=== PATIENT | female | born 1980 | race Two or more races ===

== ENCOUNTER 2020-09-15 13:45 | Outpatient (REF) | payer OTHER, SELFPAY | END 2020-09-15 13:46 | disposition home or self-care (01) | LOC: HO.LAB 13:45 | PROVIDERS: Visit Provider Hospitalist | DX: Z13.89 Encounter for screening for other disorder (principal) ==

== ENCOUNTER 2020-09-18 12:49 | Outpatient (REF) | payer OTHER, SELFPAY ==
[2020-09-18 16:02] LABS: Leukocytes Stool Qualitative NEGATIVE (NEGATIVE)
== END 2020-09-18 12:50 | disposition home or self-care (01) ==
LOC: HO.HMGCLNP 12:49
PROVIDERS: Visit Provider Hospitalist
DX: R19.7 Diarrhea, unspecified (principal)
CPT/HCPCS: 87045; 87046; 87177; 87209; 87329; 89055

== ENCOUNTER 2020-12-05 09:07 | Outpatient (REF) | payer OTHER, SELFPAY ==
--- NOTE | ~2020-12-05 | XR_ITS ---
EXAMINATION: XR SHOULDER, RIGHT CLINICAL INFORMATION: Right shoulder pain. COMPARISON: None TECHNIQUE: AP external rotation, Grashey, scapular Y, and axillary views of the right shoulder. FINDINGS: The bones and soft tissues are normal. No fracture. Glenohumeral and acromioclavicular alignment is anatomic with normal joint space. No abnormal soft tissue calcifications. XR/XR shoulder RT min 2V IMPRESSION: Unremarkable right shoulder.
--- NOTE | ~2020-12-05 | XR_ITS ---
EXAMINATION: XR SHOULDER, LEFT CLINICAL INFORMATION: Left shoulder pain. COMPARISON: None TECHNIQUE: AP external rotation, Grashey, scapular Y, and axillary views of the left shoulder. FINDINGS: The bones and soft tissues are normal. No fracture. Glenohumeral and acromioclavicular alignment is anatomic with normal joint space. No abnormal soft tissue calcifications. XR/XR shoulder LT min 2V IMPRESSION: Unremarkable left shoulder.
[2020-12-05 11:13] LABS: MANUAL DIFF FLAG NO
[2020-12-05 11:21] LABS: Basophils Absolute Auto 0.1 X10*3/uL (0.0-0.2); Basophils Percent Auto 0.9 % (0-2); Eosinophils Absolute Auto 0.2 X10*3/uL (0.0-0.4); Hematocrit 41.5 % (37-47); Hemoglobin 13.8 g/dl (12.0-16.0); Imm Gran Abs Auto 0.04 X10*3/uL (0.00-0.03); Imm Gran Pct Auto 0.5 % (0.0-0.4); Lymphocytes Absolute Auto 1.6 X10*3/uL (1.2-4.9); Lymphocytes Percent Auto 20.5 % (20-40); Mean Corpuscular HGB Conc 33.3 g/dl (31.0-35.0); Mean Corpuscular Hemoglobin 31.2 pg (27.0-33.0); Mean Corpuscular Volume 93.9 fL (80-98); Mean Platelet Volume 10.5 fL (9.4-12.3); Monocytes Absolute Auto 0.4 X10*3/uL (0.1-1.2); Monocytes Percent Auto 5.3 % (2-11); Neutrophils Absolute Auto 5.5 X10*3/uL (2.0-8.3); Neutrophils Percent Auto 69.8 % (45-73); Platelet Count 234 X10*3/uL (160-400); Red Blood Count 4.42 X10*6/uL (4.20-5.50); Red Cell Distribution Width 12.9 % (11.0-16.0); White Blood Count 7.9 X10*3/uL (4.8-10.8)
[2020-12-05 11:47] LABS: Alanine Aminotransferase 22 U/L (0-31); Albumin Level 4.3 g/dL (3.5-5.0); Alkaline Phosphatase 63 U/L (39-117); Anion Gap 14 (12-20); Aspartate Amino Transferase 21 U/L (5-31); Bilirubin Total 0.4 mg/dL (0.0-1.0); Blood Urea Nitrogen 13 mg/dL (9-16); C Reactive Protein 0.34 mg/dL (< or = 0.50); Carbon Dioxide 24 mmol/L (22-29); Chloride 105 mmol/L (96-108); Estimated Glomerular Filt Rate > 60; Glucose Random 87 mg/dL (60-115); Potassium 4.2 mmol/L (3.3-5.1); Rheumatoid Factor < 15.0 IU/mL (<15.0); Sodium 139 mmol/L (135-145); Total Protein 7.1 g/dL (6.5-8.0)
[2020-12-05 12:11] LABS: Erythrocyte Sedimentation Rate 10 MM/HR (0-20)
[2020-12-06 14:11] LABS: Lyme Abs Screen <0.90 index
[2020-12-06 14:57] LABS: Cyclic Citrullinated Peptide <16 UNITS
[2020-12-07 14:27] LABS: Anti Nuclear Antibody Screen NEGATIVE (NEGATIVE)
[2020-12-08 10:41] LABS: Antibody to SS-A Antigen <1.0 NEG AI (<1.0 NEG); Antibody to SS-B Antigen <1.0 NEG AI (<1.0 NEG)
== END 2020-12-05 09:08 | disposition home or self-care (01) ==
LOC: HO.HMGCX 09:07
PROVIDERS: PCP Nurse Practitioner Family; Visit Provider Nurse Practitioner Family
DX: M25.511 Pain in right shoulder (principal); M25.512 Pain in left shoulder; M25.50 Pain in unspecified joint
CPT/HCPCS: 36415; 73030; 80053; 84443; 85025; 85652; 86038; 86039; 86140; 86200; 86235; 86431; 86618

== ENCOUNTER 2021-01-22 12:14 | Outpatient (REF) | payer OTHER, SELFPAY ==
[2021-01-23 22:52] LABS: Immunoglobulin E 7 kU/L (<OR=114)
[2021-01-26 18:47] LABS: Histamine Plasma <1.5 ng/mL (< OR = 1.8)
== END 2021-01-22 12:15 | disposition home or self-care (01) ==
LOC: HO.LAB 12:14
PROVIDERS: PCP Nurse Practitioner Family; Visit Provider Physician Assistant
DX: R19.7 Diarrhea, unspecified (principal); A18.01 Tuberculosis of spine; K21.9 Gastro-esophageal reflux disease without esophagitis
CPT/HCPCS: 36415; 82785; 83088; 83520; 86003; 99212

== ENCOUNTER 2021-02-06 09:10 | Outpatient (REF) | payer OTHER, SELFPAY ==
--- NOTE | ~2021-02-06 | MM_ITS ---
EXAMINATION: MM DIAGNOSTIC DIGITAL BREAST TOMOSYNTHESIS, BILATERAL US DIAGNOSTIC ULTRASOUND BREAST, RIGHT CLINICAL INFORMATION: 41-year-old with recent area of palpable concern junction right upper extremity and upper axilla. No known family history breast cancer. The lifetime risk of breast cancer based on the Tyrer-Cuzick Model is 8%. COMPARISON: Mammography: 01/05/2020, 03/13/2018, 03/03/2018, outside exam 01/11/2011 ([facility]). TECHNIQUE: Digital breast tomosynthesis is performed in both the craniocaudal and mediolateral oblique views along with computer-aided detection (CAD). Synthesized 2D images are generated from the tomosynthesis. Additional exaggerated right CC view is provided. Ultrasound is targeted to the area of clinical concern on the right upper axilla and proximal upper extremity. Grayscale imaging and color Doppler are performed without and with harmonics. Patient is able to point to area of concern at time of imaging. FINDINGS: The breasts are heterogeneously dense, which may obscure small masses (ACR BI-RADS breast composition Category c). There are no significant masses, abnormal calcifications, or other abnormalities. There is no developing density. The skin contours are smooth. No significant changes. Targeted ultrasound right demonstrates no cystic or solid mass, intradermal lesion, or architectural abnormality. No skin thickening or edema tracking in the soft tissue planes. No adenopathy. Results are discussed with the patient at time of visit. If the palpable finding is persistent or enlarging, then further evaluation with surgical consult should be considered. MM/MM tomosynthesis diagnostic BI IMPRESSION: No mammographic evidence of malignancy. Unremarkable targeted right ultrasound. ASSESSMENT: BI-RADS 1: Negative RECOMMENDATION: 1. Patient should be managed based on the clinical impression. If clinically indicated, further evaluation may be considered with surgical consult. Decision to proceed with biopsy should be based on clinical grounds and degree of clinical concern. 2. Otherwise, routine annual screening mammography. This patient's information was entered into a reminder system with a target due date for their next mammogram.
== END 2021-02-06 09:11 | disposition home or self-care (01) ==
LOC: HO.MAMMO 09:10
PROVIDERS: Visit Provider Nurse Practitioner Family
DX: N63.31 Unspecified lump in axillary tail of the right breast (principal)
CPT/HCPCS: 76642; 77062; 77066

== ENCOUNTER 2021-03-13 11:33 | Outpatient (REF) | payer OTHER, SELFPAY ==
[2021-03-13 13:49] LABS: MANUAL DIFF FLAG NO
[2021-03-13 14:17] LABS: Basophils Percent Auto 0.5 % (0-2); Eosinophils Absolute Auto 0.2 X10*3/uL (0.0-0.4); Eosinophils Percent Auto 1.8 % (0-4); Hemoglobin 14.1 g/dl (12.0-16.0); Imm Gran Abs Auto 0.04 X10*3/uL (0.00-0.03); Imm Gran Pct Auto 0.5 % (0.0-0.4); Lymphocytes Absolute Auto 1.8 X10*3/uL (1.2-4.9); Lymphocytes Percent Auto 20.9 % (20-40); Mean Corpuscular HGB Conc 33.6 g/dl (31.0-35.0); Mean Corpuscular Hemoglobin 31.5 pg (27.0-33.0); Mean Platelet Volume 10.1 fL (9.4-12.3); Monocytes Absolute Auto 0.4 X10*3/uL (0.1-1.2); Monocytes Percent Auto 4.9 % (2-11); Neutrophils Absolute Auto 6.3 X10*3/uL (2.0-8.3); Neutrophils Percent Auto 71.4 % (45-73); Platelet Count 265 X10*3/uL (160-400); Red Blood Count 4.47 X10*6/uL (4.20-5.50); Red Cell Distribution Width 12.6 % (11.0-16.0); White Blood Count 8.8 X10*3/uL (4.8-10.8)
[2021-03-13 14:47] LABS: Alanine Aminotransferase 23 U/L (0-31); Albumin Level 4.4 g/dL (3.5-5.0); Alkaline Phosphatase 64 U/L (39-117); Anion Gap 13 (12-20); Aspartate Amino Transferase 19 U/L (5-31); Bilirubin Total 0.7 mg/dL (0.0-1.0); Blood Urea Nitrogen 10 mg/dL (9-16); Calcium 9.4 mg/dL (8.4-10.2); Carbon Dioxide 23 mmol/L (22-29); Chloride 110 mmol/L (96-108); Estimated Glomerular Filt Rate > 60; Glucose Fasting 89 mg/dL (60-99); Potassium 3.7 mmol/L (3.3-5.1); Sodium 142 mmol/L (135-145); Total Protein 7.1 g/dL (6.5-8.0)
[2021-03-13 15:05] LABS: SARS COV2 IgG Negative (Negative)
[2021-03-13 15:09] LABS: TSH reflex Free T4 1.42 uIU/mL (0.32-4.0)
== END 2021-03-13 11:34 | disposition home or self-care (01) ==
LOC: HO.HMGCLDS 11:33
PROVIDERS: PCP Nurse Practitioner Family; Visit Provider Physician Assistant
DX: Z20.822 Contact with and (suspected) exposure to COVID-19 (principal); R19.7 Diarrhea, unspecified
CPT/HCPCS: 36415; 80053; 84443; 85025; 86769

== ENCOUNTER 2021-06-18 11:40 | Outpatient (REF) | payer OTHER, SELFPAY ==
--- NOTE | ~2021-06-18 | XR_ITS ---
EXAMINATION: XR CHEST CLINICAL INFORMATION: Fatigue. COMPARISON: Chest 12/12/2018 TECHNIQUE: 2 views of the chest were obtained. FINDINGS: Both lungs are fairly well-expanded and clear of acute process. The heart size and pulmonary vascularity is normal. No gross bony abnormality seen. XR/XR chest 2V IMPRESSION: Unremarkable chest exam.
[2021-06-18 13:42] LABS: MANUAL DIFF FLAG NO
[2021-06-18 13:52] LABS: Basophils Percent Auto 0.6 % (0-2); Eosinophils Absolute Auto 0.1 X10*3/uL (0.0-0.4); Hematocrit 40.1 % (37-47); Imm Gran Abs Auto 0.02 X10*3/uL (0.00-0.03); Imm Gran Pct Auto 0.3 % (0.0-0.4); Lymphocytes Absolute Auto 1.3 X10*3/uL (1.2-4.9); Lymphocytes Percent Auto 18.6 % (20-40); Mean Corpuscular HGB Conc 32.4 g/dl (31.0-35.0); Mean Corpuscular Hemoglobin 30.7 pg (27.0-33.0); Mean Corpuscular Volume 94.8 fL (80-98); Mean Platelet Volume 10.1 fL (9.4-12.3); Monocytes Absolute Auto 0.4 X10*3/uL (0.1-1.2); Monocytes Percent Auto 5.4 % (2-11); Neutrophils Absolute Auto 5.1 X10*3/uL (2.0-8.3); Neutrophils Percent Auto 73.1 % (45-73); Platelet Count 256 X10*3/uL (160-400); Red Blood Count 4.23 X10*6/uL (4.20-5.50)
[2021-06-18 14:06] LABS: Appearance Urine HAZY; Color Urine YELLOW; Glucose Urine UA NEG (NEG); Leukocyte Esterase Urine NEG (NEG); Nitrite Urine NEG (NEG); Specific Gravity - Urine 1.025 (1.005-1.025); UACC Culture Trigger NO; Urine Blood 3+ (NEG); Urine Ketones NEG (NEG); Urine Protein NEG (NEG-TRACE)
[2021-06-18 14:58] LABS: Alanine Aminotransferase 18 U/L (0-31); Albumin Level 4.2 g/dL (3.5-5.0); Alkaline Phosphatase 60 U/L (39-117); Anion Gap 12 (12-20); Aspartate Amino Transferase 15 U/L (5-31); Bilirubin Total 0.3 mg/dL (0.0-1.0); Blood Urea Nitrogen 10 mg/dL (9-16); Calcium 8.9 mg/dL (8.4-10.2); Carbon Dioxide 25 mmol/L (22-29); Chloride 108 mmol/L (96-108); Estimated Glomerular Filt Rate > 60; Glucose Fasting 89 mg/dL (60-99); Potassium 4.2 mmol/L (3.3-5.1); Sodium 141 mmol/L (135-145); Total Protein 6.9 g/dL (6.5-8.0)
[2021-06-18 15:02] LABS: Bacteria Urine 2+ /LPF; Squamous Epithelial Cell Urine 2+ /LPF; WBC Urine 0 /HPF (0-4)
[2021-06-18 15:13] LABS: SARS COV2 IgG Negative (Negative)
== END 2021-06-18 11:41 | disposition home or self-care (01) ==
LOC: HO.HMGCX 11:40
PROVIDERS: PCP Nurse Practitioner Family; Visit Provider Nurse Practitioner Family
DX: Z20.822 Contact with and (suspected) exposure to COVID-19 (principal); R51.9 Headache, unspecified; R53.83 Other fatigue
CPT/HCPCS: 36415; 71046; 80053; 81001; 81003; 84443; 85025; 86769

== ENCOUNTER 2021-06-27 13:03 | Outpatient (REF) | payer OTHER, SELFPAY ==
--- NOTE | ~2021-06-27 | CT_ITS ---
EXAMINATION: CT HEAD WITHOUT CONTRAST CLINICAL INFORMATION: Headache. COMPARISON: None TECHNIQUE: Contiguous axial imaging was performed from the skull base to vertex without intravenous administration of contrast. This CT examination was performed using dose optimization techniques as appropriate, variously including the following: *Automated exposure control *Adjustment of mA and/or kV according to patient size (this includes techniques or standardized protocols for targeted exams where dose is matched to indication/reason for exam; i.e. extremities or head) *Use of iterative reconstruction technique DLP: 694 mGy-cm FINDINGS: There is no evidence of acute intracranial hemorrhage or territorial infarction. No abnormal mass effect or midline shift is seen. Turner to white matter differentiation is well preserved. No extra-axial fluid collections are identified. The ventricles are normal in size. There is no abnormal attenuation within the brain parenchyma. The osseous structures and soft tissues are normal. The mastoid air cells and visualized portions of the paranasal sinuses are well aerated. CT/CT head/brain wo con IMPRESSION: No acute intracranial process seen.
== END 2021-06-27 13:04 | disposition home or self-care (01) ==
LOC: HO.CT 13:03
PROVIDERS: PCP Nurse Practitioner Family; Visit Provider Nurse Practitioner Family
DX: R51.9 Headache, unspecified (principal)
CPT/HCPCS: 70450

== ENCOUNTER 2021-11-05 09:34 | Outpatient (REF) | payer OTHER, SELFPAY ==
[2021-11-05 11:15] LABS: MANUAL DIFF FLAG NO
[2021-11-05 11:25] LABS: Basophils Absolute Auto 0.1 X10*3/uL (0.0-0.2); Basophils Percent Auto 0.7 % (0-2); Eosinophils Absolute Auto 0.3 X10*3/uL (0.0-0.4); Eosinophils Percent Auto 3.7 % (0-4); Hemoglobin 13.9 g/dl (12.0-16.0); Imm Gran Abs Auto 0.04 X10*3/uL (0.00-0.03); Imm Gran Pct Auto 0.5 % (0.0-0.4); Lymphocytes Absolute Auto 1.9 X10*3/uL (1.2-4.9); Mean Corpuscular HGB Conc 33.1 g/dl (31.0-35.0); Mean Corpuscular Hemoglobin 31.3 pg (27.0-33.0); Mean Corpuscular Volume 94.6 fL (80.0-98.0); Monocytes Absolute Auto 0.4 X10*3/uL (0.1-1.2); Monocytes Percent Auto 5.4 % (2-11); Neutrophils Absolute Auto 4.7 x10*3/uL (2.0-8.3); Neutrophils Percent Auto 63.7 % (45-73); Platelet Count 256 X10*3/uL (160-400); Red Blood Count 4.44 X10*6/uL (4.20-5.50); Red Cell Distribution Width 13.1 % (11.0-16.0); White Blood Count 7.4 X10*3/uL (4.8-10.8)
[2021-11-05 11:44] LABS: Appearance Urine TURBID; Color Urine YELLOW; Glucose Urine UA NEG (NEG); Leukocyte Esterase Urine NEG (NEG); Nitrite Urine NEG (NEG); PH 5.5 (5.0-8.0); Specific Gravity - Urine >= 1.030 (1.005-1.025); UACC Culture Trigger NO; Urine Blood 3+ (NEG); Urine Ketones NEG (NEG); Urine Protein NEG (NEG-TRACE)
[2021-11-05 12:05] LABS: Alanine Aminotransferase 32 U/L (0-31); Albumin Level 4.3 g/dL (3.5-5.0); Alkaline Phosphatase 59 U/L (39-117); Anion Gap 12 (12-20); Aspartate Amino Transferase 24 U/L (5-31); Bilirubin Total 0.4 mg/dL (0.0-1.0); Blood Urea Nitrogen 14 mg/dL (9-16); Calcium 8.9 mg/dL (8.4-10.2); Carbon Dioxide 24 mmol/L (22-29); Chloride 106 mmol/L (96-108); Estimated Glomerular Filt Rate > 60; Glucose Random 99 mg/dL (60-115); Magnesium 2.3 mg/dL (1.6-2.6); Potassium 4.2 mmol/L (3.3-5.1); Sodium 138 mmol/L (135-145); Total Protein 7.3 g/dL (6.5-8.0)
[2021-11-05 12:19] LABS: Amorphous Sediment Urine 4+ /LPF
[2021-11-05 12:20] LABS: RBC Urine 0 /HPF (0); Squamous Epithelial Cell Urine TRACE /LPF; WBC Urine 0 /HPF (0-4)
== END 2021-11-05 09:35 | disposition home or self-care (01) ==
LOC: HO.LAB 09:34
PROVIDERS: Visit Provider Nurse Practitioner Family
DX: I49.8 Other specified cardiac arrhythmias (principal); R51.9 Headache, unspecified; R53.83 Other fatigue
CPT/HCPCS: 36415; 80053; 81001; 83735; 85025

== ENCOUNTER 2021-12-21 16:50 | Outpatient (REF) | payer OTHER, SELFPAY ==
[2021-12-21 17:50] LABS: Anion Gap 12 (12-20); Blood Urea Nitrogen 10 mg/dL (9-16); Calcium 9.3 mg/dL (8.4-10.2); Carbon Dioxide 25 mmol/L (22-29); Chloride 105 mmol/L (96-108); Estimated Glomerular Filt Rate > 60; Glucose Random 84 mg/dL (60-115); Potassium 3.2 mmol/L (3.3-5.1); Sodium 139 mmol/L (135-145)
[2021-12-21 18:48] LABS: Appearance Urine CLEAR; Color Urine YELLOW; Glucose Urine UA NEG (NEG); Leukocyte Esterase Urine NEG (NEG); Nitrite Urine NEG (NEG); Specific Gravity - Urine >= 1.030 (1.005-1.025); Urine Blood NEG (NEG); Urine Ketones 40 MG/DL (NEG); Urine Protein NEG (NEG-TRACE)
[2021-12-21 18:49] LABS: Urine Cytology See Pathology rpt
[2021-12-21 18:54] LABS: RBC Urine 0 /HPF (0); Squamous Epithelial Cell Urine 1+ /LPF; WBC Urine 0 /HPF (0-4)
== END 2021-12-21 16:51 | disposition home or self-care (01) ==
LOC: HO.LAB 16:50
PROVIDERS: Internal Medicine; PCP Nurse Practitioner Family; Visit Provider Nurse Practitioner Family
DX: R31.29 Other microscopic hematuria (principal); E87.6 Hypokalemia
CPT/HCPCS: 36415; 80048; 81001; 87086; 88112

== ENCOUNTER 2021-12-31 13:32 | Outpatient (REF) | payer OTHER, SELFPAY ==
[2021-12-31 13:46] LABS: MANUAL DIFF FLAG NO
[2021-12-31 14:26] LABS: Basophils Absolute Auto 0.1 X10*3/uL (0.0-0.2); Basophils Percent Auto 0.7 % (0-2); Eosinophils Absolute Auto 0.2 X10*3/uL (0.0-0.4); Eosinophils Percent Auto 3.1 % (0-4); Hematocrit 40.2 % (37.0-47.0); Hemoglobin 13.2 g/dl (12.0-16.0); Imm Gran Abs Auto 0.03 X10*3/uL (0.00-0.03); Imm Gran Pct Auto 0.4 % (0.0-0.4); Lymphocytes Absolute Auto 1.5 X10*3/uL (1.2-4.9); Lymphocytes Percent Auto 21.1 % (20-40); Mean Corpuscular HGB Conc 32.8 g/dl (31.0-35.0); Mean Corpuscular Hemoglobin 31.2 pg (27.0-33.0); Mean Platelet Volume 10.1 fL (9.4-12.3); Monocytes Absolute Auto 0.4 X10*3/uL (0.1-1.2); Monocytes Percent Auto 5.3 % (2-11); Neutrophils Absolute Auto 4.9 x10*3/uL (2.0-8.3); Neutrophils Percent Auto 69.4 % (45-73); Platelet Count 228 X10*3/uL (160-400); Red Blood Count 4.23 X10*6/uL (4.20-5.50); Red Cell Distribution Width 13.1 % (11.0-16.0)
[2021-12-31 14:48] LABS: Alanine Aminotransferase 38 U/L (0-31); Alkaline Phosphatase 55 U/L (39-117); Anion Gap 9 (12-20); Aspartate Amino Transferase 26 U/L (5-31); Bilirubin Total 0.5 mg/dL (0.0-1.0); Blood Urea Nitrogen 6 mg/dL (9-16); Carbon Dioxide 25 mmol/L (22-29); Chloride 107 mmol/L (96-108); Cholesterol 172 mg/dL; Estimated Glomerular Filt Rate > 60; Glucose Fasting 91 mg/dL (60-99); HDL Cholesterol 48 mg/dL; LDL Cholesterol Calculated 102 mg/dl; Potassium 4.2 mmol/L (3.3-5.1); Sodium 137 mmol/L (135-145); Total Protein 6.6 g/dL (6.5-8.0); Triglycerides 111 mg/dL
[2021-12-31 15:11] LABS: TSH reflex Free T4 1.34 uIU/mL (0.32-4.0)
[2021-12-31 15:54] LABS: Appearance Urine CLEAR; Color Urine YELLOW; Glucose Urine UA NEG (NEG); Leukocyte Esterase Urine NEG (NEG); Nitrite Urine NEG (NEG); Urine Blood NEG (NEG); Urine Ketones NEG (NEG); Urine Protein NEG (NEG-TRACE)
== END 2021-12-31 13:33 | disposition home or self-care (01) ==
LOC: HO.LAB 13:32
PROVIDERS: PCP Nurse Practitioner Family; Visit Provider Nurse Practitioner Family
DX: R55 Syncope and collapse (principal); I49.8 Other specified cardiac arrhythmias; A18.01 Tuberculosis of spine; R31.29 Other microscopic hematuria
CPT/HCPCS: 36415; 80053; 80061; 81003; 84443; 85025; 87086

== ENCOUNTER 2022-02-05 15:21 | Outpatient (REF) | payer OTHER, SELFPAY ==
--- NOTE | ~2022-02-05 | US_ITS ---
EXAMINATION: US PELVIS TRANSVAGINAL CLINICAL INFORMATION: Enlarged right ovary seen on CT scan from [facility]. COMPARISON: CT scan of 10/20/2019. TECHNIQUE: Transcutaneous and transvaginal pelvic ultrasound. Transvaginal scanning was performed after voiding to better evaluate the endometrium and adnexa. FINDINGS: The uterus measures 9.4 x 4.2 x 4.5 cm. The uterus is anteverted. No suspicious abnormalities region of the cervix. The uterine contour is smooth. The endometrium demonstrates an IUD in normal position. No focal abnormalities within the myometrium. The right ovary measures approximately 4.9 x 2.7 x 2.8 cm. The calculated right ovarian volume is approximately 19.4 mL. Normal vascularity is present. There is a minimally complex cyst present with some septations and no internal blood flow measuring 3.1 x 2.3 x 2.2 cm in size. There are prominent adnexal vessels present. The left ovary measures 2.7 x 1.8 x 2.1 cm. The calculated left ovarian volume is approximately 5.3 mL. No suspicious left adnexal findings. Normal vascular flow. There are prominent adnexal vessels present. No significant free pelvic fluid. US/US pelvic and transvaginal IMPRESSION: Mildly complex right ovarian cyst measuring 3.1 cm in maximum dimension. IUD in position.
[2022-02-05 16:00] LABS: MANUAL DIFF FLAG NO
[2022-02-05 16:22] LABS: Basophils Percent Auto 0.4 % (0-2); Eosinophils Absolute Auto 0.3 X10*3/uL (0.0-0.4); Eosinophils Percent Auto 3.3 % (0-4); Hematocrit 40.9 % (37.0-47.0); Hemoglobin 13.7 g/dl (12.0-16.0); Imm Gran Abs Auto 0.03 X10*3/uL (0.00-0.03); Imm Gran Pct Auto 0.3 % (0.0-0.4); Lymphocytes Absolute Auto 1.7 X10*3/uL (1.2-4.9); Lymphocytes Percent Auto 19.5 % (20-40); Mean Corpuscular HGB Conc 33.5 g/dl (31.0-35.0); Mean Corpuscular Hemoglobin 31.7 pg (27.0-33.0); Mean Corpuscular Volume 94.7 fL (80.0-98.0); Monocytes Absolute Auto 0.6 X10*3/uL (0.1-1.2); Monocytes Percent Auto 6.2 % (2-11); Neutrophils Absolute Auto 6.3 x10*3/uL (2.0-8.3); Neutrophils Percent Auto 70.3 % (45-73); Platelet Count 231 X10*3/uL (160-400); Red Blood Count 4.32 X10*6/uL (4.20-5.50); Red Cell Distribution Width 12.8 % (11.0-16.0); White Blood Count 8.9 X10*3/uL (4.8-10.8)
[2022-02-05 16:40] LABS: Alanine Aminotransferase 19 U/L (0-31); Albumin Level 4.2 g/dL (3.5-5.0); Alkaline Phosphatase 69 U/L (39-117); Anion Gap 10 (12-20); Aspartate Amino Transferase 16 U/L (5-31); Bilirubin Total 0.3 mg/dL (0.0-1.0); Blood Urea Nitrogen 12 mg/dL (9-16); Calcium 9.2 mg/dL (8.4-10.2); Carbon Dioxide 24 mmol/L (22-29); Chloride 108 mmol/L (96-108); Estimated Glomerular Filt Rate > 60; Glucose Random 93 mg/dL (60-115); Potassium 4.2 mmol/L (3.3-5.1); Sodium 138 mmol/L (135-145); Total Protein 7.2 g/dL (6.5-8.0)
[2022-02-05 17:02] LABS: Appearance Urine HAZY; Color Urine YELLOW; Glucose Urine UA NEG (NEG); Leukocyte Esterase Urine NEG (NEG); Nitrite Urine NEG (NEG); Specific Gravity - Urine >= 1.030 (1.005-1.025); Urine Blood NEG (NEG); Urine Ketones NEG (NEG); Urine Protein NEG (NEG-TRACE)
== END 2022-02-05 15:22 | disposition home or self-care (01) ==
LOC: HO.US 15:21
PROVIDERS: PCP Nurse Practitioner Family; Visit Provider Nurse Practitioner Family
DX: R10.2 Pelvic and perineal pain (principal); N83.8 Other noninflammatory disorders of ovary, fallopian tube and broad ligament
CPT/HCPCS: 36415; 76830; 76856; 80053; 81003; 85025

== ENCOUNTER 2022-03-05 14:38 | Outpatient (REF) | payer OTHER, SELFPAY ==
--- NOTE | ~2022-03-05 | MM_ITS ---
EXAMINATION: MM SCREENING DIGITAL BREAST TOMOSYNTHESIS, BILATERAL CLINICAL INFORMATION: Screening. Asymptomatic. The lifetime risk of breast cancer based on the Tyrer-Cuzick Model is 7.8%. COMPARISON: Mammography: February 06, 2021 and studies dating back to January 11, 2011 TECHNIQUE: Digital breast tomosynthesis is performed in both the craniocaudal and mediolateral oblique views along with computer-aided detection (CAD). Synthesized 2D images are generated from the tomosynthesis. FINDINGS: The breasts are extremely dense, which lowers the sensitivity of mammography (ACR BI-RADS breast composition Category d). There are no significant masses, abnormal calcifications, or other abnormalities. MM/MM tomosynthesis screening BI IMPRESSION: There are no significant changes from prior study. ASSESSMENT: BI-RADS 1: Negative RECOMMENDATION: Routine annual mammography screening. This patient's information was entered into a reminder system with a target due date for their next mammogram.
== END 2022-03-05 14:39 | disposition home or self-care (01) ==
LOC: HO.MAMMO 14:38
PROVIDERS: Visit Provider Nurse Practitioner Family
DX: Z12.31 Encounter for screening mammogram for malignant neoplasm of breast (principal)
CPT/HCPCS: 77063; 77067

== ENCOUNTER 2022-04-29 14:27 | Outpatient (REF) | payer OTHER, SELFPAY ==
--- NOTE | ~2022-04-29 | XR_ITS ---
EXAMINATION: XR LUMBOSACRAL SPINE CLINICAL INFORMATION: Low back pain. COMPARISON: None TECHNIQUE: Three views of the lumbosacral spine. FINDINGS: There is abnormal segmentation of lumbar vertebrae with 6 lumbar vertebrae the first L1 vertebra has small ribs and is designated as T12 for numbering purposes. There is maintained lumbar lordosis. The vertebral heights and alignment is normal. The disc heights are maintained normal. No acute fracture or lytic process seen. There is no listhesis. The SI joints are symmetrical and normal. The paravertebral soft tissues are normal. There is an IUD in the pelvis and previous cholecystectomy changes noted. XR/XR lumbar spine 2-3V IMPRESSION: Unremarkable lumbar spine exam.
== END 2022-04-29 14:28 | disposition home or self-care (01) ==
LOC: HO.HMGCX 14:27
PROVIDERS: PCP Nurse Practitioner Family; Visit Provider Nurse Practitioner Family
DX: M54.50 Low back pain, unspecified (principal)
CPT/HCPCS: 72100

== ENCOUNTER 2022-09-16 13:14 | Outpatient (REF) | payer OTHER, SELFPAY ==
[2022-09-16 13:38] LABS: MANUAL DIFF FLAG NO
[2022-09-16 14:20] LABS: Appearance Urine Clear; Color Urine Yellow; Glucose Urine UA Negative (Negative); Leukocyte Esterase Urine Small (1+) (Negative); Nitrite Urine Negative (Negative); PH 5.5 (5.0-9.0); Specific Gravity - Urine 1.025 (1.005-1.025); UMIC TRIGGER UACC YES; Urine Blood Negative (Negative); Urine Ketones Negative (Negative); Urine Protein Negative (Neg-Trace)
[2022-09-16 14:20] LABS: Basophils Absolute Auto 0.1 X10*3/uL (0.0-0.2); Basophils Percent Auto 0.6 % (0-2); Eosinophils Absolute Auto 0.2 X10*3/uL (0.0-0.4); Eosinophils Percent Auto 2.3 % (0-4); Hematocrit 39.6 % (37.0-47.0); Hemoglobin 13.4 g/dl (12.0-16.0); Imm Gran Abs Auto 0.04 X10*3/uL (0.00-0.03); Imm Gran Pct Auto 0.5 % (0.0-0.4); Lymphocytes Absolute Auto 1.6 X10*3/uL (1.2-4.9); Lymphocytes Percent Auto 19.2 % (20-40); Mean Corpuscular HGB Conc 33.8 g/dl (31.0-35.0); Mean Corpuscular Hemoglobin 31.8 pg (27.0-33.0); Mean Corpuscular Volume 93.8 fL (80.0-98.0); Mean Platelet Volume 10.6 fL (9.4-12.3); Monocytes Absolute Auto 0.4 X10*3/uL (0.1-1.2); Monocytes Percent Auto 5.1 % (2-11); Neutrophils Absolute Auto 6.2 x10*3/uL (2.0-8.3); Neutrophils Percent Auto 72.3 % (45-73); Platelet Count 211 X10*3/uL (160-400); Red Blood Count 4.22 X10*6/uL (4.20-5.50); Red Cell Distribution Width 12.9 % (11.0-16.0); White Blood Count 8.6 X10*3/uL (4.8-10.8)
[2022-09-16 14:26] LABS: Bacteria Urine None Seen (None Seen); Hyaline Casts Urine 0-2 /LPF (0-2); RBC Urine 0-2 /HPF (0-2); UACC Culture Trigger YES
[2022-09-16 14:59] LABS: Alanine Aminotransferase 36 U/L (0-31); Albumin Level 4.1 g/dL (3.5-5.0); Alkaline Phosphatase 59 U/L (39-117); Anion Gap 10 (12-20); Aspartate Amino Transferase 18 U/L (5-31); Bilirubin Total 0.3 mg/dL (0.0-1.0); Blood Urea Nitrogen 13 mg/dL (9-16); C Reactive Protein 0.55 mg/dL (< or = 0.50); Calcium 8.9 mg/dL (8.4-10.2); Carbon Dioxide 24 mmol/L (22-29); Chloride 110 mmol/L (96-108); Estimated Glomerular Filt Rate > 60; Ferritin 57 ng/mL (10-250); Glucose Random 92 mg/dL (60-115); Sodium 140 mmol/L (135-145); Total Protein 6.6 g/dL (6.5-8.0)
[2022-09-16 15:09] LABS: Folate 8.2 ng/mL (> or = 4.0); Vitamin B12 359 pg/mL (200-900)
[2022-09-16 15:13] LABS: Erythrocyte Sedimentation Rate 16 MM/HR (0-20)
== END 2022-09-16 13:15 | disposition home or self-care (01) ==
LOC: HO.LAB 13:14
PROVIDERS: PCP Nurse Practitioner Family; Visit Provider Internal Medicine Gastroenterology
DX: A18.01 Tuberculosis of spine (principal); I49.8 Other specified cardiac arrhythmias; M54.50 Low back pain, unspecified; R19.7 Diarrhea, unspecified; K75.81 Nonalcoholic steatohepatitis (NASH)
CPT/HCPCS: 36415; 80053; 81001; 82607; 82728; 82746; 85025; 85652; 86140; 87086

== ENCOUNTER → 2022-10-01 13:47 | Outpatient (BNVA) | payer OTHER, SELFPAY | PROVIDERS: PCP Nurse Practitioner Family; Visit Provider Nurse Practitioner Family | DX: N20.0 Calculus of kidney (principal); R10.9 Unspecified abdominal pain | CPT/HCPCS: 99202 ==

== ENCOUNTER 2022-10-03 13:29 | Outpatient (REF) | payer OTHER, SELFPAY ==
[2022-10-03 13:52] LABS: MANUAL DIFF FLAG NO
[2022-10-03 14:29] LABS: Basophils Absolute Auto 0.1 X10*3/uL (0.0-0.2); Basophils Percent Auto 1.1 % (0-2); Eosinophils Absolute Auto 0.2 X10*3/uL (0.0-0.4); Eosinophils Percent Auto 2.8 % (0-4); Hematocrit 41.5 % (37.0-47.0); Hemoglobin 14.1 g/dl (12.0-16.0); Imm Gran Abs Auto 0.03 X10*3/uL (0.00-0.03); Imm Gran Pct Auto 0.4 % (0.0-0.4); Mean Corpuscular Hemoglobin 31.5 pg (27.0-33.0); Mean Corpuscular Volume 92.8 fL (80.0-98.0); Monocytes Absolute Auto 0.5 X10*3/uL (0.1-1.2); Monocytes Percent Auto 5.8 % (2-11); Neutrophils Absolute Auto 5.3 x10*3/uL (2.0-8.3); Neutrophils Percent Auto 65.9 % (45-73); Platelet Count 265 X10*3/uL (160-400); Red Blood Count 4.47 X10*6/uL (4.20-5.50); Red Cell Distribution Width 12.7 % (11.0-16.0); White Blood Count 8.1 X10*3/uL (4.8-10.8)
[2022-10-03 14:29] LABS: Appearance Urine Cloudy; Color Urine Yellow; Glucose Urine UA Negative (Negative); Leukocyte Esterase Urine Negative (Negative); Nitrite Urine Negative (Negative); Specific Gravity - Urine 1.025 (1.005-1.025); UMIC TRIGGER UACC YES; Urine Blood Trace (Negative); Urine Ketones Negative (Negative); Urine Protein Trace mg/dL (Neg-Trace)
[2022-10-03 14:35] LABS: Bacteria Urine Trace (None Seen); RBC Urine 0-2 /HPF (0-2); Squamous Epithelial Cell Urine >20 /HPF (0-2); UACC Culture Trigger YES
[2022-10-03 15:18] LABS: Alanine Aminotransferase 17 U/L (0-31); Albumin Level 4.5 g/dL (3.5-5.0); Alkaline Phosphatase 64 U/L (39-117); Anion Gap 12 (12-20); Aspartate Amino Transferase 14 U/L (5-31); Bilirubin Total 0.5 mg/dL (0.0-1.0); Blood Urea Nitrogen 8 mg/dL (9-16); Calcium 9.3 mg/dL (8.4-10.2); Carbon Dioxide 25 mmol/L (22-29); Chloride 109 mmol/L (96-108); Cholesterol 186 mg/dL; Estimated Glomerular Filt Rate > 60; Glucose Fasting 80 mg/dL (60-99); HDL Cholesterol 53 mg/dL; Iron 77 mcg/dL (30-160); LDL Cholesterol Calculated 113 mg/dl; Percent Iron Saturation 24 % (15-50); Sodium 142 mmol/L (135-145); Total Iron Binding Capacity 323 mcg/dL (228-428); Total Protein 7.3 g/dL (6.5-8.0); Triglycerides 102 mg/dL; Unsaturated Iron Binding 246 ug/dL
[2022-10-03 15:27] LABS: Ferritin 46 ng/mL (10-250)
[2022-10-03 15:43] LABS: Folate 9.3 ng/mL (> or = 4.0); Vitamin B12 394 pg/mL (200-900)
[2022-10-05 06:04] LABS: Antibody to SS-A Antigen <1.0 NEG AI (<1.0 NEG); Antibody to SS-B Antigen <1.0 NEG AI (<1.0 NEG)
[2022-10-06 01:23] LABS: A. Phagocytphilium DNA,RT-PCR NOT DETECTED (NOT DETECTED); Babesia Microti DNA, RT-PCR NOT DETECTED (NOT DETECTED); Borrelia Miyamotoi,DNA RT-PCR NOT DETECTED (NOT DETECTED); E.Chaffeensis DNA RT-PCR NOT DETECTED (NOT DETECTED); Lyme(Borrelia ssp)DNA RT-PCR NOT DETECTED (NOT DETECTED)
[2022-10-07 08:09] LABS: Anti Nuclear Antibody Screen NEGATIVE (NEGATIVE)
[2022-10-08 15:29] LABS: DNAds, Crithidia Antibody Negative (Negative)
== END 2022-10-03 13:30 | disposition home or self-care (01) ==
LOC: HO.LAB 13:29
PROVIDERS: PCP Nurse Practitioner Family; Visit Provider Nurse Practitioner Family
DX: I49.8 Other specified cardiac arrhythmias (principal); R53.83 Other fatigue
CPT/HCPCS: 36415; 80053; 80061; 81001; 82607; 82728; 82746; 83540; 84443; 85025; 86038; 86039; 86235; 86255; 87086; 87798; 87801

== ENCOUNTER → 2022-10-11 11:32 | Outpatient (BNVA) | payer OTHER, SELFPAY | PROVIDERS: PCP Nurse Practitioner Family; Visit Provider Internal Medicine Gastroenterology | DX: K52.9 Noninfective gastroenteritis and colitis, unspecified (principal) | CPT/HCPCS: 99212 ==

== ENCOUNTER 2022-12-11 09:39 | Outpatient (REF) | payer OTHER, SELFPAY ==
--- NOTE | ~2022-12-11 | US_ITS ---
EXAMINATION: US RETROPERITONEAL LIMITED (RENAL ONLY) CLINICAL INFORMATION: Bilateral flank pain. COMPARISON: CT abdomen and pelvis without contrast 10/20/2019. TECHNIQUE: Real-time imaging of the kidneys. FINDINGS: RIGHT KIDNEY: 10.1 x 4.9 x 5.7 cm (SAG x AP x TRV). The kidney is normal in size, contour, and echogenicity. Renal cortical thickness is normal. No renal calculi or hydronephrosis. There is a simple cyst in the lateral midpole measuring 1.1 cm and an additional cyst with a small associated calcification in the upper pole measuring 0.9 cm. LEFT KIDNEY: 11.0 x 4.9 x 4.3 cm (SAG x AP x TRV). The kidney is normal in size, contour, and echogenicity. Renal cortical thickness is normal. No renal calculi or hydronephrosis. There is a simple cyst in the lateral upper pole measuring 1 cm. US/US retroperitoneal limited IMPRESSION: 1. No hydronephrosis or nephrolithiasis. 2. Cyst in the upper right kidney with an associated calcification, Bosniak 2F. Recommend a follow-up ultrasound in 6-12 months. Other cysts are simple, Bosniak 1 requiring no additional follow-up.
== END 2022-12-11 09:40 | disposition home or self-care (01) ==
LOC: HO.US 09:39
PROVIDERS: PCP Nurse Practitioner Family; Visit Provider Nurse Practitioner Family
DX: R10.9 Unspecified abdominal pain (principal); N20.0 Calculus of kidney
CPT/HCPCS: 76775

== ENCOUNTER 2023-05-06 13:06 | Outpatient (REF) | payer OTHER, SELFPAY ==
[2023-05-06 13:28] LABS: MANUAL DIFF FLAG NO
[2023-05-06 14:08] LABS: Basophils Percent Auto 0.4 % (0-2); Eosinophils Absolute Auto 0.3 X10*3/uL (0.0-0.4); Eosinophils Percent Auto 3.2 % (0-4); Hematocrit 39.4 % (37.0-47.0); Hemoglobin 13.6 g/dl (12.0-16.0); Imm Gran Abs Auto 0.04 X10*3/uL (0.00-0.03); Imm Gran Pct Auto 0.5 % (0.0-0.4); Lymphocytes Absolute Auto 1.7 X10*3/uL (1.2-4.9); Lymphocytes Percent Auto 20.6 % (20-40); Mean Corpuscular HGB Conc 34.5 g/dl (31.0-35.0); Mean Corpuscular Hemoglobin 32.6 pg (27.0-33.0); Mean Corpuscular Volume 94.5 fL (80.0-98.0); Mean Platelet Volume 9.6 fL (9.4-12.3); Monocytes Absolute Auto 0.4 X10*3/uL (0.1-1.2); Monocytes Percent Auto 4.8 % (2-11); Neutrophils Absolute Auto 5.8 x10*3/uL (2.0-8.3); Neutrophils Percent Auto 70.5 % (45-73); Platelet Count 230 X10*3/uL (160-400); Red Blood Count 4.17 X10*6/uL (4.20-5.50); Red Cell Distribution Width 12.6 % (11.0-16.0); White Blood Count 8.2 X10*3/uL (4.8-10.8)
[2023-05-06 14:48] LABS: Erythrocyte Sedimentation Rate 7 MM/HR (0-20)
[2023-05-06 17:00] LABS: Vitamin B12 308 pg/mL (200-900)
[2023-05-06 20:16] LABS: Alanine Aminotransferase 21 U/L (0-31); Alkaline Phosphatase 53 U/L (39-117); Anion Gap 15 (12-20); Aspartate Amino Transferase 18 U/L (5-31); Bilirubin Total 0.4 mg/dL (0.0-1.0); Blood Urea Nitrogen 10 mg/dL (9-16); C Reactive Protein 0.44 mg/dL (< or = 0.50); Calcium 8.7 mg/dL (8.4-10.2); Carbon Dioxide 19 mmol/L (22-29); Chloride 111 mmol/L (96-108); Estimated Glomerular Filt Rate > 60; Glucose Random 104 mg/dL (60-115); Iron 62 mcg/dL (30-160); Potassium 3.7 mmol/L (3.3-5.1); Sodium 141 mmol/L (135-145); Total Protein 6.9 g/dL (6.5-8.0)
[2023-05-06 20:30] LABS: Ferritin 56 ng/mL (10-250); TSH reflex Free T4 1.62 uIU/mL (0.32-4.0)
[2023-05-06 22:08] LABS: Percent Iron Saturation 20 % (15-50); Total Iron Binding Capacity 312 mcg/dL (228-428); Unsaturated Iron Binding 250 ug/dL
[2023-05-08 15:03] LABS: A. Phagocytphilium DNA,RT-PCR NOT DETECTED (NOT DETECTED); Babesia Microti DNA, RT-PCR NOT DETECTED (NOT DETECTED); Borrelia Miyamotoi,DNA RT-PCR NOT DETECTED (NOT DETECTED); E.Chaffeensis DNA RT-PCR NOT DETECTED (NOT DETECTED); Lyme(Borrelia ssp)DNA RT-PCR NOT DETECTED (NOT DETECTED)
[2023-05-08 15:08] LABS: Antibody to SS-A Antigen <1.0 NEG AI (<1.0 NEG); Antibody to SS-B Antigen <1.0 NEG AI (<1.0 NEG)
== END 2023-05-06 13:07 | disposition home or self-care (01) ==
LOC: HO.LAB 13:06
PROVIDERS: PCP Nurse Practitioner Family; Visit Provider Nurse Practitioner Family
DX: R51.9 Headache, unspecified (principal); R53.83 Other fatigue
CPT/HCPCS: 36415; 80053; 82607; 82728; 82746; 83540; 84443; 85025; 85652; 86140; 86235; 87798; 87801

== ENCOUNTER 2023-05-16 10:41 | Outpatient (REF) | payer OTHER, SELFPAY ==
--- NOTE | ~2023-05-16 | CT_ITS ---
EXAMINATION: CT HEAD WITHOUT CONTRAST CLINICAL INFORMATION: Headaches. COMPARISON: Head CT dated 06/27/2021. TECHNIQUE: Contiguous axial imaging was performed from the skullbase to vertex without intravenous administration of contrast. This CT examination was performed using dose optimization techniques as appropriate, variously including the following: *Automated exposure control *Adjustment of mA and/or kV according to patient size (this includes techniques or standardized protocols for targeted exams where dose is matched to indication/reason for exam; i.e. extremities or head) *Use of iterative reconstruction technique DLP: 710 mGy-cm. FINDINGS: There is no evidence of acute intracranial hemorrhage or territorial infarction. No abnormal mass effect or midline shift is seen. Turner to white matter differentiation is well preserved. No extra-axial fluid collections are identified. The ventricles are normal in size. There is no abnormal attenuation within the brain parenchyma. The osseous structures and soft tissues are normal. The mastoid air cells and visualized portions of the paranasal sinuses are well aerated. CT/CT head/brain wo IV con IMPRESSION: No acute intracranial pathology. Normal CT scan of the head.
== END 2023-05-16 10:42 | disposition home or self-care (01) ==
LOC: HO.CT 10:41
PROVIDERS: PCP Nurse Practitioner Family; Visit Provider Nurse Practitioner Family
DX: R51.9 Headache, unspecified (principal)
CPT/HCPCS: 70450

== ENCOUNTER 2023-07-01 10:27 | Outpatient (AMB) | payer OTHER, SELFPAY ==
--- NOTE | 2023-07-01 10:26 | MHC.PC.OV ---
Intake Visit Reasons: follow up Allergies doxycycline [DOXYCYCLINE] Allergy (Severe, Verified 07/01/23 10:28) RASH, GI Upset levofloxacin [From LEVAQUIN] Allergy (Severe, Verified 07/01/23 10:28) RASH metronidazole [From FLAGYL] Allergy (Severe, Verified 07/01/23 10:28) ANAPHYLAXIS morphine [MORPHINE] Allergy (Severe, Verified 07/01/23 10:28) ANAPHYLAXIS, cant breathe, SOB Sulfa (Sulfonamide Antibiotics) [SULFA (SULFONAMIDE ANTIBIOTICS)] Allergy (Severe, Verified 07/01/23 10:28) STOP BREATHING, rash/cant breathe adhesive [ADHESIVE] Allergy (Intermediate, Verified 07/01/23 10:28) RASH clindamycin [CLINDAMYCIN] Allergy (Intermediate, Verified 07/01/23 10:28) RASH Iodinated Contrast Media [IV CONTRAST] Allergy (Intermediate, Verified 07/01/23 10:28) ANAPHALAXIS latex [LATEX] Allergy (Intermediate, Verified 07/01/23 10:28) RASH ciprofloxacin [Cipro] Allergy (Unknown, Verified 07/01/23 10:28) unknown fludrocortisone Allergy (Unknown, Verified 07/01/23 10:28) Unknown hydromorphone [Dilaudid] Allergy (Unknown, Verified 07/01/23 10:28) Unknown ALL CONTRAST DYE Allergy (Unknown, Uncoded 07/01/23 10:28) Unknown Cortisone Allergy (Unknown, Uncoded 07/01/23 10:28) unknown IVP Dye Allergy (Unknown, Uncoded 07/01/23 10:28) Unknown Midodrine HCl Allergy (Unknown, Uncoded 07/01/23 10:28) Unknown Medication List - Last Reconciled 07/01/23 by JONATHAN Webber- cephalexin 500 mg PO QID 10 days ipratropium bromide 17 mcg/actuation (Atrovent HFA) inhalation levalbuterol tartrate 45 mcg/actuation 2 puffs inhalation Q4-6H lidocaine 5% 1 patch topical DAILY 30 days naproxen 500 mg PO BID PRN 30 days [Normal Saline 0.9% 2 L continuous IV infusion 3XW 52 weeks] Tobacco use date assessed: 07/01/23 Dental Screening Dental Screen Date: 07/01/23 Did you have a dental visit in the last 12 months?: Yes Did you have a dental problem in the last 6 months where you did not have access to dental care?: No Was dental information given to patient?: Patient has dentist HPI follow up HPI Details Pt reports a dental infection. She reports that her face is swollen because of this. She is currently bedbound due to tachycardia and is unable to go to the dentist. Will send cephalexin as this has worked for her in the past. Denies fever, chills, and N/V/D. Pt does have possible mass cell disorder. She will be seeing a POTS doctor soon as well. a MD from [place] ? a mast cell disorder (flushing, diaphoresis, diarrhea), pt will be following up with a MD for this in the near future. [facility] Medical History Acid reflux Arachnoid cyst Arthritis Asthma Autoimmune disorder Bulging disc Colitis Crohn disease POTS (postural orthostatic tachycardia syndrome) Huynh disease Recent urinary tract infection Spinal stenosis SVT (supraventricular tachycardia) Surgical History History of kidney surgery History of liver biopsy Hx of cholecystectomy Family History Father High cholesterol HTN (hypertension) Tumors Mental health disorder Mother COPD (chronic obstructive pulmonary disease) Colitis Sister Colitis Substance use disorder Mental health disorder Sister Cervical cancer Social History Household Members: Family and Children Housing: House Alcohol intake: never Patient Tobacco Use Status: Former Tobacco user Years Smoked: quit 20b years ago e-Cigarette/Vaping Use: Never Used Second Hand Smoke Exposure: No service: No Current occupational status: employed 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 Chucho Elmore, Elsa Christensen, Guzman Reyes and colleagues, with an educational jose guadalupe from [employer]. Review of Systems Const Reports as per HPI Physical exam (Primary Care) Tobacco/Smoking Status: Tobacco use Status Tobacco use date assessed 07/01/23 07/01/23 10:31 Patient Tobacco Use Status Former Tobacco user 07/01/23 10:26 e-Cigarette/Vaping Use Never Used 07/01/23 10:26 Thrive Assessment: Date of Thrive Assessment Date Thrive assessed 02/04/22 07/01/23 10:26 Const General: cooperative Orientation/consciousness: patient oriented x3 Neuro General: patient oriented x3 Psych Mental Status: mental status grossly normal Speech and movement: Clear speech present Affect: normal affect Attitude: cooperative Thought process: Normal thought process present Thought content: Normal thought content present Insight: Good insight present (Psych) Judgement: Good judgement present (Psych) Telehealth Telehealth Location of provider rendering services: practice address Location of patient: address on file Patient Identification confirmed using: Name, : Yes Telehealth method: voice only Patient verbally consented to treatment: Yes Patient verbally consented to billing insurance company: Yes Patient informed of any privacy concerns related to visit: Yes Minutes spent on Phone/Video with Pt.: 10 Assessment and Plan Assessment & Plan (1) POTS (postural orthostatic tachycardia syndrome): Code(s): I49.8 - Other specified cardiac arrhythmias (2) Dental infection: Code(s): K04.7 - Periapical abscess without sinus (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 Scribed for LEIGHANN Love by nasreen Edwards scribe, on 07/01/2023 at 11:15 EST Medications: New cephalexin 500 mg PO QID 40 tabs 0RF 10 days Coding Level of Care Code Tele Est Pt Level 3 (15472) Diagnoses POTS (postural orthostatic tachycardia syndrome) I49.8 Dental infection K04.7 Mast cell disorder D47.09
== END 2023-07-01 14:53 | disposition home or self-care (01) ==
LOC: HO.HMGC 10:27
PROVIDERS: PCP Nurse Practitioner Family; Visit Provider Nurse Practitioner Family
DX: I49.8 Other specified cardiac arrhythmias (principal); K04.7 Periapical abscess without sinus; D47.09 Other mast cell neoplasms of uncertain behavior
CPT/HCPCS: 99213

== ENCOUNTER → 2023-09-16 15:28 | Outpatient (BNVA) | payer OTHER, SELFPAY | PROVIDERS: PCP Nurse Practitioner Family; Visit Provider Physician Assistant ==

== ENCOUNTER 2023-10-06 07:07 | Outpatient (AMB) | payer OTHER, SELFPAY ==
--- NOTE | 2023-10-06 07:13 | MHC.PC.OV ---
Intake Visit Reasons: pre dm diet concerns Allergies doxycycline [DOXYCYCLINE] Allergy (Severe, Verified 09/16/23 15:33) RASH, GI Upset levofloxacin [From LEVAQUIN] Allergy (Severe, Verified 09/16/23 15:33) RASH metronidazole [From FLAGYL] Allergy (Severe, Verified 09/16/23 15:33) ANAPHYLAXIS morphine [MORPHINE] Allergy (Severe, Verified 09/16/23 15:33) ANAPHYLAXIS, cant breathe, SOB Sulfa (Sulfonamide Antibiotics) [SULFA (SULFONAMIDE ANTIBIOTICS)] Allergy (Severe, Verified 09/16/23 15:33) STOP BREATHING, rash/cant breathe adhesive [ADHESIVE] Allergy (Intermediate, Verified 09/16/23 15:33) RASH clindamycin [CLINDAMYCIN] Allergy (Intermediate, Verified 09/16/23 15:33) RASH Iodinated Contrast Media [IV CONTRAST] Allergy (Intermediate, Verified 09/16/23 15:33) ANAPHALAXIS latex [LATEX] Allergy (Intermediate, Verified 09/16/23 15:33) RASH ciprofloxacin [Cipro] Allergy (Unknown, Verified 09/16/23 15:33) unknown fludrocortisone Allergy (Unknown, Verified 09/16/23 15:33) Unknown hydromorphone [Dilaudid] Allergy (Unknown, Verified 09/16/23 15:33) Unknown ALL CONTRAST DYE Allergy (Unknown, Uncoded 09/16/23 15:33) Unknown Cortisone Allergy (Unknown, Uncoded 09/16/23 15:33) unknown IVP Dye Allergy (Unknown, Uncoded 09/16/23 15:33) Unknown Midodrine HCl Allergy (Unknown, Uncoded 09/16/23 15:33) Unknown Medication List - Last Reconciled 10/06/23 by BRITTNY WebberP- ipratropium bromide 17 mcg/actuation (Atrovent HFA) inhalation levalbuterol tartrate 45 mcg/actuation 2 puffs inhalation Q4-6H lidocaine 5% 1 patch topical DAILY 30 days naproxen 500 mg PO BID PRN 30 days [Normal Saline 0.9% 2 L continuous IV infusion 3XW 52 weeks] Tobacco use date assessed: 07/01/23 HPI pre dm diet concerns HPI Details covid: diagnosed 4 days ago. 4th time. pt is getting better. pre-diabetes: back on weight watchers. Pt c/o epigastric pain. She reports that this is worse after eating. Will order labs and CT scan ordered. Denies fever, chills, and N/V/D, pt is tolerating food and liquids. [facility] Medical History Acid reflux Arachnoid cyst Arthritis Asthma Autoimmune disorder Bulging disc Colitis Crohn disease POTS (postural orthostatic tachycardia syndrome) Huynh disease Recent urinary tract infection Spinal stenosis SVT (supraventricular tachycardia) Surgical History History of kidney surgery History of liver biopsy Hx of cholecystectomy Family History Father High cholesterol HTN (hypertension) Tumors Mental health disorder Mother COPD (chronic obstructive pulmonary disease) Colitis Sister Colitis Substance use disorder Mental health disorder Sister Cervical cancer Social History Household Members: Family and Children Housing: House Alcohol intake: never Patient Tobacco Use Status: Former Tobacco user Years Smoked: quit 20b years ago e-Cigarette/Vaping Use: Never Used Second Hand Smoke Exposure: No service: No Current occupational status: employed 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 Chucho Elmore, Elsa Christensen, Guzman Reyes and colleagues, with an educational jose guadalupe from [employer]. Review of Systems Const Reports as per HPI Physical exam (Primary Care) Tobacco/Smoking Status: Tobacco use Status Tobacco use date assessed 07/01/23 10/06/23 07:13 Patient Tobacco Use Status Former Tobacco user 10/06/23 07:13 e-Cigarette/Vaping Use Never Used 10/06/23 07:13 Thrive Assessment: Date of Thrive Assessment Date Thrive assessed 02/04/22 10/06/23 07:13 Const General: cooperative Orientation/consciousness: patient oriented x3 Neuro General: patient oriented x3 Psych Appearance: grossly normal Mental Status: mental status grossly normal Speech and movement: Clear speech present Affect: normal affect Attitude: cooperative Thought process: Normal thought process present Thought content: Normal thought content present Insight: Good insight present (Psych) Judgement: Good judgement present (Psych) Telehealth Telehealth Location of provider rendering services: practice address Location of patient: address on file Patient Identification confirmed using: Name, : Yes Telehealth method: video Patient verbally consented to treatment: Yes Patient verbally consented to billing insurance company: Yes Patient informed of any privacy concerns related to visit: Yes Minutes spent on Phone/Video with Pt.: 10 Assessment and Plan Assessment & Plan (1) Epigastric discomfort: Code(s): R10.13 - Epigastric pain Plan: Labs and CT ordered (2) COVID-19 virus infection: Code(s): U07.1 - COVID-19 Plan: treating symptoms with OTC remedies (3) Elevated fasting blood sugar: Code(s): R73.01 - Impaired fasting glucose Plan: watching diet Plan The patient agreed to the use of a medical records auditor for this encounter. Scribed for JONATHAN Love-LUKE by Xiomy Leiva medical records auditor, on 10/06/2023 at 07:10 EST. Orders: Orders Complete Blood Count Auto Diff Today R10.13 - Epigastric pain Comprehensive Met. Panel Today R10.13 - Epigastric pain TSH reflex Free T4 Today R10.13 - Epigastric pain Lipase Today R10.13 - Epigastric pain CT abdomen wo IV con Today R10.13 - Epigastric pain Coding Level of Care Code Tele Est Pt Level 3 (60390) Diagnoses Epigastric discomfort R10.13 COVID-19 virus infection U07.1 Elevated fasting blood sugar R73.01
== END 2023-10-06 08:03 | disposition home or self-care (01) ==
LOC: HO.HMGC 07:07
PROVIDERS: PCP Nurse Practitioner Family; Visit Provider Nurse Practitioner Family
DX: R10.13 Epigastric pain (principal); U07.1 COVID-19; R73.01 Impaired fasting glucose
CPT/HCPCS: 99213

== ENCOUNTER 2023-10-16 14:00 | Outpatient (AMB) | payer OTHER, SELFPAY ==
--- NOTE | 2023-10-16 14:07 | MHC.OFFVISWM ---
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 Allergies doxycycline [DOXYCYCLINE] Allergy (Severe, Verified 09/16/23 15:33) RASH, GI Upset levofloxacin [From LEVAQUIN] Allergy (Severe, Verified 09/16/23 15:33) RASH metronidazole [From FLAGYL] Allergy (Severe, Verified 09/16/23 15:33) ANAPHYLAXIS morphine [MORPHINE] Allergy (Severe, Verified 09/16/23 15:33) ANAPHYLAXIS, cant breathe, SOB Sulfa (Sulfonamide Antibiotics) [SULFA (SULFONAMIDE ANTIBIOTICS)] Allergy (Severe, Verified 09/16/23 15:33) STOP BREATHING, rash/cant breathe adhesive [ADHESIVE] Allergy (Intermediate, Verified 09/16/23 15:33) RASH clindamycin [CLINDAMYCIN] Allergy (Intermediate, Verified 09/16/23 15:33) RASH Iodinated Contrast Media [IV CONTRAST] Allergy (Intermediate, Verified 09/16/23 15:33) ANAPHALAXIS latex [LATEX] Allergy (Intermediate, Verified 09/16/23 15:33) RASH ciprofloxacin [Cipro] Allergy (Unknown, Verified 09/16/23 15:33) unknown fludrocortisone Allergy (Unknown, Verified 09/16/23 15:33) Unknown hydromorphone [Dilaudid] Allergy (Unknown, Verified 09/16/23 15:33) Unknown ALL CONTRAST DYE Allergy (Unknown, Uncoded 09/16/23 15:33) Unknown Cortisone Allergy (Unknown, Uncoded 09/16/23 15:33) unknown IVP Dye Allergy (Unknown, Uncoded 09/16/23 15:33) Unknown Midodrine HCl Allergy (Unknown, Uncoded 09/16/23 15:33) Unknown Medication List - Last Reconciled 10/16/23 by Patricia Milton PA-C ipratropium bromide 17 mcg/actuation (Atrovent HFA) inhalation levalbuterol tartrate 45 mcg/actuation 2 puffs inhalation Q4-6H lidocaine 5% 1 patch topical DAILY 30 days naproxen 500 mg PO BID PRN 30 days [Normal Saline 0.9% 2 L continuous IV infusion 3XW 52 weeks] HPI HPI Comments History of Present Illness Details This is a 43 year old woman who is here to start MWL program. She was in our MWL program back in 2017 - lost 30 lbs. She lost 40 lbs when depressed and didn't eat - gained it back. Her goal is to lose. She reports first being concerned about her weight - all of her life. . She has tried multiple methods of weight loss including WW without permanent results. She lives with twin adult children and fiance. She works 6 days per week 6 d/week from 8am - 4pm, second job M,W,F from 5:30 - 8pm. Diagnosed with Mast cell syndrome - HR reaches 160 while eating. Sees an optical coating technician. Sees burial agent for POTS. BP's at home - 88/70, HR - 100 - 180 during the day. Last used Holter about 2 years ago. No fainting spells in past 2 years. She wakes at: 7am bed at could be 12 am - 2 am. Trouble falling asleep. 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 control method: IUD ERNST:4 ESS:0 GERD:18 QOL:77 PFSH Medical History Acid reflux Arachnoid cyst Arthritis Asthma Autoimmune disorder Bulging disc Colitis Crohn disease POTS (postural orthostatic tachycardia syndrome) Huynh disease Recent urinary tract infection Spinal stenosis SVT (supraventricular tachycardia) Surgical History History of kidney surgery History of liver biopsy Hx of cholecystectomy Family History Father High cholesterol HTN (hypertension) Tumors Mental health disorder Mother COPD (chronic obstructive pulmonary disease) Colitis Sister Colitis Substance use disorder Mental health disorder Sister Cervical cancer Social History Household Members: Family and Children Housing: House Alcohol intake: never Patient Tobacco Use Status: Former Tobacco user Years Smoked: quit 20b years ago e-Cigarette/Vaping Use: Never Used Second Hand Smoke Exposure: No service: No Current occupational status: employed 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 Blood work, h pylori , CXR, ECG, he will start MWL classes and watch at 3 classes before her next appt with Ju. Will have EGD for dysphagia in November. 1. Adequate sleep of 7-8 hours per night discussed - start melatnonin1 mg 1 hour before bed 2. Healthy meal plan wants to use 1 meal and MR per day All meals/MR's need to take 20 minutes to complete 9 am - protein shake with water or UAM, Celebrate REbuild 12 pm - protein shake with water or UAM OR 3 d/wk will have meal 3- 4 pm- bar or yogurt (15 - 20 grams) 6 pm- dinner of 12 forks lean protein, 12 forks vegetable, 1 serving fruit (Allergic to all fish and seafood) 9 pm - protein bar Exercise - Patient will call her cardiology office and ask about maximum HR and let me know. Cardio 4 d week = LS 2mile Pt will purchase body composition analyzer (recommended list given to patient) and weight herself weekly. Next appt with Rosalba in 4 weeks, then 4 weeks later. Text me with any questions and weekly weights. Patient is obese and is not considered stable at this time.?I spent a total of 60 minutes reviewing/updating records and counseling the patient on weight management as detailed above. (2) POTS (postural orthostatic tachycardia syndrome): Code(s): I49.8 - Other specified cardiac arrhythmias (3) Acid reflux: Code(s): K21.9 - Gastro-esophageal reflux disease without esophagitis Plan see above Orders: Orders Vitamin D 25-OH Total Today E66.9 - Obesity, unspecified, I49.8 - Other specified cardiac arrhythmias, K21.9 - Gastro-esophageal reflux disease without esophagitis Lipid Panel Today E66.9 - Obesity, unspecified, I49.8 - Other specified cardiac arrhythmias, K21.9 - Gastro-esophageal reflux disease without esophagitis Vitamin B12 and Folate Today E66.9 - Obesity, unspecified, I49.8 - Other specified cardiac arrhythmias, K21.9 - Gastro-esophageal reflux disease without esophagitis Vitamin B1 Today E66.9 - Obesity, unspecified, I49.8 - Other specified cardiac arrhythmias, K21.9 - Gastro-esophageal reflux disease without esophagitis Vitamin A Today E66.9 - Obesity, unspecified, I49.8 - Other specified cardiac arrhythmias, K21.9 - Gastro-esophageal reflux disease without esophagitis Hemoglobin A1c Today E66.9 - Obesity, unspecified, I49.8 - Other specified cardiac arrhythmias, K21.9 - Gastro-esophageal reflux disease without esophagitis Telehealth Telehealth Location of provider rendering services: practice address Location of patient: address on file Patient Identification confirmed using: Name, : Yes Telehealth method: video Patient verbally consented to treatment: Yes Patient verbally consented to billing insurance company: Yes Patient informed of any privacy concerns related to visit: Yes Coding Level of Care Code Tele [facility] Pt Level 5 (74266) Diagnoses Obesity E66.9 POTS (postural orthostatic tachycardia syndrome) I49.8 Acid reflux K21.9
== END 2023-10-16 15:03 | disposition home or self-care (01) ==
LOC: HO.HBS 14:56
PROVIDERS: PCP Nurse Practitioner Family; Visit Provider Physician Assistant
DX: E66.9 Obesity, unspecified (principal); Z68.35 Body mass index [BMI] 35.0-35.9, adult; I49.8 Other specified cardiac arrhythmias; K21.9 Gastro-esophageal reflux disease without esophagitis
CPT/HCPCS: 99205

== ENCOUNTER → 2023-10-16 14:00 | Outpatient (BNVA) | payer OTHER, SELFPAY | PROVIDERS: PCP Nurse Practitioner Family; Visit Provider Physician Assistant | DX: E66.9 Obesity, unspecified (principal); I49.8 Other specified cardiac arrhythmias; K21.9 Gastro-esophageal reflux disease without esophagitis ==

== ENCOUNTER 2023-11-13 12:20 | Outpatient (REF) | payer OTHER, SELFPAY ==
--- NOTE | ~2023-11-13 | US_ITS ---
EXAMINATION: US RETROPERITONEAL LIMITED (RENAL ONLY) CLINICAL INFORMATION: Cyst of kidney, acquired. COMPARISON: Limited renal ultrasound 12/11/2022. CT abdomen and pelvis 10/20/2019. TECHNIQUE: Real-time imaging of the kidneys. FINDINGS: RIGHT KIDNEY: 10.1 x 4.9 x 5.7 cm (SAG x AP x TRV). The kidney is normal in size, contour, and echogenicity. Renal cortical thickness is normal. No renal calculi or hydronephrosis. At the upper pole, an 8 mm benign, simple cyst is seen. At the lower pole, a 1.0 cm benign, simple cyst is seen. These require no imaging follow-up. LEFT KIDNEY: 11.0 x 4.9 x 4.3 cm (SAG x AP x TRV). The kidney is normal in size, contour, and echogenicity. Renal cortical thickness is normal. No renal calculi or hydronephrosis. At the upper pole, an 8 mm benign, simple cyst is seen, which requires no imaging follow-up. US/US renal BI IMPRESSION: Unremarkable examination. No renal mass, calculus or hydronephrosis is seen. No complex cyst is noted.
[2023-11-13 12:12] LABS: MANUAL DIFF FLAG NO
[2023-11-13 12:23] LABS: Basophils Percent Auto 0.5 % (0-2); Eosinophils Absolute Auto 0.3 X10*3/uL (0.0-0.4); Eosinophils Percent Auto 3.2 % (0-4); Hemoglobin 14.5 g/dl (12.0-16.0); Imm Gran Abs Auto 0.03 X10*3/uL (0.00-0.03); Imm Gran Pct Auto 0.4 % (0.0-0.4); Lymphocytes Absolute Auto 1.4 X10*3/uL (1.2-4.9); Lymphocytes Percent Auto 18.6 % (20-40); Mean Corpuscular HGB Conc 34.5 g/dl (31.0-35.0); Mean Corpuscular Hemoglobin 32.4 pg (27.0-33.0); Mean Platelet Volume 10.3 fL (9.4-12.3); Monocytes Absolute Auto 0.4 X10*3/uL (0.1-1.2); Monocytes Percent Auto 5.2 % (2-11); Neutrophils Absolute Auto 5.6 x10*3/uL (2.0-8.3); Neutrophils Percent Auto 72.1 % (45-73); Platelet Count 234 X10*3/uL (160-400); Red Blood Count 4.47 X10*6/uL (4.20-5.50); White Blood Count 7.8 X10*3/uL (4.8-10.8)
[2023-11-13 12:34] LABS: Estimated Average Glucose 97 mg/dL
[2023-11-13 13:55] LABS: TSH reflex Free T4 1.43 uIU/mL (0.32-4.0)
[2023-11-13 14:00] LABS: Alanine Aminotransferase 21 U/L (0-31); Albumin Level 4.4 g/dL (3.5-5.0); Alkaline Phosphatase 57 U/L (39-117); Anion Gap 12 (12-20); Aspartate Amino Transferase 17 U/L (5-31); Bilirubin Total 0.5 mg/dL (0.0-1.0); Blood Urea Nitrogen 16 mg/dL (9-16); Calcium 9.6 mg/dL (8.4-10.2); Carbon Dioxide 23 mmol/L (22-29); Chloride 108 mmol/L (96-108); Cholesterol 155 mg/dL (<200); Estimated Glomerular Filt Rate > 60; Glucose Random 93 mg/dL (60-115); HDL Cholesterol 44 mg/dL (>40); LDL Cholesterol Calculated 91 mg/dL (<100); Lipase 31 U/L (8-78); Potassium 3.7 mmol/L (3.3-5.1); Sodium 139 mmol/L (135-145); Total Protein 7.3 g/dL (6.5-8.0); Triglycerides 100 mg/dL (<150); Vitamin D 25-OH Total 18.9 ng/mL (>30)
[2023-11-13 14:08] LABS: Folate 6.5 ng/mL (> or = 4.0); Vitamin B12 384 pg/mL (200-900)
[2023-11-18 05:08] LABS: Vitamin A 48 mcg/dL (38-98)
[2023-11-18 15:28] LABS: Vitamin B1 9 nmol/L (8-30)
== END 2023-11-13 12:21 | disposition home or self-care (01) ==
LOC: HO.US 12:20
PROVIDERS: Absent Provider Physician Assistant; PCP Nurse Practitioner Family; Visit Provider Nurse Practitioner Family
DX: E66.9 Obesity, unspecified (principal); I49.8 Other specified cardiac arrhythmias; K21.9 Gastro-esophageal reflux disease without esophagitis; R10.13 Epigastric pain; N28.1 Cyst of kidney, acquired; F32.A Depression, unspecified; Z71.3 Dietary counseling and surveillance
CPT/HCPCS: 36415; 76775; 80053; 80061; 82306; 82607; 82746; 83036; 83690; 84425; 84443; 84590; 85025; 97802

== ENCOUNTER 2023-11-13 15:16 | Outpatient (AMB) | payer OTHER, SELFPAY ==
--- NOTE | 2023-11-13 15:01 | A.OFFVIS_ITS ---
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 Assessments Required: No Allergies doxycycline [DOXYCYCLINE] Allergy (Severe, Verified 09/16/23 15:33) RASH, GI Upset levofloxacin [From LEVAQUIN] Allergy (Severe, Verified 09/16/23 15:33) RASH metronidazole [From FLAGYL] Allergy (Severe, Verified 09/16/23 15:33) ANAPHYLAXIS morphine [MORPHINE] Allergy (Severe, Verified 09/16/23 15:33) ANAPHYLAXIS, cant breathe, SOB Sulfa (Sulfonamide Antibiotics) [SULFA (SULFONAMIDE ANTIBIOTICS)] Allergy (Severe, Verified 09/16/23 15:33) STOP BREATHING, rash/cant breathe adhesive [ADHESIVE] Allergy (Intermediate, Verified 09/16/23 15:33) RASH clindamycin [CLINDAMYCIN] Allergy (Intermediate, Verified 09/16/23 15:33) RASH Iodinated Contrast Media [IV CONTRAST] Allergy (Intermediate, Verified 09/16/23 15:33) ANAPHALAXIS latex [LATEX] Allergy (Intermediate, Verified 09/16/23 15:33) RASH ciprofloxacin [Cipro] Allergy (Unknown, Verified 09/16/23 15:33) unknown fludrocortisone Allergy (Unknown, Verified 09/16/23 15:33) Unknown hydromorphone [Dilaudid] Allergy (Unknown, Verified 09/16/23 15:33) Unknown ALL CONTRAST DYE Allergy (Unknown, Uncoded 09/16/23 15:33) Unknown Cortisone Allergy (Unknown, Uncoded 09/16/23 15:33) unknown IVP Dye Allergy (Unknown, Uncoded 09/16/23 15:33) Unknown Midodrine HCl Allergy (Unknown, Uncoded 09/16/23 15:33) Unknown HPI Nutrition Presentation Details She was in our MWL program back in 2017 - lost 30 lbs. She lost 40 lbs when depressed and didn't eat - gained it back. Her goal is to lose. She reports first being concerned about her weight - all of her life. . She has tried multiple methods of weight loss including WW without permanent results. She lives with twin adult children and fiance. She works 6 days per week 6 d/week from 8am - 4pm, second job M,W,F from 5:30 - 8pm. Diagnosed with Mast cell a few weeks ago. 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 Reason for consult elevated BMI Food allergies/aversions Yes (cashews, neil, all seafood) Diet Assmnt Details Started the celebrate protein shakes, but had a symptom flair up - went to the ED with stomach pain. 9am Premier premade shake 12pm premier premade shake 3pm Pure protein bar dinner chicken and vegetable Exercise: none, walks over 30,000 steps per day Dietary counseling reduction Diagnosis Nutrition problem #1 overweight/obesity As related to (etiology) #1 excess energy intake and physical inactivity As evidenced by (sign/symptom) #1 high BMI Monitoring/Goals Nutrition problem monitoring total energy intake, level of knowledge/skill, total PRO intake, total CHO intake and weight Learning/Education Readiness to learn good Most Recent Diabetes Results: Cholesterol 155 mg/dL (<200) 11/13/23 HDL Cholesterol 44 mg/dL (>40) 11/13/23 Triglycerides 100 mg/dL (<150) 11/13/23 Creatinine 0.68 mg/dL (0.5-1.4) 11/13/23 Blood Urea Nitrogen 16 mg/dL (9-16) 11/13/23 Sodium 139 mmol/L (135-145) 11/13/23 Potassium 3.7 mmol/L (3.3-5.1) 11/13/23 Chloride 108 mmol/L (96-108) 11/13/23 Carbon Dioxide 23 mmol/L (22-29) 11/13/23 Calcium 9.6 mg/dL (8.4-10.2) 11/13/23 AST 17 U/L (5-31) 11/13/23 ALT 21 U/L (0-31) 11/13/23 Total Protein 7.3 g/dL (6.5-8.0) 11/13/23 Albumin 4.4 g/dL (3.5-5.0) 11/13/23 [facility] Medical History Acid reflux Arachnoid cyst Arthritis Asthma Autoimmune disorder Bulging disc Colitis Crohn disease POTS (postural orthostatic tachycardia syndrome) Huynh disease Recent urinary tract infection Spinal stenosis SVT (supraventricular tachycardia) Surgical History History of kidney surgery History of liver biopsy Hx of cholecystectomy Family History Father High cholesterol HTN (hypertension) Tumors Mental health disorder Mother COPD (chronic obstructive pulmonary disease) Colitis Sister Colitis Substance use disorder Mental health disorder Sister Cervical cancer Social History (Reviewed 10/11/22 @ 11:50 by Aleksander Lu [facility]) Household Members: Family and Children Housing: House Alcohol intake: never Patient Tobacco Use Status: Former Tobacco user Years Smoked: quit 20b years ago e-Cigarette/Vaping Use: Never Used Second Hand Smoke Exposure: No service: No Current occupational status: employed 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 recommended shake for breakfast, lunch similar to dinner, snack in the afternoon and dinner. Telehealth Telehealth Location of provider rendering services: practice address Location of patient: address on file Patient Identification confirmed using: Name, : Yes Telehealth method: voice only Patient verbally consented to treatment: Yes Patient verbally consented to billing insurance company: Yes Patient informed of any privacy concerns related to visit: Yes Minutes spent on Phone/Video with Pt.: 30 Coding Level of Care Code Nutr Indiv Intake (97762) Diagnoses Obesity (BMI 30-39.9) E66.9 Time Spent (min) 30
== END 2023-11-13 15:23 | disposition home or self-care (01) ==
LOC: HO.HBS 15:16
PROVIDERS: PCP Nurse Practitioner Family; Visit Provider Dietitian, Registered
DX: E66.9 Obesity, unspecified (principal)

== ENCOUNTER 2023-11-26 17:41 | Emergency (ER) | payer OTHER, SELFPAY ==
--- NOTE | 2023-11-26 17:48 | ECG_ITS ---
Test Reason : CP Blood Pressure : / mmHG Vent. Rate : 095 BPM Atrial Rate : 095 BPM P-R Int : 120 ms QRS Dur : 082 ms QT Int : 366 ms P-R-T Axes : 047 -05 010 degrees QTc Int : 459 ms Normal sinus rhythm Cannot rule out Anterior infarct , age undetermined Abnormal ECG When compared with ECG of 20-OCT-2019 20:08, No significant change was found Referred By: Marybeht Ortiz Electronically Signed By:ISABEL PALOMARES
[2023-11-26 17:49] VITALS: BP 162/69; PULSE 86; RESP 16; TEMP 36.1; O2SAT 100
--- NOTE | 2023-11-26 17:49 | ED_ITS ---
HPI - General Adult General Chief complaint: General Medical Stated complaint: dizziness, chest pain, fast heart rate Time Seen by Provider: 11/26/23 20:04 History of Present Illness HPI narrative: The patient is a 43-year-old woman with a history of postural orthostatic tachycardia syndrome (POTS). She comes to the emergency room today because she was having frequent episodes of a sense of her heart racing and her Apple watch indicated that she was having heart rates up to the 140s. This started around 9 or 10:00 this morning and was most significant between 9 or 10:00 AM this morning and 3 or 4PM this afternoon. She said that the episodes would be associated with a sense of lightheadedness and near-syncope. She would feel palpitations and feel short of breath. Between episodes her symptoms would improve. Episodes lasted on the order of minutes. She did not really have significant chest pain or pressure. No pleuritic pain. No pain or swelling in her calves. The patient says that she has had a lot of experience with symptoms of lightheadedness related to her POTS but has never experienced this particular syndrome before. She says that a long time ago she was thought to have had an episode of SVT but has not had any regular recurrences of SVT and does not feel today's symptoms are similar to anything she has experienced before. She has never been found to have atrial fibrillation. She has had a lot of episodes of wearing a Holter monitor. No definite fever, sweats, chills. No nausea or vomiting. The patient says that in order to manage her POTS she gets home infusions of saline. For the last week or 2 however nurses have not been coming to her home to administer the saline 3 times a week as she normally receives. Related Data Home Medications Medication Instructions Recorded Confirmed ipratropium bromide 17 inhalation 07/01/23 10/16/23 mcg/actuation HFA aerosol inhaler (Atrovent HFA) levalbuterol tartrate 45 2 puff inhalation Q4-6H 07/01/23 10/16/23 mcg/actuation aerosol inhaler Previous Rx's Medication Instructions Recorded Normal Saline 0.9% 2 l continuous IV infusion 3XW 52 10/30/22 weeks #156 ea naproxen 500 mg tablet,delayed 500 mg PO BID PRN pain 30 days #60 11/12/22 release tabs lidocaine 5 % topical patch 1 patch topical DAILY 30 days #30 07/25/23 ea cholecalciferol (vitamin D3) 50 50 mcg PO DAILY #90 caps 11/13/23 mcg (2,000 unit) capsule Allergies Allergy/AdvReac Type Severity Reaction Status Date / Time doxycycline [DOXYCYCLINE] Allergy Severe RASH, GI Verified 09/16/23 15:33 Upset levofloxacin [From LEVAQUIN] Allergy Severe RASH Verified 09/16/23 15:33 metronidazole [From FLAGYL] Allergy Severe ANAPHYLAXIS Verified 09/16/23 15:33 morphine [MORPHINE] Allergy Severe ANAPHYLAXIS, Verified 09/16/23 15:33 cant breathe, SOB Sulfa (Sulfonamide Allergy Severe STOP Verified 09/16/23 15:33 Antibiotics) BREATHING, [SULFA (SULFONAMIDE rash/cant ANTIBIOTICS)] breathe adhesive [ADHESIVE] Allergy Intermediate RASH Verified 09/16/23 15:33 clindamycin [CLINDAMYCIN] Allergy Intermediate RASH Verified 09/16/23 15:33 Iodinated Contrast Media Allergy Intermediate ANAPHALAXIS Verified 09/16/23 15:33 [IV CONTRAST] latex [LATEX] Allergy Intermediate RASH Verified 09/16/23 15:33 ciprofloxacin [Cipro] Allergy Unknown unknown Verified 09/16/23 15:33 fludrocortisone Allergy Unknown Unknown Verified 09/16/23 15:33 hydromorphone [Dilaudid] Allergy Unknown Unknown Verified 09/16/23 15:33 ALL CONTRAST DYE Allergy Unknown Unknown Uncoded 09/16/23 15:33 Cortisone Allergy Unknown unknown Uncoded 09/16/23 15:33 IVP Dye Allergy Unknown Unknown Uncoded 09/16/23 15:33 Midodrine HCl Allergy Unknown Unknown Uncoded 09/16/23 15:33 Review of Systems 2 Review of Systems: Yes all other systems are reviewed and are negative [facility] Past Medical History Medical History Acid reflux Arachnoid cyst Arthritis Asthma Autoimmune disorder Bulging disc Colitis Crohn disease POTS (postural orthostatic tachycardia syndrome) Huynh disease Recent urinary tract infection Spinal stenosis SVT (supraventricular tachycardia) Surgical History History of kidney surgery History of liver biopsy Hx of cholecystectomy Family History Family History Father High cholesterol HTN (hypertension) Tumors Mental health disorder Mother COPD (chronic obstructive pulmonary disease) Colitis Sister Colitis Substance use disorder Mental health disorder Sister Cervical cancer Social History Social History Household Members: Family and Children Housing: House Alcohol intake: never Patient Tobacco Use Status: Former Tobacco user Years Smoked: quit 20b years ago Smoked in Last 30 Days: No e-Cigarette/Vaping Use: Never Used Second Hand Smoke Exposure: No Advance Directives: No Advance Directives Information Provided: No service: No Current occupational status: employed 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 She looks somewhat apprehensive but not in acute distress. HENMT Other: Face is symmetrical. Mucous membranes moist. Pharynx is normal. Tympanic membranes normal bilaterally. Eyes Other: Pupils are round equal, conjunctivae are clear, extraocular movements intact Neck Other: No JVD. Neck is supple. Resp Effort & Inspection: normal respiratory effort Auscultation: clear to auscultation bilaterally Cardio Rate: regular rate Rhythm: regular rhythm Heart sounds: S1 normal heart sound present and S2 normal heart sound present GI Other: Abdomen is soft and nontender Skin Other: Skin is dry and unremarkable Neuro Other: The patient is awake, alert, oriented, appropriate. Normal mental status. Cranial nerves 2-12 are grossly intact. She moves her extremities normally with normal strength and coordination. She seems grossly neurologically intact. Extrem Other: No calf swelling or tenderness, no pitting edema, no calf asymmetry. Course Course Course Narrative: This is a rapid medical exam: Additional HPI, ROS, PE not included below will be deferred to primary provider. Patient is a 43-year-old female with history of POTS, SVT, asthma, acid reflux presenting to the emergency department with complaint of palpitations, lightheadedness, abnormal sensation to chest. Lightheadedness has been for a few days, palpitations began today. Reports difficulty swallowing. Managing secretions without difficulty in triage. HR 85 in triage. Plan: EKG, labs Medications Administered Discontinued Medications Generic Name Dose Route Start Last Admin Trade Name Sam PRN Reason Stop Dose Admin Sodium Chloride 1,000 mls @ 999 mls/hr 11/26/23 21:00 11/26/23 21:05 Ns IV 11/26/23 22:00 999 mls/hr .Q1H1M [facility] Administration Medical Decision Making Medical Decision Making [facility] Narrative: The patient is a 43-year-old woman with a history of multiple medical issues including POTS who presents with episodes of palpitations and tachycardia multiple times today. She was able to show me on her phone how her Apple watch had tracked her heart rates. According to the phone there were several hours during the day today were her heart rate would very between the 80s and 140s. This was in contrast to the phones tracking of her heart rate during the night last night when her heart rate was fairly consistently in the 60s and 70s. The patient's EKG is unremarkable today. Her EKG shows normal sinus rhythm at 85 beats per minute. Her physical exam is unremarkable. She was not particularly tachycardic in the emergency room. The highest heart rate I believe we measured was 108 on the monitor. She is afebrile, respiratory rate, oxygen saturation, and blood pressure are unremarkable. The patient's D-dimer is undetectable, her CBC shows a normal white count and differential, normal hemoglobin and hematocrit. Her metabolic panel shows a carbon dioxide minimally low at 21. BUN is minimally elevated at 17. No anion gap of any significance. Her troponin is undetectable. Her CRP is normal at 0.23. Her test is negative. Overall the patient has evaluation in the emergency room was extremely reassuring. Reviewing old records her BUN is usually lower than it is today. Perhaps she is relatively dehydrated. She was given 1 L IV normal saline. Her heart rates for the most part were quite good. I think she may be discharged to follow up with the regular providers. Lab Data 11/26/23 18:03 11/26/23 18:03 Labs: Lab Results 11/26/23 Range/Units 18:03 WBC 8.8 (4.8-10.8) X10*3/uL RBC 4.52 (4.20-5.50) X10*6/uL Hgb 14.1 (12.0-16.0) g/dl Hct 41.0 (37.0-47.0) % MCV 90.7 (80.0-98.0) fL MCH 31.2 (27.0-33.0) pg MCHC 34.4 (31.0-35.0) g/dl RDW 12.7 (11.0-16.0) % Plt Count 227 (160-400) X10*3/uL MPV 9.8 (9.4-12.3) fL Immature Gran % (Auto) 0.3 (0.0-0.4) % Neut % (Auto) 68.4 (45-73) % Lymph % (Auto) 24.5 (20-40) % [place] % (Auto) 4.6 (2-11) % Eos % (Auto) 1.9 (0-4) % Baso % (Auto) 0.3 (0-2) % Lymph # (Auto) 2.2 (1.2-4.9) X10*3/uL [place] # (Auto) 0.4 (0.1-1.2) X10*3/uL Eos # (Auto) 0.2 (0.0-0.4) X10*3/uL Baso # (Auto) 0.0 (0.0-0.2) X10*3/uL Abs Immat Gran (auto) 0.03 (0.00-0.03) X10*3/uL Absolute Neuts (auto) 6.0 (2.0-8.3) x10*3/uL Absolute Nucleated RBC 0.000 (0.0-0.012) X10*3/uL Nucleated RBC % (auto) 0.0 (0.0-0.2) /100WBC PT 11.3 (11.1-13.3) SEC INR 0.9 (0.9-1.1) D-Dimer High Sensitivty < 150 NG/ML Sodium 138 (135-145) mmol/L Potassium 3.4 (3.3-5.1) mmol/L Chloride 106 (96-108) mmol/L Carbon Dioxide 21 L (22-29) mmol/L Anion Gap 14 (12-20) BUN 17 H (9-16) mg/dL Creatinine 0.72 (0.5-1.4) mg/dL Estim Creat Clear Calc 107.4 Estimated GFR > 60 Random Glucose 82 (60-115) mg/dL Calcium 9.3 (8.4-10.2) mg/dL Total Bilirubin 0.5 (0.0-1.0) mg/dL AST 21 (5-31) U/L ALT 20 (0-31) U/L Alkaline Phosphatase 61 (39-117) U/L Troponin I High Sens < 2.7 (<3.5-17.0) ng/L C-Reactive Protein 0.23 (< or = 0.50) mg/dL Total Protein 7.7 (6.5-8.0) g/dL Albumin 4.5 (3.5-5.0) g/dL Beta HCG, Quant < 2 mIU/mL Discharge Plan Discharge Clinical Impression: Tachycardia, Light-headedness Patient Disposition: Home, Self-Care Additional Instructions: Your testing in the emergency room today is very reassuring from the point of view of any acutely dangerous process. However your blood work does suggest that you are a bit more dehydrated than you are typically. You received one liter of normal saline here. Please continue your regular medications. Please follow-up soon with your regular doctor's office to discuss this further. Return to the emergency room if you feel significantly worse Prescriptions: No Action Normal Saline 0.9% solution 2 l continuous IV infusion 3XW 364 Days Qty: 156 0RF naproxen 500 mg tablet,delayed release (DR/EC) 500 mg PO BID PRN (Reason: pain) 30 Days Qty: 60 0RF lidocaine 5 % adhesive patch,medicated 1 patch topical DAILY 30 Days Qty: 30 2RF Rx Instructions: leave on most painful area for up to 12 hrs cholecalciferol (vitamin D3) 50 mcg (2,000 unit) capsule 50 mcg PO DAILY Qty: 90 2RF Atrovent HFA 17 mcg/actuation HFA aerosol inhaler inhalation levalbuterol tartrate 45 mcg/actuation HFA aerosol inhaler 2 puff inhalation Q4-6H Referrals: Beni Valle, EMPLOYMENT MANAGER-BC [Primary Care Provider] - (Episodic tachycardia)
[2023-11-26 18:09] LABS: MANUAL DIFF FLAG NO
[2023-11-26 18:10] LABS: Basophils Percent Auto 0.3 % (0-2); Eosinophils Absolute Auto 0.2 X10*3/uL (0.0-0.4); Eosinophils Percent Auto 1.9 % (0-4); Hemoglobin 14.1 g/dl (12.0-16.0); Imm Gran Abs Auto 0.03 X10*3/uL (0.00-0.03); Imm Gran Pct Auto 0.3 % (0.0-0.4); Lymphocytes Absolute Auto 2.2 X10*3/uL (1.2-4.9); Lymphocytes Percent Auto 24.5 % (20-40); Mean Corpuscular HGB Conc 34.4 g/dl (31.0-35.0); Mean Corpuscular Hemoglobin 31.2 pg (27.0-33.0); Mean Corpuscular Volume 90.7 fL (80.0-98.0); Mean Platelet Volume 9.8 fL (9.4-12.3); Monocytes Absolute Auto 0.4 X10*3/uL (0.1-1.2); Monocytes Percent Auto 4.6 % (2-11); Neutrophils Percent Auto 68.4 % (45-73); Platelet Count 227 X10*3/uL (160-400); Red Blood Count 4.52 X10*6/uL (4.20-5.50); Red Cell Distribution Width 12.7 % (11.0-16.0); White Blood Count 8.8 X10*3/uL (4.8-10.8)
[2023-11-26 18:20] LABS: INTERNATIONAL NORM RATIO 0.9 (0.9-1.1); Prothrombin Time 11.3 SEC (11.1-13.3)
[2023-11-26 18:33] LABS: Alanine Aminotransferase 20 U/L (0-31); Albumin Level 4.5 g/dL (3.5-5.0); Alkaline Phosphatase 61 U/L (39-117); Anion Gap 14 (12-20); Aspartate Amino Transferase 21 U/L (5-31); Bilirubin Total 0.5 mg/dL (0.0-1.0); Blood Urea Nitrogen 17 mg/dL (9-16); Calcium 9.3 mg/dL (8.4-10.2); Carbon Dioxide 21 mmol/L (22-29); Chloride 106 mmol/L (96-108); Creatinine Clr Calc Pharmacy 107.4; Estimated Glomerular Filt Rate > 60; Glucose Random 82 mg/dL (60-115); HCG Quantitative < 2 mIU/mL; Potassium 3.4 mmol/L (3.3-5.1); Sodium 138 mmol/L (135-145); Total Protein 7.7 g/dL (6.5-8.0); Troponin-I High Sensitivity < 2.7 ng/L (<3.5-17.0)
[2023-11-26 19:33] VITALS: BP 128/76; PULSE 81; RESP 16; O2SAT 100
[2023-11-26] MEDS: 0.9 % Sodium Chloride 1,000 ML 999 ML IV (21:05)
[2023-11-26 21:17] LABS: D Dimer High Sensitivity < 150 NG/ML
[2023-11-26 21:48] LABS: C Reactive Protein 0.23 mg/dL (< or = 0.50)
[2023-11-26 22:20] VITALS: BP 112/66; PULSE 82; RESP 15; O2SAT 99
== END 2023-11-26 22:27 | disposition home or self-care (01) ==
PROVIDERS: Registered Nurse Emergency; Emergency Provider Emergency Medicine; PCP Nurse Practitioner Family
DX: R42 Dizziness and giddiness (principal); R00.0 Tachycardia, unspecified; G90.A Postural orthostatic tachycardia syndrome [POTS]
CPT/HCPCS: 36415; 80053; 84484; 84702; 85025; 85379; 85610; 86140; 93005; 96360; 99284

== ENCOUNTER → 2023-11-26 17:48 | Outpatient (BNV) | payer OTHER, SELFPAY | PROVIDERS: Emergency Provider Emergency Medicine; PCP Nurse Practitioner Family; Visit Provider Internal Medicine | DX: R07.9 Chest pain, unspecified (principal) | CPT/HCPCS: 93010 ==

== ENCOUNTER 2023-12-11 14:30 | Outpatient (AMB) | payer OTHER, SELFPAY ==
--- NOTE | 2023-12-11 12:50 | MHC.OFFVISWM ---
Intake VS Expanded 12/11/23 14:47 Height 5 ft 5 in Weight 180 lb BMI 30.0 Intake Visit Reasons: VIDEO F/U [facility] Allergies doxycycline [DOXYCYCLINE] Allergy (Severe, Verified 09/16/23 15:33) RASH, GI Upset levofloxacin [From LEVAQUIN] Allergy (Severe, Verified 09/16/23 15:33) RASH metronidazole [From FLAGYL] Allergy (Severe, Verified 09/16/23 15:33) ANAPHYLAXIS morphine [MORPHINE] Allergy (Severe, Verified 09/16/23 15:33) ANAPHYLAXIS, cant breathe, SOB Sulfa (Sulfonamide Antibiotics) [SULFA (SULFONAMIDE ANTIBIOTICS)] Allergy (Severe, Verified 09/16/23 15:33) STOP BREATHING, rash/cant breathe adhesive [ADHESIVE] Allergy (Intermediate, Verified 09/16/23 15:33) RASH clindamycin [CLINDAMYCIN] Allergy (Intermediate, Verified 09/16/23 15:33) RASH Iodinated Contrast Media [IV CONTRAST] Allergy (Intermediate, Verified 09/16/23 15:33) ANAPHALAXIS latex [LATEX] Allergy (Intermediate, Verified 09/16/23 15:33) RASH ciprofloxacin [Cipro] Allergy (Unknown, Verified 09/16/23 15:33) unknown fludrocortisone Allergy (Unknown, Verified 09/16/23 15:33) Unknown hydromorphone [Dilaudid] Allergy (Unknown, Verified 09/16/23 15:33) Unknown ALL CONTRAST DYE Allergy (Unknown, Uncoded 09/16/23 15:33) Unknown Cortisone Allergy (Unknown, Uncoded 09/16/23 15:33) unknown IVP Dye Allergy (Unknown, Uncoded 09/16/23 15:33) Unknown Midodrine HCl Allergy (Unknown, Uncoded 09/16/23 15:33) Unknown HPI HPI Comments History of Present Illness Details [facility] follow up. [employer] weigh of 200.8 on Oct 16, [facility] is 20.8 lbs or 10.4 had appt with Ju who states the following: Until she understands more about her food triggers , recommended cutting back shakes to 1, avoiding the bars , and choosing more whole food protein. recommended shake for breakfast, lunch similar to dinner, snack in the afternoon and dinner. Seeing range management specialist now for increased dizziness, heart palpitations, near syncope - has been to ED 4-5 times at different hosptials unclear etiology and will get Holter to wear for 2-3 weeks. Also poor appetite. ED visit on 11/26 [facility] [place] - all labs and VSS normal Renal ULS = normal . Has neurology appt tomorrow. Meal plan: - has not completed all HFl classes. 9am -Premier shake RTD 12pm- same 4pm- Pure protein bar 7pm - 1 pre packaged chicken breast and vegetables, 1/2 cup then another bar at 9 pm Exercise - 30, 000 steps per day. Water intake ? [facility] Medical History Acid reflux Arachnoid cyst Arthritis Asthma Autoimmune disorder Bulging disc Colitis Crohn disease POTS (postural orthostatic tachycardia syndrome) Huynh disease Recent urinary tract infection Spinal stenosis SVT (supraventricular tachycardia) Surgical History History of kidney surgery History of liver biopsy Hx of cholecystectomy Family History Father High cholesterol HTN (hypertension) Tumors Mental health disorder Mother COPD (chronic obstructive pulmonary disease) Colitis Sister Colitis Substance use disorder Mental health disorder Sister Cervical cancer Social History Household Members: Family and Children Housing: House Alcohol intake: never Patient Tobacco Use Status: Former Tobacco user Years Smoked: quit 20b years ago e-Cigarette/Vaping Use: Never Used Second Hand Smoke Exposure: No service: No Current occupational status: employed 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 No changes to meal plan. Exercise - due to her present symptoms - intense exercise is not recommended for her until her work up is completed. She will let me know neurology recommendations. Make sure to drink enough fluid to keep urine pale in color at all times. Last appt with PA in 4 weeks. Patient is still obese and is not considered stable at this time. I spent 30 minutes in total speaking with the patient via video conference counseling , reviewing records and charting in patients chart. . (2) POTS (postural orthostatic tachycardia syndrome): Code(s): I49.8 - Other specified cardiac arrhythmias Plan: Symptomatic - followed by cardiology and neurology Telehealth Telehealth Location of provider rendering services: practice address Location of patient: address on file Patient Identification confirmed using: Name, : Yes Telehealth method: voice only (does not have internet access today) Patient verbally consented to treatment: Yes Patient verbally consented to billing insurance company: Yes Patient informed of any privacy concerns related to visit: Yes Coding Level of Care Code Tele Est Pt Level 4 (24692) Diagnoses Obesity E66.9 POTS (postural orthostatic tachycardia syndrome) I49.8
== END 2023-12-11 15:03 | disposition home or self-care (01) ==
LOC: HO.HBS 14:59
PROVIDERS: PCP Nurse Practitioner Family; Visit Provider Physician Assistant
DX: E66.9 Obesity, unspecified (principal); I49.8 Other specified cardiac arrhythmias
CPT/HCPCS: 99214

== ENCOUNTER → 2023-12-11 14:30 | Outpatient (BNVA) | payer OTHER, SELFPAY | PROVIDERS: PCP Nurse Practitioner Family; Visit Provider Physician Assistant ==

== ENCOUNTER 2024-02-25 15:53 | Outpatient (REF) | payer OTHER, SELFPAY ==
--- NOTE | ~2024-02-25 | US_ITS ---
EXAMINATION: US VENOUS ULTRASOUND WITH DOPPLER LOWER EXTREMITY, RIGHT CLINICAL INFORMATION: Swelling of the right lower extremity COMPARISON: None available. TECHNIQUE: Ultrasound of the deep veins is performed from the hip to the calf with compression sonography and color and pulse Doppler assessment. Spectral analysis with color-flow imaging is performed. FINDINGS: There is normal venous compression and respiratory variation and augmented flow. The visualized common femoral vein, superficial femoral vein, profunda femoral vein, popliteal vein, and the trifurcation region shows no evidence of deep venous thrombosis. There is no significant popliteal fossa cyst. If the patient's symptoms persist, followup ultrasound in 5 days 7 days might be of value to exclude proximal propagation from a non-visualized calf vein. US/US venous duplex LE RT IMPRESSION: No DVT demonstrated in the right lower extremity.
[2024-02-25 17:04] LABS: D Dimer High Sensitivity 169 NG/ML
== END 2024-02-25 15:54 | disposition home or self-care (01) ==
LOC: HO.US 15:53
PROVIDERS: PCP Nurse Practitioner Family; Visit Provider Nurse Practitioner Family
DX: M79.89 Other specified soft tissue disorders (principal)
CPT/HCPCS: 36415; 85379; 93971

== ENCOUNTER 2024-04-29 00:50 | Emergency (ER) | payer OTHER, SELFPAY ==
--- NOTE | ~2024-04-29 | XR_ITS ---
EXAMINATION: XR CHEST CLINICAL INFORMATION: Shortness of breath COMPARISON: 06/18/2021 TECHNIQUE: 2 views of the chest were obtained. FINDINGS: The lungs are clear with no focal consolidation. No evidence of pneumothorax, pulmonary edema, or pleural effusions. The cardiomediastinal silhouette is unremarkable. No acute osseous findings. XR/XR chest 2V IMPRESSION: No acute cardiopulmonary findings.
[2024-04-29 00:51] VITALS: BP 124/88; PULSE 97; RESP 18; TEMP 36.7; O2SAT 100
--- NOTE | 2024-04-29 00:56 | ECG_ITS ---
Test Reason : palpitatins Blood Pressure : / mmHG Vent. Rate : 121 BPM Atrial Rate : 121 BPM P-R Int : 132 ms QRS Dur : 078 ms QT Int : 320 ms P-R-T Axes : 054 024 017 degrees QTc Int : 454 ms Sinus tachycardia Nonspecific ST and T wave abnormality Abnormal ECG When compared with ECG of 26-NOV-2023 17:55, No significant change was found Referred By: Generic ED Physician Electronically Signed By:Morgan Kapadia
[2024-04-29 01:09] VITALS: BP 116/66; PULSE 114; RESP 15; TEMP 36.7; O2SAT 100
[2024-04-29 01:17] LABS: Basophils Absolute Auto 0.1 X10*3/uL (0.0-0.2); Basophils Percent Auto 0.5 % (0-2); Eosinophils Absolute Auto 0.4 X10*3/uL (0.0-0.4); Hematocrit 38.4 % (37.0-47.0); Hemoglobin 13.2 g/dl (12.0-16.0); Imm Gran Abs Auto 0.06 X10*3/uL (0.00-0.03); Imm Gran Pct Auto 0.6 % (0.0-0.4); Lymphocytes Absolute Auto 2.6 X10*3/uL (1.2-4.9); Lymphocytes Percent Auto 24.4 % (20-40); MANUAL DIFF FLAG NO; Mean Corpuscular HGB Conc 34.4 g/dl (31.0-35.0); Mean Corpuscular Hemoglobin 32.1 pg (27.0-33.0); Mean Corpuscular Volume 93.4 fL (80.0-98.0); Mean Platelet Volume 9.6 fL (9.4-12.3); Monocytes Absolute Auto 0.7 X10*3/uL (0.1-1.2); Neutrophils Absolute Auto 6.7 x10*3/uL (2.0-8.3); Neutrophils Percent Auto 63.5 % (45-73); Platelet Count 194 X10*3/uL (160-400); Red Blood Count 4.11 X10*6/uL (4.20-5.50); Red Cell Distribution Width 12.7 % (11.0-16.0); White Blood Count 10.5 X10*3/uL (4.8-10.8)
[2024-04-29 01:29] LABS: Anion Gap 12 (12-20); Blood Urea Nitrogen 18 mg/dL (9-16); Calcium 9.3 mg/dL (8.4-10.2); Carbon Dioxide 24 mmol/L (22-29); Chloride 107 mmol/L (96-108); Creatinine Clr Calc Pharmacy 104.8; Estimated Glomerular Filt Rate > 60; Glucose Random 136 mg/dL (60-115); Potassium 3.7 mmol/L (3.3-5.1); Sodium 139 mmol/L (135-145)
--- NOTE | 2024-04-29 01:43 | ED.GENADULT ---
HPI - General Adult General Chief complaint: Arrhythmia/Palpitations Stated complaint: rapid heartrate Time Seen by Provider: 04/29/24 01:33 History of Present Illness ED Provider: Meghna CARPIO narrative: The patient is a 44-year-old female with a history of postural orthopedic tachycardic syndrome (POTS) who comes to the emergency room complaining of persistent tachycardia that has been bothering her for about 3 or 4 days. She says that 2 days ago she was seen at a hospital in [place] because she was visiting somebody in [place] when she had had the symptoms initially. She says that she had a negative workup and was discharged from the emergency room but was advised to get checked again if she had persistent symptoms. She says her tachycardia has been persistent and has been associated with shortness of breath and she comes to the emergency room tonight for evaluation of this problem. The patient says that she receives IV saline at home 3 times a week to help with her POTS. The patient says that the persistent tachycardia that she has had over the last few days is different from previous episodes of tachycardia which has been more episodic event continuous. She has had multiple cardiac evaluations in the past and multiple Holter monitors. She believes that she has had SVT in the past. No fever, sweats, chills. No dark stools. In fact she says her stools have been pale recently. Related Data Home Medications ?Medication ?Instructions ?Recorded ?Confirmed ipratropium bromide 17 inhalation 07/01/23 10/16/23 mcg/actuation HFA aerosol inhaler (Atrovent HFA) levalbuterol tartrate 45 2 puff inhalation Q4-6H 07/01/23 10/16/23 mcg/actuation aerosol inhaler Previous Rx's ?Medication ?Instructions ?Recorded Normal Saline 0.9% 2 l continuous IV infusion 3XW 52 10/30/22 weeks #156 ea naproxen 500 mg tablet,delayed 500 mg PO BID PRN pain 30 days #60 11/12/22 release tabs lidocaine 5 % topical patch 1 patch topical DAILY 30 days #30 07/25/23 ea cholecalciferol (vitamin D3) 50 50 mcg PO DAILY #90 caps 11/13/23 mcg (2,000 unit) capsule hydrochlorothiazide 12.5 mg tablet 12.5 mg PO DAILY 10 days #10 tabs 03/01/24 Allergies Allergy/AdvReac Type Severity Reaction Status Date / Time doxycycline [DOXYCYCLINE] Allergy Severe RASH, GI Verified 04/29/24 00:55 Upset levofloxacin [From LEVAQUIN] Allergy Severe RASH Verified 04/29/24 00:55 metronidazole [From FLAGYL] Allergy Severe ANAPHYLAXIS Verified 04/29/24 00:55 morphine [MORPHINE] Allergy Severe ANAPHYLAXIS, Verified 04/29/24 00:55 cant breathe, SOB Sulfa (Sulfonamide Allergy Severe STOP Verified 04/29/24 00:55 Antibiotics) BREATHING, [SULFA (SULFONAMIDE rash/cant ANTIBIOTICS)] breathe adhesive [ADHESIVE] Allergy Intermediate RASH Verified 04/29/24 00:55 clindamycin [CLINDAMYCIN] Allergy Intermediate RASH Verified 04/29/24 00:55 Iodinated Contrast Media Allergy Intermediate ANAPHALAXIS Verified 04/29/24 00:55 [IV CONTRAST] latex [LATEX] Allergy Intermediate RASH Verified 04/29/24 00:55 ciprofloxacin [Cipro] Allergy Unknown unknown Verified 04/29/24 00:55 fludrocortisone Allergy Unknown Unknown Verified 04/29/24 00:55 hydromorphone [Dilaudid] Allergy Unknown Unknown Verified 04/29/24 00:55 ALL CONTRAST DYE Allergy Unknown Unknown Uncoded 04/29/24 00:55 Cortisone Allergy Unknown unknown Uncoded 04/29/24 00:55 IVP Dye Allergy Unknown Unknown Uncoded 04/29/24 00:55 Midodrine HCl Allergy Unknown Unknown Uncoded 04/29/24 00:55 Review of Systems Review of Systems: Yes all other systems are reviewed and are negative PMFSH Past Medical History Medical History Acid reflux Arachnoid cyst Arthritis Asthma Autoimmune disorder Bulging disc Colitis Crohn disease POTS (postural orthostatic tachycardia syndrome) Huynh disease Recent urinary tract infection Spinal stenosis SVT (supraventricular tachycardia) Surgical History History of kidney surgery History of liver biopsy Hx of cholecystectomy Family History Family History Father High cholesterol HTN (hypertension) Tumors Mental health disorder Mother COPD (chronic obstructive pulmonary disease) Colitis Sister Colitis Substance use disorder Mental health disorder Sister Cervical cancer Social History Social History Household Members: Family and Children Housing: House Alcohol intake: never Patient Tobacco Use Status: Former Tobacco user Years Smoked: quit 20b years ago Smoked in Last 30 Days: No e-Cigarette/Vaping Use: Never Used Second Hand Smoke Exposure: No Use of substances other than those prescribed or required for medical reasons: No Advance Directives: No Advance Directives Information Provided: No Patient : No service: No Current occupational status: employed 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 She does not appear in overt distress. HENMT Other: Face is symmetrical, mucous membranes moist. Eyes Other: Pupils are round equal, conjunctivae clear, extraocular movements intact Neck Other: No JVD, moving her neck easily Resp Effort & Inspection: normal respiratory effort Auscultation: clear to auscultation bilaterally Cardio Rate: regular rate Rhythm: regular rhythm Heart sounds: S1 normal heart sound present and S2 normal heart sound present GI Other: Abdomen is soft and nontender Skin Other: Skin is dry and unremarkable Neuro Other: The patient is awake and alert with a normal mental status. Cranial nerves are grossly intact. She moves her extremities normally and seems grossly neurologically intact. Extrem Other: No peripheral edema, no calf swelling or asymmetry. No tenderness. Medical Decision Making Medical Decision Making MDM Narrative: The patient is a 44-year-old female who presents for evaluation of sense of a rapid heart rate that she has had over the last 3 or 4 days. The patient has had previous presentations related to tachycardia. She has worn a Holter monitors in the past. She had a stress test 2020. She has a history of POTS syndrome and she receives IV fluids 3 times a week at home. Today the patient is hemodynamically stable. She does not appear acutely ill. She has an undetectable troponin and an undetectable D-dimer. Her chest x-ray is unremarkable. Clinically she does not look unwell. I suspect that the tachycardia she has been experiencing recently is probably related to the problems with tachycardia that she seems to have been having for a long time intermittently. I think she may be discharged to follow up with her regular providers. Lab Data 04/29/24 01:13 04/29/24 01:13 Labs: Lab Results 04/29/24 04/29/24 Range/Units 01:13 02:05 WBC 10.5 (4.8-10.8) X10*3/uL RBC 4.11 L (4.20-5.50) X10*6/uL Hgb 13.2 (12.0-16.0) g/dl Hct 38.4 (37.0-47.0) % MCV 93.4 (80.0-98.0) fL MCH 32.1 (27.0-33.0) pg MCHC 34.4 (31.0-35.0) g/dl RDW 12.7 (11.0-16.0) % Plt Count 194 (160-400) X10*3/uL MPV 9.6 (9.4-12.3) fL Immature Gran % (Auto) 0.6 H (0.0-0.4) % Neut % (Auto) 63.5 (45-73) % Lymph % (Auto) 24.4 (20-40) % Dougherty % (Auto) 7.0 (2-11) % Eos % (Auto) 4.0 (0-4) % Baso % (Auto) 0.5 (0-2) % Lymph # (Auto) 2.6 (1.2-4.9) X10*3/uL Dougherty # (Auto) 0.7 (0.1-1.2) X10*3/uL Eos # (Auto) 0.4 (0.0-0.4) X10*3/uL Baso # (Auto) 0.1 (0.0-0.2) X10*3/uL Abs Immat Gran (auto) 0.06 H (0.00-0.03) X10*3/uL Absolute Neuts (auto) 6.7 (2.0-8.3) x10*3/uL Absolute Nucleated RBC 0.000 (0.0-0.012) X10*3/uL Nucleated RBC % (auto) 0.0 (0.0-0.2) /100WBC D-Dimer High Sensitivty < 150 NG/ML Sodium 139 (135-145) mmol/L Potassium 3.7 (3.3-5.1) mmol/L Chloride 107 (96-108) mmol/L Carbon Dioxide 24 (22-29) mmol/L Anion Gap 12 (12-20) BUN 18 H (9-16) mg/dL Creatinine 0.73 (0.5-1.4) mg/dL Estim Creat Clear Calc 104.8 Estimated GFR > 60 Random Glucose 136 H (60-115) mg/dL Calcium 9.3 (8.4-10.2) mg/dL Troponin I High Sens < 2.7 (<3.5-17.0) ng/L Independent Interpretation I performed an independent interpretation of an: EKG Interpretation: EKG at 00:57 shows sinus tachycardia at 121 beats per minute. There are nonspecific ST and T-wave abnormalities. Discharge Plan Discharge Clinical Impression: Tachycardia Patient Disposition: Home, Self-Care Additional Instructions: Your testing in the emergency room today is very reassuring from the point of view of any acutely dangerous process. Please plan on following up with your regular doctors to discuss this episode further. Continue your regular medications. Return to the emergency room if worse. Prescriptions: No Action Normal Saline 0.9% solution 2 l continuous IV infusion 3XW 364 Days Qty: 156 0RF naproxen 500 mg tablet,delayed release (DR/EC) 500 mg PO BID PRN (Reason: pain) 30 Days Qty: 60 0RF lidocaine 5 % adhesive patch,medicated 1 patch topical DAILY 30 Days Qty: 30 2RF Rx Instructions: leave on most painful area for up to 12 hrs cholecalciferol (vitamin D3) 50 mcg (2,000 unit) capsule 50 mcg PO DAILY Qty: 90 2RF hydrochlorothiazide 12.5 mg tablet 12.5 mg PO DAILY 10 Days Qty: 10 0RF Atrovent HFA 17 mcg/actuation HFA aerosol inhaler inhalation levalbuterol tartrate 45 mcg/actuation HFA aerosol inhaler 2 puff inhalation Q4-6H Referrals: Beni Valle, ADMISSIONS EVALUATOR-BC [Primary Care Provider] - (Persistent tachycardia) Interventions: ED Discharge Assessment Last Done: 04/29/24 03:24 Discharge Date/Time: 04/29/24 03:27 Print Language: Ukrainian
[2024-04-29 01:56] LABS: Troponin-I High Sensitivity < 2.7 ng/L (<3.5-17.0)
[2024-04-29 02:31] LABS: D Dimer High Sensitivity < 150 NG/ML
[2024-04-29 03:24] VITALS: BP 130/50; PULSE 99; RESP 20; TEMP 36.6; O2SAT 99
== END 2024-04-29 03:27 | disposition home or self-care (01) ==
PROVIDERS: Emergency Provider Emergency Medicine; PCP Nurse Practitioner Family
DX: R00.0 Tachycardia, unspecified (principal); R00.2 Palpitations; R06.02 Shortness of breath; Z79.899 Other long term (current) drug therapy
CPT/HCPCS: 36415; 71046; 80048; 84484; 85025; 85379; 93005; 99283; 99284

== ENCOUNTER → 2024-04-29 00:56 | Outpatient (BNV) | payer OTHER, SELFPAY | PROVIDERS: Emergency Provider Emergency Medicine; PCP Nurse Practitioner Family; Visit Provider Internal Medicine Cardiovascular Disease | DX: R00.2 Palpitations (principal) | CPT/HCPCS: 93010 ==

== ENCOUNTER 2024-05-06 14:51 | Outpatient (AMB) | payer OTHER, SELFPAY ==
[2024-05-06 15:05] VITALS: BP 118/70; PULSE 69; TEMP 36.8; O2SAT 97
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
== END 2024-05-06 16:34 | disposition home or self-care (01) ==
PROVIDERS: PCP Nurse Practitioner Family; Visit Provider Nurse Practitioner Family
DX: I49.8 Other specified cardiac arrhythmias (principal)
CPT/HCPCS: 99213

== ENCOUNTER 2024-06-02 16:53 | Outpatient (AMB) | payer OTHER, SELFPAY ==
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
== END 2024-06-02 16:54 | disposition home or self-care (01) ==
LOC: HO.HMGC 16:53
PROVIDERS: PCP Nurse Practitioner Family; Visit Provider Nurse Practitioner Family
DX: R10.9 Unspecified abdominal pain (principal); R11.0 Nausea; R19.8 Other specified symptoms and signs involving the digestive system and abdomen
CPT/HCPCS: 99213

== ENCOUNTER → 2024-07-28 16:04 | Outpatient (BNV) | payer OTHER, SELFPAY | PROVIDERS: Emergency Provider Student in an Organized Health Care Education/Training Program; PCP Nurse Practitioner Family; Visit Provider Internal Medicine | DX: R07.9 Chest pain, unspecified (principal); R94.31 Abnormal electrocardiogram [ECG] [EKG] | CPT/HCPCS: 93010 ==

== ENCOUNTER 2024-07-28 16:08 | Emergency (ER) | payer OTHER, SELFPAY ==
--- NOTE | 2024-07-28 | ECG_ITS ---
Test Reason : CHEST PAIN Blood Pressure : / mmHG Vent. Rate : 098 BPM Atrial Rate : 098 BPM P-R Int : 116 ms QRS Dur : 082 ms QT Int : 336 ms P-R-T Axes : 053 007 007 degrees QTc Int : 428 ms Normal sinus rhythm Nonspecific ST and T wave abnormality Abnormal ECG When compared with ECG of 29-APR-2024 00:57, No significant change was found Referred By: Generic ED Physician Electronically Signed By:ISABEL PALOMARES
--- NOTE | ~2024-07-28 | XR_ITS ---
EXAMINATION: XR CHEST CLINICAL INFORMATION: Chest pain COMPARISON: 04/29/2024 TECHNIQUE: Frontal view of the chest was obtained at 1806 hours FINDINGS: No significant abnormality is noted involving the heart, lungs, mediastinum, bony thorax or soft tissues. XR/XR chest 1V IMPRESSION: Unremarkable examination. Electronically signed by: Deejay Aguilar MD 07/28/2024 07:49 PM EDT RP
[2024-07-28 17:34] VITALS: BP 126/71; PULSE 86; RESP 16; TEMP 37; O2SAT 100
--- NOTE | 2024-07-28 17:38 | ED.GENADULT ---
HPI - General Adult General Chief complaint: Chest Pain Stated complaint: sob-cp Time Seen by Provider: 07/28/24 19:41 Source: patient Limitations: no limitations History of Present Illness ED Provider: Naomy CARPIO narrative: 44-year-old female with past medical history of POTS, acid reflux, mast cell disorder presenting for chest pain shortness of breath. Patient states that she has been experiencing approximately 2 days of substernal chest pressure and shortness of breath. Symptoms occur both at rest and with activity. She denies diaphoresis, lightheadedness, nausea, vomiting, abdominal pain. Patient denies recent travel, recent hospitalization and she is not on any oral contraceptives. Related Data Home Medications ?Medication ?Instructions ?Recorded ?Confirmed ipratropium bromide 17 inhalation 07/01/23 10/16/23 mcg/actuation HFA aerosol inhaler (Atrovent HFA) levalbuterol tartrate 45 2 puff inhalation Q4-6H 07/01/23 10/16/23 mcg/actuation aerosol inhaler montelukast 10 mg tablet 10 mg PO DAILY 05/06/24 propranolol 10 mg tablet 10 mg PO BID 05/06/24 05/06/24 Previous Rx's ?Medication ?Instructions ?Recorded Normal Saline 0.9% 2 l continuous IV infusion 3XW 52 10/30/22 weeks #156 ea naproxen 500 mg tablet,delayed 500 mg PO BID PRN pain 30 days #60 11/12/22 release tabs lidocaine 5 % topical patch 1 patch topical DAILY 30 days #30 07/25/23 ea cholecalciferol (vitamin D3) 50 50 mcg PO DAILY #90 caps 11/13/23 mcg (2,000 unit) capsule hydrochlorothiazide 12.5 mg tablet 12.5 mg PO DAILY 10 days #10 tabs 03/01/24 Allergies Allergy/AdvReac Type Severity Reaction Status Date / Time doxycycline [DOXYCYCLINE] Allergy Severe RASH, GI Verified 07/28/24 17:37 Upset levofloxacin [From LEVAQUIN] Allergy Severe RASH Verified 07/28/24 17:37 metronidazole [From FLAGYL] Allergy Severe ANAPHYLAXIS Verified 07/28/24 17:37 morphine [MORPHINE] Allergy Severe ANAPHYLAXIS, Verified 07/28/24 17:37 cant breathe, SOB Sulfa (Sulfonamide Allergy Severe STOP Verified 07/28/24 17:37 Antibiotics) BREATHING, [SULFA (SULFONAMIDE rash/cant ANTIBIOTICS)] breathe adhesive [ADHESIVE] Allergy Intermediate RASH Verified 07/28/24 17:37 clindamycin [CLINDAMYCIN] Allergy Intermediate RASH Verified 07/28/24 17:37 Iodinated Contrast Media Allergy Intermediate ANAPHALAXIS Verified 07/28/24 17:37 [IV CONTRAST] latex [LATEX] Allergy Intermediate RASH Verified 07/28/24 17:37 ciprofloxacin [Cipro] Allergy Unknown unknown Verified 07/28/24 17:37 fludrocortisone Allergy Unknown Unknown Verified 07/28/24 17:37 hydromorphone [Dilaudid] Allergy Unknown Unknown Verified 07/28/24 17:37 ALL CONTRAST DYE Allergy Unknown Unknown Uncoded 04/29/24 00:55 Cortisone Allergy Unknown unknown Uncoded 04/29/24 00:55 IVP Dye Allergy Unknown Unknown Uncoded 04/29/24 00:55 Midodrine HCl Allergy Unknown Unknown Uncoded 04/29/24 00:55 Review of Systems Review of Systems: Patient endorses chest pressure and shortness of breath Yes all other systems are reviewed and are negative [facility] Past Medical History Attestation statement: The following information was validated with the patient. [facility] Narrative: Pots, acid reflux, anemia Medical History Recent urinary tract infection Acid reflux Huynh disease Crohn disease Colitis Arachnoid cyst Asthma Autoimmune disorder Arthritis Bulging disc Spinal stenosis POTS (postural orthostatic tachycardia syndrome) SVT (supraventricular tachycardia) Surgical History History of kidney surgery History of liver biopsy Hx of cholecystectomy Family History Family History Father High cholesterol HTN (hypertension) Tumors Mental health disorder Mother COPD (chronic obstructive pulmonary disease) Colitis Sister Colitis Substance use disorder Mental health disorder Sister Cervical cancer Social History Social History Household Members: Family and Children Housing: House Alcohol intake: never Patient Tobacco Use Status: Former Tobacco user Years Smoked: quit 20b years ago Smoked in Last 30 Days: No e-Cigarette/Vaping Use: Never Used Second Hand Smoke Exposure: No Use of substances other than those prescribed or required for medical reasons: No Advance Directives: No Advance Directives Information Provided: Yes Patient : No service: No Current occupational status: employed 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 Current occupational exposures/hazards: No Cognitive needs: No Hearing needs: No Vision needs: No Physical Exam ED Vital Signs: Vital Signs - 24 hr 07/28/24 17:34 07/28/24 19:25 07/28/24 21:48 Temperature 98.6 F Pulse Rate 86 79 86 Respiratory Rate 16 12 Blood Pressure 126/71 114/51 L Pulse Oximetry 100 100 99 Oxygen Delivery Method Room Air Room Air Room Air 07/28/24 22:12 07/28/24 22:54 Temperature 97.4 F 97.4 F Pulse Rate 78 78 Respiratory Rate 16 16 Blood Pressure 116/78 116/78 Pulse Oximetry 99 99 Oxygen Delivery Method Room Air Room Air BMI result Body Mass Index 30.0 Well-appearing female No focal neurologic deficits appreciated Lungs clear to auscultation bilaterally; unlabored breathing Normal S1-S2 regular rate rhythm; pulses equal in both upper and lower extremities Sternal tenderness to palpation Abdomen is soft nontender nondistended No lower extremity edema or calf tenderness appreciated Course Course Course Narrative: RME: 43-year-old female history of SVT presents to ED for chest pain for the past 2 days. Patient denies any recent long travel or recent surgery. No leg swelling, calf pain, coughing up blood, pitting edema. Labs EKG chest x-ray SARs ordered. Vital signs stable. Medications Administered Discontinued Medications Generic Name Dose Route Start Last Admin Trade Name Freq PRN Reason Stop Dose Admin Al Hydroxide/Mg Hydroxide 30 ml 07/28/24 20:19 07/28/24 21:18 Magnesium Hydrox/Alum Hydrox 30 Ml Oral.Susp PO 07/28/24 20:20 30 ml ONCE ONE Administration Famotidine 20 mg 07/28/24 20:19 07/28/24 21:18 Famotidine 20 Mg Tablet PO 07/28/24 20:20 20 mg ONCE ONE Administration Medical Decision Making Medical Decision Making MDM Narrative: This is a 44-year-old female presenting for shortness of breath and chest pressure. I am concerned for the following; acid reflux, viral URI, COVID, flu, pneumonia, costochondritis, atypical chest pain -also considering PE however less likely -less likely ACS -labs and imaging studies ordered -labs notable for no leukocytosis, stable white count,, normal electrolytes, normal creatinine, negative troponin x2, negative , contaminated UA, negative dimer -I reviewed patient's chest x-ray and did not note any large consolidation or pneumothorax and the radiologist interpretation is negative for acute process -patient had a normal ambulating sat and heart rate -on reassessment patient states that she is not experiencing any chest pressure shortness of breath at this time -given patient's workup. I feel that she is safe for discharge and does not require any further testing at this time; no concern for acs, PE, or dissection -I instructed her to follow up with her primary care provider and gave her return precautions Differential Diagnosis Differential Diagnoses: The differential diagnosis associated with the presentation includes Acid reflux, costochondritis, atypical chest pain, COVID, flu, pneumonia, viral URI, pleuritis Lab Data 07/28/24 18:00 07/28/24 18:00 Labs: Lab Results 07/28/24 07/28/24 07/28/24 Range/Units 17:59 18:00 20:23 WBC 9.6 (4.8-10.8) X10*3/uL RBC 4.29 (4.20-5.50) X10*6/uL Hgb 13.6 (12.0-16.0) g/dl Hct 39.9 (37.0-47.0) % MCV 93.0 (80.0-98.0) fL MCH 31.7 (27.0-33.0) pg MCHC 34.1 (31.0-35.0) g/dl RDW 12.6 (11.0-16.0) % Plt Count 239 (160-400) X10*3/uL MPV 10.0 (9.4-12.3) fL Immature Gran % (Auto) 0.4 (0.0-0.4) % Neut % (Auto) 66.5 (45-73) % Lymph % (Auto) 22.5 (20-40) % [place] % (Auto) 6.3 (2-11) % Eos % (Auto) 3.6 (0-4) % Baso % (Auto) 0.7 (0-2) % Lymph # (Auto) 2.2 (1.2-4.9) X10*3/uL [place] # (Auto) 0.6 (0.1-1.2) X10*3/uL Eos # (Auto) 0.4 (0.0-0.4) X10*3/uL Baso # (Auto) 0.1 (0.0-0.2) X10*3/uL Abs Immat Gran (auto) 0.04 H (0.00-0.03) X10*3/uL Absolute Neuts (auto) 6.4 (2.0-8.3) x10*3/uL Absolute Nucleated RBC 0.000 (0.0-0.012) X10*3/uL Nucleated RBC % (auto) 0.0 (0.0-0.2) /100WBC PT 9.7 L (10.9-12.4) SEC INR 0.8 L (0.9-1.1) APTT 29.4 (26.0-36.8) SEC D-Dimer High Sensitivty 150 NG/ML Sodium 141 (135-145) mmol/L Potassium 4.0 (3.3-5.1) mmol/L Chloride 109 H (96-108) mmol/L Carbon Dioxide 23 (22-29) mmol/L Anion Gap 13 (12-20) BUN 12 (9-16) mg/dL Creatinine 0.75 (0.5-1.4) mg/dL Estim Creat Clear Calc 102.0 Estimated GFR > 60 Random Glucose 96 (60-115) mg/dL Calcium 8.6 D (8.4-10.2) mg/dL Total Bilirubin 0.3 (0.0-1.0) mg/dL AST 19 (5-31) U/L ALT 19 (0-31) U/L Alkaline Phosphatase 64 (39-117) U/L Troponin I High Sens < 2.7 (<3.5-17.0) ng/L B-Natriuretic Peptide < 10 (<100) pg/mL Total Protein 7.1 (6.5-8.0) g/dL Albumin 4.2 (3.5-5.0) g/dL Urine Color Yellow Urine Appearance Cloudy Urine pH 7.5 (5.0-9.0) Ur Specific [place] 1.025 (1.005-1.025) Urine Protein Negative (Neg-Trace) mg/dL Urine Glucose (UA) Negative (Negative) mg/dL Urine Ketones Negative (Negative) mg/dL Urine Blood Negative (Negative) Urine Nitrite Negative (Negative) Ur Leukocyte Esterase Moderate (2+) H (Negative) Urine RBC 0-2 (0-2) /HPF Urine WBC 6-10 H (0-5) /HPF Ur Squamous Epith Cells 11-20 (0-2) /HPF Urine Bacteria Trace (None Seen) Hyaline Casts 0-2 (0-2) /LPF Urine Test NEGATIVE (NEGATIVE) Influenza Type A (PCR) NEGATIVE (Negative) Influenza Type B (PCR) NEGATIVE (Negative) RSV RNA Qual (PCR) NEGATIVE (Negative) SARS-CoV-2 RNA (RT-PCR) NEGATIVE (Negative) 07/28/24 Range/Units 21:33 WBC (4.8-10.8) X10*3/uL RBC (4.20-5.50) X10*6/uL Hgb (12.0-16.0) g/dl Hct (37.0-47.0) % MCV (80.0-98.0) fL MCH (27.0-33.0) pg MCHC (31.0-35.0) g/dl RDW (11.0-16.0) % Plt Count (160-400) X10*3/uL MPV (9.4-12.3) fL Immature Gran % (Auto) (0.0-0.4) % Neut % (Auto) (45-73) % Lymph % (Auto) (20-40) % [place] % (Auto) (2-11) % Eos % (Auto) (0-4) % Baso % (Auto) (0-2) % Lymph # (Auto) (1.2-4.9) X10*3/uL [place] # (Auto) (0.1-1.2) X10*3/uL Eos # (Auto) (0.0-0.4) X10*3/uL Baso # (Auto) (0.0-0.2) X10*3/uL Abs Immat Gran (auto) (0.00-0.03) X10*3/uL Absolute Neuts (auto) (2.0-8.3) x10*3/uL Absolute Nucleated RBC (0.0-0.012) X10*3/uL Nucleated RBC % (auto) (0.0-0.2) /100WBC PT (10.9-12.4) SEC INR (0.9-1.1) APTT (26.0-36.8) SEC D-Dimer High Sensitivty NG/ML Sodium (135-145) mmol/L Potassium (3.3-5.1) mmol/L Chloride (96-108) mmol/L Carbon Dioxide (22-29) mmol/L Anion Gap (12-20) BUN (9-16) mg/dL Creatinine (0.5-1.4) mg/dL Estim Creat Clear Calc Estimated GFR Random Glucose (60-115) mg/dL Calcium (8.4-10.2) mg/dL Total Bilirubin (0.0-1.0) mg/dL AST (5-31) U/L ALT (0-31) U/L Alkaline Phosphatase (39-117) U/L Troponin I High Sens < 2.7 (<3.5-17.0) ng/L B-Natriuretic Peptide (<100) pg/mL Total Protein (6.5-8.0) g/dL Albumin (3.5-5.0) g/dL Urine Color Urine Appearance Urine pH (5.0-9.0) Ur Specific [place] (1.005-1.025) Urine Protein (Neg-Trace) mg/dL Urine Glucose (UA) (Negative) mg/dL Urine Ketones (Negative) mg/dL Urine Blood (Negative) Urine Nitrite (Negative) Ur Leukocyte Esterase (Negative) Urine RBC (0-2) /HPF Urine WBC (0-5) /HPF Ur Squamous Epith Cells (0-2) /HPF Urine Bacteria (None Seen) Hyaline Casts (0-2) /LPF Urine Test (NEGATIVE) Influenza Type A (PCR) (Negative) Influenza Type B (PCR) (Negative) RSV RNA Qual (PCR) (Negative) SARS-CoV-2 RNA (RT-PCR) (Negative) Discharge Plan Discharge Clinical Impression: Anterior chest wall pain, Shortness of breath Patient Disposition: Home, Self-Care Additional Instructions: Please follow up with the primary care provider in the next 24-48 hours. If you develop any new or worsening symptoms please return to the emergency department Prescriptions: No Action Normal Saline 0.9% solution 2 l continuous IV infusion 3XW 364 Days Qty: 156 0RF naproxen 500 mg tablet,delayed release (DR/EC) 500 mg PO BID PRN (Reason: pain) 30 Days Qty: 60 0RF lidocaine 5 % adhesive patch,medicated 1 patch topical DAILY 30 Days Qty: 30 2RF Rx Instructions: leave on most painful area for up to 12 hrs cholecalciferol (vitamin D3) 50 mcg (2,000 unit) capsule 50 mcg PO DAILY Qty: 90 2RF hydrochlorothiazide 12.5 mg tablet 12.5 mg PO DAILY 10 Days Qty: 10 0RF montelukast 10 mg tablet 10 mg PO DAILY propranolol 10 mg tablet 10 mg PO BID Atrovent HFA 17 mcg/actuation HFA aerosol inhaler inhalation levalbuterol tartrate 45 mcg/actuation HFA aerosol inhaler 2 puff inhalation Q4-6H Interventions: ED Discharge Assessment Last Done: 07/28/24 22:54 Discharge Date/Time: 07/28/24 22:55 Print Language: Macedonian
[2024-07-28 18:06] LABS: MANUAL DIFF FLAG NO
[2024-07-28 18:14] LABS: Basophils Absolute Auto 0.1 X10*3/uL (0.0-0.2); Basophils Percent Auto 0.7 % (0-2); Eosinophils Absolute Auto 0.4 X10*3/uL (0.0-0.4); Eosinophils Percent Auto 3.6 % (0-4); Hematocrit 39.9 % (37.0-47.0); Hemoglobin 13.6 g/dl (12.0-16.0); Imm Gran Abs Auto 0.04 X10*3/uL (0.00-0.03); Imm Gran Pct Auto 0.4 % (0.0-0.4); Lymphocytes Absolute Auto 2.2 X10*3/uL (1.2-4.9); Lymphocytes Percent Auto 22.5 % (20-40); Mean Corpuscular HGB Conc 34.1 g/dl (31.0-35.0); Mean Corpuscular Hemoglobin 31.7 pg (27.0-33.0); Monocytes Absolute Auto 0.6 X10*3/uL (0.1-1.2); Monocytes Percent Auto 6.3 % (2-11); Neutrophils Absolute Auto 6.4 x10*3/uL (2.0-8.3); Neutrophils Percent Auto 66.5 % (45-73); Platelet Count 239 X10*3/uL (160-400); Red Blood Count 4.29 X10*6/uL (4.20-5.50); Red Cell Distribution Width 12.6 % (11.0-16.0); White Blood Count 9.6 X10*3/uL (4.8-10.8)
[2024-07-28 18:17] LABS: UPreg QC Valid YES; Urine Pregnancy NEGATIVE (NEGATIVE)
[2024-07-28 18:20] LABS: Appearance Urine Cloudy; Color Urine Yellow; Glucose Urine UA Negative (Negative); Leukocyte Esterase Urine Moderate (2+) (Negative); Nitrite Urine Negative (Negative); PH 7.5 (5.0-9.0); Specific Gravity - Urine 1.025 (1.005-1.025); UMIC TRIGGER UACC YES; Urine Blood Negative (Negative); Urine Ketones Negative (Negative); Urine Protein Negative (Neg-Trace)
[2024-07-28 18:22] LABS: INTERNATIONAL NORM RATIO 0.8 (0.9-1.1); Prothrombin Time 9.7 SEC (10.9-12.4)
[2024-07-28 18:25] LABS: Partial Thromboplastin Time 29.4 SEC (26.0-36.8)
[2024-07-28 18:29] LABS: Alanine Aminotransferase 19 U/L (0-31); Albumin Level 4.2 g/dL (3.5-5.0); Alkaline Phosphatase 64 U/L (39-117); Anion Gap 13 (12-20); Aspartate Amino Transferase 19 U/L (5-31); Bilirubin Total 0.3 mg/dL (0.0-1.0); Blood Urea Nitrogen 12 mg/dL (9-16); Calcium 8.6 mg/dL (8.4-10.2); Carbon Dioxide 23 mmol/L (22-29); Chloride 109 mmol/L (96-108); Estimated Glomerular Filt Rate > 60; Glucose Random 96 mg/dL (60-115); Sodium 141 mmol/L (135-145); Total Protein 7.1 g/dL (6.5-8.0)
[2024-07-28 18:35] LABS: B Type Natriuretic Peptide < 10 pg/mL (<100)
[2024-07-28 18:38] LABS: Troponin-I High Sensitivity < 2.7 ng/L (<3.5-17.0)
[2024-07-28 18:46] LABS: Bacteria Urine Trace (None Seen); Hyaline Casts Urine 0-2 /LPF (0-2); RBC Urine 0-2 /HPF (0-2); UACC Culture Trigger YES
[2024-07-28 18:47] LABS: Influenza A PCR NEGATIVE (Negative); Influenza B PCR NEGATIVE (Negative); Resp Syncy Virus RNA Qual PCR NEGATIVE (Negative); SARS COV2 PCR INHOUSE NEGATIVE (Negative)
[2024-07-28 19:25] VITALS: BP 114/51; PULSE 79; PULSE 84; RESP 12; O2SAT 100
[2024-07-28 20:54] LABS: D Dimer High Sensitivity 150 NG/ML
[2024-07-28] MEDS: Famotidine 20 MG TABLET PO (21:18)
[2024-07-28] MEDS: Magnesium Hydrox/Alum Hydrox 30 ML ORAL.SUSP PO (21:18)
--- NOTE | 2024-07-28 21:22 | PC.NURSE ---
pt notified this RN at bedside, that she took her own home medications, Propranalol, from her purse at approx 2100. notified.
[2024-07-28 21:48] VITALS: PULSE 86; O2SAT 99
--- NOTE | 2024-07-28 21:49 | MHC.EDTECH ---
This tech performed ambulation O2 trial at the request of MD Moralez. Pt O2 saturation remained stable above 99%. Pt HR remained in the range of 82-88 BPM. MD valencia.
[2024-07-28 22:01] LABS: Troponin-I High Sensitivity < 2.7 ng/L (<3.5-17.0)
[2024-07-28 22:12] VITALS: BP 116/78; PULSE 78; RESP 16; TEMP 36.3; O2SAT 99
[2024-07-28 22:54] VITALS: BP 116/78; PULSE 78; RESP 16; TEMP 36.3; O2SAT 99
== END 2024-07-28 22:55 | disposition home or self-care (01) ==
PROVIDERS: Physician Assistant; Emergency Provider Student in an Organized Health Care Education/Training Program; PCP Nurse Practitioner Family
DX: R07.9 Chest pain, unspecified (principal); R06.02 Shortness of breath; G90.A Postural orthostatic tachycardia syndrome [POTS]; K50.90 Crohn's disease, unspecified, without complications; J45.909 Unspecified asthma, uncomplicated; Z79.899 Other long term (current) drug therapy; Z03.818 Encounter for observation for suspected exposure to other biological agents ruled out
CPT/HCPCS: 0241U; 36415; 71045; 80053; 81001; 81025; 83880; 84484; 85025; 85379; 85610; 85730; 87086; 93005; 99283; 99285

== ENCOUNTER 2024-07-31 08:20 | Emergency (ER) | payer OTHER, SELFPAY ==
[2024-07-31 08:23] VITALS: BP 119/72; PULSE 71; RESP 16; TEMP 36.7; O2SAT 99
--- NOTE | 2024-07-31 08:51 | ED_ITS ---
HPI - SOB/Dyspnea General Chief Complaint: Dyspnea Stated Complaint: sob Time Seen by Provider: 07/31/24 08:27 Source: patient Mode of arrival: ambulatory Limitations: no limitations History of Present Illness ED Provider: Dr. Genaro Slaughter HPI Narrative: 44-year-old female with a history of GERD, POTS disease, Crohn disease, asthma, arthritis, spinal stenosis, SVT who presents emergency department for evaluation of shortness of breath and chest pain x5 days. The patient was seen in the emergency department on 07/28/2024 (3 days prior) for similar complaint and had a negative workup which included a CBC, CMP, D-dimer, urinalysis, urine test, chest x-ray , COVID-19, influenza and RSV. States that she still is feeling short of breath she also states that she was having pleuritic chest pain. She states that she has pain in her center of her chest and left posterior chest with deep breathing. The pain is 8/10 at its worst. She states she has an occasional cough. Denied fever but does have chills. She denied nausea or vomiting but has chronic diarrhea secondary to her Crohn's. She states she gets intermittent myalgias and arthralgias. Patient has not taken any medications for her pain. She was concerned that her symptoms were persisting therefore she came back to the emergency department for evaluation. Related Data Home Medications ?Medication ?Instructions ?Recorded ?Confirmed ipratropium bromide 17 inhalation 07/01/23 10/16/23 mcg/actuation HFA aerosol inhaler (Atrovent HFA) levalbuterol tartrate 45 2 puff inhalation Q4-6H 07/01/23 10/16/23 mcg/actuation aerosol inhaler montelukast 10 mg tablet 10 mg PO DAILY 05/06/24 propranolol 10 mg tablet 10 mg PO BID 05/06/24 05/06/24 Previous Rx's ?Medication ?Instructions ?Recorded Normal Saline 0.9% 2 l continuous IV infusion 3XW 52 10/30/22 weeks #156 ea naproxen 500 mg tablet,delayed 500 mg PO BID PRN pain 30 days #60 11/12/22 release tabs lidocaine 5 % topical patch 1 patch topical DAILY 30 days #30 07/25/23 ea cholecalciferol (vitamin D3) 50 50 mcg PO DAILY #90 caps 11/13/23 mcg (2,000 unit) capsule hydrochlorothiazide 12.5 mg tablet 12.5 mg PO DAILY 10 days #10 tabs 03/01/24 albuterol sulfate 90 mcg/actuation 2 puff inhalation Q4-6H PRN 07/31/24 aerosol inhaler (Ventolin HFA) shortness of breath or wheezing #8.5 grams Allergies Allergy/AdvReac Type Severity Reaction Status Date / Time doxycycline [DOXYCYCLINE] Allergy Severe RASH, GI Verified 07/31/24 08:27 Upset levofloxacin [From LEVAQUIN] Allergy Severe RASH Verified 07/31/24 08:27 metronidazole [From FLAGYL] Allergy Severe ANAPHYLAXIS Verified 07/31/24 08:27 morphine [MORPHINE] Allergy Severe ANAPHYLAXIS, Verified 07/31/24 08:27 cant breathe, SOB Sulfa (Sulfonamide Allergy Severe STOP Verified 07/31/24 08:27 Antibiotics) BREATHING, [SULFA (SULFONAMIDE rash/cant ANTIBIOTICS)] breathe adhesive [ADHESIVE] Allergy Intermediate RASH Verified 07/31/24 08:27 clindamycin [CLINDAMYCIN] Allergy Intermediate RASH Verified 07/31/24 08:27 Iodinated Contrast Media Allergy Intermediate ANAPHALAXIS Verified 07/31/24 08:27 [IV CONTRAST] latex [LATEX] Allergy Intermediate RASH Verified 07/31/24 08:27 ciprofloxacin [Cipro] Allergy Unknown unknown Verified 07/31/24 08:27 fludrocortisone Allergy Unknown Unknown Verified 07/31/24 08:27 hydromorphone [Dilaudid] Allergy Unknown Unknown Verified 07/31/24 08:27 ALL CONTRAST DYE Allergy Unknown Unknown Uncoded 04/29/24 00:55 Cortisone Allergy Unknown unknown Uncoded 04/29/24 00:55 IVP Dye Allergy Unknown Unknown Uncoded 04/29/24 00:55 Midodrine HCl Allergy Unknown Unknown Uncoded 04/29/24 00:55 Review of Systems Review of Systems: Yes all other systems are reviewed and are negative [facility] Past Medical History [facility] Narrative: Social history: She denies tobacco, alcohol and drug use Medical History Recent urinary tract infection Acid reflux Huynh disease Crohn disease Colitis Arachnoid cyst Asthma Autoimmune disorder Arthritis Bulging disc Spinal stenosis POTS (postural orthostatic tachycardia syndrome) SVT (supraventricular tachycardia) Surgical History History of kidney surgery History of liver biopsy Hx of cholecystectomy Family History Family History Father High cholesterol HTN (hypertension) Tumors Mental health disorder Mother COPD (chronic obstructive pulmonary disease) Colitis Sister Colitis Substance use disorder Mental health disorder Sister Cervical cancer Social History Social History Household Members: Family and Children Housing: House Alcohol intake: former Patient Tobacco Use Status: Former Tobacco user Years Smoked: quit 20b years ago e-Cigarette/Vaping Use: Never Used Second Hand Smoke Exposure: No service: No Current occupational status: employed 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 Exam: General: Awake, alert in no distress Head: Normocephalic, atraumatic EENT: PERRL, Lids normal, sclera normal, conjunctiva normal, nose normal , ears normal, throat without erythema or exudates Neck: Supple, no adenopathy Lung: breath sounds symmetric, no wheezing, rales or rhonchi Chest: symmetric movement, nontender Heart: regular rate and rhythm, normal S1, S2 no murmurs or rubs Abdomen: soft, non-tender, nondistended, normal bowel sounds Back: no vertebral tenderness, no CVAT Extremities: no deformities, moves all extremities symmetrically Neuro: Awake, alert, oriented, normal speech, cranial nerves intact, moves all extremities symmetrically Psych: Pleasant, cooperative Medical Decision Making Medical Decision Making MDM Narrative: 44-year-old female with a history of GERD, POTS disease, Crohn disease, asthma, arthritis, spinal stenosis, SVT who presents emergency department for evaluation of shortness of breath and anterior and left posterior pleuritic chest pain x5 days. Patient had chills, occasional cough which was nonproductive, occasional myalgias and arthralgias. Patient was seen in the emergency department 3 days prior with a negative workup. Patient has some assisted in a not improve therefore she return to the emergency department for evaluation. Vital signs were normal. Physical examination was unremarkable. Differential diagnosis: ?Includes but is not limited to URI, viral pleurisy, pneumonia, bronchospasm, pulmonary embolism Course: 09:04 The patient's ED note, laboratory evaluation and chest x-rays. All of these tests were normal. Given the negative workup from several days prior do not think that the patient needs repeat laboratory evaluation or x-rays. Patient's symptoms are consistent with a viral pleurisy and I did discuss this with her. She was advised to take ibuprofen 400 mg 3 times a day for 4 days. She was also prescribed an albuterol inhaler 2 puffs every 4-6 hours to see if this improves her dyspnea. She was given printed and verbal instructions and discharged home. Admission/Observation Consideration of admission/observation: Escalation of care including admission/observation considered (No) Prescription Management I considered prescription management with: Other (Albuterol inhaler) Chronic Conditions Patient?s care impacted by: Other (Crohn's disease) Discharge Plan Discharge Clinical Impression: Pleurisy, Acute dyspnea Patient Disposition: Home, Self-Care Instructions: Pleurisy (ED) Additional Instructions: At this time, I believe that your symptoms are caused by pleurisy (inflammation of the lining of your lungs) most likely caused by a virus. Take ibuprofen 200 mg pills, 2 pills (400 mg) every 6 hours (3 times a day) for 4 days to reduce the inflammation in the lining of your lungs. Use the albuterol inhaler with the spacer, 2 puffs every 6 hours as needed for shortness of breath and wheezing. Continue taking your other medications as prescribed by your providers. Follow-up with your doctor in 2 days. Please return to the emergency department if your symptoms get worse or if you develop any symptoms that are concerning to you. Prescriptions: New albuterol sulfate [Ventolin HFA] 90 mcg/actuation HFA aerosol inhaler 2 puff inhalation Q4-6H PRN (Reason: shortness of breath or wheezing) Qty: 8.5 0RF No Action Normal Saline 0.9% solution 2 l continuous IV infusion 3XW 364 Days Qty: 156 0RF naproxen 500 mg tablet,delayed release (DR/EC) 500 mg PO BID PRN (Reason: pain) 30 Days Qty: 60 0RF lidocaine 5 % adhesive patch,medicated 1 patch topical DAILY 30 Days Qty: 30 2RF Rx Instructions: leave on most painful area for up to 12 hrs cholecalciferol (vitamin D3) 50 mcg (2,000 unit) capsule 50 mcg PO DAILY Qty: 90 2RF hydrochlorothiazide 12.5 mg tablet 12.5 mg PO DAILY 10 Days Qty: 10 0RF montelukast 10 mg tablet 10 mg PO DAILY propranolol 10 mg tablet 10 mg PO BID Atrovent HFA 17 mcg/actuation HFA aerosol inhaler inhalation levalbuterol tartrate 45 mcg/actuation HFA aerosol inhaler 2 puff inhalation Q4-6H Print Language: Kyrgyz
[2024-07-31 09:26] VITALS: BP 119/72; PULSE 76; RESP 18; TEMP 36.7; O2SAT 99
== END 2024-07-31 09:27 | disposition home or self-care (01) ==
LOC: HO.ED 09:04
PROVIDERS: Emergency Provider Emergency Medicine Emergency Medical Services; PCP Nurse Practitioner Family
DX: R09.1 Pleurisy (principal); R06.00 Dyspnea, unspecified; R06.02 Shortness of breath; Z79.899 Other long term (current) drug therapy
CPT/HCPCS: 99283; 99284

== ENCOUNTER 2024-08-19 12:33 | Outpatient (AMB) | payer OTHER, SELFPAY ==
[2024-08-19 12:50] VITALS: BP 120/80; PULSE 70; O2SAT 99
--- NOTE | 2024-08-19 12:50 | A.OFFPC_ITS ---
Vital Signs 08/19/24 12:50 Height 5 ft 5 in BMI Reason not done Patient refused/unable BP 120/80 Blood Pressure Location Lt brachial Position Sitting Pulse 70 Pulse Source Pulse Oximeter Pulse Oximetry (%) 99 Oxygen Delivery Method Room Air Intake Visit Reasons: ED follow up Intake Note: Pt is here today for ER follow up visit. Allergies doxycycline [DOXYCYCLINE] Allergy (Severe, Verified 08/19/24 13:45) RASH, GI Upset levofloxacin [From LEVAQUIN] Allergy (Severe, Verified 08/19/24 13:45) RASH metronidazole [From FLAGYL] Allergy (Severe, Verified 08/19/24 13:45) ANAPHYLAXIS morphine [MORPHINE] Allergy (Severe, Verified 08/19/24 13:45) ANAPHYLAXIS, cant breathe, SOB Sulfa (Sulfonamide Antibiotics) [SULFA (SULFONAMIDE ANTIBIOTICS)] Allergy (Severe, Verified 08/19/24 13:45) STOP BREATHING, rash/cant breathe adhesive [ADHESIVE] Allergy (Intermediate, Verified 08/19/24 13:45) RASH clindamycin [CLINDAMYCIN] Allergy (Intermediate, Verified 08/19/24 13:45) RASH Iodinated Contrast Media [IV CONTRAST] Allergy (Intermediate, Verified 08/19/24 13:45) ANAPHALAXIS latex [LATEX] Allergy (Intermediate, Verified 08/19/24 13:45) RASH ciprofloxacin [Cipro] Allergy (Unknown, Verified 08/19/24 13:45) unknown fludrocortisone Allergy (Unknown, Verified 08/19/24 13:45) Unknown hydromorphone [Dilaudid] Allergy (Unknown, Verified 08/19/24 13:45) Unknown ALL CONTRAST DYE Allergy (Unknown, Uncoded 08/19/24 13:45) Unknown Cortisone Allergy (Unknown, Uncoded 08/19/24 13:45) unknown IVP Dye Allergy (Unknown, Uncoded 08/19/24 13:45) Unknown Midodrine HCl Allergy (Unknown, Uncoded 08/19/24 13:45) Unknown Medication List - Last Reconciled 08/19/24 by BRITTNY WebberP- albuterol sulfate 90 mcg/actuation (Ventolin HFA) 2 puffs inhalation Q4-6H PRN cholecalciferol (vitamin D3) 50 mcg PO DAILY hydrochlorothiazide 12.5 mg PO DAILY 10 days ipratropium bromide 17 mcg/actuation (Atrovent HFA) inhalation levalbuterol tartrate 45 mcg/actuation 2 puffs inhalation Q4-6H lidocaine 5% 1 patch topical DAILY 30 days montelukast 10 mg PO DAILY naproxen 500 mg PO BID PRN 30 days [Normal Saline 0.9% 2 L continuous IV infusion 3XW 52 weeks] propranolol 20 mg PO TID Tobacco use date assessed: 05/06/24 Dental Screening Dental Screen Date: 05/06/24 HPI ED follow up HPI Details History of Present Illness The patient is a 44-year-old female presenting with shortness of breath and dizziness. The symptoms began suddenly and without an identifiable trigger. Initially, the patient experienced shortness of breath and presented to the Emergency Department, where cardiac and pulmonary causes were ruled out, including negative findings for heart and lung issues through chest X-ray and various lab tests. The patient's shortness of breath persisted for 10 days, prompting a return to the ER, where pleurisy was diagnosed without further imaging. Despite this diagnosis, the symptoms have persisted, including constant lightheadedness, which worsens intermittently. The patient has a history of asthma, though there have been no active symptoms for years. Pulmonology evaluation indicated that lung sounds were normal, and oxygen saturation levels were adequate. The patient also suffers from POTS, for which she is under medical management in [place] with an increased dosage of propranolol to 20 mg TID. She reports mild improvement, though dizziness remains consistent irrespective of position. Such symptoms include lightheadedness and imbalance, with associated headaches but no significant worsening upon standing or positional change. Additionally, eye examination is planned to address potential vision changes contributing to dizziness. Her last complete blood count (CBC), comprehensive metabolic panel (CMP), D-dimer analysis, urinalysis, test, COVID-19, influenza, and RSV tests returned negative, and there is no recent history of fever or cough. The patient denies any significant history of snoring or sleep apnea but reports sporadic waking at night. No further respiratory or cardiac symptoms noted. Social History - Current location: [place] - Medical follow-up for POTS in [facility] - No recent changes in employment or prem sing discussed - No mention of smoking, alcohol, or jose g use - Current medication includes Propranolo l (60 mg) for POTS - No detailed dietary, exercise, or fami ly planning information provided Review of Systems - Neurologic: Reports persistent dizzine ss and lightheadedness. - Head/Eyes: Reports worsening headaches . - Vision: Reports vision blurring. - Respiratory: Denies cough; reports reddy rtness of breath. - Ears: Reports occasional ear discomfor t. Physical Exam - Neurologic- Positive Triston-Hallpike jose uver - Ears- Observation of ear effusion with possible fluid, more so on the right side s1 s2 lungs clear A+ox3 Results - Labs: Recent CBC, CMP, D-dimer, urinal ysis, and tests were noted as negative (see hospital documentation) - Tests and Diagnostics: Chest X-ray neg ative for acute cardiac or pulmonary causes. Plan - Shortness of Breath/Dizziness/Lighthea dedness: Address potential fluid in ears with prescribed nasal steroid spray. Monitor effects over the next two weeks. - Pleurisy: No change in management at t his time due to previous negative findings for acute chest pathology. - POTS: Continue current Propranolol dos age and assess during next follow-up appointment with with POTS MD. - Headaches/Blurred Vision: Scheduled ey e examination to further evaluate vision changes. - Consider home sleep study to rule out sleep apnea impacting symptomatology. Patient was informed and verbally consented to the use of an ambient scribe for clinic note documentation during this visit. Discussion Notes I discussed with the patient the negative findings from recent medical testing, indicating no acute cardiac or pulmonary causes for the current symptoms. We explored the possibility of ear fluid contributing to dizziness and headaches, with a plan to initiate a nasal steroid spray and course of prednisone to address possible ear effusion. I advised the patient on the potential for noticeable improvement over the next couple of weeks with adherence to this [place] men. Additionally, the impact of POTS on dizziness was discussed, and patient management is ongoing with current medication dosage. A home sleep study was recommended to explore potential sleep disturbances as a contributing factor. Follow-ups and potential adjustments to therapies will be based on the therapeutic response and any new diagnostic findings. Patient Instructions - Start prescribed nasal steroid spray a nd oral prednisone for ear symptoms. - Attend scheduled eye examination to as sess vision-related issues. - Continue monitoring and adherence to t he current medication for POTS. - Be attentive to any changes in symptom s and report significant changes or concerns. - Schedule home sleep study as advised t o rule out possible sleep-related contributions. - Plan for follow-up appointment for fur ther evaluation and management. [facility] Medical History Recent urinary tract infection Acid reflux Huynh disease Crohn disease Colitis Arachnoid cyst Asthma Autoimmune disorder Arthritis Bulging disc Spinal stenosis POTS (postural orthostatic tachycardia syndrome) SVT (supraventricular tachycardia) Surgical History History of kidney surgery History of liver biopsy Hx of cholecystectomy Family History Father High cholesterol HTN (hypertension) Tumors Mental health disorder Mother COPD (chronic obstructive pulmonary disease) Colitis Sister Colitis Substance use disorder Mental health disorder Sister Cervical cancer Social History Household Members: Family and Children Housing: House Alcohol intake: former Patient Tobacco Use Status: Former Tobacco user Years Smoked: quit 20b years ago e-Cigarette/Vaping Use: Never Used Second Hand Smoke Exposure: No service: No Current occupational status: employed 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 Current occupational exposures/hazards: No Cognitive needs: No Hearing needs: No Vision needs: No Questionnaire Thrive Questionnaire Date Thrive assessed: 05/03/24 I am a: Patient What is your living situation today?: I have a steady place to live Within the past 12 months, did the food you bought not last and you didn't have the money to get more?: Never true Within the past 12 months, did you worry whether your food would run out before you got money to buy more?: Never true Do you have trouble paying for medicines?: No Do you have trouble getting transportation to medical appointments?: No Do you have trouble paying your heating and electricity bill?: No Do you have trouble taking care of your child, family member or friend?: No Do you have trouble with day-to-day activities such as bathing, preparing meals, shopping, managing finances, etc.?: Yes Are you currently unemployed and looking for a job?: No Are you interested in more education?: No Please select the resources that you would like help with: Daily support THRIVE Score: 0 CHAVA-7 AMB Questionnaire CHAVA-7 Date CHAVA - 7 assessed: 05/06/24 Source: Developed by Drs. Chucho Elmore, Elsa Christensen, Guzman Reyes and colleagues, with an educational jose guadalupe from [employer]. Physical exam (Primary Care) Vital Signs: Last Vital Signs Pulse 70 08/19/24 12:50 BP 120/80 08/19/24 12:50 Pulse Ox 99 08/19/24 12:50 Oxygen Delivery Method Room Air 08/19/24 12:50 Tobacco/Smoking Status: Tobacco use Status Tobacco use date assessed 05/06/24 08/19/24 12:55 Patient Tobacco Use Status Former Tobacco user 08/19/24 12:55 e-Cigarette/Vaping Use Never Used 08/19/24 12:55 Thrive Assessment: Date of Thrive Assessment Date Thrive assessed 05/03/24 08/19/24 12:55 Coding Level of Care Code Est Pt Level 4 (21854) Diagnoses Chronic fatigue R53.82 Sleep apnea G47.30 Dizziness R42 POTS (postural orthostatic tachycardia syndrome) I49.8 Assessment & Plan Assessment & Plan (1) Chronic fatigue: Code(s): R53.82 - Chronic fatigue, unspecified Category: Medical (2) Sleep apnea: Code(s): G47.30 - Sleep apnea, unspecified Category: Medical (3) Dizziness: Code(s): R42 - Dizziness and giddiness Category: Medical (4) POTS (postural orthostatic tachycardia syndrome): Code(s): I49.8 - Other specified cardiac arrhythmias Category: Medical Plan . Orders: Orders RT home sleep study Today G47.30 - Sleep apnea, unspecified, R53.82 - Chronic fatigue, unspecified Medications: New fluticasone propionate 50 mcg/actuation (Allergy Relief (fluticasone)) administer into each nostril 2 sprays intranasal DAILY 16 grams 0RF
== END 2024-08-19 14:22 | disposition home or self-care (01) ==
PROVIDERS: PCP Nurse Practitioner Family; Visit Provider Nurse Practitioner Family
DX: R53.82 Chronic fatigue, unspecified (principal); G47.30 Sleep apnea, unspecified; R42 Dizziness and giddiness; I49.8 Other specified cardiac arrhythmias

== ENCOUNTER → 2024-08-19 12:33 | Outpatient (BNVA) | payer OTHER, SELFPAY | PROVIDERS: PCP Nurse Practitioner Family; Visit Provider Nurse Practitioner Family | DX: R53.82 Chronic fatigue, unspecified (principal); G47.30 Sleep apnea, unspecified; R42 Dizziness and giddiness; I49.8 Other specified cardiac arrhythmias | CPT/HCPCS: 99212 ==

== ENCOUNTER 2024-09-09 14:03 | Outpatient (REF) | payer OTHER, SELFPAY ==
--- OUTSIDE RECORDS SUMMARY | 2024-09-09 14:09 | XMS_ITS ---
Author Organization [facility] Address [address] [place] [address] Care Team Providers Care Hospice Educator Name Role Phone MITCHELL BOND Primary Care Provider Desmond Francisco Jr Unavailable REASON FOR VISIT cancel appt Encounters Encounter Location Date Provider Diagnosis [facility] [address] [place] [address] 12/15/2023 Desmond De Oliveira Jr PLAN OF TREATMENT No Information
--- OUTSIDE RECORDS SUMMARY | 2024-09-09 14:09 | XMS_ITS ---
Author Organization [facility] Address [address] [place] [address] Care Team Providers Care Detective Bureau Chief Name Role Phone JUSTINEVELYN MITCHELL Primary Care Provider Humberto De Oliveira Jr, Desmond Unavailable REASON FOR VISIT patient presents today for lump in rectum Encounters Encounter Location Date Provider Diagnosis [facility] [address] [place] [address] 12/15/2023 Desmond De Oliveira Jr PLAN OF TREATMENT No Information
--- OUTSIDE RECORDS SUMMARY | 2024-09-09 14:10 | XMS_ITS ---
Author Name [facility] Organization Unknown Results Test Name/Text Value Interpretation Date Range Source BILIRUBIN,TOTAL 0.4mg/dL Normal [id number] 0.2 - 1 C [facility] ALKALINE PHOSPHATASE 61U/L Normal [id number] 50 - 136 [facility] AST (SGOT) 17U/L Normal [id number] 15 - 37 [facility] GLOBULIN 3.5g/dL Normal [id number] 2.4 - 4.2 [facility] A/G RATIO 1.1g/dL Normal [id number] [facility] ALT (SGPT) 29U/L Normal [id number] 12 - 78 [facility] PROTEIN, TOTAL 7.2g/dL Normal [id number] 6.4 - 8.2 [facility] TSH 1.47uIU/mL Normal [id number] 0.35 - 4.5 [facility] TROPONIN I HIGH SENSITIVE < 3.00 Normal [id number] 0 - 54 [facility] EPI CELLS 1+ Normal [id number] [facility] BACTERIA 2+ Critically abnormal [id number] - [facility] RBC 0/HPF Normal [id number] 0 - 0 [facility] WBC 1/HPF Above high normal [id number] 0 - 0 [facility] ALBUMIN 3.7g/dL Normal [id number] 3.4 - 5 [facility] SODIUM 138mmol/L Normal [id number] 136 - 145 [facility] GLUCOSE 88mg/dL Normal [id number] 74 - 100 [facility] BUN 14mg/dL Normal [id number] 7 - 18 [facility] CHLORIDE 108mmol/L Above high normal [id number] 98 - 107 [facility] POTASSIUM SERUM 4.1mmol/L Normal [id number] 3.5 - 5.1 C [facility] CO2 24mmol/L Normal [id number] 21 - 32 [facility] BUN/CREAT.RATIO 21.9 Normal [id number] C [facility] CREATININE 0.64mg/dL Normal [id number] 0.55 - 1.3 [facility] GFRE 108 Normal [id number] 60 - [facility] BLOOD Negative Normal [id number] - [facility] SPECIFIC GRAVITY 1.01 Normal [id number] 1.005 - 1.03 [facility] UROBILINOGEN 0.2mg/dL Normal [id number] - [facility] NITRITE Negative Normal [id number] - [facility] LEUK. ESTERASE Negative Normal [id number] - [facility] GLUCOSE Negative Normal [id number] - [facility] APPEARANCE Clear Normal - [facility] BILIRUBIN Negative Normal - [facility] PROTEIN Negative Normal - [facility] COLOR Yellow Normal - [facility] KETONES Negative Normal [id number] - [facility] PH 7 Normal [id number] 5 - 8 [facility] WBC 9.7K/uL Normal [id number] 3.7 - 10.3 [facility] ABSOLUTE GRANULOCYTES 7K/uL Normal [id number] 2.2 - 7.3 [facility] ABSOLUTE BASO 0.1K/uL Normal [id number] 0 - 0.2 [facility] RBC 4.44M/uL Normal [id number] 4 - 5.4 [facility] IMMATURE GRANULOCYTES 0% Normal [id number] 0 - 0.45 [facility] EOSINOPHILS 3% Normal [id number] 0 - 6 [facility] MPV 10fL Normal [id number] 8 - 12 [facility] ABSOLUTE MONOS 0.5K/uL Normal [id number] 0.2 - 1.5 [facility] BASOPHILS 1% Normal [id number] 0 - 2 [facility] NUCLEATED RBC 0% Normal [id number] 0 - 0.2 [facility] MCV 95fL Normal [id number] 83 - 102 [facility] MCH 32PG Normal [id number] 27 - 34 [facility] HCT 42.1% Normal [id number] 36 - 46 [facility] ABSOLUTE LYMPHS 1.8K/uL Normal [id number] 1.5 - 4.9 [facility] GRANULOCYTES 72% Normal [id number] 23 - [facility] 6% Normal [id number] 0 - 12 [facility] ABSOLUTE EOS 0.3K/uL Normal [id number] 0 - 0.7 [facility] LYMPHS 19% Normal [id number] 16 - 50 [facility] ABSOLUTE IMMATURE GRANULOCYTES 0K/uL Normal [id number] 0 - 0.3 [facility] HGB 14.1g/dL Normal [id number] 12.1 - 15.7 [facility] RDW 12.7% Normal [id number] 11.1 - 13.3 [facility] PLATELET COUNT 223K/uL Normal [id number] 150 - 480 [facility] MCHC 33.5g/dL Normal [id number] 31 - 36 [facility] ABSOLUTE NUCLEATED RBC 0K/uL Normal [id number] 0 - 0.012 [facility] PATIENT FASTING? UNKNOWN Normal [id number] [facility] TROPONIN I HIGH SENSITIVE 3.5ng/L Normal 0 - 54 [facility] BILIRUBIN,TOTAL 0.5mg/dL Normal [id number] 0.2 - 1 [facility] ALKALINE PHOSPHATASE 64U/L Normal [id number] 50 - 136 [facility] GLOBULIN 3.5g/dL Normal 2.4 - 4.2 [facility] A/G RATIO 1g/dL Normal [id number] [facility] ALT (SGPT) 34U/L Normal [id number] 12 - 78 [facility] PROTEIN, TOTAL 7g/dL Normal [id number] 6.4 - 8.2 [facility] TROPONIN I HIGH SENSITIVE < 3.00 Normal [id number] 0 - 54 [facility] PRO B-TYPE NATRIURETIC PEPTIDE 29pg/mL Normal [id number] 0 - 450 [facility] ALBUMIN 3.5g/dL Normal [id number] 3.4 - 5 [facility] SODIUM 140mmol/L Normal 136 - 145 [facility] GLUCOSE 87mg/dL Normal [id number] 74 - 100 [facility] BUN 14mg/dL Normal [id number] 7 - 18 [facility] CHLORIDE 108mmol/L Above high normal [id number] 98 - 107 [facility] POTASSIUM SERUM 4mmol/L Normal [id number] 3.5 - 5.1 [facility] CO2 26mmol/L Normal [id number] 21 - 32 [facility] AST (SGOT) 22U/L Normal [id number] 15 - 37 [facility] BUN/CREAT.RATIO 25 Normal [id number] C [facility] CREATININE 0.56mg/dL Normal [id number] 0.55 - 1.3 [facility] LIPASE 43U/L Normal [id number] 13 - 75 [facility] GFRE 126 Normal [id number] 60 - [facility] D-DIMER HIGH SENSITIVITY 234ng/MLDDU Normal [id number] 0 - 243 [facility] WBC 9.9K/uL Normal [id number] 3.7 - 10.3 [facility] ABSOLUTE GRANULOCYTES 7.3K/uL Normal [id number] 2.2 - 7.3 [facility] ABSOLUTE BASO 0.1K/uL Normal [id number] 0 - 0.2 [facility] RBC 4.07M/uL Normal [id number] 4 - 5.4 [facility] IMMATURE GRANULOCYTES 0% Normal [id number] 0 - 0.45 [facility] EOSINOPHILS 3% Normal [id number] 0 - 6 [facility] MPV 10fL Normal [id number] 8 - 12 [facility] ABSOLUTE MONOS 0.6K/uL Normal [id number] 0.2 - 1.5 [facility] BASOPHILS 1% Normal [id number] 0 - 2 [facility] NUCLEATED RBC 0% Normal [id number] 0 - 0.2 [facility] MCV 93fL Normal [id number] 83 - 102 [facility] MCH 32PG Normal [id number] 27 - 34 [facility] HCT 37.8% Normal [id number] 36 - 46 [facility] ABSOLUTE LYMPHS 1.7K/uL Normal [id number] 1.5 - 4.9 C [facility] GRANULOCYTES 74% Normal [id number] 23 - 78 [facility] MONOCYTES 6% Normal [id number] 0 - 12 [facility] ABSOLUTE EOS 0.3K/uL Normal [id number] 0 - 0.7 [facility] LYMPHS 17% Normal [id number] 16 - 50 [facility] ABSOLUTE IMMATURE GRANULOCYTES 0K/uL Normal [id number] 0 - 0.3 [facility] HGB 13.1g/dL Normal [id number] 12.1 - 15.7 [facility] RDW 12.6% Normal [id number] 11.1 - 13.3 [facility] PLATELET COUNT 219K/uL Normal [id number] 150 - [address] [facility] MCHC 34.7g/dL Normal [id number] 31 - 36 [facility] ABSOLUTE NUCLEATED RBC 0K/uL Normal [id number] 0 - 0.012 [facility] PATIENT FASTING? UNKNOWN Normal [id number] [facility] D-DIMER HIGH SENSITIVITY 285ng/MLDDU Above high normal [id number] 0 - 243 [facility] BILIRUBIN,TOTAL 0.5mg/dL Normal [id number] 0.2 - 1 [facility] ALKALINE PHOSPHATASE 69U/L Normal [id number] 50 - 136 [facility] GLOBULIN 3.7g/dL Normal [id number] 2.4 - 4.2 [facility] A/G RATIO 1.1g/dL Normal [id number] [facility] ALT (SGPT) 31U/L Normal [id number] 12 - 78 [facility] PROTEIN, TOTAL 7.6g/dL Normal [id number] 6.4 - 8.2 [facility] GFRE 114 Normal [id number] 60 - [facility] ALBUMIN 3.9g/dL Normal [id number] 3.4 - 5 [facility] SODIUM 139mmol/L Normal [id number] 136 - 145 [facility] GLUCOSE 89mg/dL Normal [id number] 74 - 100 [facility] BUN 12mg/dL Normal [id number] 7 - 18 [facility] CHLORIDE 107mmol/L Normal [id number] 98 - 107 [facility] POTASSIUM SERUM 4.1mmol/L Normal [id number] 3.5 - 5.1 [facility] CO2 28mmol/L Normal [id number] 21 - 32 [facility] AST (SGOT) 31U/L Normal [id number] 15 - 37 CT[facility] BUN/CREAT.RATIO 19.7 Normal [id number] [facility] CREATININE 0.61mg/dL Normal [id number] 0.55 - 1.3 [facility] WBC 9.6K/uL Normal [id number] 3.7 - 10.3 [facility] RBC 4.33M/uL Normal [id number] 4 - 5.4 [facility] HGB 13.9g/dL Normal [id number] 12.1 - 15.7 [facility] MPV 10fL Normal [id number] 8 - 12 [facility] RDW 12.6% Normal [id number] 11.1 - 13.3 [facility] NUCLEATED RBC 0% Normal [id number] 0 - 0.2 [facility] MCV 95fL Normal [id number] 83 - 102 [facility] MCH 32PG Normal [id number] 27 - 34 [facility] HCT 41.2% Normal [id number] 36 - 46 [facility] PLATELET COUNT 245K/uL Normal [id number] 150 - [address] [facility] MCHC 33.7g/dL Normal [id number] 31 - 36 [facility] ABSOLUTE NUCLEATED RBC 0K/uL Normal [id number] 0 - 0.012 [facility] PATIENT FASTING? NO Normal [id number] [facility] TSH 2.15uIU/mL Normal [id number] 0.35 - 4.5 [facility] BILIRUBIN,TOTAL 0.5mg/dL Normal [id number] 0.2 - 1 [facility] ALKALINE PHOSPHATASE 61U/L Normal 50 - 136 [facility] GLOBULIN 3.4g/dL Normal [id number] 2.4 - 4.2 [facility] A/G RATIO 1.1g/dL Normal [id number] [facility] ALT (SGPT) 21U/L Normal [id number] 12 - 78 [facility] PROTEIN, TOTAL 7g/dL Normal [id number] 6.4 - 8.2 [facility] HIV ANTIBODY - EXPOSURE NON-REACTIVE Normal - [facility] TROPONIN I HIGH SENSITIVE < 3.00 Normal 0 - 54 [facility] GFRE 117 Normal 60 - [facility] MAGNESIUM 2.1mg/dL Normal 1.8 - 2.4 [facility] ALBUMIN 3.6g/dL Normal 3.4 - 5 [facility] SODIUM 141mmol/L Normal 136 - 145 [facility] GLUCOSE 90mg/dL Normal 74 - 100 [facility] BUN 16mg/dL Normal 7 - 18 [facility] CHLORIDE 112mmol/L Above high normal 98 - 107 [facility] POTASSIUM SERUM 4.6mmol/L Normal 3.5 - 5.1 C [facility] CO2 23mmol/L Normal 21 - 32 [facility] AST (SGOT) 30U/L Normal 15 - 37 [facility] BUN/CREAT.RATIO 26.7 Normal C [facility] CREATININE 0.6mg/dL Normal 0.55 - 1.3 [facility] WBC 10.1K/uL Normal 3.7 - 10.3 [facility] ABSOLUTE GRANULOCYTES 7.8K/uL Above high normal 2.2 - 7.3 [facility] ABSOLUTE BASO 0.1K/uL Normal 0 - 0.2 [facility] RBC 4.32M/uL Normal 4 - 5.4 [facility] IMMATURE GRANULOCYTES 0% Normal 0 - 0.45 [facility] EOSINOPHILS 2% Normal 0 - 6 [facility] MPV 11fL Normal 8 - 12 [facility] ABSOLUTE MONOS 0.5K/uL Normal 0.2 - 1.5 CT [facility] BASOPHILS 1% Normal 0 - 2 [facility] NUCLEATED RBC 0% Normal 0 - 0.2 [facility] MCV 97fL Normal 83 - 102 [facility] MCH 32PG Normal 27 - 34 [facility] HCT 42% Normal 36 - 46 [facility] ABSOLUTE LYMPHS 1.6K/uL Normal 1.5 - 4.9 C [facility] GRANULOCYTES 77% Normal [id number] 23 - 78 [facility] MONOCYTES 5% Normal [id number] 0 - 12 [facility] ABSOLUTE EOS 0.2K/uL Normal [id number] 0 - 0.7 [facility] LYMPHS 16% Normal [id number] 16 - 50 [facility] ABSOLUTE IMMATURE GRANULOCYTES 0K/uL Normal [id number] 0 - 0.3 [facility] HGB 14g/dL Normal [id number] 12.1 - 15.7 [facility] RDW 13% Normal [id number] 11.1 - 13.3 [facility] PLATELET COUNT 261K/uL Normal [id number] 150 - [address] [facility] MCHC 33.3g/dL Normal [id number] 31 - 36 [facility] ABSOLUTE NUCLEATED RBC 0K/uL Normal [id number] 0 - 0.012 [facility] PATIENT FASTING? UNKNOWN Normal [id number] [facility] History of Medication Use Medication Directions Dispensed Refills Start Date End Date Stat ivabradine (CORLANOR) 5 MG tablet Take 1 tablet (5 mg total) by mouth 2 (two) times a day. 08/07/2024 09/28/9999 active propranolol (INDERAL) 20 MG tablet Take 1 tablet (20 mg total) by mouth 3 (three) times a day. As discussed at visit 06/30/2024 active propranolol (INDERAL) 10 MG tablet Take 1 tablet (10 mg total) by mouth 2 (two) times a day. Every 8 hours 05/08/2024 active Vitamin D3 (CHOLECALCIFEROL) 50 MCG (1999) capsule 05/08/2024 act daniel amoxicillin-clavulana te (AUGMENTIN) 875-125 MG per tablet 05/08/2024 act daniel doxycycline (VIBRAMYCIN) 100 MG capsule Take 1 capsule (100 mg total) by mouth. 05/08/2024 active doxycycline (VIBRA-TABS) 100 MG tablet Please see attached for detailed directions 05/08/2024 active COLESTIPOL HCL PO Take 15 g/day by mouth daily. 04/26/2024 active Levonorgestrel (MIRENA, 52 MG, IU) 1 Units by Intrauterine route 1 time. 04/26/2024 active ibuprofen (MOTRIN) 800 mg tablet Take 1 tablet (800 mg total) by mouth 3 times daily (every 8 hours) as needed for moderate pain. 04/26/2024 active levalbuterol (XOPENEX HFA) 45 mcg/puff inhaler Inhale 1 puff every 4 (four) hours as needed for wheezing or shortness of breath. 04/26/2024 active montelukast (SINGULAIR) 10 MG tablet Take 1 tablet (10 mg total) by mouth nightly. 04/26/2024 active pyridostigmine (MESTINON) 60 MG tablet Take 1 tablet (60 mg total) by mouth 2 (two) times a day. 04/26/2024 active docusate sodium (COLACE) 100 MG capsule Take 1 capsule (100 mg total) by mouth 2 (two) times a day as needed for constipation. 04/26/2024 active sodium chloride (NS) bolus Infuse 1,000 mL into a venous catheter 3 (three) times a week. 04/26/2024 active sodium chloride 1 g tablet Take 1 tablet (1 g total) by mouth 2 (two) times a day after breakfast and lunch. 04/26/2024 active Medical Compression Stockings Level of Compression: 20-30 mmHg; knee-high, bilateral 04/26/2024 active pregabalin (LYRICA) 25 MG capsule Take 1 capsule (25 mg total) by mouth 2 (two) times a day. 04/26/2024 active fluticasone (FloVENT HFA) 110 mcg/puff inhaler Inhale 2 puffs 2 (two) times a day. 04/26/2024 active Problems Problem Status Onset Date Problem Type Date of Resolution Source Asthma active 2014-10-27 ProblemAct [facility] PFO (patent foramen ovale) active 2008-01-20 ProblemAct [facility] IBS (irritable bowel syndrome) active 2014-10-27 ProblemAct [facility] Psoriasis active 2014-10-27 ProblemAct [facility] Headache active 2024-03-23 ProblemAct [facility] POTS (postural orthostatic tachycardia syndrome) active 2012-02-12 ProblemAct [facility] Anxiety active 2014-10-27 ProblemAct [facility] Low back pain active 2024-03-23 ProblemAct [facility] T History of gestational diabetes active 2018-03-10 ProblemAct [facility] PTSD (post-traumatic stress disorder) active 2014-10-27 ProblemAct [facility] Spinal stenosis active 2014-10-27 ProblemAct [facility] GERD (gastroesophageal reflux disease) active 2014-10-27 ProblemAct [facility] Class 1 obesity active 2024-03-23 ProblemAct [facility] Crohn's colitis active 2018-03-10 ProblemAct [facility] SVT (supraventricular tachycardia) active 2012-02-12 ProblemAct [facility] Other abnormalities of heart beat active EncounterDiagnosisAct [facility] Eczema active 2014-10-27 ProblemAct [facility] Vitamin D deficiency active 2008-05-23 ProblemAct [facility] Major depression active 2014-10-27 ProblemAct [facility] [place] 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
--- OUTSIDE RECORDS SUMMARY | 2024-09-09 14:10 | XMS_ITS | Patient Health Record ---
Author Organization [facility] Address [address] [place] [address] Care Team Providers Care High Speed Warper Tender Name Role Phone JUSTINMITCHELL RIVAS Primary Care Provider Desmond Francisco Jr Unavailable REASON FOR REFERRAL No Information SOCIAL HISTORY Sex Assigned At : Social History Observation Description Sex Assigned At Unknown Encounters Encounter Location Date Provider Diagnosis [facility] [address] [place] [phone] 12/15/2023 Desmond De Oliveira Jr [facility] [address] [place] [phone] 12/15/2023 Desmond De Oliveira Jr PLAN OF TREATMENT No Information Insurance Providers Payer Name Payer Address Payer Phone Subscriber Number Group Number Insured Name Patient Relationship to Insured Coverage Start Date Coverage End Date [facility] [address] [address] [place], [place] [id number] LYNN DONNELLY Self - patient is the insured
== END 2024-09-09 14:04 | disposition home or self-care (01) ==
LOC: HO.MAMMO 14:03
PROVIDERS: PCP Nurse Practitioner Family; Visit Provider Nurse Practitioner Family
DX: Z12.31 Encounter for screening mammogram for malignant neoplasm of breast (principal)
CPT/HCPCS: 77063; 77067

== ENCOUNTER → 2024-09-09 14:15 | Outpatient (BNV) | payer OTHER, SELFPAY | PROVIDERS: PCP Nurse Practitioner Family; Visit Provider Internal Medicine | DX: Z12.31 Encounter for screening mammogram for malignant neoplasm of breast (principal) | CPT/HCPCS: 77063; 77067 ==

== ENCOUNTER 2024-09-10 11:46 | Outpatient (REF) | payer OTHER, SELFPAY ==
--- OUTSIDE RECORDS SUMMARY | 2024-09-10 11:48 | XMS_ITS ---
Author Organization [facility] Address [address] [place] [address] Care Team Providers Care Hot Plate Press Operator Name Role Phone MITCHELL BOND Primary Care Provider Desmond Francisco Jr Unavailable REASON FOR VISIT cancel appt Encounters Encounter Location Date Provider Diagnosis [facility] [address] [place] [address] 12/15/2023 Desmond De Oliveira Jr PLAN OF TREATMENT No Information
--- OUTSIDE RECORDS SUMMARY | 2024-09-10 11:48 | XMS_ITS ---
Author Organization [facility] Address [address] [place] [address] Care Team Providers Care Adaptive Physical Education Specialist Name Role Phone JUSTINEVELYN MITCHELL Primary Care Provider Humberto De Oliveira Jr, Desmond Unavailable REASON FOR VISIT patient presents today for lump in rectum Encounters Encounter Location Date Provider Diagnosis [facility] [address] [place] [phone] 12/15/2023 Desmond De Oliveira Jr PLAN OF TREATMENT No Information
--- OUTSIDE RECORDS SUMMARY | 2024-09-10 11:49 | XMS_ITS | Patient Health Record ---
Author Organization [facility] Address [address] [place] [address] Care Team Providers Care Schedule Maker Name Role Phone JUSTINMITCHELL RIVAS Primary Care Provider Desmond Francisco Jr Unavailable REASON FOR REFERRAL No Information SOCIAL HISTORY Sex Assigned At : Social History Observation Description Sex Assigned At Unknown Encounters Encounter Location Date Provider Diagnosis [facility] [address] [place] [phone] 12/15/2023 Desmond De Oliveira Jr [facility] [address] [place] [address] 12/15/2023 Desmond De Oliveira Jr PLAN OF TREATMENT No Information Insurance Providers Payer Name Payer Address Payer Phone Subscriber Number Group Number Insured Name Patient Relationship to Insured Coverage Start Date Coverage End Date [facility] [address] [address] [place], [place] [id number] LYNN DONNELLY Self - patient is the insured
== END 2024-09-10 11:47 | disposition home or self-care (01) ==
LOC: HO.CT 11:46
PROVIDERS: PCP Nurse Practitioner Family; Visit Provider Nurse Practitioner Family
DX: R10.9 Unspecified abdominal pain (principal); R11.0 Nausea; R19.8 Other specified symptoms and signs involving the digestive system and abdomen
CPT/HCPCS: 74176

== ENCOUNTER → 2024-09-10 11:47 | Outpatient (BNV) | payer OTHER, SELFPAY | PROVIDERS: PCP Nurse Practitioner Family; Visit Provider Radiology Diagnostic Radiology | DX: K56.41 Fecal impaction (principal); K42.9 Umbilical hernia without obstruction or gangrene | CPT/HCPCS: 74176 ==

== ENCOUNTER 2024-10-18 09:47 | Outpatient (REF) | payer OTHER, SELFPAY ==
--- NOTE | ~2024-10-18 | US_ITS ---
EXAMINATION: MM DIAGNOSTIC DIGITAL BREAST TOMOSYNTHESIS, RIGHT Limited right breast ultrasound. CLINICAL INFORMATION: Call back from screening for right breast focal asymmetries COMPARISON: Mammography: Comparison is made with multiple prior examinations in PACS. TECHNIQUE: Digital breast tomosynthesis is performed in both the craniocaudal and mediolateral oblique views along with computer-aided detection (CAD). Synthesized 2D images are generated from the tomosynthesis. Limited right breast ultrasound. FINDINGS: The breasts are heterogeneously dense, which may obscure small masses (ACR BI-RADS breast composition Category c). There are circumstance oval masses in the lower inner quadrant central inner quadrant. No suspicious calcifications or other abnormal findings. Targeted color Doppler ultrasound scanning from 12-6 o'clock in the medial right breast demonstrates a minimally complicated cyst at 2:00 5 cm from nipple measuring 9 x 7 x 11 mm which correlates with the focal asymmetry in the central inner breast on mammography. There is a solid mass at 4:00 4 cm from the nipple which is oval and parallel measuring 17 x 12 x 12 mm. US/US breast RT limited mamm only IMPRESSION: 1. Minimally complicated cyst on ultrasound at 2:00. Benign. 2. Solid mass which is new on mammography at 4:00 4 7 m from nipple on ultrasound. Recommend histology with ultrasound-guided core needle biopsy at this time. The findings and recommendations were discussed with the patient the procedure will be scheduled. ASSESSMENT: BI-RADS BI-RADS 4 - Suspicious finding RECOMMENDATION: Biopsy recommended Results were provided to the patient at time of visit by the technologist. This patient's information was entered into a reminder system with a target due date for their next mammogram. Electronically signed by: Sada Gordon DO 10/18/2024 10:54 AM [facility]
== END 2024-10-18 09:48 | disposition home or self-care (01) ==
LOC: HO.MAMMO 09:47
PROVIDERS: PCP Nurse Practitioner Family; Visit Provider Nurse Practitioner Family
DX: N64.89 Other specified disorders of breast (principal)
CPT/HCPCS: 76642; 77061; 77065

== ENCOUNTER → 2024-10-18 10:45 | Outpatient (BNV) | payer OTHER, SELFPAY | PROVIDERS: PCP Nurse Practitioner Family; Visit Provider Internal Medicine | DX: N60.01 Solitary cyst of right breast (principal); N63.14 Unspecified lump in the right breast, lower inner quadrant | CPT/HCPCS: 76642; 77061; 77065 ==

== ENCOUNTER → 2024-10-28 07:25 | Outpatient (BNVA) | payer OTHER, SELFPAY | PROVIDERS: PCP Nurse Practitioner Family; Visit Provider Nurse Practitioner Family ==

== ENCOUNTER 2024-11-02 09:57 | Outpatient (AMB) | payer OTHER, SELFPAY ==
--- NOTE | 2024-11-02 10:05 | MHC.OFFVIS ---
Vital Signs 11/02/24 10:15 Height 5 ft 5 in Weight 193 lb BMI 32.1 BP 130/71 Blood Pressure Location Lt brachial Position Sitting Pulse 94 Intake Visit Reasons: US Biopsy, rt breast 4 o'clock mass Intake Note: Patient is seen in office for ultrasound biopsy CONSULT, right breast 4 o'clock mass. Pt c/o:denies any concerns with the breast, no lumps, breast are dense, no prior surgeries or infections, no , no family hx of breast cancer Bx sched: 11/04/24 us/mm:10/18/24 Allergies doxycycline [DOXYCYCLINE] Allergy (Severe, Verified 11/02/24 10:11) RASH, GI Upset levofloxacin [From LEVAQUIN] Allergy (Severe, Verified 11/02/24 10:11) RASH metronidazole [From FLAGYL] Allergy (Severe, Verified 11/02/24 10:11) ANAPHYLAXIS morphine [MORPHINE] Allergy (Severe, Verified 11/02/24 10:11) ANAPHYLAXIS, cant breathe, SOB Sulfa (Sulfonamide Antibiotics) [SULFA (SULFONAMIDE ANTIBIOTICS)] Allergy (Severe, Verified 11/02/24 10:11) STOP BREATHING, rash/cant breathe adhesive [ADHESIVE] Allergy (Intermediate, Verified 11/02/24 10:11) RASH clindamycin [CLINDAMYCIN] Allergy (Intermediate, Verified 11/02/24 10:11) RASH Iodinated Contrast Media [IV CONTRAST] Allergy (Intermediate, Verified 11/02/24 10:11) ANAPHALAXIS latex [LATEX] Allergy (Intermediate, Verified 11/02/24 10:11) RASH ciprofloxacin [Cipro] Allergy (Unknown, Verified 11/02/24 10:11) unknown fludrocortisone Allergy (Unknown, Verified 11/02/24 10:11) Unknown hydromorphone [Dilaudid] Allergy (Unknown, Verified 11/02/24 10:11) Unknown ALL CONTRAST DYE Allergy (Unknown, Uncoded 11/02/24 10:11) Unknown Cortisone Allergy (Unknown, Uncoded 11/02/24 10:11) unknown IVP Dye Allergy (Unknown, Uncoded 11/02/24 10:11) Unknown Midodrine HCl Allergy (Unknown, Uncoded 11/02/24 10:11) Unknown Medication List - Last Reconciled 11/02/24 by Beni Maria MD albuterol sulfate 90 mcg/actuation (Ventolin HFA) 2 puffs inhalation Q4-6H PRN cholecalciferol (vitamin D3) 50 mcg PO DAILY ipratropium bromide 17 mcg/actuation (Atrovent HFA) inhalation levalbuterol tartrate 45 mcg/actuation 2 puffs inhalation Q4-6H lidocaine 5% 1 patch topical DAILY 30 days magnesium oxide 400 mg PO BEDTIME [Normal Saline 0.9% 2 L continuous IV infusion 3XW 52 weeks] propranolol 20 mg PO TID riboflavin (vitamin B2) 400 mg PO DAILY vitamin B complex 1 tab PO DAILY HPI Comments Details: 44-year-old female patient presenting with a recent screening mammogram performed on 09/09/2024 followed by a diagnostic mammogram and ultrasound performed of the right breast on 10/18/2024. This revealed a suspicious density in the right breast at the 4 o'clock position approximately 4 cm from the nipple felt to be solid by ultrasound. Ultrasound-guided core biopsy was recommended and scheduled for 11/04/2024 at the [facility]. She denies a history of breast problems or breast surgery but did have an enlarged lymph node in the left axilla which resolved. Family history is negative for breast cancer but is significant for lung cancer in her mother as well as multiple myeloma also in her mother. She is 2 para 3 with 1 set of twins as well as a 3rd child. She did not breastfeed. Menarche was the age of 12 in her 1st child was born when she was 21. [facility] Medical History Recent urinary tract infection Acid reflux Huynh disease Crohn disease Colitis Arachnoid cyst Asthma Autoimmune disorder Arthritis Bulging disc Spinal stenosis POTS (postural orthostatic tachycardia syndrome) SVT (supraventricular tachycardia) Surgical History History of kidney surgery History of liver biopsy Hx of cholecystectomy Family History Father High cholesterol HTN (hypertension) Tumors Mental health disorder Mother COPD (chronic obstructive pulmonary disease) Colitis Sister Colitis Substance use disorder Mental health disorder Sister Cervical cancer Social History Household Members: Family and Children Housing: House Alcohol intake: former Patient Tobacco Use Status: Former Tobacco user Years Smoked: quit 20b years ago e-Cigarette/Vaping Use: Never Used Second Hand Smoke Exposure: No service: No Current occupational status: employed 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 Current occupational exposures/hazards: No Cognitive needs: No Hearing needs: No Vision needs: No Female Reproductive History Menstrual Age of Menarche: 12 Total pregnancies: 4 Number of Living Children: 3 Review of Systems Const All systems reviewed & are unremarkable except as noted in HPI and below Denies chills, Denies fever(s), Denies headache(s), Denies poor appetite and Denies weakness ENT Denies headache(s) Card Denies chest pain, Denies irregular heart rhythm, Denies palpitations and Denies dyspnea Resp Denies cough, Denies excessive phlegm production and Denies dyspnea GI Denies abdominal pain, Denies bloating, Denies change in bowel habits, Denies constipation, Denies heartburn, Denies diarrhea, Denies nausea and Denies vomiting Denies urinary frequency Musc Denies back pain, Denies muscle weakness and Denies numbness Skin/Breast Denies changing lesions and Denies unusual bruising Neuro Denies headache(s), Denies numbness, Denies paresthesias and Denies weakness Psych Denies anxiety and Denies depression Endo Denies palpitations Terry/Lymph Denies lymphadenopathy Physical Exam Vital Signs: Last Vital Signs Pulse 94 11/02/24 10:15 BP 130/71 11/02/24 10:15 BMI result Body Mass Index 32.1 Const General: cooperative and no acute distress Nutritional Appearance: well nourished Orientation/consciousness: patient oriented x3 Limitations: no limitations HEENT Head: Yes normocephalic and Yes atraumatic Ears: hearing grossly normal bilaterally Chest Other: Left breast: No skin change, no nipple retraction, no nipple discharge, no palpable mass, no enlarged lymph nodes. Right breast: No skin change, no nipple retraction, no nipple discharge, no palpable mass, no enlarged lymph nodes Resp Effort & Inspection: normal respiratory effort, no audible wheezes, no cough and no respiratory distress Cardio Jugular venous distension: no JVD GI Inspection: Yes normal to inspection Skin Other: Warm, dry, no rash Neuro General: patient oriented x3 Extrem General: Yes no clubbing, cyanosis or edema Assessment & Plan Assessment & Plan (1) Abnormal ultrasound of breast: Code(s): R92.8 - Other abnormal and inconclusive findings on diagnostic imaging of breast Category: Medical (2) Abnormal mammogram of right breast: Code(s): R92.8 - Other abnormal and inconclusive findings on diagnostic imaging of breast Category: Medical Plan 44-year-old female patient presenting with a recent mammogram and ultrasound which revealed a density in the right breast, 04:00 o'clock location approximately 4 cm from the nipple felt to be suspicious for malignancy. An ultrasound-guided core biopsy is recommended and scheduled at the [facility] on 11/04/2024. She denies a previous history of breast surgery or breast cancer. Examination today revealed dense breast tissue but no suspicious palpable densities. No enlarged lymph nodes were appreciated as well. I recommended patient follow up in 1 week to review the pathology results and discuss treatment options. She expressed understanding and agrees with the plan. Coding Level of Care Code New Pt Level 4 (71273) Diagnoses Abnormal ultrasound of breast R92.8 Abnormal mammogram of right breast R92.8
[2024-11-02 10:15] VITALS: BP 130/71; PULSE 94; BMI 32.1
--- OUTSIDE RECORDS SUMMARY | 2024-11-02 10:39 | XMS_ITS | Encounter Summary ---
Author Organization [facility] Address [address] [place] [address] Care Team Providers Care Lifestyle Consultant Name Role Phone Beni Valle MD Primary Care Provider [phone] Derek Roche PA-C Unavailable [phone] Encounter Details Date Type Department Care Team (Latest Contact Info) Description 10/26/2024 Travel Social History Tobacco Use Types Packs/Day Years Used Date Smoking Tobacco: Former Cigarettes Sex and Gender Information Value Date Recorded Sex Assigned at Female 10/27/2023 1:22 PM EST Gender Identity Female 10/27/2023 1:22 PM EST Sexual Orientation Heterosexual (straight) 10/27 1:22 PM EST documented as of this encounter Plan of Treatment Upcoming Encounters Date Type Department Care Team (Late st Contact Info) Description 01/05/2025 2:00 PM EDT Appointment [facility] Heart & Vascular [place] at [facility] - Cardiology [address] [place] [address] Derek Roche PA-C [address] [place] [id number] documented as of this encounter Visit Diagnoses Not on filedocumented in this encounter Care Teams Lifestyle Consultant Relationship Specialty Start Date End Date Beni Valle MD [address] [place] [address] [place] [id number] PCP - General Family Medicine 10/27/23 Derek Roche PA-C [address] [place] [id number] Physician Cad Engineer Cardiac Electrophysiology 03/23/24 documented as of this encounter
--- OUTSIDE RECORDS SUMMARY | 2024-11-02 10:39 | XMS_ITS | Encounter Summary ---
Author Organization [employer] Address [address] [place] [address] Care Team Providers Care Warrant Clerk Name Role Phone Unavailable Primary Care Provider Unavailabl e Encounter Details Date Type Department Care Team (Late st Contact Info) Description 12/11/2022 Telephone [facility] ADULT DENTAL [address] [place] [address] Annalise Mix, BDS [address] [place] [address] Social History Tobacco Use Types Packs/Day Years Used Date Smoking Tobacco: Never Assessed Comments Unknown Sex and Gender Information Value Date Recorded Sex Assigned at Female 07/29/2022 10:29 AM EDT Legal Sex Female 10:29 AM EDT Gender Identity Female 07/29/2022 10:29 AM EDT Sexual Orientation Don't know 07/29/2022 10 :29 AM EDT COVID-19 Exposure Response Date Recorded In the last 10 days, have yo u been in contact with someone who was confirmed or suspected to have Coronavirus/COVID-19? No / Unsure 11/12/2022 9:55 AM EST documented as of this encounter Plan of Treatment Not on file documented as of this encounter Visit Diagnoses Not on filedocumented in this encounter
--- OUTSIDE RECORDS SUMMARY | 2024-11-02 10:39 | XMS_ITS | Encounter Summary ---
Author Organization [employer] Address [address] [place] [address] 7[address] [place] [address] Care Team Providers Care Tank Builder Helper Name Role Phone Unavailable Primary Care Provider Unavailabl e Reason for Visit * Reason Onset Date Comments medication 04/28/2024 Encounter Details Date Type Department Care Team ([facility] st Contact Info) Description 04/28/2024 Telephone [facility] ADULT DENTAL [address] [place], [place] [id number] Sumeet Anderson DMD [address] [place], [place] [phone] medication Social History Tobacco Use Types Packs/Day Years Used Date Smoking Tobacco: Never Smokeless Tobacco: Never Alcohol Use Standard Drinks/Week Comments Never 0 (1 standard drink = 0.6 oz pur e alcohol) Comments Unknown Sex and Gender Information Value Date Recorded Sex Assigned at Female 07/29/2022 10:29 AM EDT Legal Sex Female 10:29 AM EDT Gender Identity Female 07/29/2022 10:29 AM EDT Sexual Orientation Don't know 07/29/2022 10 :29 AM EDT documented as of this encounter Miscellaneous Notes * Telephone Encounter - Sumeet Anderson DMD - 05/03/2024 11:36 AM EDT Please instruct pt to take the Amoxicillin 1 tablet 2 times daily for 10 days. Please also inform pt need to call and confirm with her pharmacist how to take Doxycyline and Amoxicillin alternatively * Telephone Encounter - Lulu Garza - 05/03/2024 10:[address] Doss patient Patient states that she needs clarification on how to take the medication. She has tried reaching out to the pharmacy and she has not had any luck. But states that when she picked them up she was told that she could not take the doxycyline and amox clav at the same time, that it would need to alternate and unsure how to do that. I looked into chart and do not see the replacement doxycycline that was sent out for patient . The replacement was sent out because the patient is allergic to the capsule, not the medication and needed either tablets or liquid to be sent. Patient spoke to office at [facility] on Friday concerning script. Krystin and Dr Anderson assisted patient on phone call. * Telephone Encounter - Lulu Garza - 04/28/2024 10:[address] Doss patient. Patient had script sent to pharmacy. She is allergic to the capsule not the medication. Pharmacy advised her to call office to see if the medication can be sent to pharmacy in another form. Tablet orliquid. documented in this encounter Plan of Treatment Not on file documented as of this encounter Visit Diagnoses Not on filedocumented in this encounter
--- OUTSIDE RECORDS SUMMARY | 2024-11-02 10:39 | XMS_ITS | Encounter Summary ---
Author Organization [employer] Address [address] [address] [place] [address] Care Team Providers Care Executive Officer Name Role Phone Unavailable Primary Care Provider Unavailabl e Reason for Visit * Reason Onset Date Comments Appointment 01/24/2023 Encounter Details Date Type Department Care Team ([facility] st Contact Info) Description 01/24/2023 Telephone [facility] ADULT DENTAL [address] [place] [address] Sumeet Nascimento DMD [address] [place], [place] [phone] Appointment Social History Tobacco Use Types Packs/Day Years [...] suspected to have Coronavirus/COVID-19? No / Unsure 01/20/2023 11:23 AM EDT documented as of this encounter Miscellaneous Notes * Telephone Encounter - Sumeet Nascimento DMD - 02/05/2023 8:27 AM EDT Please schedule her for extraction appointment FRANK. Thanks * Telephone Encounter - Karly Cook - 01/24/2023 3:13 PM EDT Cesilia YUAN 1980 Patient called in and stated that Dr nascimento seen her on 01/20/2023 but couldn't help her so he sent her to the ER she was given medication there but called in on 01/24/2023 and stated she needed medication from [facility] because she is starting to get swollen again patient was told to go back to ER into 01/27/2023 patient wanted to can extraction appt she got on 01/27/2023 mckenzie helped me with the call and she's going to keep it documented in this encounter Plan of Treatment Not on file documented as of this encounter Visit Diagnoses Not on filedocumented in this encounter
--- OUTSIDE RECORDS SUMMARY | 2024-11-02 10:39 | XMS_ITS | Encounter Summary ---
Author Organization [facility] Address [address] [place] [address] Care Team Providers Care Business Process Lead Name Role Phone Beni Valle MD Primary Care Provider [phone] Derek Roche PA-C Unavailable [phone] Encounter Details Date Type Department Care Team ([facility] st Contact Info) Description 07/28/2024 Telephone [facility] Heart & Vascular [place] at [facility] - Cardiology [address] [place] [address] Derek Roche PA-C [address] [place] [id number] Social History Tobacco Use Types Packs/Day Years Used Date Smoking Tobacco: Former Cigarettes Sex and Gender Information Value Date Recorded Sex Assigned at Female 10/27/2023 1:22 PM EST Gender Identity Female 10/27/2023 1:22 PM EST Sexual Orientation Heterosexual (straight) 10/27 1:22 PM EST documented as of this encounter Miscellaneous Notes * Telephone Encounter - Raul Denson - 07/28/2024 1:02 PM EDT Pt called requesting a call back in regards to increasing dose of Propanolol. Pt stated she has increased it already, However pt stated she is still experiencing a fast heart rate. Pt wants top know should she increase it again. Please follow up with pt at [phone] documented in this encounter Plan of Treatment Upcoming Encounters Date Type Department Care Team (Late st Contact Info) Description 01/05/2025 2:00 PM EDT Appointment [facility] Heart & Vascular [place] at [facility] - Cardiology [address] [place] [address] Derek Roche PA-C [address] [place] [address] documented as of this encounter Visit Diagnoses Not on filedocumented in this encounter Care Teams Business Process Lead Relationship Specialty Start Date End Date Beni Valle MD [address] [facility] [place] [address] PCP - General Family Medicine 10/27/23 Derek Roche PA-C [address] [place] [address] Physician Distribution Transformer Assembler Cardiac Electrophysiology 03/23/24 documented as of this encounter
--- OUTSIDE RECORDS SUMMARY | 2024-11-02 10:39 | XMS_ITS | Encounter Summary ---
Author Organization [employer] Address [address] [facility] [address] [place] [address] Care Team Providers Care Steam Hammer Operator Name Role Phone Unavailable Primary Care Provider Unavailabl e Reason for Visit * Reason Onset Date Comments medical clearance 06/26/2023 Encounter Details Date Type Department Care Team (Late st Contact Info) Description 06/26/2023 Telephone [facility] DENTAL [address] [place] [address] VeSelam dhillon [address] [place] [address] medical clearance Social History Tobacco Use Types Packs/Day Years [...] encounter Miscellaneous Notes * Telephone Encounter - Lulu Garza - 06/26/2023 11:21 AM EDT Rylan from [facility] called in looking to facilitate treatment for patient. The medical clearance from cardiology not scanned in to schedule for treatment. She has been on continuous antibiotics for 6 months between dental and pcp. PCP office is requesting medical clearance be sent to their office so they may get the clearance to cariology and filled out and returned back so the patient may then again be scheduled for treatment. Please fax to [phone] documented in this encounter Plan of Treatment Not on file documented as of this encounter Visit Diagnoses Not on filedocumented in this encounter
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
--- OUTSIDE RECORDS SUMMARY | 2024-11-02 10:39 | XMS_ITS | Encounter Summary ---
Author Organization [employer] Address [address] [place] [address] [address] [place] [address] Care Team Providers Care Professor Criminal Justice Name Role Phone Unavailable Primary Care Provider Unavailabl e Reason for Visit * Reason Comments Med Refill Encounter Details Date Type Department Care Team (Late st Contact Info) Description 05/03/2024 Refill [facility] [address], [place] [phone] Annalise Mix, BDS [address], [place] [phone] Social History Tobacco Use Types Packs/Day Years [...] Encounter - Sumeet Anderson DMD - 05/03/2024 11:52 AM EDT I have already responded to Lulu regarding the instruction of her med documented in this encounter Plan of Treatment Not on file documented as of this encounter Visit Diagnoses Not on filedocumented in this encounter
--- OUTSIDE RECORDS SUMMARY | 2024-11-02 10:39 | XMS_ITS | Encounter Summary ---
Author Organization [facility] Address [address] [place] [address] Care Team Providers Care Art Appraiser Name Role Phone Beni Valle MD Primary Care Provider [phone] Derek Roche PA-C Unavailable + [phone] Reason for Visit * Reason Comments Follow-up Encounter Details Date Type Department Care Team (Latest Contact Info) Description 10/26/2024 1:43 PM EST - 10/26/2024 11:59 PM EST Hospital Encounter [facility] Heart & Vascular [place] [facility] - Cardiology [address] [place] [address] Derek Roche PA-C [address] [place] [address] Follow-up Discharge Disposition: Home or Self Care Social History Tobacco Use Types Packs/Day Years Used Date Smoking Tobacco: Former Cigarettes Tobacco Cessation:Counseling Given: Not Answered Sex and Gender Information Value Date Recorded Sex Assigned at Female 10/27/2023 1:22 PM EST Gender Identity Female 10/27/2023 1:22 PM EST Sexual Orientation Heterosexual (straight) 10/27 1:22 PM EST documented as of this encounter Last Filed Vital Signs Vital Sign Reading Time Taken Comments Blood Pressure 117/78 10/26/2024 2:07 PM EST Pulse 70 10/26/2024 2:07 PM EST Temperature - - Respiratory Rate - - Oxygen Saturation 98% 10/26/2024 2:07 PM EST Inhaled Oxygen Concentration - - Weight 89 kg (196 lb 4.8 oz) 10/26/2024 2:07 PM EST Height 165.1 cm (5' 5 ) 10/26/2024 2:07 PM EST Body Mass Index 32.67 10/26/2024 2:07 PM EST documented in this encounter Medications at Time of Discharge Medication Sig Dispensed Refills Start Date End Date amoxicillin-clavulana te (AUGMENTIN) 875-125 MG per tablet 04/22/2024 Arnuity Ellipta 100 MCG/ACT inhaler inhale 1 puff by mouth 1 (one) time each day. 08/03/2024 cefpodoxime (VANTIN) 200 MG tablet 10/24/2024 COLESTIPOL HCL PO Take 15 g/day by mouth daily. docusate sodium (COLACE) 100 MG capsule Take 1 capsule (100 mg total) by mouth 2 (two) times a day as needed for constipation. doxycycline (VIBRA-TABS) 100 MG tablet Please see attached for detailed directions 04/29/2024 ibuprofen (MOTRIN) 800 mg tablet Take 1 tablet (800 mg total) by mouth 3 times daily (every 8 hours) as needed for moderate pain. ivabradine (CORLANOR) 5 MG tabletIndications:Pos tural orthostatic tachycardia syndrome (POTS) Take 1 tablet (5 mg total) by mouth 2 (two) times a day. 60 tablet 5 07/28/2024 01/24/2025 levalbuterol (XOPENEX HFA) 45 mcg/puff inhaler Inhale 1 puff every 4 (four) hours as needed for wheezing or shortness of breath. 04/10/2023 Levonorgestrel (MIRENA, 52 MG, IU) 1 Units by Intrauterine route 1 time. Medical Compression StockingsIndications: POTS (postural orthostatic tachycardia syndrome) Level of Compression: 20-30 mmHg; knee-high, bilateral 2 each 1 03/23/2024 Medical Compression StockingsIndications: POTS (postural orthostatic tachycardia syndrome) Level of Compression: 20-30 mmHg; knee high bilateral. Please measure to fit 3 each 1 10/26/2024 pregabalin (LYRICA) 25 MG capsule Take 1 capsule (25 mg total) by mouth 2 (two) times a day. 05/21/2023 propranolol (INDERAL LA) 60 MG 24 hr capsuleIndications:PO TS (postural orthostatic tachycardia syndrome) Take 1 capsule (60 mg total) by mouth nightly. 30 capsule 5 09/15/2024 03/14/2025 propranolol (INDERAL) 10 MG tabletIndications:POT S (postural orthostatic tachycardia syndrome) Take 1 tablet (10 mg total) by mouth 3 (three) times a day. 90 tablet 3 09/08/2024 propranolol (INDERAL) 20 MG tabletIndications:POT S (postural orthostatic tachycardia syndrome) Take 1 tablet (20 mg total) by mouth 3 (three) times a day. As discussed at visit 90 tablet 5 06/24/2024 12/21/2024 sodium chloride (NS) bolus Infuse 1,000 mL into a venous catheter 3 (three) times a week. 10/27/2023 Vitamin D3 (CHOLECALCIFEROL) 50 MCG (1999) capsule 02/08/2024 documented as of this encounter Progress Notes * Derek Roche PA-C - 10/26/2024 2:00 PM EST Images from the original note were not included. [facility] Cardiac Electrophysiology Office Visit Patient Name Cesilia Walker Date of 1980 Gender female Age 44 y.o. 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 As such, today I solely recommended that she increase propranolol IR to 30 mg 3 times daily and hold off on initiation of long-acting propranolol. She also reports that shedrools to [place] and even though she stopped every 3-4 hours to walk around, she developed bilateral swelling of the lower extremities. This has happened in the past and self-resolved. Ultrasound atthat time was negative for DVT and there was no clear understanding of pathologic process. I recommended that she follow up with PCP on development of dependent edema. In the interim I recommended that she wear compression socks for extended travel, however, it is important that we better understand this process as above, I would start through primary care Recommendations 1. Given that she continues to experience orthostatic palpitations and dizziness intermittently, I again today recommended that she increase propranolol IR to 30 mg 3 times daily. For the time being,she will not start long-acting propranolol but will monitor for further episodes of breakthrough palpitations overnight and if present we will discuss initiation of propranolol LA 2. She has received ivabradine, however, she has not initiated therapy. She is hesitant to start new medications and as such today I recommended that she hold off on initiation of ivabradine as if wewere to start ivabradine I would want to discontinue propranolol first 3. She is planning on going on a cruise in early December and we will meet in late November Subjective History of Present Illness Cesilia is a very pleasant 44-year-old female with a longstanding history of POTS with onset approximately 15 years ago, however, diagnosed approximately 10-12 years ago with no clear inciting infection/trigger that she can recall. 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 For the latter, she reports that she was started on a medication which was initially improved, however refills were denied. She did not take it long enough to evaluate efficacy. In brief, approximately 15 years ago she had sudden onset of autonomic orthostatic symptoms including tachycardia, dizziness/lightheadedness, generalized fatigue, easy fatigability, decreased exercise capacity and exertional malaise, history of syncope, and chronic diarrhea. She was seen by Dr. Jose Joseph dysautonomia specialist in [place] back in June 2020. She apparently underwent autonomic testing which was positive (by report) and I am trying to obtain copies of testing and results. She has trialed numerous medications most of which have been discontinued either due to actual hypersensitivity reaction, intolerance, or lack of efficacy including: Fludrocortisone (allergy); midodrine after which she developed tingling; pyridostigmine which was discontinued by cardiology for unclear reasons, ivabradine reportedly ineffective, metoprolol discontinued due to development of hypotension, droxidopa discontinued due to dermatologic reaction. After seeing Dr. Jose Joseph for severalvisits he ultimately recommended that she be seen by an management developer as he felt she likely had mast cell disorder. Cesilia tells me today that she has been diagnosed with mast cell disorder and was started on a medication, the name of which she cannot recall, however her refills have been denied. Diagnosis of mast cell disorder likely explains her multiple sensitivities and intolerances to medications and once under better control, I suspect we may be able to reintroduce one of the agents that she was unable to tolerate in the past (not 1 with which she developed anaphylaxis) She has done well with IV fluid infusions and she continues receiving 2 L 3 times weekly. IV fluid infusions have been on hold as of late due to development of swelling of right calf which was initially thought to possibly be DVT and she underwent vascular studies of lower extremities at [facility] and reports that they were negative. She also had a VQ scan which was negative. On exam today right lower extremity is very mildly swollen when compared to the left side but she tells me that swelling worsens towards the end of the day, dependent. At her last visit I recommended that she increase propranolol to 30 mg and take it every 4-5 hours with monitoring for breakthrough palpitations prior to next dose as it became apparent that she was a rapid metabolizer of propranolol (2D6). I also recommended that she start long-acting propranolol 60 mg nightly as she reported development of palpitations that would awaken her from sleep. I also recommend that she continue IV fluid infusions 2 L 3 times weekly which are administered at home over 6 hours. She subsequently called my office on 07/28/2024 and despite increase in propranolol dosage and frequency, she continues to experience significantly rapid HR. As such I recommended that she start ivabradine 5 mg twice daily with the intention to discontinue propranolol, however, ultimately we may need to give both ivabradine and propranolol. ECG reveals SR at 80 bpm; SC 116 ms; QRS duration 76 ms. Short SC without manifest preexcitation 30-day MCOT revealed sinus rhythm throughout with an average sinus rate of 92 bpm; minimum 59 and maximum 160 bpm. Atrial and ventricular ectopy less than 1%. 1 episode of NSVT x 4 beats. No AV block. All patient triggered episodes correlated to sinus tachycardia Review of Systems General: negative for fatigue and weight gain HEENT: negative Respiratory: Denies cough, dyspnea on exertion, orthopnea and PND Cor: No exertional chest pain or dyspnea. No palpitations, LH, or syncope GI: No nausea, vomiting, melena, or hematochezia. Heme: No report of bleeding and easy bruising MSK: negative for muscle cramps and myalgias All other systems were reviewed and are negative other than noted in HPI. Home Medications Prior to Admission medications Medication Sig Start Date End Date Taking? Authorizing Provider ibuprofen (MOTRIN) 800 mg tablet Take 1 tablet (800 mg total) by mouth 3 times daily (every 8 hours) as needed for moderate pain. Yes External Provider, levalbuterol (XOPENEX HFA) 45 mcg/puff inhaler Inhale 1 puff every 4 (four) hours as needed for wheezing or shortness of breath. 04/10/23 Yes External Provider, Levonorgestrel (MIRENA, 52 MG, IU) 1 Units by Intrauterine route 1 time. Yes External Provider, propranolol (INDERAL) 20 MG tablet Take 1 tablet (20 mg total) by mouth 3 (three) times a day. As discussed at visit 06/24/24 12/21/24 Yes Derek Roche PA-C sodium chloride (NS) bolus Infuse 1,000 mL into a venous catheter 3 (three) times a week. 10/27/23 10/27/24 Yes External Provider, amoxicillin-clavulanate (AUGMENTIN) 875-125 MG per tablet 04/22/24 External Provider, Arnmayuri Ellipta 100 MCG/ACT inhaler inhale 1 puff by mouth 1 (one) time each day. 08/03/24 External Provider, cefpodoxime (VANTIN) 200 MG tablet 10/24/24 External Provider, COLESTIPOL HCL PO Take 15 g/day by mouth daily. External Provider, docusate sodium (COLACE) 100 MG capsule Take 1 capsule (100 mg total) by mouth 2 (two) times a day as needed for constipation. External Provider, doxycycline (VIBRA-TABS) 100 MG tablet Please see attached for detailed directions 04/29/24 External Provider, fluticasone (FloVENT HFA) 110 mcg/puff inhaler Inhale 2 puffs 2 (two) times a day. 04/10/23 05/04/24 External Provider, ivabradine (CORLANOR) 5 MG tablet Take 1 tablet (5 mg total) by mouth 2 (two) times a day. Derek Roche PA-C Medical Compression Stockings Level of Compression: 20-30 mmHg; knee-high, bilateral 03/23/24 Derek Roche PA-C montelukast (SINGULAIR) 10 MG tablet Take 1 tablet (10 mg total) by mouth nightly. 04/23/24 10/20/24 Derek Roche PA-C pregabalin (LYRICA) 25 MG capsule Take 1 capsule (25 mg total) by mouth 2 (two) times a day. 05/21/23 External Provider, propranolol (INDERAL LA) 60 MG 24 hr capsule Take 1 capsule (60 mg total) by mouth nightly. 09/15/24 03/14/25 Derek Roche PA-C propranolol (INDERAL) 10 MG tablet Take 1 tablet (10 mg total) by mouth 3 (three) times a day. 09/08/24 Derek Roche PA-C pyridostigmine (MESTINON) 60 MG tablet Take 1 tablet (60 mg total) by mouth 2 (two) times a day. 04/23/24 10/20/24 Derek Roche PA-C Vitamin D3 (CHOLECALCIFEROL) 50 MCG (1999 [place]) capsule 02/08/24 External Provider, Medical History Past Medical History: Diagnosis Date PFO (patent foramen ovale) POTS (postural orthostatic tachycardia syndrome) SVT (supraventricular tachycardia) Surgical History Past Surgical History: Procedure Laterality Date CHOLECYSTECTOMY Family History No family history on file. Allergies Allergies Allergen Reactions Azithromycin Rash/Dermatitis and Shortness Of Breath Cashew Nut (Anacardium Occidentale) Skin Test Rash/Dermatitis and Shortness Of Breath Cashew Nut Oil Rash/Dermatitis and Shortness Of Breath Clindamycin Rash/Dermatitis Cortisone Anaphylaxis Doxycycline Anaphylaxis, Rash/Dermatitis, Shortness Of Breath and Hives Pt states not an allergy Iodinated Contrast Media Anaphylaxis and Shortness Of Breath Latex Rash/Dermatitis, Shortness Of Breath and Anaphylaxis Levofloxacin Rash/Dermatitis, Shortness Of Breath and Hives Metronidazole Other (See Comments), Rash/Dermatitis, Shortness Of Breath and Hives Other reaction(s): O/E - respiratory distress Morphine Shortness Of Breath, Bleeding (Non-Gastrointestinal), GI Bleeding, Other (See Comments) and Rash/Dermatitis Other reaction(s): Bleeding Penicillins Rash/Dermatitis and Shortness Of Breath Sulfa Antibiotics Anaphylaxis, Rash/Dermatitis and Shortness Of Breath Other reaction(s): Rash, Rash/Dermatitis Clarithromycin Other (See Comments) and Unknown/Patient and Family Unable to Define Adhesives/Tape Rash/Dermatitis Fentanyl Rash/Dermatitis Midodrine Rash/Dermatitis Ondansetron Rash/Dermatitis Tapentadol Rash/Dermatitis Wound Dressing Adhesive Rash/Dermatitis Objective Vitals Patient Vitals for the past 8 hrs: BP Pulse SpO2 Height Weight 10/26/24 1407 117/78 70 98 % 1.651 m (5' 5 ) 89 kg (196 lb 4.8 oz) Body mass index is 32.67 kg/m??. Physical Exam General: A, A and O x3; in NAD HEENT: NC/AT; EOMi; no nasal discharge Cor: Regular; +s1/s2; no appreciable extra heart sounds Pulmonary: Good air movement; no rales or rhonchi appreciated GI: Soft, NT, ND Extremities: DP/PT 2+; no edema noted Psych: Appropriate affect Skin: Warm and dry. LABS Relevant data reviewed Lab Results Component Value Date K 3.9 10/27/2023 NA 141 10/27/2023 BUN 10 10/27/2023 CREAT 0.6 10/27/2023 Sign: Derek Roche PA-C 10/26/2024 2:17 PM documented in this encounter Plan of Treatment Upcoming Encounters Date Type Department Care Team (Late st Contact Info) Description 01/05/2025 2:00 PM EDT Appointment [facility] Heart & Vascular [place] [facility] - Cardiology [address] [place] [address] Derek Roche PA-C [address] [place] [address] documented as of this encounter Visit Diagnoses Diagnosis POTS (postural orthostatic tachycardia syndrome)- Primary Unspecified tachycardia documented in this encounter Care Teams Art Appraiser Relationship Specialty Start Date End Date Beni Valle MD [address] [place] [address] PCP - General Family Medicine 10/27/23 Derek Roche PA-C [address] [place] [address] Physician Machine Sneller Cardiac Electrophysiology 03/23/24 documented as of this encounter
--- OUTSIDE RECORDS SUMMARY | 2024-11-02 10:39 | XMS_ITS | Encounter Summary ---
Author Organization [employer] Address [address] [place] [address] [address] [place] [address] Care Team Providers Care Electrician Office Name Role Phone Unavailable Primary Care Provider Unavailabl e Reason for Visit * Reason Comments Med Refill Encounter Details Date Type Department Care Team (Late st Contact Info) Description 05/19/2024 Refill [facility] DENTAL [address] [place], [place] [phone] Annalise Mix, BDS [address] [place], [place] [phone] Social History Tobacco Use Types Packs/Day Years [...] encounter Miscellaneous Notes * Telephone Encounter - Milla Garcia - 05/24/2024 11:48 AM EDT Called patient to schedule apt for try-in w/ Dr. Doss. Number has been disconnected. * Telephone Encounter - Sumeet Anderson DMD - 05/19/2024 8:10 AM EDT I just ordered the Doxycycline for this patient on Apr 29 for . Please follow up with Dr. Doss for refill documented in this encounter Plan of Treatment Not on file documented as of this encounter Visit Diagnoses Not on filedocumented in this encounter
--- OUTSIDE RECORDS SUMMARY | 2024-11-02 10:39 | XMS_ITS | Encounter Summary ---
Author Organization [employer] Address [address] [place] [address] Care Team Providers Care Staffing And Scheduling Coordinator Name Role Phone Unavailable Primary Care Provider Unavailabl e Reason for Visit * Reason Onset Date Comments Appointment 09/25/2022 Patient upset be cause states she has been waiting for an appt to come in. She states taht last appt that was scheduled because provider was out of office. She states prior to that she is heart patient and was bed bound and wasn't able to make it to appts. She is calling back this afteroon to schedule emergency visit but is looking for appt to continue regular treatment. She is Dr. Doss patient. I informed patient that Dr. Doss is transitioning into [facility] again . Message would be sent to office. Encounter Details Date Type Department Care Team (Late st Contact Info) Description 09/25/2022 Telephone [facility] [address] [place] [address] Annalise Mix, BDS [address] [place] [address] Appointment (Patient upset because states she has been waiting for an appt to come in. She states taht last appt that was scheduled because provider was out of office. She states prior to that she is heart patient and was bed bound and wasn't able to make it to appts. She is calling back this afteroon to schedule emergency visit but is looking for appt to continue regular treatment. She is Dr. Doss patient. I informed patient that Dr. Doss is transitioning into [facility] again . Message would be sent to office. ) Social History Tobacco Use Types Packs/Day Years [...] * Telephone Encounter - Lulu Garza - 09/25/2022 2:05 PM EST Patient upset because states she has been waiting for an appt to come in. She states taht last apptthat was scheduled because provider was out of office. She states prior to that she is heart patient and was bed bound and wasn't able to make it to appts. She is calling back this afteroon to schedule emergency visit but is looking for appt to continue regular treatment. She is Dr. Doss patient. Iinformed patient that Dr. Doss is transitioning into [facility] again . Message would be sent to office. documented in this encounter Plan of Treatment Not on file documented as of this encounter Visit Diagnoses Not on filedocumented in this encounter
--- OUTSIDE RECORDS SUMMARY | 2024-11-02 10:39 | XMS_ITS | Encounter Summary ---
Author Organization [employer] Address [address] [place] [address] Care Team Providers Care Dobby Loom Chain Pegger Name Role Phone Unavailable Primary Care Provider Unavailabl e Encounter Details Date Type Department Care Team (Late st Contact Info) Description 11/20/2022 [facility] [address] [place] [address] [phone] Annalise Mix, BDS [address] [place], [place] [phone] Dental abscess (Primary Dx) Social History Tobacco Use Types Packs/Day Years [...] as of this encounter Visit Diagnoses Diagnosis Dental abscess- Primary Periapical abscess without sinus documented in this encounter
--- OUTSIDE RECORDS SUMMARY | 2024-11-02 10:39 | XMS_ITS | Encounter Summary ---
Author Organization [employer] Address [address] [place] [address] Care Team Providers Care Political Science Research Assistant Name Role Phone Unavailable Primary Care Provider Unavailabl e Encounter Details Date Type Department Care Team (Late st Contact Info) Description 07/09/2024 Telephone [facility] [address] [place] [address] Annalise Mix, BDS [address] [place] [address] Social History Tobacco Use Types Packs/Day Years [...] encounter Miscellaneous Notes * Telephone Encounter - Nichole Shaw - 07/09/2024 9:01 AM EDT Patient needs something stronger for infection . documented in this encounter Plan of Treatment Not on file documented as of this encounter Visit Diagnoses Not on filedocumented in this encounter
--- OUTSIDE RECORDS SUMMARY | 2024-11-02 10:39 | XMS_ITS | Encounter Summary ---
Author Organization [facility] Address [address] [place] [address] Care Team Providers Care Men'S Leather Dress Belt Maker Name Role Phone Beni Valle MD Primary Care Provider [phone] Derek Roche PA-C Unavailable [phone] Encounter Details Date Type Department Care Team (Late st Contact Info) Description 05/10/2024 Telephone [facility] Heart & Vascular [place] [facility] - Electrophysiology Laboratory [address] [place] [address] Vanessa Waite MD [address] [place] [id number] Social History Tobacco Use Types Packs/Day Years Used Date Smoking Tobacco: Former Cigarettes Sex and Gender Information Value Date Recorded Sex Assigned at Female 10/27/2023 1:22 PM EST Gender Identity Female 10/27/2023 1:22 PM EST Sexual Orientation Heterosexual (straight) 10/27 1:22 PM EST documented as of this encounter Miscellaneous Notes * Telephone Encounter - Vanessa Waite MD - 05/10/2024 5:30 PM EDT Patient notes she in general feels well but does feel the medication is wearing off and she gets dizzy. I recommended she go up from propanolol 10 mg twice a day to three times a day and see how symptoms for a week. Check your blood pressure once a day a few times over the week in the middle of theday to make sure BP is not getting low as patient was concerned that more propanolol may lead to hypotension. I asked her to reach out to us in a couple weeks as I suspect she will need to be on a higher dose of propanolol such as 20 alf but would increase slowly documented in this encounter Plan of Treatment Upcoming Encounters Date Type Department Care Team (Late st Contact Info) Description 01/05/2025 2:00 PM EDT Appointment [facility] Heart & Vascular [place] [facility] - Cardiology [address] [place] [address] Derek Roche PA-C [address] [place] [address] documented as of this encounter Visit Diagnoses Diagnosis POTS (postural orthostatic tachycardia syndrome)- Primary Unspecified tachycardia documented in this encounter Care Teams Men'S Leather Dress Belt Maker Relationship Specialty Start Date End Date Beni Valle MD [address] [facility] [place] [address] PCP - General Family Medicine 10/27/23 Derek Roche PA-C [address] [place] [address] Physician Health Sanitarian Cardiac Electrophysiology 03/23/24 documented as of this encounter
--- OUTSIDE RECORDS SUMMARY | 2024-11-02 10:39 | XMS_ITS | Clinical Summary ---
Author Organization [employer] Address [address] [place] [address] 7t [place] [address] Care Team Providers Care Oncology Consultant Name Role Phone Unavailable Primary Care Provider Unavailabl e Allergies Active Allergy Reactions Criticality Noted Date Comments Cashew Nut (Anacardium Occidentale) Skin Test Shortness of breath,Rash High 01/20/2023 Iodinated Contrast Media 01/20/2023 Morphine GI bleeding,Rash High 02/09/2015 Other reaction(s): Bleeding Sulfa Antibiotics Rash,Shortness of breath High 08/07/2009 Other reaction(s): Rash, Rash/Dermatitis Wound Dressing Adhesive Rash Low 03/29/2018 Medications clindamycin (Cleocin) 75 MG/5ML solution Clindamycin Pediatric 75 mg/5 mL oral solution TAKE 20 ML EVERY 6 HOURS BY ORAL ROUTE FOR 7 DAYS. Active clindamycin (Cleocin) 75 MG/5ML solution TAKE 20 ML EVERY 6 HOURS BY ORAL ROUTE FOR 7 DAYS. 3 Active propranolol (Inderal) 20 MG tablet Take 20 mg by mouth 3 times daily. Active amoxicillin-cla vulanate (Augmentin) 875-125 MG tablet Take 1 tablet by mouth 2 times daily. 20 tablet 4 Active Hospital, Clinic, or Other Facility Administered Medication Ordered Dose Route Frequency Start Date End Date Status amoxicillin (Amoxil) capsule 500 mgIndications:Dental abscess 500 mg PO 3 times daily 11/12/2022 Active Active Problems No known active problems Social History Tobacco Use Types Packs/Day Years Used Date Smoking Tobacco: Never Smokeless Tobacco: Never Tobacco Cessation:Counseling Given: Not Answered Alcohol Use Standard Drinks/Week Comments Never 0 (1 standard drink = 0.6 oz pur e alcohol) Comments Unknown Sex and Gender Information Value Date Recorded Sex Assigned at Female 07/29/2022 10:29 AM EDT Legal Sex Female 10:29 AM EDT Gender Identity Female 07/29/2022 10:29 AM EDT Sexual Orientation Don't know 07/29/2022 10 :29 AM EDT Plan of Treatment Health Maintenance Due Date Last Done Comments Dental Oral Exam 1981 Dental Prophylaxis 1981 Dental X-Ray: Bitewings 1981 Depression Screening 1981 HIV Screening 1981 SDOH Screening 1981 Alcohol/Substance Use Screening 1993 Family Planning (PISQ) 01/03/1996 Hepatitis C Screening 1999 Hepatitis B Vaccines (1 of 3 - 19+ 3-dose series) 01/03/2000 Pneumococcal Vaccine: Pediatrics (0 to 5 Years) and At-Risk Patients (6 to 49) Years) (1 of 2 - PCV) 01/03/2000 Pap Smear 2002 Cervical Cancer Screening 2011 HPV/Cotest 2011 Mammogram 2021 COVID-19 Vaccine ( - 2023- season) 2024 Influenza Vaccine (#1) 2024 , 07/27/2020, 07/07/2018, Additional history exists Tobacco Screening 07/01/2025 07/01/2024 Dental X-Ray: Full Mouth 04/23/2027 04/22/2024 DTaP/Tdap/Td Vaccines (2 - Td or Tdap) 03/25/2030 03/25/2020 Zoster Vaccines (1 of 2) 2031 RSV Patients and Patients Aged 60 years or older (1 - 1-dose 75+ series) 01/03/2056 HIB Vaccines Aged Out No longer eligi ble based on patient's age to complete this topic HPV Vaccines Aged Out No longer eligi ble based on patient's age to complete this topic Hepatitis A Vaccines Aged Out No long er eligible based on patient's age to complete this topic IPV Vaccines Aged Out No longer eligi ble based on patient's age to complete this topic Meningococcal Vaccine Aged Out No jackelyn jacy eligible based on patient's age to complete this topic RSV under 20 months Aged Out No longe r eligible based on patient's age to complete this topic Rotavirus Vaccines Aged Out No longer eligible based on patient's age to complete this topic Procedures Procedure Name Priority Date/Time Associated Diagnosis Comments Full PANORAMIC RADIOGRAPHIC IMAGE Routine 04/22/2024 8:00 AM EDT from Last 3 Months or Most Recently Relevant to Health Maintenance Insurance [facility] ADULT
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
== END 2024-11-02 10:29 | disposition home or self-care (01) ==
PROVIDERS: PCP Nurse Practitioner Family; Visit Provider Surgery
DX: R92.8 Other abnormal and inconclusive findings on diagnostic imaging of breast (principal)
CPT/HCPCS: 99204

== ENCOUNTER → 2024-11-02 09:57 | Outpatient (BNVA) | payer OTHER, SELFPAY | PROVIDERS: PCP Nurse Practitioner Family; Visit Provider Surgery | DX: N63.14 Unspecified lump in the right breast, lower inner quadrant (principal); R92.8 Other abnormal and inconclusive findings on diagnostic imaging of breast | CPT/HCPCS: 99202 ==

== ENCOUNTER 2024-11-04 08:46 | Outpatient (REF) | payer OTHER, SELFPAY ==
--- NOTE | ~2024-11-04 | MM_ITS ---
PROCEDURE: ULTRASOUND-GUIDED RIGHT BREAST BIOPSY CLINICAL INFORMATION: Solid mass in the right breast at 4:00. COMPARISON: Comparison is made with available prior examinations. TECHNIQUE: The details of the procedure, as well as the risks, benefits, and alternatives to the procedure were explained to the patient in detail and all of her questions were answered, after which, written informed consent was obtained. PROCEDURE: Prior to the procedure, sonography revealed solid mass at 4:00. A time-out was performed, the lesion intended for biopsy was targeted and the skin of the right breast was then prepped and draped in the usual sterile fashion. Using sonographic guidance, sterile technique, and 1% lidocaine without epinephrine for local anesthesia, a total of 4 cores were obtained through the targeted area with a 14-gauge biopsy device. At the completion of tissue sampling, a single butterfly-shaped metallic clip was deposited at the biopsy site. An appropriate sample was obtained. The postprocedure 2-view direct digital mammogram reveals satisfactory positioning of the biopsy clip. The patient tolerated the procedure well and, after assuring adequate hemostasis, was discharged in good condition after reviewing postbiopsy breast care instructions. Final pathology results are pending. MM/MM tomosynthesis diagnostic RT IMPRESSION: 1. Uncomplicated sonographically-guided core biopsy of the right breast. The 2-view direct digital postprocedure mammogram reveals satisfactory positioning of the biopsy clip. 2. Final pathology results are pending. A separate report with final recommendations will be issued once these results are made available. Electronically signed by: Sada Gordon DO 11/04/2024 11:58 AM [facility]
--- OUTSIDE RECORDS SUMMARY | 2024-11-04 09:01 | XMS_ITS | Encounter Summary ---
Author Organization [employer] Address [address] [place] [address] [address] [place] [address] Care Team Providers Care Installation And Repair Technician Name Role Phone Unavailable Primary Care Provider Unavailabl e Reason for Visit * Reason Comments Med Refill Encounter Details Date Type Department Care Team (Late st Contact Info) Description 05/19/2024 Refill [facility] DENTAL [address] [place], [place] [phone] Annalise Mix, BDS [address] [place], [place] [phone] Social History Tobacco Use Types Packs/Day Years [...]
--- OUTSIDE RECORDS SUMMARY | 2024-11-04 09:01 | XMS_ITS | Encounter Summary ---
Author Organization [employer] Address [address] [place] [address] 7t [place] [address] Care Team Providers Care Oval Or Circular Glass Cutter Name Role Phone Unavailable Primary Care Provider Unavailabl e Reason for Visit * Reason Onset Date Comments medication 04/28/2024 Encounter Details Date Type Department Care Team ([facility] st Contact Info) Description 04/28/2024 Telephone [facility] ADULT DENTAL [address] [place], [place] [phone] Sumeet Anderson DMD [address] [place], [place] [phone] medication Social History Tobacco Use Types Packs/Day [...] be sent. Patient spoke to office at [facility] on Friday concerning script. Krystin and [...]
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
--- OUTSIDE RECORDS SUMMARY | 2024-11-04 09:01 | XMS_ITS | Encounter Summary ---
Author Organization [employer] Address [address] 7t [place] [address] Care Team Providers Care Sample Tester Name Role Phone Unavailable Primary Care Provider Unavailabl e Encounter Details Date Type Department Care Team (Late st Contact Info) Description 07/09/2024 Telephone [facility] ADULT DENTAL [address] [place] [address] Annalise Mix, BDS [address] [place] [address] Social History Tobacco Use Types Packs/Day Years [...]
--- OUTSIDE RECORDS SUMMARY | 2024-11-04 09:01 | XMS_ITS | Clinical Summary ---
Author Organization [facility] Address [address] [place] [address] Care Team Providers Care C Developer Name Role Phone Beni Valle MD Primary Care Provider + [phone] Derek Roche PA-C Unavailable [phone] Allergies Active Allergy Reactions Criticality Noted Date [...] Of Breath,Hives High 08/07/2009 Metronidazole Other (See Comments),Rash/[place] titis,Shortness Of Breath,Hives High 11/13/2009 Other reaction(s): O/E - respiratory distress Midodrine Rash/Dermatitis Low 01/20/2015 Morphine Shortness Of Breath,Bleeding (Non-Gastrointestina l),GI Bleeding,Other (See Comments),Rash/[place] titis High 02/09/2015 Other reaction(s): Bleeding Ondansetron [...] syndrome) 02/12/2012 Overview (03/23/2024): Dr Joseph in [place] SVT (supraventricular tachycardia) 02/12/2012 Overview (03/23/2024): Sees Dr Light and EP docs in [place] Vitamin D deficiency 05/23/2008 PFO (patent foramen ovale) 01/20/2008 Overview (03/23/2024): No tx unless it gets worse Encounters Date Type Department Care Team Description 10/26/2024 1:43 PM EST - 10/26/2024 11:59 PM EST Hospital Encounter [facility] [place] at [address] [phone] Derek Roche PA-C Follow-up Discharge Disposition: Home or Self Care 10/26/2024 Travel 09/15/2024 1:54 PM EST - 09/15/2024 11:59 PM EST Hospital Encounter [facility] [place] at [address] [phone] Derek Roche PA-C Follow-up Discharge Disposition: Home or Self Care 09/15/2024 Travel 09/08/2024 Orders Only [facility] [place] at [address], [place] [phone] Derek Roche PA-C POTS (postural orthostatic tachycardia syndrome) (Primary Dx) 09/08/2024 Telephone [facility] [place] at [address], [place] [phone] Derek Roche PA-C 08/04/2024 2:20 PM EST - 08/04/2024 11:59 PM EST Hospital Encounter [facility] [place] at [address], [place] [phone] Derek Roche PA-C Follow-up Discharge Disposition: Home [...] Info) Description 01/05/2025 2:00 PM EDT Appointment [facility] [place] at [address] [place], [place] [phone] Dreek Roche PA-C [address] [place] [address], [place] Health Maintenance Due Date Last Done Comments [...] PM EST) Ventricular rate 89 BPM EKG [facility] Atrial rate 89 BPM EKG [facility] P-R interval 116 ms EKG [facility] QRS duration 78 ms EKG [facility] Q-T interval 364 ms EKG [facility] QTC calculation (Bazett) 442 ms EKG [facility] P axis 45 degrees EKG [facility] R axis 1 degrees EKG [facility] T axis 7 degrees EKG [facility] 08/04/2024 2:31 PM EST Narrative EKG [facility] - 08/05/2024 3:28 PM EST Normal sinus rhythm Cannot rule out Anterior infarct , age undetermined Abnormal ECG When compared with ECG of 04-May-2024 15:04, No significant change was found Confirmed by MD Palacio Andre ([id number]) on 08/05/2024 3:28:47 PM Procedure Note Jj Palacio MD - 08/05/2024 Normal sinus rhythm Cannot rule out Anterior infarct , age undetermined Abnormal ECG When compared with ECG of 04-May-2024 15:04, No significant change was found Confirmed by MD Palacio Andre ([id number]) on 08/05/2024 3:28:47 PM Derek Roche PA-C ECG ORDERAB LES EKG [facility] from Last 3 Months Care Teams C Developer Relationship Specialty Start Date End Date Beni Valle MD [address] [place] [address] PCP - General Family Medicine 10/27/23 Derek Roche PA-C [address] [place] [address] Physician Chemical Tester Cardiac Electrophysiology 03/23/24
--- OUTSIDE RECORDS SUMMARY | 2024-11-04 09:01 | XMS_ITS | Clinical Summary ---
Author Organization [employer] Address [address] [place] [address] 7[address] [place] [address] Care Team Providers Care Scale Operator Name Role Phone Unavailable Primary Care [...]
--- OUTSIDE RECORDS SUMMARY | 2024-11-04 09:01 | XMS_ITS | Encounter Summary ---
Author Organization [facility] Address [address] [place] [address] Care Team Providers Care Hand Method Lasting Machine Operator Name Role Phone Renée Soto MD Primary Care Provider Unavailable Beni Valle NP Primary Care Provider Unavail able Supriya Chase Md, MD Primary Care Provider Unavailable Encounter Details Date Type Department Care Team Description 12/26/2014 Transfer Records Medical Records [address] [place] [id number] Lori Jorge NP Social History Tobacco Use Types Packs/Day Years Used Date Smoking Tobacco: Never Alcohol Use Standard Drinks/Week Comments No 0 (1 standard drink = 0.6 oz pur e alcohol) Sex Assigned at Date Recorded Not on file documented as of this encounter Plan of Treatment Not on file documented as of this encounter Visit Diagnoses Not on filedocumented in this encounter Care Teams Hand Method Lasting Machine Operator Relationship Specialty Start Date End Date Renée Soto MD PCP - General Internal Medicine 10/11/14 Beni Valle NP PCP - General Family Practice 05/26/15 12/31/18 Supriya Chase MD, MD PCP - General Internal Medicine 01/01/19 documented as of this encounter
--- OUTSIDE RECORDS SUMMARY | 2024-11-04 09:01 | XMS_ITS | Encounter Summary ---
Author Organization [facility] Address [address] [place] [address] Care Team Providers Care Check Pilot Name Role Phone Renée Soto MD Primary Care Provider Unavailable Beni Valle NP Primary Care Provider Unavail able Supriya Chase Md, MD Primary Care Provider Unavailable Encounter Details Date Type Department Care Team Description 01/16/2015 Release of Information Medical Records [address] [place] [id number] Abstract, Provider Social History Tobacco Use Types Packs/Day Years Used Date Smoking Tobacco: Never Alcohol Use Standard Drinks/Week Comments No 0 (1 standard drink = 0.6 oz pur e alcohol) Sex Assigned at Date Recorded Not on file documented as of this encounter Plan of Treatment Not on file documented as of this encounter Visit Diagnoses Not on filedocumented in this encounter Care Teams Check Pilot Relationship Specialty Start Date End Date Renée Soto MD PCP - General Internal Medicine 10/11/14 Beni Valle NP PCP - General Family Practice 05/26/15 12/31/18 Supriya Chase MD, MD PCP - General Internal Medicine 01/01/19 documented as of this encounter
--- OUTSIDE RECORDS SUMMARY | 2024-11-04 09:01 | XMS_ITS | Encounter Summary ---
Author Organization [facility] Address [address] [place] [address] Care Team Providers Care Branch Operations Manager Name Role Phone Renée Soto MD Primary Care Provider Unavailable Beni Valle NP Primary Care Provider Unavail able Supriya Chase Md, MD Primary Care Provider Unavailable Encounter Details Date Type Department Care Team Description 01/23/2015 Fire Suppression Captain Report Medical Records [address] [place] [id number] Abstract, Provider Social History Tobacco Use Types [...] on filedocumented in this encounter Care Teams Branch Operations Manager Relationship Specialty Start Date End Date Renée Soto MD PCP - General Internal Medicine 10/11/14 Beni Valle NP PCP - General Family Practice 05/26/15 12/31/18 Supriya Chase MD, MD PCP - General Internal Medicine 01/01/19 documented as of this encounter
--- OUTSIDE RECORDS SUMMARY | 2024-11-04 09:02 | XMS_ITS | Encounter Summary ---
Author Organization [facility] Address [address] [place] [address] Care Team Providers Care Commercial Construction Project Manager Name Role Phone Beni Valle NP Primary Care Provider Unavail Supriya Miranda Md, MD Primary Care Provider Unavailable Reason for Visit * Reason Comments E-prescribe Rx Request Encounter Details Date Type Department Care Team Description 07/13/2018 Refill Pulmonology - [place] [address] [facility] [address] [place] [address] Beata Bernard MD [address] [place] [address] E-prescribe Rx Request Social History Tobacco Use Types Packs/Day Years Used Date Smoking Tobacco: Never Smokeless Tobacco: Never Alcohol Use Standard Drinks/Week Comments No 0 (1 standard drink = 0.6 oz pur e alcohol) Sex Assigned at Date Recorded Not on file documented as of this encounter Miscellaneous Notes * Telephone Encounter - Radha Asif - 07/14/2018 12:52 PM EDT Patient would like script to be: E-PRESCRIBED/FAXED TO PHARMACY WHEN WAS THE PATIENT'S LAST APPOINTMENT WITH THE PRESCRIBING PROVIDER? 06/23/18 Does patient have an upcoming appointment? Yes 12/22/17 (THE MEDICATION REQUESTED IS ON THE MED LIST ABOVE) All of the medications requested were on the CURRENT MEDS list Did you check the Pharmacy information above?: YES Patient wants: 90 -day supply Is this a mail order prescription request ? NO Patients current insurance carrier is: Payor: [employer] FFS / Plan: [employer] ON LICENSE OF [facility] / Product Type: MEDICAID RISK documented in this encounter Plan of Treatment Not on file documented as of this encounter Visit Diagnoses Not on filedocumented in this encounter Care Teams Commercial Construction Project Manager Relationship Specialty Start Date End Date Beni Valle NP PCP - General Family Practice 05/26/15 12/31/18 Supriya Chase MD, MD PCP - General Internal Medicine 01/01/19 documented as of this encounter
--- OUTSIDE RECORDS SUMMARY | 2024-11-04 09:02 | XMS_ITS | Encounter Summary ---
Author Organization [facility] Address [address] [place] [address] Care Team Providers Care Transit Police Officer Name Role Phone Beni Valle MD Primary Care Provider [phone] Derek Roche PA-C Unavailable [phone] Encounter Details Date Type Department Care Team (Late st Contact Info) Description 05/10/2024 Telephone [facility] Heart & Vascular [place] at [facility] - Electrophysiology Laboratory [address] [place] [address] Vanessa Waite MD [address] [place] [id number] Social History Tobacco Use Types Packs/Day Years [...] higher dose of propanolol such as 20 halfway but would increase slowly documented in this encounter Plan of Treatment Upcoming Encounters Date Type Department Care Team (Late st Contact Info) Description 01/05/2025 2:00 PM EDT Appointment [facility] Heart [facility] [place] at [facility] - Cardiology [address] [place] [address] Derek Roche PA-C [address] [place] [address] documented as of this encounter Visit Diagnoses Diagnosis POTS (postural orthostatic tachycardia syndrome)- Primary Unspecified tachycardia documented in this encounter Care Teams Transit Police Officer Relationship Specialty Start Date End Date Beni Valle MD [address] [facility] [place] [address] PCP - General Family Medicine 10/27/23 Derek Roche PA-C [address] [place] [address] Physician Residential Living Assistant Cardiac Electrophysiology 03/23/24 documented as of this encounter
--- OUTSIDE RECORDS SUMMARY | 2024-11-04 09:02 | XMS_ITS | Encounter Summary ---
Author Organization [facility] Address [address] [place] [address] Care Team Providers Care International Sourcing Manager Name Role Phone Renée Soto MD Primary Care Provider Unavailable Beni Valle NP Primary Care Provider Unavail able Supriya Chase Md, MD Primary Care Provider Unavailable Encounter Details Date Type Department Care Team Description 11/15/2014 [employer]/[facility] Report Medical Records [address] [place] [phone] Abstract, Provider Social History Tobacco Use Types [...] on filedocumented in this encounter Care Teams International Sourcing Manager Relationship Specialty Start Date End Date Renée Soto MD PCP - General Internal Medicine 10/11/14 Beni Valle NP PCP - General Family Practice 05/26/15 12/31/18 Supriya Chase MD, MD PCP - General Internal Medicine 01/01/19 documented as of this encounter
--- OUTSIDE RECORDS SUMMARY | 2024-11-04 09:02 | XMS_ITS | Encounter Summary ---
Author Organization [facility] Address [address] [place] [address] Care Team Providers Care Sanipractic Physician Name Role Phone Renée Soto MD Primary Care Provider Unavailable Beni Valle NP Primary Care Provider Unavail able Supriya Chase Md, MD Primary Care Provider Unavailable Encounter Details Date Type Department Care Team Description 11/22/2014 Transfer Records Medical Records [address] [place] [address] Wilbert Fermin Social History Tobacco Use Types Packs/Day Years Used Date Smoking Tobacco: Never Alcohol Use Standard Drinks/Week Comments No 0 (1 standard drink = 0.6 oz pur e alcohol) Sex Assigned at Date Recorded Not on file documented as of this encounter Plan of Treatment Not on file documented as of this encounter Visit Diagnoses Not on filedocumented in this encounter Care Teams Sanipractic Physician Relationship Specialty Start Date End Date Renée Soto MD PCP - General Internal Medicine 10/11/14 Beni Valle NP PCP - General Family Practice 05/26/15 12/31/18 Supriya Chase MD, MD PCP - General Internal Medicine 01/01/19 documented as of this encounter
--- OUTSIDE RECORDS SUMMARY | 2024-11-04 09:02 | XMS_ITS | Encounter Summary ---
Author Organization [facility] Address [address] [place] [address] Care Team Providers Care Property Utilization Manager Name Role Phone Supriya Chase Md, MD Primary Care Provider Unavailable Reason for Visit * Reason Onset Date Comments hospital follow up 07/30/2024 Encounter Details Date Type Department Care Team Description 07/30/2024 Telephone Pulmonology - [place] 175 [facility] [address] [place] [address] Beata Bernard MD [address] [place] [address] hospital follow up Social History Tobacco Use Types Packs/Day Years Used Date Smoking Tobacco: Never Smokeless Tobacco: Never Alcohol Use Standard Drinks/Week Comments No 0 (1 standard drink = 0.6 oz pur e alcohol) Sex Assigned at Date Recorded Not on file documented as of this encounter Miscellaneous Notes * Telephone Encounter - Mildred Dent - 07/30/2024 2:33 PM EDT Hospital notes received , placed in providers folder * Telephone Encounter - Kavin Chávez CMA - 07/30/2024 9:27 AM EDT Requesting recent Discharge notes and anything pertaining to the chest results. * Telephone Encounter - Laura Neal - 07/30/2024 9:01 AM EDT Hospital follow up appointment needed Hospital patient was treated at: [facility] Was this only an ER visit or was the patient admitted to the hospital? ER visit only Date of visit if ER visit only: 07/28/2024 If patient was admitted what was the date of discharge? N/A Reason/diagnosis for visit or stay: SOB When was the patient told to follow up? luisa Was visit or stay related to an injury? NO If yes, what was the date of injury (DOI)? N/A If yes, was the injury due to N/A documented in this encounter Plan of Treatment Not on file documented as of this encounter Visit Diagnoses Not on filedocumented in this encounter Care Teams Property Utilization Manager Relationship Specialty Start Date End Date Supriya Chase MD, MD PCP - General Internal Medicine 01/01/19 documented as of this encounter
--- OUTSIDE RECORDS SUMMARY | 2024-11-04 09:02 | XMS_ITS | Encounter Summary ---
Author Organization [facility] Address [address] [place] [address] Care Team Providers Care Talent Engineer Name Role Phone Beni Valle MD Primary Care Provider [phone] Derek Roche PA-C Unavailable [phone] Encounter Details Date Type Department Care Team [...] Info) Description 01/05/2025 2:00 PM EDT Appointment [facility] Heart & Vascular [place] at [facility] - Cardiology [address] [place] [address] Derek Roche PA-C [address] [place] [address] documented as of this encounter Visit Diagnoses Not on filedocumented in this encounter Care Teams Talent Engineer Relationship Specialty Start Date End Date Beni Valle MD [address] [place] [address] [place] [address] PCP - General Family Medicine 10/27/23 Derek Roche PA-C [address] [place] [address] Physician On Site Nurse Cardiac Electrophysiology 03/23/24 documented as of this encounter
--- OUTSIDE RECORDS SUMMARY | 2024-11-04 09:02 | XMS_ITS | Encounter Summary ---
Author Organization [employer] Address [address] [place] [address] Care Team Providers Care Manager Banking Name Role Phone Unavailable Primary Care Provider Unavailabl e Encounter Details Date Type Department Care Team (Late st Contact Info) Description 11/20/2022 Orders Only [facility] DENTAL [address] [place] [phone] Annalise Mix, BDS [address] [place], [place] [phone] Dental abscess (Primary Dx) Social History Tobacco [...]
--- OUTSIDE RECORDS SUMMARY | 2024-11-04 09:02 | XMS_ITS | Encounter Summary ---
Author Organization [facility] Address [address] [place] [address] Care Team Providers Care Shift Leader Name Role Phone Renée Soto MD Primary Care Provider Unavailable Beni Valle NP Primary Care Provider Unavail able Supriya Chsae Md, MD Primary Care Provider Unavailable Encounter Details Date Type Department Care Team Description 05/25/2015 STRAWHAT INSPECTOR AND PACKER/[facility] Report Medical Records [address] [place] [address] Abstract, Provider Social History Tobacco Use Types [...] on filedocumented in this encounter Care Teams Shift Leader Relationship Specialty Start Date End Date Renée Soto MD PCP - General Internal Medicine 10/11/14 Beni Valle NP PCP - General Family Practice 05/26/15 12/31/18 Supriya Chase MD, MD PCP - General Internal Medicine 01/01/19 documented as of this encounter
--- OUTSIDE RECORDS SUMMARY | 2024-11-04 09:02 | XMS_ITS | Encounter Summary ---
Author Organization [facility] Address [address] [place] [address] Care Team Providers Care Software Licensing Analyst Name Role Phone Renée Soto MD Primary Care Provider Unavailable Beni Valle NP Primary Care Provider Unavail able Supriya Chase Md, MD Primary Care Provider Unavailable Reason for Visit * Reason Onset Date Comments refill request 02/13/2015 Encounter Details Date Type Department Care Team Description 02/13/2015 Refill Adult Medicine - [address] [address] Renée Soto MD refill request Social History Tobacco Use Types Packs/Day Years Used Date Smoking Tobacco: Never Alcohol Use Standard Drinks/Week Comments No 0 (1 standard drink = 0.6 oz pur e alcohol) Sex Assigned at Date Recorded Not on file documented as of this encounter Miscellaneous Notes * Telephone Encounter - Aurora Traylor - 02/13/2015 12:27 PM EDT error * Telephone Encounter - Norma Mauricio M.A. - 02/13/2015 11:35 AM EDT Not due till february 23 * Telephone Encounter - Snow Swartz - 02/13/2015 11:03 AM EDT Patient would like script to be: E-PRESCRIBED/FAXED TO PHARMACY WHEN WAS THE PATIENT'S LAST APPOINTMENT IN ADULT MEDICINE? 02/09/15 WHEN WAS THE LAST TIME THE PATIENT SAW THEIR PCP? Same as above Does patient have an upcoming appointment? Yes 03/09/15 (THE MEDICATION REQUESTED IS ON THE MED LIST ABOVE) All of the medications requested were on the CURRENT MEDS list Did you check the Pharmacy information above?: YES Patient wants: 30 -day supply Is this a mail order prescription request ? NO Patients current insurance carrier is: Payor: [employer] FFS / Plan: FFS HMO $0 [id number] / Product Type: MEDICAID RISK documented in this encounter Plan of Treatment Not on file documented as of this encounter Visit Diagnoses Not on filedocumented in this encounter Care Teams Software Licensing Analyst Relationship Specialty Start Date End Date [place]-Renée Damon MD PCP - General Internal Medicine 10/11/14 Beni Valle NP PCP - General Family Practice 05/26/15 12/31/18 Supriya Chase MD, PCP - General Internal Medicine 01/01/19 documented as of this encounter
--- OUTSIDE RECORDS SUMMARY | 2024-11-04 09:02 | XMS_ITS | Encounter Summary ---
Author Organization [facility] Address [address] [place] [address] Care Team Providers Care Tuck Pointer Helper Name Role Phone Beni Valle NP Primary Care Provider Unavail able Supriya Chase Md, MD Primary Care Provider Unavailable Encounter Details Date Type Department Care Team Description 03/07/2016 WIRE CHIEF/[facility] Report Medical Records [address] [place] [address] Abstract, Provider Social History Tobacco Use Types [...] on filedocumented in this encounter Care Teams Tuck Pointer Helper Relationship Specialty Start Date End Date Beni Valle NP PCP - General Family Practice 05/26/15 12/31/18 Supriya Chase MD, MD PCP - General Internal Medicine 01/01/19 documented as of this encounter
--- OUTSIDE RECORDS SUMMARY | 2024-11-04 09:02 | XMS_ITS | Encounter Summary ---
Author Organization [facility] Address [address] [place] [address] Care Team Providers Care Airfreight Loading Supervisor Name Role Phone Renée Soto MD Primary Care Provider Unavailable Beni Valle NP Primary Care Provider Unavail able Supriya Chase Md, MD Primary Care Provider Unavailable Reason for Visit * Reason Onset Date Comments Information Needed 11/17/2014 Encounter Details Date Type Department Care Team Description 11/17/2014 Telephone Adult Medicine - [address] [address] Renée Soto MD Information Needed Social History Tobacco Use Types Packs/Day Years Used Date Smoking Tobacco: Never Alcohol Use Standard Drinks/Week Comments No 0 (1 standard drink = 0.6 oz pur e alcohol) Sex Assigned at Date Recorded Not on file documented as of this encounter Miscellaneous Notes * Telephone Encounter - Yokasta Hurtado M.A. - 11/17/2014 9:03 AM EST Requested notes * Telephone Encounter - Renée Soto MD - 11/17/2014 8:28 AM EST Please get some progress notes and MRI results from Dr East, orthopedist who saw this patient inthe past. thanks documented in this encounter Plan of Treatment Not on file documented as of this encounter Visit Diagnoses Not on filedocumented in this encounter Care Teams Airfreight Loading Supervisor Relationship Specialty Start Date End Date [place]-Renée Damon MD PCP - General Internal Medicine 10/11/14 Beni Valle NP PCP - General Family Practice 05/26/15 12/31/18 Supriya Chase MD, MD PCP - General Internal Medicine 01/01/19 documented as of this encounter
--- OUTSIDE RECORDS SUMMARY | 2024-11-04 09:02 | XMS_ITS | Encounter Summary ---
Author Organization [facility] Address [address] [place] [address] Care Team Providers Care Plate Grainer Name Role Phone Beni Valle NP Primary Care Provider Unavail able Supriya Chase Md, MD Primary Care Provider Unavailable Encounter Details Date Type Department Care Team Description 03/03/2018 Release of Information Medical Records [address] [place] [address] Abstract, Provider Social History Tobacco Use Types [...] on filedocumented in this encounter Care Teams Plate Grainer Relationship Specialty Start Date End Date Beni Valle NP PCP - General Family Practice 05/26/15 12/31/18 Supriya Chase MD, MD PCP - General Internal Medicine 01/01/19 documented as of this encounter
--- OUTSIDE RECORDS SUMMARY | 2024-11-04 09:02 | XMS_ITS | Encounter Summary ---
Author Organization [facility] Address [address] [place] [address] Care Team Providers Care Textile Screen Printer Name Role Phone Renée Soto MD Primary Care Provider Unavailable Beni Valle NP Primary Care Provider Unavail able Supriya Chase Md, MD Primary Care Provider Unavailable Encounter Details Date Type Department Care Team Description 03/28/2015 Telegraphic Typewriter Installer Report Medical Records [address] [place] [address] Xiomy Light Social History Tobacco Use Types Packs/Day Years Used Date Smoking Tobacco: Never Alcohol Use Standard Drinks/Week Comments No 0 (1 standard drink = 0.6 oz pur e alcohol) Sex Assigned at Date Recorded Not on file documented as of this encounter Plan of Treatment Not on file documented as of this encounter Visit Diagnoses Not on filedocumented in this encounter Care Teams Textile Screen Printer Relationship Specialty Start Date End Date Renée Soto MD PCP - General Internal Medicine 10/11/14 Beni Valle NP PCP - General Family Practice 05/26/15 12/31/18 Supriya Chase MD, MD PCP - General Internal Medicine 01/01/19 documented as of this encounter
--- OUTSIDE RECORDS SUMMARY | 2024-11-04 09:02 | XMS_ITS | Encounter Summary ---
Author Organization [facility] Address [address] [place] [address] Care Team Providers Care Excellence Specialist Name Role Phone Renée Soto MD Primary Care Provider Unavailable Beni Valle NP Primary Care Provider Unavail able Supriya Chase Md, MD Primary Care Provider Unavailable Reason for Visit * Reason Onset Date Comments Call From Hospital 03/28/2015 Encounter Details Date Type Department Care Team Description 03/28/2015 Telephone Adult Medicine - [address] [address] Renée Soto MD Call From Hospital Social History Tobacco Use Types Packs/Day Years Used Date Smoking Tobacco: Never Alcohol Use Standard Drinks/Week Comments No 0 (1 standard drink = 0.6 oz pur e alcohol) Sex Assigned at Date Recorded Not on file documented as of this encounter Miscellaneous Notes * Telephone Encounter - Odilon Porras - 03/31/2015 9:21 AM EDT I spoke with Dr. Oliver. 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 He agrees that such medications should be weaned but defers this process to others. * Telephone Encounter - Odilon Porras - 03/31/2015 8:07 AM EDT I left a message on the doctor's voicemail, asking him to call today to clarify management of this patient. * Telephone Encounter - Radha Martin L.P.NKatherine - 03/30/2015 4:08 PM EDT Yokasta this pt is coming in tomorrow W/Dr porras. * Telephone Encounter - Karina Heredia R.NKatherine - 03/28/2015 2:05 PM EDT Called from [facility]. Got number identified voicemail. Left message for to return call. * Telephone Encounter - Jaycee Leung - 03/28/2015 1:[address] Oliver calling back, unable to put through to triage * Telephone Encounter - Karina Heredia R.N. - 03/28/2015 1:42 PM EDT Called from [facility]. Got number identified voicemail. Left message for to return call. * Telephone Encounter - Aurora Traylor - 03/28/2015 11:40 AM EDT calling about pt pain medication-- please call documented in this encounter Plan of Treatment Not on file documented as of this encounter Visit Diagnoses Not on filedocumented in this encounter Care Teams Excellence Specialist Relationship Specialty Start Date End Date [place]-Renée Damon MD PCP - General Internal Medicine 10/11/14 Beni Valle NP PCP - General Family Practice 05/26/15 12/31/18 Supriya Chase MD, MD PCP - General Internal Medicine 01/01/19 documented as of this encounter
--- OUTSIDE RECORDS SUMMARY | 2024-11-04 09:02 | XMS_ITS | Encounter Summary ---
Author Organization [employer] Address [address] [facility] [address] [place] [address] Care Team Providers Care Workday Manager Name Role Phone Unavailable Primary Care Provider Unavailabl e Reason for Visit * Reason Onset Date Comments medical clearance 06/26/2023 Encounter Details Date Type Department Care Team (Late st Contact Info) Description 06/26/2023 Telephone [facility] DENTAL [address] [place] [address] VeSelam dhillon [address] [place] [address] medical clearance Social History Tobacco Use Types [...] - 06/26/2023 11:21 AM EDT Rylan from [facility] called in looking to facilitate [...] be scheduled for treatment. Please fax to [phone] documented in this encounter Plan of Treatment Not on file documented as of this encounter Visit Diagnoses Not on filedocumented in this encounter
--- OUTSIDE RECORDS SUMMARY | 2024-11-04 09:02 | XMS_ITS | Encounter Summary ---
Author Organization [employer] Address [address] [place] [address] Care Team Providers Care No Bake Molder Name Role Phone Unavailable Primary Care Provider Unavailabl e Encounter Details Date Type Department Care Team (Late st Contact Info) Description 12/11/2022 Telephone [facility] ADULT DENTAL [address] [place] [address] Annalise Mix, BDS [address] [place] [address] Social History Tobacco Use Types Packs/Day Years [...]
--- OUTSIDE RECORDS SUMMARY | 2024-11-04 09:02 | XMS_ITS | Encounter Summary ---
Author Organization [facility] Address [address] [place] [address] Care Team Providers Care Towel Sewer Name Role Phone Renée Soto MD Primary Care Provider Unavailable Beni Valle NP Primary Care Provider Unavail able Supriya Chase Md, MD Primary Care Provider Unavailable Encounter Details Date Type Department Care Team Description 03/13/2015 Telephone Adult Medicine - [address] [address] Renée Soto MD Social History Tobacco Use Types Packs/Day Years Used Date Smoking Tobacco: Never Alcohol Use Standard Drinks/Week Comments No 0 (1 standard drink = 0.6 oz pur e alcohol) Sex Assigned at Date Recorded Not on file documented as of this encounter Miscellaneous Notes * Telephone Encounter - Renée Soto MD - 03/13/2015 12:34 PM EDT I called her direct # and LMOM * Telephone Encounter - Yokasta Hurtado M.A. - 03/13/2015 9:23 AM EDT Attempted to call Xiomy Light's office. [phone]. Lmtcb on 's direct cell #: [phone] documented in this encounter Plan of Treatment Not on file documented as of this encounter Visit Diagnoses Not on filedocumented in this encounter Care Teams Towel Sewer Relationship Specialty Start Date End Date [place]-Renée Damon MD PCP - General Internal Medicine 10/11/14 Beni Valle NP PCP - General Family Practice 05/26/15 12/31/18 Supriya Chase MD, MD PCP - General Internal Medicine 01/01/19 documented as of this encounter
--- OUTSIDE RECORDS SUMMARY | 2024-11-04 09:02 | XMS_ITS | Encounter Summary ---
Author Organization [facility] Address [address] [place] [address] Care Team Providers Care Process Assistant Name Role Phone Renée Soto MD Primary Care Provider Unavailable Bnei Valle NP Primary Care Provider Unavail able Supriya Chase Md, MD Primary Care Provider Unavailable Encounter Details Date Type Department Care Team Description 12/05/2014 Sluice Tender Report Medical Records [address] [place] [address] John Resendez Social History Tobacco Use Types Packs/Day Years Used Date Smoking Tobacco: Never Alcohol Use Standard Drinks/Week Comments No 0 (1 standard drink = 0.6 oz pur e alcohol) Sex Assigned at Date Recorded Not on file documented as of this encounter Plan of Treatment Not on file documented as of this encounter Visit Diagnoses Not on filedocumented in this encounter Care Teams Process Assistant Relationship Specialty Start Date End Date Renée Soto MD PCP - General Internal Medicine 10/11/14 Beni Valle NP PCP - General Family Practice 05/26/15 12/31/18 Supriya Chase MD, MD PCP - General Internal Medicine 01/01/19 documented as of this encounter
--- OUTSIDE RECORDS SUMMARY | 2024-11-04 09:02 | XMS_ITS | Encounter Summary ---
Author Organization [facility] Address [address] [place] [address] Care Team Providers Care Spares Scheduler Name Role Phone Beni Valle MD Primary Care Provider [phone] Derek Roche PA-C Unavailable [phone] Encounter Details Date Type Department Care Team ([facility] st Contact Info) Description 07/28/2024 Telephone [facility] Heart & Vascular [place] at [facility] - Cardiology [address] [place] [address] Derek Roche PA-C [address] [place] [id number] Social History Tobacco Use Types Packs/Day Years [...] again. Please follow up with pt at [phone] documented in this encounter Plan of Treatment Upcoming Encounters Date Type Department Care Team (Late st Contact Info) Description 01/05/2025 2:00 PM EDT Appointment [facility] Heart & Vascular [place] at [facility] - Cardiology [address] [place] [address] Derek Roche PA-C [address] [place] [address] documented as of this encounter Visit Diagnoses Not on filedocumented in this encounter Care Teams Spares Scheduler Relationship Specialty Start Date End Date Beni Valle MD [address] [facility] [place] [address] PCP - General Family Medicine 10/27/23 Derek Roche PA-C [address] [place] [address] Physician Manager Package Cardiac Electrophysiology 03/23/24 documented as of this encounter
--- OUTSIDE RECORDS SUMMARY | 2024-11-04 09:02 | XMS_ITS | Encounter Summary ---
Author Organization [facility] Address [address] [place] [address] Care Team Providers Care Foot Press Operator Name Role Phone Wilbert Fermin Primary Care Provider Renée Harding MD Primary Care Provider Unavailable Beni Valle NP Primary Care Provider Unavail Supriya Miranda Md, MD Primary Care Provider Unavailable Reason for Visit * Reason Onset Date Comments Information Needed 01/26/2014 Encounter Details Date Type Department Care Team Description 01/26/2014 Telephone OBGYN - [place] [address] [place] [address] Talia Gonzalez CNM [address] [place] [address] Information Needed Social History Tobacco Use Types Packs/Day Years Used Date Smoking Tobacco: Never Alcohol Use Standard Drinks/Week Comments No 0 (1 standard drink = 0.6 oz pur e alcohol) Sex Assigned at Date Recorded Not on file documented as of this encounter Miscellaneous Notes * Telephone Encounter - Alfreda Magdaleno R.N. - 01/26/2014 2:11 PM EDT Spoke with pt-Appointment recheduled. * Telephone Encounter - Abbi Bain - 01/26/2014 1:43 PM EDT Pt states she has two appts next week to have her iud removed and then reinserted - wants an appt before then to go over her control options and also is due for her annual- no appts avail - please call documented in this encounter Plan of Treatment Not on file documented as of this encounter Visit Diagnoses Not on filedocumented in this encounter Care Teams Foot Press Operator Relationship Specialty Start Date End Date Wilbert Fermin PCP - General Internal Medicine 09/13/11 10/10/14 Renée Soto MD PCP - General Internal Medicine 10/11/14 Beni Valle NP PCP - General Family Practice 05/26/15 12/31/18 Supriya Chase MD, MD PCP - General Internal Medicine 01/01/19 documented as of this encounter
--- OUTSIDE RECORDS SUMMARY | 2024-11-04 09:02 | XMS_ITS | Encounter Summary ---
Author Organization [facility] Address [address] [place] [address] Care Team Providers Care Machine Set Up Name Role Phone Supriya Chase Md MD Primary Care Provider Unavailable Encounter Details Date Type Department Care Team Description 11/08/2020 Refill Pulmonology [address] [place] [id number] Supriya Chase MD, MD Social History Tobacco Use Types Packs/Day Years Used Date Smoking Tobacco: Never Smokeless Tobacco: Never Alcohol Use Standard Drinks/Week Comments No 0 (1 standard drink = 0.6 oz pur e alcohol) Sex Assigned at Date Recorded Not on file COVID-19 Exposure Response Date Recorded In the last month, have you been in contact with someone who was confirmed or suspected to have Coronavirus / COVID-19? No / Unsure 10/17/2020 9:28 AM EST documented as of this encounter Plan of Treatment Not on file documented as of this encounter Visit Diagnoses Not on filedocumented in this encounter Care Teams Machine Set Up Relationship Specialty Start Date End Date Supriya Chase MD, MD PCP - General Internal Medicine 01/01/19 documented as of this encounter
--- OUTSIDE RECORDS SUMMARY | 2024-11-04 09:02 | XMS_ITS | Encounter Summary ---
Author Organization [facility] Address [address] [place] [address] Care Team Providers Care Plunger Shovel Operator Name Role Phone Beni Valle MD Primary Care Provider [phone] Derek Roche PA-C Unavailable + [phone] Reason for Visit * Reason Comments Follow-up Encounter Details Date Type Department Care Team (Latest Contact Info) Description 10/26/2024 1:43 PM EST - 10/26/2024 11:59 PM EST Hospital Encounter [facility] Heart & Vascular [place] at [facility] - Cardiology [address] [place] [address] Derek Roche PA-C [address] [place] [address] Follow-up Discharge Disposition: Home or Self Care [...] from the original note were not included. [facility] Cardiac Electrophysiology Office Visit Patient Name Cesilia Walker Date of 1980 Gender female Age 44 y.o. Encounter Date 10/26/2024 Women Designer: Primary Care Physician: Beni Valle MD Referring [...] propranolol. She also reports that shedrools to [place] and even though she stopped every 3-4 [...] IBS (Crohn's), Lown Ganong Ledesma syndrome (short CT), SVT (unclear burden), PFO, and mast cell [...] by Dr. Jose Joseph dysautonomia specialist in [place] back in June 2020. She apparently underwent [...] recommended that she be seen by an jumpbasting facing baster as he felt she likely had mast [...] underwent vascular studies of lower extremities at [facility] and reports that they were negative. [...] propranolol. ECG reveals SR at 80 bpm; CT 116 ms; QRS duration [address] without manifest preexcitation 30-day MCOT revealed sinus [...] Info) Description 01/05/2025 2:[address] [facility] Heart & Vascular [place] at [facility] - Cardiology [address] [place] [address] Derek Roche PA-C [address] [place] [address] documented as of this encounter Visit Diagnoses Diagnosis POTS (postural orthostatic tachycardia syndrome)- Primary Unspecified tachycardia documented in this encounter Care Teams Plunger Shovel Operator Relationship Specialty Start Date End Date Beni Valle MD [address] [place] [address] PCP - General Family Medicine 10/27/23 Derek Roche PA-C [address] [place] [address] Physician Anode Adjuster Cardiac Electrophysiology 03/23/24 documented as of this encounter
--- OUTSIDE RECORDS SUMMARY | 2024-11-04 09:02 | XMS_ITS | Encounter Summary ---
Author Organization [facility] Address [address] [place] [address] Care Team Providers Care Moisture Tester Name Role Phone Supriya Chase Md, MD Primary Care Provider Unavailable Reason for Visit * Reason Onset Date Comments Provider Call Back 11/03/2019 Encounter Details Date Type Department Care Team Description 11/03/2019 Telephone Pulmonology - [place] [address] [facility] [address] [place] [address] Beata Bernard MD [address] [place] [address] Provider Call Back Social History Tobacco Use Types Packs/Day Years Used Date Smoking Tobacco: Never Smokeless Tobacco: Never Alcohol Use Standard Drinks/Week Comments No 0 (1 standard drink = 0.6 oz pur e alcohol) Sex Assigned at Date Recorded Not on file documented as of this encounter Miscellaneous Notes * Telephone Encounter - Beata Bernard MD - 11/04/2019 5:38 PM EST Please have pt see at at 815 am * Telephone Encounter - Namrata Mishra - 11/03/2019 1:51 PM EST Caller requesting call back from provider: Is the caller the patient? YES If caller is not the patient, what is the callers name? N/A Callers relationship to patient? N/A If person calling is not the patient themselves, is there a verbal release in FYI or permanent comments for this person: YES Reason for call back: Patient is calling because she is having problems with shortness of breath. Has an appt on Nov 17 but feels she needs something before that. Can you please call the patient? Caller offered to speak with the nurse for assistance: YES Response: Patient offered to speak with nurse for assistance and patient agreed. Message forwarded to nurse. documented in this encounter Plan of Treatment Not on file documented as of this encounter Visit Diagnoses Not on filedocumented in this encounter Care Teams Moisture Tester Relationship Specialty Start Date End Date Supriya Chase MD, MD PCP - General Internal Medicine 01/01/19 documented as of this encounter
--- OUTSIDE RECORDS SUMMARY | 2024-11-04 09:02 | XMS_ITS | Encounter Summary ---
Author Organization [employer] Address [address] [facility] [address] [place] [address] Care Team Providers Care Welt Stitch Cleaner Name Role Phone Unavailable Primary Care Provider [...] patient that Dr. Doss is transitioning into [facility] again . Message would be sent to office. Encounter Details Date Type Department Care Team (Late st Contact Info) Description 09/25/[address] [facility] ADULT DENTAL [address] [place] [address] Annalise Mix, BDS [address] [place] [address] Appointment (Patient upset because states she has [...] patient that Dr. Doss is transitioning into [facility] again . Message would be sent [...] Miscellaneous Notes * Telephone Encounter - Lulu Gazra - 09/25/2022 2:05 PM EST Patient upset [...] patient that Dr. Doss is transitioning into [facility] again . Message would be sent to office. documented in this encounter Plan of Treatment Not on file documented as of this encounter Visit Diagnoses Not on filedocumented in this encounter
--- OUTSIDE RECORDS SUMMARY | 2024-11-04 09:02 | XMS_ITS | Encounter Summary ---
Author Organization [employer] Address [address] [facility] 7[address] [place] [address] Care Team Providers Care Worsted Winder Name Role Phone Unavailable Primary Care Provider Unavailabl e Reason for Visit * Reason Onset Date Comments Appointment 01/24/2023 Encounter Details Date Type Department Care Team ([facility] st Contact Info) Description 01/24/2023 Telephone [facility] ADULT DENTAL [address] [place] [address] Sumeet Nascimento DMD [address] [place], [place] [phone] Appointment Social History Tobacco Use Types Packs/Day [...] 01/24/2023 and stated she needed medication from [facility] because she is starting to get [...]
--- OUTSIDE RECORDS SUMMARY | 2024-11-04 09:02 | XMS_ITS | Encounter Summary ---
Author Organization [employer] Address [address] [place] [address] [address] [place] [address] Care Team Providers Care Property Management Accountant Name Role Phone Unavailable Primary Care Provider Unavailabl e Reason for Visit * Reason Comments Med Refill Encounter Details Date Type Department Care Team (Late st Contact Info) Description 05/03/2024 Refill [facility] DENTAL [address] [place], [place] [phone] Annalise Mix, BDS [address] [place], [place] [phone] Social History Tobacco Use Types Packs/Day Years [...]
--- OUTSIDE RECORDS SUMMARY | 2024-11-04 09:02 | XMS_ITS | Encounter Summary ---
Author Organization [facility] Address [address] [place] [address] Care Team Providers Care Floor Care Technician Name Role Phone Supriya Chase Md, MD Primary Care Provider Unavailable Reason for Visit * Reason Onset Date Comments DME Request 11/18/2019 nebulizer suppli es Encounter Details Date Type Department Care Team Description 11/18/2019 Telephone Pulmonology - [place] [address] [facility] [address] [place] [phone] Beata Bernard MD [address] [place] [address] DME Request (nebulizer supplies) Social History Tobacco Use Types Packs/Day Years Used Date Smoking Tobacco: Never Smokeless Tobacco: Never Alcohol Use Standard Drinks/Week Comments No 0 (1 standard drink = 0.6 oz pur e alcohol) Sex Assigned at Date Recorded Not on file documented as of this encounter Miscellaneous Notes * Telephone Encounter - Vanesa Camara M.A. - 11/22/2019 3:00 PM EST I faxed this order to [facility]. * Telephone Encounter - Beata Bernard MD - 11/18/2019 5:33 PM EST Order in * Telephone Encounter - Paxton Goncalves M.A. - 11/18/2019 2:[address] the order and I will see what company to send it to for DME. * Telephone Encounter - Kirbylg Miquel - 11/18/2019 2:23 PM EST Name of Product: Nebulizer tubing Specific information about product tubing for nebulizer ([employer] nebulizer compressor nebulizer system) # Needed 1 Reason patient is asking for this supply? Very old tubing needs new tubing. Have you received this supply before? If yes , when?: yes - when she received the nebulizer orginially no further supplies received around 2 years ago. Have you discussed the need for this supply with a provider at a recent visit? YES If yes, with who and when? Dr. Bernard 11/18/19 When completed: not sure where it needs to go Have you told the patient it will take 7-10 days for completion of this request? YES documented in this encounter Plan of Treatment Not on file documented as of this encounter Procedures Procedure Name Priority Date/Time Associated Diagnosis Comments NEBULIZER SUPPLIES Routine 11/18/2019 5:32 PM EST Moderate persistent asthma, unspecified whether complicated documented in this encounter Visit Diagnoses Diagnosis Moderate persistent asthma, unspecified whether complicated- Primary documented in this encounter Care Teams Floor Care Technician Relationship Specialty Start Date End Date Supriya Chase MD, MD PCP - General Internal Medicine 01/01/19 documented as of this encounter
--- OUTSIDE RECORDS SUMMARY | 2024-11-04 09:03 | XMS_ITS | Encounter Summary ---
Author Organization [facility] Address [address] [place] [address] Care Team Providers Care Front End Java Developer Name Role Phone Renée Soto MD Primary Care Provider Unavailable Beni Valle NP Primary Care Provider Unavail able Supriya Chase Md, MD Primary Care Provider Unavailable Encounter Details Date Type Department Care Team Description 11/09/2014 Transfer Records Medical Records [address] [place] [id number] Abstract, Provider Social History Tobacco Use Types [...] on filedocumented in this encounter Care Teams Front End Java Developer Relationship Specialty Start Date End Date Renée Soto MD PCP - General Internal Medicine 10/11/14 Beni Valle NP PCP - General Family Practice 05/26/15 12/31/18 Supriya Chase MD, MD PCP - General Internal Medicine 01/01/19 documented as of this encounter
--- OUTSIDE RECORDS SUMMARY | 2024-11-04 09:03 | XMS_ITS | Encounter Summary ---
Author Organization [facility] Address [address] [place] [address] Care Team Providers Care Supervisor Molding Name Role Phone Renée Soto MD Primary Care Provider Unavailable Beni Valle NP Primary Care Provider Unavail able Supriya Chase Md, MD Primary Care Provider Unavailable Encounter Details Date Type Department Care Team Description 11/07/2014 Competitive Athlete Report Medical Records [address] [place] [address] Laurita Isaacs PA-C Social History Tobacco Use Types Packs/Day Years Used Date Smoking Tobacco: Never Alcohol Use Standard Drinks/Week Comments No 0 (1 standard drink = 0.6 oz pur e alcohol) Sex Assigned at Date Recorded Not on file documented as of this encounter Plan of Treatment Not on file documented as of this encounter Visit Diagnoses Not on filedocumented in this encounter Care Teams Supervisor Molding Relationship Specialty Start Date End Date Renée Soto MD PCP - General Internal Medicine 10/11/14 Beni Valle NP PCP - General Family Practice 05/26/15 12/31/18 Supriya Chase MD, PCP - General Internal Medicine 01/01/19 documented as of this encounter
--- OUTSIDE RECORDS SUMMARY | 2024-11-04 09:03 | XMS_ITS | Encounter Summary ---
Author Organization [facility] Address [address] [place] [address] Care Team Providers Care Lithographic Platemaker Name Role Phone Supriya Chase Md, MD Primary Care Provider Unavailable Reason for Visit * Reason Comments E-prescribe Rx Request Encounter Details Date Type Department Care Team Description 11/14/2021 Refill Pulmonology - [place] [address] [facility] [address] [place] [address] Beata Bernard MD [address] [place] [address] E-prescribe Rx Request Social History Tobacco Use Types Packs/Day Years Used Date Smoking Tobacco: Never Smokeless Tobacco: Never Alcohol Use Standard Drinks/Week Comments No 0 (1 standard drink = 0.6 oz pur e alcohol) Sex Assigned at Date Recorded Not on file documented as of this encounter Miscellaneous Notes * Telephone Encounter - Jovanna Ramires Jr - 11/19/2021 3:22 PM EST Patient would like script to be: E-PRESCRIBED/FAXED TO PHARMACY WHEN WAS THE PATIENT'S LAST APPOINTMENT IN ADULT MEDICINE? 10/17/20 WHEN WAS THE LAST TIME THE PATIENT SAW THEIR PCP? Same as above Does patient have an upcoming appointment? No-unable to reach left voicemaill to call for appointment due to refill request. Appt due FRANK (THE MEDICATION REQUESTED IS ON THE MED LIST ABOVE) All of the medications requested were on the CURRENT MEDS list Did you check the Pharmacy information above?: YES Patient wants: 30 -day supply Is this a mail order prescription request ? NO If the refill is from a FAXED refill request what is the RX # listed on the fax? N/A Patients current insurance carrier is: Payor: [employer] FFS / Plan: [employer] / Product Type: MEDICAID RISK documented in this encounter Plan of Treatment Not on file documented as of this encounter Visit Diagnoses Not on filedocumented in this encounter Care Teams Lithographic Platemaker Relationship Specialty Start Date End Date Supriya Chase MD, MD PCP - General Internal Medicine 01/01/19 documented as of this encounter
--- OUTSIDE RECORDS SUMMARY | 2024-11-04 09:03 | XMS_ITS | Encounter Summary ---
Author Organization [facility] Address [address] [place] [address] Care Team Providers Care Hog Sticker Name Role Phone Supriya Chase Md, MD Primary Care Provider Unavailable Reason for Visit * Reason Onset Date Comments medication problems 11/07/2020 Encounter Details Date Type Department Care Team Description 11/07/2020 Telephone Pulmonology - [place] 175 [facility] [address] [place] [address] Beata Bernard MD [address] [place] [address] medication problems Social History Tobacco Use Types Packs/Day [...] AM EST documented as of this encounter Miscellaneous Notes * Telephone Encounter - Beata Bernard MD - 11/08/2020 3:46 PM EST Spoke to her- she got her inhaler meds. Will send Decadron since she is allergic to prednisone, urinates more and insomnia * Telephone Encounter - Kat Collins M.A. - 11/08/2020 9:01 AM EST Please advice. * Telephone Encounter - Kurt Alonso - 11/07/2020 3:08 PM EST What is the name of the medication patient is having a problem with?: prednisone high dose given athospital What is the problem?: dose to high, gives patient side affects and would like a low dose Is the patient calling about the problem? YES If the patient is not the caller who is? N/a Is this a NEW medication?: YES How long has the patient been taking this medication? N/a Who prescribed this medication for the patient? hospital Who is patients PCP?: n/a Payor: [employer] FFS / Plan: [facility] / Product Type: MEDICAID RISK documented in this encounter Plan of Treatment Not on file documented as of this encounter Visit Diagnoses Diagnosis Moderate persistent asthma, unspecified whether complicated- Primary documented in this encounter Care Teams Hog Sticker Relationship Specialty Start Date End Date Supriya Chase MD, MD PCP - General Internal Medicine 01/01/19 documented as of this encounter
--- OUTSIDE RECORDS SUMMARY | 2024-11-04 09:03 | XMS_ITS | Encounter Summary ---
Author Organization [facility] Address [address] [place] [address] Care Team Providers Care Logging Shovel Operator Name Role Phone Renée Soto MD Primary Care Provider Unavailable Beni Valle NP Primary Care Provider Unavail able Supriya Chase Md, MD Primary Care Provider Unavailable Encounter Details Date Type Department Care Team Description 10/18/2014 Telephone Adult Medicine - [address] [address] Renée Soto MD Social History Tobacco Use Types Packs/Day Years Used Date Smoking Tobacco: Never Alcohol Use Standard Drinks/Week Comments No 0 (1 standard drink = 0.6 oz pur e alcohol) Sex Assigned at Date Recorded Not on file documented as of this encounter Miscellaneous Notes * Telephone Encounter - Karina Heredia R.N. - 10/18/2014 1:54 PM EST Patient states she needs a different appointment because her heart doctor can see her tomorrow at the same time of her appointment here at [place]. Tomorrow's appointment cancelled and rescheduled. Appointment 10/27 with @2:30pm documented in this encounter Plan of Treatment Not on file documented as of this encounter Visit Diagnoses Not on filedocumented in this encounter Care Teams Logging Shovel Operator Relationship Specialty Start Date End Date Renée Soto MD PCP - General Internal Medicine 10/11/14 Beni Valle NP PCP - General Family Practice 05/26/15 12/31/18 Supriya Chase MD, MD PCP - General Internal Medicine 01/01/19 documented as of this encounter
--- OUTSIDE RECORDS SUMMARY | 2024-11-04 09:03 | XMS_ITS | Encounter Summary ---
Author Organization [facility] Address [address] [place] [address] Care Team Providers Care Inside Technical Sales Representative Name Role Phone Supriya Chase Md, MD Primary Care Provider Unavailable Reason for Visit * Reason Onset Date Comments er follow up 11/08/2020 Encounter Details Date Type Department Care Team Description 11/08/2020 Telephone Internal Medicine - [place] 175 [facility], [address] [place] [address] Beata Bernard MD [address] [place] [phone] er follow up Social History Tobacco Use Types [...] encounter Miscellaneous Notes * Telephone Encounter - Norma Mauricio M.A. - 11/14/2020 3:35 PM EST . * Telephone Encounter - Milena Campo - 11/09/2020 12:07 PM EST Patient called and states all set for now does not need appointment * Telephone Encounter - Roscoe Nice - 11/09/2020 11:09 AM EST Per he spoke to patient yesterday. I tried to call patient just to make sure she was all set or if she wanted to schedule an in office appt with provider anyways. * Telephone Encounter - Camilla Linn - 11/08/2020 11:22 AM EST Hospital follow up appointment needed Hospital patient was treated at: [facility] Was this only an ER visit or was the patient admitted to the hospital? ER visit only Date of visit if ER visit only: 2.9 If patient was admitted what was the date of discharge? N/A Reason/diagnosis for visit or stay: SOB When was the patient told to follow up? Was visit or stay related to an injury? NO If yes, what was the date of injury (DOI)? N/A If yes, was the injury due to N/A documented in this encounter Plan of Treatment Not on file documented as of this encounter Visit Diagnoses Not on filedocumented in this encounter Care Teams Inside Technical Sales Representative Relationship Specialty Start Date End Date Supriya Chase MD, MD PCP - General Internal Medicine 01/01/19 documented as of this encounter
[2024-11-04] MEDS: Sodium Bicarbonate 8.4% 50 MEQ/50 ML VIAL SUBCUT (09:32)
[2024-11-04] MEDS: Lidocaine HCl 1 % 20 ML VIAL 9 ML SUBCUT (09:33)
== END 2024-11-04 08:47 | disposition home or self-care (01) ==
LOC: HO.MAMMO 08:46
PROVIDERS: PCP Nurse Practitioner Family; Visit Provider Surgery
DX: R92.8 Other abnormal and inconclusive findings on diagnostic imaging of breast (principal)
CPT/HCPCS: 19083; 77061; 77065; 88305; A4648; J2003

== ENCOUNTER → 2024-11-04 09:00 | Outpatient (BNV) | payer OTHER, SELFPAY | PROVIDERS: PCP Nurse Practitioner Family; Visit Provider Internal Medicine | DX: N63.14 Unspecified lump in the right breast, lower inner quadrant (principal) | CPT/HCPCS: 19083; 77065 ==

== ENCOUNTER → 2024-11-08 12:43 | Outpatient (REF) | payer OTHER, SELFPAY | LOC: HO.CARD 12:43 | PROVIDERS: PCP Nurse Practitioner Family; Visit Provider Nurse Practitioner Family | DX: R60.0 Localized edema (principal) | CPT/HCPCS: 93306 ==

== ENCOUNTER → 2024-11-08 12:47 | Outpatient (BNV) | payer OTHER, SELFPAY | PROVIDERS: PCP Nurse Practitioner Family; Visit Provider Internal Medicine Cardiovascular Disease | DX: I34.0 Nonrheumatic mitral (valve) insufficiency (principal) | CPT/HCPCS: 93306 ==

== ENCOUNTER 2024-11-11 09:59 | Outpatient (AMB) | payer OTHER, SELFPAY ==
--- NOTE | 2024-11-11 10:06 | MHC.OFFVIS ---
Vital Signs 11/11/24 10:12 Height 5 ft 5 in Weight 192 lb 14.472 oz BMI 32.1 Pulse 82 Intake Visit Reasons: US Biopsy RESULTS rt breast 4 o'clock mass Intake Note: Patient is seen in office for ultrasound biopsy RESULTS right breast 4 o'clock mass. Pt c/o: admits to sore, bruise and tender, denies any infections, here for results. Outside Machinist Supervisor Required: No Accompanied by: Family/Other Allergies doxycycline [DOXYCYCLINE] Allergy (Severe, Verified 11/11/24 10:12) RASH, GI Upset levofloxacin [From LEVAQUIN] Allergy (Severe, Verified 11/11/24 10:12) RASH metronidazole [From FLAGYL] Allergy (Severe, Verified 11/11/24 10:12) ANAPHYLAXIS morphine [MORPHINE] Allergy (Severe, Verified 11/11/24 10:12) ANAPHYLAXIS, cant breathe, SOB Sulfa (Sulfonamide Antibiotics) [SULFA (SULFONAMIDE ANTIBIOTICS)] Allergy (Severe, Verified 11/11/24 10:12) STOP BREATHING, rash/cant breathe adhesive [ADHESIVE] Allergy (Intermediate, Verified 11/11/24 10:12) RASH clindamycin [CLINDAMYCIN] Allergy (Intermediate, Verified 11/11/24 10:12) RASH Iodinated Contrast Media [IV CONTRAST] Allergy (Intermediate, Verified 11/11/24 10:12) ANAPHALAXIS latex [LATEX] Allergy (Intermediate, Verified 11/11/24 10:12) RASH ciprofloxacin [Cipro] Allergy (Unknown, Verified 11/11/24 10:12) unknown fludrocortisone Allergy (Unknown, Verified 11/11/24 10:12) Unknown hydromorphone [Dilaudid] Allergy (Unknown, Verified 11/11/24 10:12) Unknown ALL CONTRAST DYE Allergy (Unknown, Uncoded 11/11/24 10:12) Unknown Cortisone Allergy (Unknown, Uncoded 11/11/24 10:12) unknown IVP Dye Allergy (Unknown, Uncoded 11/11/24 10:12) Unknown Midodrine HCl Allergy (Unknown, Uncoded 11/11/24 10:12) Unknown HPI Comments Details: 44-year-old female patient presenting with a recent screening mammogram performed on 09/09/2024 followed by a diagnostic mammogram and ultrasound performed of the right breast on 10/18/2024. This revealed a suspicious density in the right breast at the 4 o'clock position approximately 4 cm from the nipple felt to be solid by ultrasound. Ultrasound-guided core biopsy was recommended and scheduled for 11/04/2024 at the [facility]. She denies a history of breast problems or breast surgery but did have an enlarged lymph node in the left axilla which resolved. Family history is negative for breast cancer but is significant for lung cancer in her mother as well as multiple myeloma also in her mother. She is 2 para 3 with 1 set of twins as well as a 3rd child. She did not breastfeed. Menarche was the age of 12 in her 1st child was born when she was 21. She underwent ultrasound-guided core biopsy on 11/04/2024. Pathology revealed a benign fibroadenoma. A copy of the report was provided to the patient. [facility] Medical History Recent urinary tract infection Acid reflux Huynh disease Crohn disease Colitis Arachnoid cyst Asthma Autoimmune disorder Arthritis Bulging disc Spinal stenosis POTS (postural orthostatic tachycardia syndrome) SVT (supraventricular tachycardia) Surgical History History of kidney surgery History of liver biopsy Hx of cholecystectomy Family History Father High cholesterol HTN (hypertension) Tumors Mental health disorder Mother COPD (chronic obstructive pulmonary disease) Colitis Sister Colitis Substance use disorder Mental health disorder Sister Cervical cancer Social History Household Members: Family and Children Housing: House Alcohol intake: former Patient Tobacco Use Status: Former Tobacco user Years Smoked: quit 20b years ago e-Cigarette/Vaping Use: Never Used Second Hand Smoke Exposure: No service: No Current occupational status: employed 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 No ecchymosis, hematoma or seroma is identified. Resp Effort & Inspection: normal respiratory effort Neuro General: patient oriented x3 Extrem Other: No edema Assessment & Plan Assessment & Plan (1) Breast mass: Code(s): N63.0 - Unspecified lump in unspecified breast Category: Medical Qualifiers: Laterality: right Breast mass location: upper inner quadrant Qualified Code(s): N63.12 - Unspecified lump in the right breast, upper inner quadrant Plan: 44-year-old female patient status post ultrasound-guided core biopsy of the right breast found to have a fibroadenoma. Radiology recommends routine mammogram in 1 year. She should follow up as needed. Coding Level of Care Code Est Pt Level 3 (49444) Diagnoses Mass of upper inner quadrant of right breast N63.12 Laterality: right Breast mass location: upper inner quadrant
[2024-11-11 10:12] VITALS: PULSE 82; BMI 32.1
--- OUTSIDE RECORDS SUMMARY | 2024-11-11 10:41 | XMS_ITS | Clinical Summary ---
Author Organization [facility] Address [address] [place] [address] Care Team Providers Care Wedding Makeup Artist Name Role Phone Beni Valle MD Primary Care Provider + [phone] Derek Roche PA-C Unavailable +[phone] Allergies Active Allergy Reactions Criticality Noted Date [...] Of Breath,Hives High 08/07/2009 Metronidazole Other (See Comments),Rash/[place] titis,Shortness Of Breath,Hives High 11/13/2009 Other reaction(s): O/E - respiratory distress Midodrine Rash/Dermatitis Low 01/20/2015 Morphine Shortness Of Breath,Bleeding (Non-Gastrointestina l),GI Bleeding,Other (See Comments),Rash/[place] titis High 02/09/2015 Other reaction(s): Bleeding Ondansetron [...] syndrome) 02/12/2012 Overview (03/23/2024): Dr Joseph in [place] SVT (supraventricular tachycardia) 02/12/2012 Overview (03/23/2024): Sees Dr Light and EP docs in [place] Vitamin D deficiency 05/23/2008 PFO (patent foramen ovale) 01/20/2008 Overview (03/23/2024): No tx unless it gets worse Encounters Date Type Department Care Team Description 10/26/2024 1:43 PM EST - 10/26/2024 11:59 PM EST Hospital Encounter [facility] [place] at [address] [phone] Derek Roche PA-C Follow-up Discharge Disposition: Home or Self Care 10/26/2024 Travel 09/15/2024 1:54 PM EST - 09/15/2024 11:59 PM EST Hospital Encounter [facility] [place] at [address] [phone] Derek Roche PA-C Follow-up Discharge Disposition: Home or Self Care 09/15/2024 Travel 09/08/2024 Orders Only [facility] [place] at [address] [phone] Derek Roche PA-C POTS (postural orthostatic tachycardia syndrome) (Primary Dx) 09/08/2024 Telephone [facility] [place] at [address], [place] [phone] Derek Roche PA-C from Last 3 Months Immunizations Name Administration [...] Info) Description 01/05/2025 2:00 PM EDT Appointment [facility] [place] at [address], [place] [phone] Derek Roche PA-C [address] [place] [address], [place] Health Maintenance Due Date Last Done Comments [...] 2021 Influenza Vaccine 04/29/2024 06/12/2009 COVID-19 Vaccine (1 - 2023-2 5 season) 2024 HPV Vaccines Aged Out No longer eligi ble based on patient's age to complete this topic Care Teams Wedding Makeup Artist Relationship Specialty Start Date End Date Beni Valle MD [address] [place] [address] PCP - General Family Medicine 10/27/23 Derek Roche PA-C [address] [place] [address] Physician Director Of Convention Services Cardiac Electrophysiology 03/23/24
--- OUTSIDE RECORDS SUMMARY | 2024-11-11 10:41 | XMS_ITS | Encounter Summary ---
Author Organization [employer] Address [address] [place] [address] [address] [place] [address] Care Team Providers Care Printer Small Print Shop Name Role Phone Unavailable Primary Care Provider Unavailabl e Reason for Visit * Reason Comments Med Refill Encounter Details Date Type Department Care Team (Late st Contact Info) Description 05/19/2024 Refill [facility] DENTAL [address] [place], [place] [phone] Annalise Mix, BDS [address] [place], [place] [phone] Social History Tobacco Use Types Packs/Day Years [...]
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
--- OUTSIDE RECORDS SUMMARY | 2024-11-11 10:41 | XMS_ITS | Encounter Summary ---
Author Organization [facility] Address [address] [place] [address] Care Team Providers Care Senior Engineering Specialist Name Role Phone Renée Soto MD Primary Care Provider Unavailable Beni Valle NP Primary Care Provider Unavail able Supriya Chase Md, MD Primary Care Provider Unavailable Encounter Details Date Type Department Care Team Description 03/24/2015 Casting Machine Control Board Operator Report Medical Records [address] [place] [id number] Robert Haque MD Social History Tobacco Use Types Packs/Day Years Used Date Smoking Tobacco: Never Alcohol Use Standard Drinks/Week Comments No 0 (1 standard drink = 0.6 oz pur e alcohol) Sex Assigned at Date Recorded Not on file documented as of this encounter Plan of Treatment Not on file documented as of this encounter Visit Diagnoses Not on filedocumented in this encounter Care Teams Senior Engineering Specialist Relationship Specialty Start Date End Date Renée Soto MD PCP - General Internal Medicine 10/11/14 Beni Valle NP PCP - General Family Practice 05/26/15 12/31/18 Supriya Chase MD, MD PCP - General Internal Medicine 01/01/19 documented as of this encounter
--- OUTSIDE RECORDS SUMMARY | 2024-11-11 10:41 | XMS_ITS | Encounter Summary ---
Author Organization [employer] Address [address] [place] [address] Care Team Providers Care Roofing Superintendent Name Role Phone Unavailable Primary Care Provider Unavailabl e Encounter Details Date Type Department Care Team (Late st Contact Info) Description 07/09/2024 Telephone [facility] ADULT DENTAL [address] [place] [address] Annalise Mix, BDS [address] [place] [address] Social History Tobacco Use Types Packs/Day Years [...]
--- OUTSIDE RECORDS SUMMARY | 2024-11-11 10:41 | XMS_ITS | Encounter Summary ---
Author Organization [facility] Address [address] [place] [address] Care Team Providers Care Irrigation Engineer Name Role Phone Renée Soto MD Primary Care Provider Unavailable Beni Valle NP Primary Care Provider Unavail able Supriya Chase Md, MD Primary Care Provider Unavailable Encounter Details Date Type Department Care Team Description 03/13/2015 Telephone Adult Medicine - [address] [address] Renée Soto MD Social History Tobacco Use [...] 03/13/2015 9:23 AM EDT Attempted to call iXomy Light's office. [phone]. Lmtcb on 's direct cell #: [phone] documented in this encounter Plan of Treatment Not on file documented as of this encounter Visit Diagnoses Not on filedocumented in this encounter Care Teams Irrigation Engineer Relationship Specialty Start Date End Date [place]-Renée Damon MD PCP - General Internal Medicine 10/11/14 Beni Valle NP PCP - General Family Practice 05/26/15 12/31/18 Supriya Chase MD, MD PCP - General Internal Medicine 01/01/19 documented as of this encounter
--- OUTSIDE RECORDS SUMMARY | 2024-11-11 10:41 | XMS_ITS | Encounter Summary ---
Author Organization [employer] Address [address] [place] [address] 7[address] [place] [address] Care Team Providers Care Contract Engineer Name Role Phone Unavailable Primary Care Provider Unavailabl e Reason for Visit * Reason Onset Date Comments medication 04/28/2024 Encounter Details Date Type Department Care Team ([facility] st Contact Info) Description 04/28/2024 Telephone [facility] ADULT DENTAL [address] [place], [place] [phone] Sumeet Anderson DMD [address] [place], [place] [phone] medication Social History Tobacco Use Types Packs/Day [...] be sent. Patient spoke to office at [facility] on Friday concerning script. Krystin and Dr [...]
--- OUTSIDE RECORDS SUMMARY | 2024-11-11 10:41 | XMS_ITS | Encounter Summary ---
Author Organization [employer] Address [address] [place] [address] [address] [place] [address] Care Team Providers Care Billing Auditor Name Role Phone Unavailable Primary Care Provider Unavailabl e Reason for Visit * Reason Comments Med Refill Encounter Details Date Type Department Care Team (Late st Contact Info) Description 05/03/2024 Refill [facility] DENTAL [address] [place], [place] [phone] Annalise Mix, BDS [address] [place], [place] [phone] Social History Tobacco Use Types Packs/Day Years [...]
--- OUTSIDE RECORDS SUMMARY | 2024-11-11 10:41 | XMS_ITS | Clinical Summary ---
Author Organization [employer] Address [address] [place] [address] 7[address] [place] [address] Care Team Providers Care Food Or Baggage Handling Rampman Name Role Phone Unavailable Primary Care Provider [...]
--- OUTSIDE RECORDS SUMMARY | 2024-11-11 10:41 | XMS_ITS | Encounter Summary ---
Author Organization [facility] Address [address] [place] [address] Care Team Providers Care Rehanger Name Role Phone Renée Soto MD Primary Care Provider Unavailable Beni Valle NP Primary Care Provider Unavail able Supriya Chase Md, MD Primary Care Provider Unavailable Encounter Details Date Type Department Care Team Description 12/26/2014 Transfer Records Medical Records [address] [place] [address] Lori Jorge NP Social History Tobacco Use [...] on filedocumented in this encounter Care Teams Rehanger Relationship Specialty Start Date End Date Renée Soto MD PCP - General Internal Medicine 10/11/14 Beni Valle NP PCP - General Family Practice 05/26/15 12/31/18 Supriya Chase MD, MD PCP - General Internal Medicine 01/01/19 documented as of this encounter
--- OUTSIDE RECORDS SUMMARY | 2024-11-11 10:41 | XMS_ITS | Encounter Summary ---
Author Organization [facility] Address [address] [place] [address] Care Team Providers Care Fountain Pen Turner Name Role Phone Beni Valle MD Primary Care Provider [phone] Derek Roche PA-C Unavailable [phone] Encounter Details Date Type Department Care Team ([facility] st Contact Info) Description 07/28/2024 Telephone [facility] [place] at [facility] - Cardiology [address] [place] [address] Derek Roche PA-C [address] [place] [id number] Social History Tobacco Use Types Packs/Day Years [...] again. Please follow up with pt at [phone] documented in this encounter Plan of Treatment Upcoming Encounters Date Type Department Care Team (Late st Contact Info) Description 01/05/2025 2:00 PM EDT Appointment [facility] [place] at [facility] - Cardiology [address] [place] [address] Derek Roche PA-C [address] [place] [address] documented as of this encounter Visit Diagnoses Not on filedocumented in this encounter Care Teams Fountain Pen Turner Relationship Specialty Start Date End Date Beni Valle MD [address] [facility] [place] [address] PCP - General Family Medicine 10/27/23 Derek Roche PA-C [address] [place] [address] Physician Mail Caller Cardiac Electrophysiology 03/23/24 documented as of this encounter
--- OUTSIDE RECORDS SUMMARY | 2024-11-11 10:41 | XMS_ITS | Encounter Summary ---
Author Organization [facility] Address [address] [place] [address] Care Team Providers Care Operations Administrative Assistant Name Role Phone Beni Valle MD Primary Care Provider [phone] Derek Roche PA-C Unavailable [phone] Encounter Details Date Type Department Care Team (Late st Contact Info) Description 05/10/2024 Telephone [facility] Heart & Vascular [place] at [facility] - Electrophysiology Laboratory [address] [place] [address] Vanessa Waite MD [address] [place] [address] Social History Tobacco Use Types Packs/Day Years [...] higher dose of propanolol such as 20 group home but would increase slowly documented in this encounter Plan of Treatment Upcoming Encounters Date Type Department Care Team (Late st Contact Info) Description 01/05/2025 2:00 PM EDT Appointment [facility] Heart & V[facility] [place] at [facility] - Cardiology [address] [place] [address] Derek Roche PA-C [address] [place] [address] documented as of this encounter Visit Diagnoses Diagnosis POTS (postural orthostatic tachycardia syndrome)- Primary Unspecified tachycardia documented in this encounter Care Teams Operations Administrative Assistant Relationship Specialty Start Date End Date Beni Valle MD [address] [facility] [place] [address] PCP - General Family Medicine 10/27/23 Derek Roche PA-C [address] [place] [address] Physician Net Lead Developer Cardiac Electrophysiology 03/23/24 documented as of this encounter
--- OUTSIDE RECORDS SUMMARY | 2024-11-11 10:41 | XMS_ITS | Encounter Summary ---
Author Organization [facility] Address [address] [place] [address] Care Team Providers Care Welder First Class Name Role Phone Renée Soto MD Primary Care Provider Unavailable Beni Valle NP Primary Care Provider Unavail able Supriya Chase Md, MD Primary Care Provider Unavailable Encounter Details Date Type Department Care Team Description 01/23/2015 Nurse Transition Report Medical Records [address] [place] [id number] Abstract, Provider Social History Tobacco Use Types [...] on filedocumented in this encounter Care Teams Welder First Class Relationship Specialty Start Date End Date Renée Soto MD PCP - General Internal Medicine 10/11/14 Beni Valle NP PCP - General Family Practice 05/26/15 12/31/18 Supriya Chase MD, MD PCP - General Internal Medicine 01/01/19 documented as of this encounter
--- OUTSIDE RECORDS SUMMARY | 2024-11-11 10:41 | XMS_ITS | Encounter Summary ---
Author Organization [facility] Address [address] [place] [address] Care Team Providers Care Contract Management Specialist Name Role Phone Renée Soto MD Primary Care Provider Unavailable Beni Valle NP Primary Care Provider Unavail able Supriya Chase Md, MD Primary Care Provider Unavailable Reason for Visit * Reason Onset Date Comments Call From Hospital 03/28/2015 Encounter Details Date Type Department Care Team Description 03/28/2015 Telephone Adult Medicine - [address] [address] Renée Soto MD Call From Hospital Social [...] - 03/28/2015 2:05 PM EDT Called from [facility]. Got number identified voicemail. Left message for to return call. * Telephone Encounter - Jaycee Leung - 03/28/2015 1:[address] Oliver calling back, unable to put through to triage * Telephone Encounter - Karina Heredia R.N. - 03/28/2015 1:42 PM EDT Called from [facility]. Got number identified voicemail. Left message for to return call. * Telephone Encounter - Aurora Traylor - 03/28/2015 11:40 AM EDT calling about pt pain medication-- please call documented in this encounter Plan of Treatment Not on file documented as of this encounter Visit Diagnoses Not on filedocumented in this encounter Care Teams Contract Management Specialist Relationship Specialty Start Date End Date Cordova-Renée Damon MD PCP - General Internal Medicine 10/11/14 Beni Valle NP PCP - General Family Practice 05/26/15 12/31/18 Supriya Chase MD, MD PCP - General Internal Medicine 01/01/19 documented as of this encounter
--- OUTSIDE RECORDS SUMMARY | 2024-11-11 10:41 | XMS_ITS | Encounter Summary ---
Author Organization [facility] Address [address] [place] [address] Care Team Providers Care Water Carter Name Role Phone Renée Soto MD Primary Care Provider Unavailable Beni Valle NP Primary Care Provider Unavail able Supriya Chase Md, MD Primary Care Provider Unavailable Encounter Details Date Type Department Care Team Description 01/30/2015 CONSULTANT NURSE/MassPat Report Medical Records [address] [place] [address] Abstract, Provider Social History Tobacco Use Types [...] on filedocumented in this encounter Care Teams Water Carter Relationship Specialty Start Date End Date Renée Soto MD PCP - General Internal Medicine 10/11/14 Beni Valle NP PCP - General Family Practice 05/26/15 12/31/18 Supriya Chase MD, MD PCP - General Internal Medicine 01/01/19 documented as of this encounter
--- OUTSIDE RECORDS SUMMARY | 2024-11-11 10:41 | XMS_ITS | Encounter Summary ---
Author Organization [facility] Address [address] [place] [address] Care Team Providers Care Unix System Administrator Name Role Phone Renée Soto MD Primary Care Provider Unavailable Beni Valle NP Primary Care Provider Unavail able Supriya Chase Md, MD Primary Care Provider Unavailable Encounter Details Date Type Department Care Team Description 02/09/2015 Release of Information Medical Records [address] [place] [address] Abstract, Provider Social History Tobacco Use Types [...] on filedocumented in this encounter Care Teams Unix System Administrator Relationship Specialty Start Date End Date Renée Soto MD PCP - General Internal Medicine 10/11/14 Beni Valle NP PCP - General Family Practice 05/26/15 12/31/18 Supriya Chase MD, MD PCP - General Internal Medicine 01/01/19 documented as of this encounter
--- OUTSIDE RECORDS SUMMARY | 2024-11-11 10:41 | XMS_ITS | Encounter Summary ---
Author Organization [facility] Address [address] [place] [address] Care Team Providers Care Civil Clerk Name Role Phone Renée Soto MD Primary Care Provider Unavailable Beni Valle NP Primary Care Provider Unavail able Supriya Chase Md, MD Primary Care Provider Unavailable Encounter Details Date Type Department Care Team Description 01/16/2015 Release of Information Medical Records [address] [place] [id number] Abstract, Provider Social History Tobacco Use Types [...] on filedocumented in this encounter Care Teams Civil Clerk Relationship Specialty Start Date End Date Renée Soto MD PCP - General Internal Medicine 10/11/14 Beni Valle NP PCP - General Family Practice 05/26/15 12/31/18 Supriya Chase MD, MD PCP - General Internal Medicine 01/01/19 documented as of this encounter
--- OUTSIDE RECORDS SUMMARY | 2024-11-11 10:42 | XMS_ITS | Encounter Summary ---
Author Organization [employer] Address [address] [facility] 7[address] [place] [address] Care Team Providers Care Grinder Outside Diameter Name Role Phone Unavailable Primary Care Provider Unavailabl e Reason for Visit * Reason Onset Date Comments Appointment 01/24/2023 Encounter Details Date Type Department Care Team ([facility] st Contact Info) Description 01/24/2023 Telephone [facility] [address] [place] [address] Sumeet Nascimento DMD [address], [place] [phone] Appointment Social History Tobacco Use Types Packs/Day [...] 01/24/2023 and stated she needed medication from [facility] because she is starting to get [...]
--- OUTSIDE RECORDS SUMMARY | 2024-11-11 10:42 | XMS_ITS | Encounter Summary ---
Author Organization [facility] Address [address] [place] [address] Care Team Providers Care Electron Beam Machine Welder Setter Name Role Phone Renée Soto MD Primary Care Provider Unavailable Beni Valle NP Primary Care Provider Unavail able Supriya Chase Md, MD Primary Care Provider Unavailable Encounter Details Date Type Department Care Team Description 10/18/2014 Telephone Adult Medicine - [address] [address] Renée Soto MD Social History Tobacco Use [...] same time of her appointment here at [facility]. Tomorrow's appointment cancelled and rescheduled. Appointment 10/27 with @2:30pm documented in this encounter Plan of Treatment Not on file documented as of this encounter Visit Diagnoses Not on filedocumented in this encounter Care Teams Electron Beam Machine Welder Setter Relationship Specialty Start Date End Date Renée Soto MD PCP - General Internal Medicine 10/11/14 Beni Valle NP PCP - General Family Practice 05/26/15 12/31/18 Supriya Chase MD, MD PCP - General Internal Medicine 01/01/19 documented as of this encounter
--- OUTSIDE RECORDS SUMMARY | 2024-11-11 10:42 | XMS_ITS | Encounter Summary ---
Author Organization [facility] Address [address] [place] [address] Care Team Providers Care Engineering Director Name Role Phone Beni Valle NP Primary Care Provider Unavail able Supriya Chase Md, MD Primary Care Provider Unavailable Encounter Details Date Type Department Care Team Description 03/07/2016 COMMUNICATIONS CONSULTANT/MassPat Report Medical Records [address] [place] [address] Abstract, Provider Social History Tobacco Use Types [...] on filedocumented in this encounter Care Teams Engineering Director Relationship Specialty Start Date End Date Beni Valle NP PCP - General Family Practice 05/26/15 12/31/18 Supriya Chase MD, MD PCP - General Internal Medicine 01/01/19 documented as of this encounter
--- OUTSIDE RECORDS SUMMARY | 2024-11-11 10:42 | XMS_ITS ---
Author Organization [facility] Address [address] [place] [address] Care Team Providers Care Area Development Manager Name Role Phone JUSTINEVELYN MITCHELL Primary Care Provider Humberto De Oliveira Jr, Desmond Unavailable REASON FOR VISIT patient presents today for lump in rectum Encounters Encounter Location Date Provider Diagnosis [facility] [address] [place] [phone] 12/15/2023 Desmond De Oliveira Jr PLAN OF TREATMENT No Information
--- OUTSIDE RECORDS SUMMARY | 2024-11-11 10:42 | XMS_ITS | Encounter Summary ---
Author Organization [facility] Address [address] [place] [address] Care Team Providers Care Outdoor Landscape Architect Name Role Phone Supriya Chase Md, MD Primary Care Provider Unavailable Reason for Visit * Reason Onset Date Comments medication problems 11/07/2020 Encounter Details Date Type Department Care Team Description 11/07/2020 Telephone Pulmonology - [employer] [address] [facility] [address] [place] [phone] Beata Bernard MD [address] [place] [address] medication problems Social History Tobacco [...] hospital Who is patients PCP?: n/a Payor: [employer] FFS / Plan: [facility] / Product Type: MEDICAID RISK documented in this encounter Plan of Treatment Not on file documented as of this encounter Visit Diagnoses Diagnosis Moderate persistent asthma, unspecified whether complicated- Primary documented in this encounter Care Teams Outdoor Landscape Architect Relationship Specialty Start Date End Date Supriya Chase MD, MD PCP - General Internal Medicine 01/01/19 documented as of this encounter
--- OUTSIDE RECORDS SUMMARY | 2024-11-11 10:42 | XMS_ITS | Encounter Summary ---
Author Organization [facility] Address [address] [place] [address] Care Team Providers Care Broodmare Barn Groom Name Role Phone Beni Valle MD Primary Care Provider [phone] Derek Roche PA-C Unavailable + [phone] Reason for Visit * Reason Comments Follow-up Encounter Details Date Type Department Care Team (Latest Contact Info) Description 10/26/2024 1:43 PM EST - 10/26/2024 11:59 PM EST Hospital Encounter [facility] [place] [facility] - Cardiology [address] [place] [address] Derek Roche PA-C [address] [place] [address] Follow-up Discharge Disposition: Home or Self Care [...] from the original note were not included. [facility] Cardiac Electrophysiology Office Visit Patient Name Cesilia Walker Date of 1980 Gender female Age 44 y.o. Encounter Date 10/26/2024 Drafter Refrigeration: Primary Care Physician: Beni Valle MD Referring [...] propranolol. She also reports that shedrools to [place] and even though she stopped every 3-4 [...] IBS (Crohn's), [place]own [place] Ledesma syndrome (short WV), SVT (unclear burden), PFO, and mast cell [...] by Dr. Jose Joseph dysautonomia specialist in [place] back in June 2020. She apparently underwent [...] recommended that she be seen by an tank truck operator as he felt she likely had mast [...] underwent vascular studies of lower extremities at [facility] and reports that they were negative. [...] propranolol. ECG reveals SR at 80 bpm; WV 116 ms; QRS duration 76 ms. Short WV without manifest preexcitation 30-day MCOT revealed sinus [...] Info) Description 01/05/2025 2:00 PM EDT Appointment [facility] [place] [facility] - Cardiology [address] [place] [address] Derek Roche PA-C [address] [place] [address] documented as of this encounter Visit Diagnoses Diagnosis POTS (postural orthostatic tachycardia syndrome)- Primary Unspecified tachycardia documented in this encounter Care Teams Broodmare Barn Groom Relationship Specialty Start Date End Date Beni Valle MD [address] [place] [address] PCP - General Family Medicine 10/27/23 Derek Roche PA-C [address] [place] [address] Physician Boat And Plant Utility Supervisor Cardiac Electrophysiology 03/23/24 documented as of this encounter
--- OUTSIDE RECORDS SUMMARY | 2024-11-11 10:42 | XMS_ITS | Encounter Summary ---
Author Organization [facility] Address [address] [place] [address] Care Team Providers Care Learning Manager Name Role Phone Renée Soto MD Primary Care Provider Unavailable Beni Valle NP Primary Care Provider Unavail able Supriya Chase Md, MD Primary Care Provider Unavailable Encounter Details Date Type Department Care Team Description 11/22/2014 Telephone Adult [facility] - [address] [address] Renée Soto MD Social History Tobacco Use [...] on filedocumented in this encounter Care Teams Learning Manager Relationship Specialty Start Date End Date Renée Soto MD PCP - General Internal Medicine 10/11/14 Beni Valle NP PCP - General Family Practice 05/26/15 12/31/18 Supriya Chase MD, MD PCP - General Internal Medicine 01/01/19 documented as of this encounter
--- OUTSIDE RECORDS SUMMARY | 2024-11-11 10:42 | XMS_ITS | Encounter Summary ---
Author Organization [facility] Address [address] [place] [address] Care Team Providers Care Biomedical Equipment Support Specialist Name Role Phone Beni Valle MD Primary Care Provider [phone] Derek Roche PA-C Unavailable [phone] Encounter Details Date Type Department Care Team [...] Info) Description 01/05/2025 2:00 PM EDT Appointment [facility] [place] at [facility] - Cardiology [address] [place] [address] Derek Roche PA-C [address] [place] [address] documented as of this encounter Visit Diagnoses Not on filedocumented in this encounter Care Teams Biomedical Equipment Support Specialist Relationship Specialty Start Date End Date Beni Valle MD [address] [place] [address] [place] [address] PCP - General Family Medicine 10/27/23 Derek Roche PA-C [address] [place] [address] Physician Plastic And Reconstructive Surgeon Cardiac Electrophysiology 03/23/24 documented as of this encounter
--- OUTSIDE RECORDS SUMMARY | 2024-11-11 10:42 | XMS_ITS | Encounter Summary ---
Author Organization [facility] Address [address] [place] [address] Care Team Providers Care Auth Specialist Name Role Phone Supriya Chase Md, MD Primary Care Provider Unavailable Reason for Visit * Reason Onset Date Comments refill request 11/13/2020 Encounter Details Date Type Department Care Team Description 11/13/2020 Refill Pulmonology - [place] [address] [facility] [address] [place], [place] [phone] Beata Bernard MD [address] [place] [phone] refill request Social History Tobacco Use Types [...] encounter Miscellaneous Notes * Telephone Encounter - Maxine Larsen - 11/13/2020 2:43 PM EST Patient would like script to be: E-PRESCRIBED/FAXED TO PHARMACY WHEN WAS THE PATIENT'S LAST APPOINTMENT IN ADULT MEDICINE? 10/17/20 WHEN WAS THE LAST TIME THE PATIENT SAW THEIR PCP? Same as above Does patient have an upcoming appointment? Yes 04/16/21 (THE MEDICATION REQUESTED IS ON THE MED [...] N/A Patients current insurance carrier is: Payor: [employer] / Plan: [facility] / Product Type: MEDICAID RISK documented in this encounter Plan of Treatment Not on file documented as of this encounter Visit Diagnoses Not on filedocumented in this encounter Care Teams Auth Specialist Relationship Specialty Start Date End Date Supriya Chase MD, MD PCP - General Internal Medicine 01/01/19 documented as of this encounter
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
--- OUTSIDE RECORDS SUMMARY | 2024-11-11 10:42 | XMS_ITS | Patient Health Record ---
Author Organization [facility] Address [address] [place] [address] Care Team Providers Care Blocking Machine Operator Name Role Phone JUSTINMITCHELL RIVAS Primary Care Provider Desmond Francisco Jr Unavailable [phone] REASON FOR REFERRAL No Information SOCIAL HISTORY Sex Assigned At : Social History Observation Description Sex Assigned At Unknown Encounters Encounter Location Date Provider Diagnosis [facility] [address] [place] [phone] 12/15/2023 Desmond De Oliveira Jr [facility] [address] [place] [phone] 12/15/2023 Desmond De Oliveira Jr PLAN OF TREATMENT No Information Insurance Providers Payer Name Payer Address Payer Phone Subscriber Number Group Number Insured Name Patient Relationship to Insured Coverage Start Date Coverage End Date [facility] [address] [address] [place], [place] [id number] LYNN DONNELLY Self - patient is the insured
--- OUTSIDE RECORDS SUMMARY | 2024-11-11 10:42 | XMS_ITS | Encounter Summary ---
Author Organization [employer] Address [address] [place] [address] Care Team Providers Care Occupational Therapist Name Role Phone Unavailable Primary Care Provider [...] patient that Dr. Doss is transitioning into [facility] again . Message would be sent to office. Encounter Details Date Type Department Care Team (Late st Contact Info) Description 09/25/2022 Telephone [facility] D[facility] [address] [place] [address] Annalise Mix, BDS [address] [place] [address] Appointment (Patient upset because states she has [...] patient that Dr. Doss is transitioning into [facility] again . Message would be sent [...] patient that Dr. Doss is transitioning into [facility] again . Message would be sent to office. documented in this encounter Plan of Treatment Not on file documented as of this encounter Visit Diagnoses Not on filedocumented in this encounter
--- OUTSIDE RECORDS SUMMARY | 2024-11-11 10:42 | XMS_ITS | Encounter Summary ---
Author Organization [facility] Address [address] [place] [address] Care Team Providers Care Flatwork Catcher Name Role Phone Renée Soto MD Primary Care Provider Unavailable Beni Valle NP Primary Care Provider Unavail able Supriya Chase Md, MD Primary Care Provider Unavailable Encounter Details Date Type Department Care Team Description 11/15/2014 Controlled Substance Contract with Plan Medical Records [address] [place] [id number] Abstract, Provider Social History Tobacco Use Types [...] on filedocumented in this encounter Care Teams Flatwork Catcher Relationship Specialty Start Date End Date Renée Soto MD PCP - General Internal Medicine 10/11/14 Beni Valle NP PCP - General Family Practice 05/26/15 12/31/18 Supriya Chase MD, MD PCP - General Internal Medicine 01/01/19 documented as of this encounter
--- OUTSIDE RECORDS SUMMARY | 2024-11-11 10:42 | XMS_ITS | Encounter Summary ---
Author Organization [employer] Address [address] [facility] [address] [place] [address] Care Team Providers Care Mechanical Handyman Name Role Phone Unavailable Primary Care Provider Unavailabl e Reason for Visit * Reason Onset Date Comments medical clearance 06/26/2023 Encounter Details Date Type Department Care Team (Late st Contact Info) Description 06/26/2023 Telephone [facility] [address] [place] [address] VeSelam dhillon [address] [place] [address] medical clearance Social History Tobacco Use Types [...] - 06/26/2023 11:21 AM EDT Rylan from [facility] called in looking to facilitate treatment for [...] be scheduled for treatment. Please fax to [phone] documented in this encounter Plan of Treatment Not on file documented as of this encounter Visit Diagnoses Not on filedocumented in this encounter
--- OUTSIDE RECORDS SUMMARY | 2024-11-11 10:42 | XMS_ITS | Encounter Summary ---
Author Organization [employer] Address [address] [facility] [address] [facility] [address] [place] [address] Care Team Providers Care Air Chipper Name Role Phone Unavailable Primary Care Provider Unavailabl e Encounter Details Date Type Department Care Team (Late st Contact Info) Description 11/20/2022 Orders Only [facility] [address] [place] [address] [phone] Annalise Mix, BDS [address] [place], [place] [phone] Dental abscess (Primary Dx) Social History Tobacco [...]
--- OUTSIDE RECORDS SUMMARY | 2024-11-11 10:42 | XMS_ITS | Encounter Summary ---
Author Organization [facility] Address [address] [place] [address] Care Team Providers Care Camp Dishwasher Name Role Phone Renée Soto MD Primary Care Provider Unavailable Beni Valle NP Primary Care Provider Unavail able Supriya Chase Md, MD Primary Care Provider Unavailable Encounter Details Date Type Department Care Team Description 11/22/2014 Transfer Records Medical Records [address] [place] [id number] Wilbert Fermin Social History Tobacco Use Types [...] on filedocumented in this encounter Care Teams Camp Dishwasher Relationship Specialty Start Date End Date Renée Soto MD PCP - General Internal Medicine 10/11/14 Beni Valle NP PCP - General Family Practice 05/26/15 12/31/18 Supriya Chase MD, MD PCP - General Internal Medicine 01/01/19 documented as of this encounter
--- OUTSIDE RECORDS SUMMARY | 2024-11-11 10:42 | XMS_ITS | Encounter Summary ---
Author Organization [facility] Address [address] [place] [address] Care Team Providers Care Media Relations Director Name Role Phone Supriya Chase Md, MD Primary Care Provider Unavailable Reason for Visit * Reason Onset Date Comments Provider Call Back 11/03/2019 Encounter Details Date Type Department Care Team Description 11/03/2019 Telephone Pulmonology - [place] [address] [facility] [address] [place] [address] Beata Bernard MD [address] [place] [address] Provider Call Back Social History [...] on filedocumented in this encounter Care Teams Media Relations Director Relationship Specialty Start Date End Date Supriya Chase MD, MD PCP - General Internal Medicine 01/01/19 documented as of this encounter
--- OUTSIDE RECORDS SUMMARY | 2024-11-11 10:42 | XMS_ITS | Encounter Summary ---
Author Organization [facility] Address [address] [place] [address] Care Team Providers Care Meat Boner Name Role Phone Renée Soto MD Primary Care Provider Unavailable Beni Valle NP Primary Care Provider Unavail able Supriya Chase Md, MD Primary Care Provider Unavailable Reason for Visit * Reason Onset Date Comments medication problems 04/09/2015 Encounter Details Date Type Department Care Team Description 04/09/2015 Telephone Adult Medicine - [address] [address] Renée Soto MD medication problems Social History Tobacco Use Types Packs/Day Years Used Date Smoking Tobacco: Never Smokeless Tobacco: Never Alcohol Use Standard Drinks/Week Comments No 0 (1 standard drink = 0.6 oz pur e alcohol) Sex Assigned at Date Recorded Not on file documented as of this encounter Miscellaneous Notes * Telephone Encounter - Renée Soto MD - 04/10/2015 8:19 AM EDT done * Telephone Encounter - Scarlett Anaid - 04/09/2015 11:41 AM EDT wrote a script for this patient for 04/05/15 for Cefaclor 500 mg capsule. The patient went to the pharmacy and said that she only uses this in liquid form, wrote ascript 11/14/14 for Cefaclor 250 mg./ 5 ML Suspension. documented in this encounter Plan of Treatment Not on file documented as of this encounter Visit Diagnoses Not on filedocumented in this encounter Care Teams Meat Boner Relationship Specialty Start Date End Date [place]-Renée Damon MD PCP - General Internal Medicine 10/11/14 Beni Valle NP PCP - General Family Practice 05/26/15 12/31/18 Supriya Chase MD, MD PCP - General Internal Medicine 01/01/19 documented as of this encounter
--- OUTSIDE RECORDS SUMMARY | 2024-11-11 10:42 | XMS_ITS | Encounter Summary ---
Author Organization [facility] Address [address] [place] [address] Care Team Providers Care Vacuum Tank Tender Name Role Phone Supriya Chase Md MD Primary Care Provider Unavailable Encounter Details Date Type Department Care Team Description 11/08/2020 Refill Pulmonology [address] [place] [id number] Supriya Chase MD, MD Social History Tobacco [...] on filedocumented in this encounter Care Teams Vacuum Tank Tender Relationship Specialty Start Date End Date Supriya Chase MD, MD PCP - General Internal Medicine 01/01/19 documented as of this encounter
--- OUTSIDE RECORDS SUMMARY | 2024-11-11 10:42 | XMS_ITS | Encounter Summary ---
Author Organization [facility] Address [address] [place] [address] Care Team Providers Care Energy Conservation Technician Name Role Phone Supriya Chase Md, MD Primary Care Provider Unavailable Reason for Visit * Reason Onset Date Comments hospital follow up 07/30/2024 Encounter Details Date Type Department Care Team Description 07/30/2024 Telephone Pulmonology - [place] [address] [facility] [address] [place] [phone] Beata Bernard MD [address] [place] [address] hospital follow up Social History [...] appointment needed Hospital patient was treated at: [facility] Was this only an ER visit or [...] on filedocumented in this encounter Care Teams Energy Conservation Technician Relationship Specialty Start Date End Date Supriya Chase MD, MD PCP - General Internal Medicine 01/01/19 documented as of this encounter
--- OUTSIDE RECORDS SUMMARY | 2024-11-11 10:42 | XMS_ITS | Encounter Summary ---
Author Organization [facility] Address [address] [place] [address] Care Team Providers Care Roll Over Loader Name Role Phone Wilbert Fermin Primary Care Provider Unava Renée Marion MD Primary Care Provider Unavailable Beni Valle NP Primary Care Provider Unavail able Supriya Chase Md, MD Primary Care Provider Unavailable Encounter Details Date Type Department Care Team Description 04/05/2014 Technical Applications Specialist Report Medical Records [address] [place] [phone] Sonny Jones MD Social History Tobacco Use Types Packs/Day Years Used Date Smoking Tobacco: Never Alcohol Use Standard Drinks/Week Comments No 0 (1 standard drink = 0.6 oz pur e alcohol) Sex Assigned at Date Recorded Not on file documented as of this encounter Plan of Treatment Not on file documented as of this encounter Visit Diagnoses Not on filedocumented in this encounter Care Teams Roll Over Loader Relationship Specialty Start Date End Date Wilbert Fermin PCP - General Internal Medicine 09/13/11 10/10/14 Renée Soto MD PCP - General Internal Medicine 10/11/14 Beni Valle NP PCP - General Family Practice 05/26/15 12/31/18 Supriya Chase MD, MD PCP - General Internal Medicine 01/01/19 documented as of this encounter
--- OUTSIDE RECORDS SUMMARY | 2024-11-11 10:42 | XMS_ITS | Encounter Summary ---
Author Organization [facility] Address [address] [place] [address] Care Team Providers Care Planimeter Operator Name Role Phone Supriya Chase Md, MD Primary Care Provider Unavailable Reason for Visit * Reason Onset Date Comments Medication 11/02/2020 Encounter Details Date Type Department Care Team Description 11/02/2020 Telephone Pulmonology - [place] [address] [facility] [address] [place] [address] Beata Bernard MD [address] [place] [address] Medication Social History Tobacco Use Types Packs/Day Years [...] encounter Miscellaneous Notes * Telephone Encounter - Rachna Harris - 11/02/2020 3:01 PM EST Please reference [email or web address] encounter. Patient is questioning whether would be able to prescribe her a sample of some kind of medication to hold her off until the prior authorization gets resolved. documented in this encounter Plan of Treatment Not on file documented as of this encounter Visit Diagnoses Not on filedocumented in this encounter Care Teams Planimeter Operator Relationship Specialty Start Date End Date Supriya Chase MD, MD PCP - General Internal Medicine 01/01/19 documented as of this encounter
--- OUTSIDE RECORDS SUMMARY | 2024-11-11 10:42 | XMS_ITS | Encounter Summary ---
Author Organization [facility] Address [address] [place] [address] Care Team Providers Care Manager Medical Writing Name Role Phone Renée Soto MD Primary Care Provider Unavailable Beni Valle NP Primary Care Provider Unavail able Supriya Chase Md, MD Primary Care Provider Unavailable Encounter Details Date Type Department Care Team Description 11/07/2014 Template Storage Clerk Report Medical Records [address] [place] [address] Laurita Isaacs PA-C Social History Tobacco Use [...] on filedocumented in this encounter Care Teams Manager Medical Writing Relationship Specialty Start Date End Date Renée Soto MD PCP - General Internal Medicine 10/11/14 Beni Valle NP PCP - General Family Practice 05/26/15 12/31/18 Supriya Chase MD, PCP - General Internal Medicine 01/01/19 documented as of this encounter
--- OUTSIDE RECORDS SUMMARY | 2024-11-11 10:42 | XMS_ITS ---
Author Organization [facility] Address [address] [place] [address] Care Team Providers Care Accounting Manager Assistant Controller Name Role Phone MITCHELL BOND Primary Care Provider Desmond Francisco Jr Unavailable [phone] REASON FOR VISIT cancel appt Encounters Encounter Location Date Provider Diagnosis [facility] [address] [place] [address] 12/15/2023 Desmond De Oliveira Jr PLAN OF TREATMENT No Information
--- OUTSIDE RECORDS SUMMARY | 2024-11-11 10:42 | XMS_ITS | Encounter Summary ---
Author Organization [facility] Address [address] [place] [address] Care Team Providers Care Change Advisor Name Role Phone Beni Valle NP Primary Care Provider Unavail able Supriya Chase Md, MD Primary Care Provider Unavailable Encounter Details Date Type Department Care Team Description 07/17/2015 Floating Derrick Operator Report Medical Records [address] [place] [address] John Resendez Social History Tobacco Use Types [...] on filedocumented in this encounter Care Teams Change Advisor Relationship Specialty Start Date End Date Beni Valle NP PCP - General Family Practice 05/26/15 12/31/18 Supriya Chase MD, MD PCP - General Internal Medicine 01/01/19 documented as of this encounter
--- OUTSIDE RECORDS SUMMARY | 2024-11-11 10:42 | XMS_ITS | Encounter Summary ---
Author Organization [facility] Address [address] [place] [address] Care Team Providers Care Prepress Stripper Name Role Phone Renée Soto MD Primary Care Provider Unavailable Beni Valle NP Primary Care Provider Unavail able Supriya Chase Md, MD Primary Care Provider Unavailable Encounter Details Date Type Department Care Team Description 04/27/2015 Flatwork Finisher Hand Report Medical Records [address] [place] [address] Louisa Caballero NP Social History Tobacco Use Types Packs/Day [...] on filedocumented in this encounter Care Teams Prepress Stripper Relationship Specialty Start Date End Date Renée Soto MD PCP - General Internal Medicine 10/11/14 Beni Valle NP PCP - General Family Practice 05/26/15 12/31/18 Supriya Chase MD, MD PCP - General Internal Medicine 01/01/19 documented as of this encounter
--- OUTSIDE RECORDS SUMMARY | 2024-11-11 10:42 | XMS_ITS | Encounter Summary ---
Author Organization [employer] Address [address] [address] [place] [address] Care Team Providers Care Intermediate Card Tender Name Role Phone Unavailable Primary Care Provider Unavailabl e Encounter Details Date Type Department Care Team (Late st Contact Info) Description 12/11/2022 Telephone [facility] D[facility] [address] [place] [address] Annalise Mix, BDS [address] [place] [address] Social History Tobacco Use Types Packs/Day Years [...]
== END 2024-11-11 10:22 | disposition home or self-care (01) ==
PROVIDERS: PCP Nurse Practitioner Family; Visit Provider Surgery
DX: N63.12 Unspecified lump in the right breast, upper inner quadrant (principal)
CPT/HCPCS: 99213

== ENCOUNTER → 2024-11-11 09:59 | Outpatient (BNVA) | payer OTHER, SELFPAY | PROVIDERS: PCP Nurse Practitioner Family; Visit Provider Surgery | DX: N63.12 Unspecified lump in the right breast, upper inner quadrant (principal) | CPT/HCPCS: 99212 ==

== ENCOUNTER 2024-11-16 10:52 | Outpatient (AMB) | payer OTHER, SELFPAY ==
[2024-11-16 10:54] VITALS: BP 122/70; PULSE 85; O2SAT 97
--- NOTE | 2024-11-16 10:54 | A.OFFPC_ITS ---
Vital Signs 11/16/24 10:54 Height 5 ft 5 in BMI Reason not done Patient refused/unable BP 122/70 Blood Pressure Location Rt brachial Position Sitting Pulse 85 Pulse Source Pulse Oximeter Pulse Oximetry (%) 97 Oxygen Delivery Method Room Air Intake Visit Reasons: PE with labs Intake Note: pt is here for PE Allergies doxycycline [DOXYCYCLINE] Allergy (Severe, Verified 11/16/24 11:09) RASH, GI Upset levofloxacin [From LEVAQUIN] Allergy (Severe, Verified 11/16/24 11:09) RASH metronidazole [From FLAGYL] Allergy (Severe, Verified 11/16/24 11:09) ANAPHYLAXIS morphine [MORPHINE] Allergy (Severe, Verified 11/16/24 11:09) ANAPHYLAXIS, cant breathe, SOB Sulfa (Sulfonamide Antibiotics) [SULFA (SULFONAMIDE ANTIBIOTICS)] Allergy (Severe, Verified 11/16/24 11:09) STOP BREATHING, rash/cant breathe adhesive [ADHESIVE] Allergy (Intermediate, Verified 11/16/24 11:09) RASH clindamycin [CLINDAMYCIN] Allergy (Intermediate, Verified 11/16/24 11:09) RASH Iodinated Contrast Media [IV CONTRAST] Allergy (Intermediate, Verified 11/16/24 11:09) ANAPHALAXIS latex [LATEX] Allergy (Intermediate, Verified 11/16/24 11:09) RASH ciprofloxacin [Cipro] Allergy (Unknown, Verified 11/16/24 11:09) unknown fludrocortisone Allergy (Unknown, Verified 11/16/24 11:09) Unknown hydromorphone [Dilaudid] Allergy (Unknown, Verified 11/16/24 11:09) Unknown ALL CONTRAST DYE Allergy (Unknown, Uncoded 11/11/24 10:12) Unknown Cortisone Allergy (Unknown, Uncoded 11/11/24 10:12) unknown IVP Dye Allergy (Unknown, Uncoded 11/11/24 10:12) Unknown Midodrine HCl Allergy (Unknown, Uncoded 11/11/24 10:12) Unknown Medication List - Last Reconciled 11/16/24 by BRITTNY WebberP- albuterol sulfate 90 mcg/actuation (Ventolin HFA) 2 puffs inhalation Q4-6H PRN cholecalciferol (vitamin D3) 50 mcg PO DAILY ipratropium bromide 17 mcg/actuation (Atrovent HFA) inhalation levalbuterol tartrate 45 mcg/actuation 2 puffs inhalation Q4-6H lidocaine 5% 1 patch topical DAILY 30 days magnesium oxide 400 mg PO BEDTIME [Normal Saline 0.9% 2 L continuous IV infusion 3XW 52 weeks] propranolol mg PO 3XD riboflavin (vitamin B2) 400 mg PO DAILY scopolamine base 1 patch transdermal Q3D PRN vitamin B complex 1 tab PO DAILY Tobacco use date assessed: 11/16/24 Dental Screening Dental Screen Date: 11/16/24 Did you have a dental visit in the last 12 months?: Yes Did you have a dental problem in the last 6 months where you did not have access to dental care?: No Was dental information given to patient?: Patient has dentist HPI PE with labs HPI Details History of Present Illness The patient is a 44-year-old female presenting for a physical examination and management of Postural Orthostatic Tachycardia Syndrome (POTS). She has been diagnosed with POTS and is currently under the care of a specialist. The patient has been receiving intravenous fluid therapy approximately three times per week for the past ten years to help mitigate her POTS symptoms. The facility where she previously obtained these treatments has closed, necessitating a new referral which has been initiated. Recently, the patient has experienced an increase in headaches. A prior MRI completed in September 2022 revealed a small arachnoid cyst at the right occipital junction, measuring up to 14 mm, with no significant changes noted since then. The headaches, characterized by pain radiating from the posterior to the frontal head region, have intensified. The patient is also participating in a partial hospitalization program for therapy and is on a waiting list to see a psychiatrist for her underlying anxiety disorder. She has trialed various SNRIs and SSRIs, experiencing intolerable side effects, with lorazepam being the only medication tolerated for her anxiety, taken as needed. Health Maintenance - Mammogram is current and up to date. 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 - On a waiting list for psychiatric eval uation. Review of Systems - Cardiovascular: Denies chest pain. Den ies shortness of breath. - Gastrointestinal: Denies nausea. Denie s vomiting. Denies blood in stool. Denies constipation. Denies diarrhea. - Neurological: Denies neuropathy. Denie s suicidal thoughts. Denies homicidal thoughts. Physical Exam General: Cooperative, healthy appearing, comfortable, no acute distress and well developed, obese Orientation: Patient oriented x3 Limitations: No limitations Head: Normal to inspection Ears: Hearing grossly normal bilaterally Nose: Normal external nose present Face and sinus: Normal facial exam Eyes: Appearance normal, both eyes and all related structures Neck: Normal visual inspection and Yes full ROM Respiratory: Normal respiratory effort and able to speak in complete sentences. Clear to auscultation bilaterally Cardiovascular: Regular rate and rhythm. Normal S1 and S2 GI: Normal to inspection. Soft to palpation and nontender Skin: faint psoriatic lesions to bilat elbows Neuro: Patient oriented x3 Extremities: Normal to inspection Results - MRI (September 2022): Small arachnoid cy st at the right occipital junction, measuring up to 14 mm, with no significant change. Plan - Arrange for repeat MRI to assess ordoñez es in the size or characteristics of the arachnoid cyst, given the increase in headache frequency and intensity. - Refer the patient for a consultation w ith a neurologist to evaluate her ongoing symptoms and potential cyst implications. - Continue the current IV fluid therapy regimen for POTS management, with a new referral having been placed given previous facility closure. - Prescribe a short course of lorazepam as needed for anxiety management, pending psychiatrist evaluation. Discussion Notes I discussed with the patient the need for a follow-up MRI to evaluate any changes in the arachnoid cyst, which may be contributing to her increased headaches. I explained the necessity of a neurologist consultation for further assessment and potential treatment planning regarding her cyst and headaches. We reiterated the continuation of IV fluid management for her POTS condition with arrangements for a new referral. For her anxiety, we reviewed the benefits and limited use of lorazepam in managing symptoms until she can be evaluated by a psychiatrist. Patient Instructions - Schedule and complete the MRI as instr ucted. - Attend the neurology consultation once scheduled. - Continue attending the [facility]. - Take lorazepam only as needed for anxi ety while awaiting psychiatric care. - Seek immediate medical attention if ex periencing any significant changes in symptoms or new concerning symptoms. [facility] Medical History Recent urinary tract infection Acid reflux Huynh disease Crohn disease Colitis Arachnoid cyst Asthma Autoimmune disorder Arthritis Bulging disc Spinal stenosis POTS (postural orthostatic tachycardia syndrome) SVT (supraventricular tachycardia) Surgical History History of kidney surgery History of liver biopsy Hx of cholecystectomy Family History Father High cholesterol HTN (hypertension) Tumors Mental health disorder Mother COPD (chronic obstructive pulmonary disease) Colitis Sister Colitis Substance use disorder Mental health disorder Sister Cervical cancer Social History Household Members: Family and Children Housing: House Alcohol intake: former Patient Tobacco Use Status: Former Tobacco user Years Smoked: quit 20b years ago e-Cigarette/Vaping Use: Never Used Second Hand Smoke Exposure: No service: No Current occupational status: employed 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 1. Little interest or pleasure in doing things: not at all 2. Feeling down, depressed, or hopeless: nearly every day 3. Trouble falling or staying asleep, or sleeping too much: not at all 4. Feeling tired or having little energy: nearly every day 5. Poor appetite or overeating: nearly every day 6. Feeling bad about yourself - or that you are a failure or have let yourself or your family down: nearly every day 7. Trouble concentrating on things, such as reading the newspaper or watching television: not at all 8. Moving or speaking so slowly that other people could have noticed. Or the opposite - being so fidgety or restless that you have been moving around a lot more than usual: not at all 9. Thoughts that you would be better off or of hurting yourself in some way: not at all Total score: 12 Depression Screening Interpretation: Positive (denies any si or hi) Depression Screening Follow-up: Existing condition and In treatment Depression Screening Done: Yes 50820 - PHQ-9 Billing: Yes Source: Developed by Drs. Chucho Elmore, Elsa Christensen, Guzman Reyes and colleagues, with an educational jose guadalupe from [employer]. Thrive Questionnaire Date Thrive assessed: 11/16/24 I am a: Patient What is your living situation today?: I have a steady place to live Within the past 12 months, did the food you bought not last and you didn't have the money to get more?: Never true Within the past 12 months, did you worry whether your food would run out before you got money to buy more?: Never true Do you have trouble paying for medicines?: No Do you have trouble getting transportation to medical appointments?: No Do you have trouble paying your heating and electricity bill?: No Do you have trouble taking care of your child, family member or friend?: No Do you have trouble with day-to-day activities such as bathing, preparing meals, shopping, managing finances, etc.?: Yes Are you currently unemployed and looking for a job?: No Are you interested in more education?: No Please select the resources that you would like help with: Daily support Currently or been in a relationship where the following occur: No concerns reported THRIVE Score: 0 AUDIT C Alcohol Use Questionnaire (AUDIT-C) 1. How often do you have a drink containing alcohol?: Never 3. How often do you have six or more drinks on one occasion?: Never Total Score: 0 Score Reviewed/Action Taken: Yes CHAVA-7 AMB Questionnaire CHAVA-7 Date CHAVA - 7 assessed: 11/16/24 Feeling nervous, anxious, or on edge: 3 = Nearly every day Not being able to stop or control worryin = Nearly every day Worrying too much about different things: 3 = Nearly every day Trouble relaxin = Nearly every day Being so restless that it is hard to sit still: 0 = Not at all Becoming easily annoyed or irritable: 0 = Not at all Feeling afraid as if something awful might happen: 3 = Nearly every day Total CAHVA-7 score (0-4 normal; 5-9 mild; 10-14 moderate; 15-21 severe): 15 Source: Developed by Drs. Chucho Elmore, Elsa Christensen, Guzman Reyes and colleagues, with an educational jose guadalupe from [employer]. CHAVA-7 Assessment Billing CHAVA-7 Assessment Tool: CHAVA-7 Assessment 66377 (denies any SI or HI, does have a therapist, on waiting list for psychiatrist) Physical exam (Primary Care) Vital Signs: Last Vital Signs Pulse 85 11/16/24 10:54 BP 122/70 11/16/24 10:54 Pulse Ox 97 11/16/24 10:54 Oxygen Delivery Method Room Air 11/16/24 10:54 Tobacco/Smoking Status: Tobacco use Status Tobacco use date assessed 11/16/24 11/16/24 11:09 Patient Tobacco Use Status Former Tobacco user 11/16/24 10:57 e-Cigarette/Vaping Use Never Used 11/16/24 10:57 PHQ-9: PHQ-9 Score PHQ-9: Total score 12 11/16/24 11:24 Depression Screening Interpretation: Positive (denies any si or hi) Depression Screening Follow-up: Existing condition and In treatment Thrive Assessment: Date of Thrive Assessment Date Thrive assessed 11/16/24 11/16/24 11:09 Currently or been in a relationship where the following occur: No concerns reported Coding Level of Care Code Est Pt Prev Care 40-64y(15226) Diagnoses Physical exam Z00.00 Arachnoid cyst G93.0 Migraines G43.909 Additional Codes PHQ-9 - 40677 - PHQ-9 Billing: Yes ([id number]) CHAVA-7 Assessment Billing - CHAVA-7 Assessment Tool: CHAVA-7 Assessment 87734 ([id number]) Assessment & Plan Assessment & Plan (1) Physical exam: Code(s): Z00.00 - Encounter for general adult medical examination without abnormal findings Category: Medical (2) Arachnoid cyst: Code(s): G93.0 - Cerebral cysts Category: Medical (3) Migraines: Code(s): G43.909 - Migraine, unspecified, not intractable, without status migrainosus Category: Medical Plan . Orders: Orders Comprehensive [place]. Panel Fast Today Z00.00 - Encounter for general adult medical examination without abnormal findings Complete Blood Count Auto Diff Today Z00.00 - Encounter for general adult medical examination without abnormal findings TSH reflex Free T4 Today Z00.00 - Encounter for general adult medical examination without abnormal findings UA CC w/rflx Micro + Cult Today Z00.00 - Encounter for general adult medical examination without abnormal findings Lipid Panel Today Z00.00 - Encounter for general adult medical examination without abnormal findings MR head/brain wo con Today G93.0 - Cerebral cysts Referrals Neurology Referral G43.909 - Migraine, unspecified, not intractable, without status migrainosus, G93.0 - Cerebral cysts Medications: New scopolamine base 1 patch transdermal Q3D PRN 10 ea 0RF motion sickness betamethasone dipropionate 0.05% 1 appl topical DAILY PRN 45 grams 0RF skin irritation lorazepam cannot share med, cannot drive on med, take only as prescribed 0.5 mg PO BEDTIME 20 days PRN 20 tabs 0RF anxiety Refilled lidocaine 5% leave on most painful area for up to 12 hrs 1 patch topical DAILY 30 days 30 ea 2RF
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
--- OUTSIDE RECORDS SUMMARY | 2024-11-16 12:05 | XMS_ITS | Patient Health Record ---
Author Organization [facility] Address [address] [place] [address] Care Team Providers Care Special Effects Person Name Role Phone JUSTINMITCHELL RIVAS Primary Care Provider Desmond Francisco Jr Unavailable REASON FOR REFERRAL No Information SOCIAL HISTORY Sex Assigned At : Social History Observation Description Sex Assigned At Unknown Encounters Encounter Location Date Provider Diagnosis [facility] [address] [place] [phone] 12/15/2023 Desmond De Oliveira Jr [facility] [address] [place] [phone] 12/15/2023 Desmond De Oliveira Jr PLAN OF TREATMENT No Information Insurance Providers Payer Name Payer Address Payer Phone Subscriber Number Group Number Insured Name Patient Relationship to Insured Coverage Start Date Coverage End Date [facility] [address] [address] [place], [place] [id number] LYNN DONNELLY Self - patient is the insured
--- OUTSIDE RECORDS SUMMARY | 2024-11-16 12:05 | XMS_ITS | Clinical Summary ---
Author Organization [employer] Address [address] [place] [address] [address] [place] [address] Care Team Providers Care Fruit Vendor Name Role Phone Unavailable Primary Care Provider [...]
--- OUTSIDE RECORDS SUMMARY | 2024-11-16 12:05 | XMS_ITS | Encounter Summary ---
Author Organization [employer] Address [address] [place] [address] Care Team Providers Care Fur Grader Name Role Phone Unavailable Primary Care Provider Unavailabl e Encounter Details Date Type Department Care Team (Late st Contact Info) Description 12/11/2022 Telephone [facility] [address] [place] [address] Annalise Mix, BDS [address] [place] [address] Social History Tobacco Use Types Packs/Day Years [...]
--- OUTSIDE RECORDS SUMMARY | 2024-11-16 12:05 | XMS_ITS | Encounter Summary ---
Author Organization [employer] Address [address] [place] [address] [address] [place] [address] Care Team Providers Care Barrel Planer Name Role Phone Unavailable Primary Care Provider Unavailabl e Reason for Visit * Reason Comments Med Refill Encounter Details Date Type Department Care Team (Late st Contact Info) Description 05/03/2024 Refill [facility] [address] [place], [place] [phone] Annalise Mix, BDS [address] [place], [place] [phone] Social History Tobacco Use Types Packs/Day Years [...]
--- OUTSIDE RECORDS SUMMARY | 2024-11-16 12:05 | XMS_ITS | Encounter Summary ---
Author Organization [facility] Address [address] [place] [address] Care Team Providers Care Pulp Mill Operator Name Role Phone Beni Valle MD Primary Care Provider [phone] Derek Roche PA-C Unavailable + [phone] Reason for Visit * Reason Comments Follow-up Encounter Details Date Type Department Care Team (Latest Contact Info) Description 10/26/2024 1:43 PM EST - 10/26/2024 11:59 PM EST Hospital Encounter [facility] [place] at [facility] - Cardiology [address] [place] [address] Derek Roche PA-C [address] [place] [address] Follow-up Discharge Disposition: Home or Self Care [...] from the original note were not included. [facility] Cardiac Electrophysiology Office Visit Patient Name Cesilia Walker Date of 1980 Gender female Age 44 y.o. Encounter Date 10/26/2024 Sprinkler Installer: Primary Care Physician: Beni Valle MD Referring [...] propranolol. She also reports that shedrools to [place] and even though she stopped every 3-4 [...] IBS (Crohn's), [place] Ledesma syndrome (short WY), SVT (unclear burden), PFO, and mast cell [...] by Dr. Jose Joseph dysautonomia specialist in [place] back in June 2020. She apparently underwent [...] recommended that she be seen by an migration specialist as he felt she likely had mast [...] underwent vascular studies of lower extremities at [facility] and reports that they were [...] propranolol. ECG reveals SR at 80 bpm; WY 116 ms; QRS duration 76 ms. Short WY without manifest preexcitation 30-day MCOT revealed sinus [...] EDT Appointment [facility] [place] [facility] - Cardiology [address] [place] [address] Derek Roche PA-C [address] [place] [address] documented as of this encounter Visit Diagnoses Diagnosis POTS (postural orthostatic tachycardia syndrome)- Primary Unspecified tachycardia documented in this encounter Care Teams Pulp Mill Operator Relationship Specialty Start Date End Date Beni Valle MD [address] [place] [address] PCP - General Family Medicine 10/27/23 Derek Roche PA-C [address] [place] [address] Physician [employer] Director Cardiac Electrophysiology 03/23/24 documented as of this encounter
--- OUTSIDE RECORDS SUMMARY | 2024-11-16 12:05 | XMS_ITS | Encounter Summary ---
Author Organization [facility] Address [address] [place] [address] Care Team Providers Care Bond Underwriter Name Role Phone Beni Valle MD Primary Care Provider [phone] Derek Roche PA-C Unavailable [phone] Encounter Details Date Type Department Care Team [...] Info) Description 01/05/2025 2:00 PM EDT Appointment [facility] [place] at [facility] - Cardiology [address] [place] [address] Derek Roche PA-C [address] [place] [phone] documented as of this encounter Visit Diagnoses Not on filedocumented in this encounter Care Teams Bond Underwriter Relationship Specialty Start Date End Date Beni Valle MD [address] [place] [address] [place] [address] PCP - General Family Medicine 10/27/23 Derek Roche PA-C [address] [place] [address] Physician Chip Mucker Cardiac Electrophysiology 03/23/24 documented as of this encounter
--- OUTSIDE RECORDS SUMMARY | 2024-11-16 12:05 | XMS_ITS | Encounter Summary ---
Author Organization [employer] Address [address] [place] [address] Care Team Providers Care Building Maintenance Mechanic Name Role Phone Unavailable Primary Care Provider Unavailabl e Encounter Details Date Type Department Care Team (Late st Contact Info) Description 07/09/2024 Telephone [facility] [address] [place] [address] Annalise Mix, BDS [address] [place] [address] Social History Tobacco Use Types Packs/Day Years [...]
--- OUTSIDE RECORDS SUMMARY | 2024-11-16 12:05 | XMS_ITS | Encounter Summary ---
Author Organization [facility] Address [address] [place] [address] Care Team Providers Care Dog And Cat Food Cook Name Role Phone Renée Soto MD Primary Care Provider Unavailable Beni Valle NP Primary Care Provider Unavail able Supriya Chase Md, MD Primary Care Provider Unavailable Reason for Visit * Reason Onset Date Comments Call From Hospital 03/28/2015 Encounter Details Date Type Department Care Team Description 03/28/2015 Telephone Adult Medicine - [address] [address] Renée Soto MD Call From Hospital Social [...] - 03/28/2015 2:05 PM EDT Called from [facility]. Got number identified voicemail. Left message for to return call. * Telephone Encounter - Jaycee Leung - 03/28/2015 1:[address] Oliver calling back, unable to put through to triage * Telephone Encounter - Karina Heredia R.N. - 03/28/2015 1:42 PM EDT Called from [facility]. Got number identified voicemail. Left message for to return call. * Telephone Encounter - Aurora Traylor - 03/28/2015 11:40 AM EDT calling about pt pain medication-- please call documented in this encounter Plan of Treatment Not on file documented as of this encounter Visit Diagnoses Not on filedocumented in this encounter Care Teams Dog And Cat Food Cook Relationship Specialty Start Date End Date Aldie-Renée Damon MD PCP - General Internal Medicine 10/11/14 Beni Valle NP PCP - General Family Practice 05/26/15 12/31/18 Supriya Chase MD, MD PCP - General Internal Medicine 01/01/19 documented as of this encounter
--- OUTSIDE RECORDS SUMMARY | 2024-11-16 12:05 | XMS_ITS | Encounter Summary ---
Author Organization [employer] Address [address] 7t [place] [address] Care Team Providers Care Rehabilitation Specialist Name Role Phone Unavailable Primary Care Provider [...] patient that Dr. Doss is transitioning into [facility] again . Message would be sent to office. Encounter Details Date Type Department Care Team (Late st Contact Info) Description 09/25/2022 Telephone [facility] ADULT DENTAL [address] [place] [address] Annalise Mix, BDS [address] [place] [address] Appointment (Patient upset because states she has [...] patient that Dr. Doss is transitioning into [facility] again . Message would be sent to [...] patient that Dr. Doss is transitioning into [facility] again . Message would be sent to office. documented in this encounter Plan of Treatment Not on file documented as of this encounter Visit Diagnoses Not on filedocumented in this encounter
--- OUTSIDE RECORDS SUMMARY | 2024-11-16 12:05 | XMS_ITS | Encounter Summary ---
Author Organization [facility] Address [address] [place] [address] Care Team Providers Care Occupational Health And Safety Officer Name Role Phone Beni Valle MD Primary Care Provider [phone] Derek Roche PA-C Unavailable [phone] Encounter Details Date Type Department Care Team ([facility] st Contact Info) Description 07/28/2024 Telephone [facility] Heart & Vascular [place] at [facility] - Cardiology [address] [place] [address] Derek Roche PA-C [address] [place] [id number] Social History Tobacco Use Types Packs/Day Years [...] again. Please follow up with pt at [phone] documented in this encounter Plan of Treatment Upcoming Encounters Date Type Department Care Team (Late st Contact Info) Description 01/05/2025 2:00 PM EDT Appointment [facility] Heart & Vascular [place] at [facility] - Cardiology [address] [place] [address] Derek Roche PA-C [address] [place] [address] documented as of this encounter Visit Diagnoses Not on filedocumented in this encounter Care Teams Occupational Health And Safety Officer Relationship Specialty Start Date End Date Beni Valle MD [address] [facility] [place] [address] PCP - General Family Medicine 10/27/23 Derek Roche PA-C [address] [place] [address] Physician Supervisor Poultry Processing Cardiac Electrophysiology 03/23/24 documented as of this encounter
--- OUTSIDE RECORDS SUMMARY | 2024-11-16 12:05 | XMS_ITS | Encounter Summary ---
Author Organization [employer] Address [address] [place] [address] [address] [place] [address] Care Team Providers Care Fire Suppression Captain Name Role Phone Unavailable Primary Care Provider Unavailabl e Reason for Visit * Reason Comments Med Refill Encounter Details Date Type Department Care Team (Late st Contact Info) Description 05/19/2024 Refill [facility] DENTAL [address] [place], [place] [phone] Annalise Mix, BDS [address] [place], [place] [phone] Social History Tobacco Use Types Packs/Day Years [...]
--- OUTSIDE RECORDS SUMMARY | 2024-11-16 12:05 | XMS_ITS | Encounter Summary ---
Author Organization [facility] Address [address] [place] [address] Care Team Providers Care Fundraising Consultant Name Role Phone Renée Soto MD Primary Care Provider Unavailable Beni Valle NP Primary Care Provider Unavail able Supriya Chase Md, MD Primary Care Provider Unavailable Encounter Details Date Type Department Care Team Description 02/09/2015 Release of Information Medical Records [address] [place] [id number] Abstract, Provider Social History Tobacco Use Types [...] on filedocumented in this encounter Care Teams Fundraising Consultant Relationship Specialty Start Date End Date Renée Soto MD PCP - General Internal Medicine 10/11/14 Beni Valle NP PCP - General Family Practice 05/26/15 12/31/18 Supriya Chsae MD, MD PCP - General Internal Medicine 01/01/19 documented as of this encounter
--- OUTSIDE RECORDS SUMMARY | 2024-11-16 12:05 | XMS_ITS | Encounter Summary ---
Author Organization [facility] Address [address] [place] [address] Care Team Providers Care Mergers And Acquisitions Manager Name Role Phone Renée Soto MD Primary Care Provider Unavailable Beni Valle NP Primary Care Provider Unavail able Supriya Chase Md, MD Primary Care Provider Unavailable Encounter Details Date Type Department Care Team Description 01/23/2015 Deck Builder Report Medical Records [address] [place] [id number] Abstract, Provider Social History Tobacco Use Types [...] on filedocumented in this encounter Care Teams Mergers And Acquisitions Manager Relationship Specialty Start Date End Date Renée Soto MD PCP - General Internal Medicine 10/11/14 Beni Valle NP PCP - General Family Practice 05/26/15 12/31/18 Supriya Chase MD, MD PCP - General Internal Medicine 01/01/19 documented as of this encounter
--- OUTSIDE RECORDS SUMMARY | 2024-11-16 12:05 | XMS_ITS | Encounter Summary ---
Author Organization [facility] Address [address] [place] [address] Care Team Providers Care Pbx Teacher Name Role Phone Renée Soto MD Primary Care Provider Unavailable Beni Valle NP Primary Care Provider Unavail able Supriya Chase Md, MD Primary Care Provider Unavailable Encounter Details Date Type Department Care Team Description 01/16/2015 Release of Information Medical Records [address] [place] [id number] Abstract, Provider Social History Tobacco Use Types [...] on filedocumented in this encounter Care Teams Pbx Teacher Relationship Specialty Start Date End Date Renée Soto MD PCP - General Internal Medicine 10/11/14 Beni Valle NP PCP - General Family Practice 05/26/15 12/31/18 Supriya Chase MD, MD PCP - General Internal Medicine 01/01/19 documented as of this encounter
--- OUTSIDE RECORDS SUMMARY | 2024-11-16 12:05 | XMS_ITS ---
Author Organization [facility] Address [address] [place] [address] Care Team Providers Care Loan Supervisor Name Role Phone JUSTINEVELYN MITCHELL Primary Care Provider Humberto De Oliveira Jr, Desmond Unavailable [phone] REASON FOR VISIT patient presents today for lump in rectum Encounters Encounter Location Date Provider Diagnosis [facility] [address] [place] [address] 12/15/2023 Desmond De Oliveira Jr PLAN OF TREATMENT No Information
--- OUTSIDE RECORDS SUMMARY | 2024-11-16 12:05 | XMS_ITS ---
Author Organization [facility] Address [address] [place] [address] Care Team Providers Care Flight Steward Name Role Phone MITCHELL BOND Primary Care Provider Desmond Francisco Jr Unavailable [phone] REASON FOR VISIT cancel appt Encounters Encounter Location Date Provider Diagnosis [facility] [address] [place] [address] 12/15/2023 Desmond De Oliveira Jr PLAN OF TREATMENT No Information
--- OUTSIDE RECORDS SUMMARY | 2024-11-16 12:05 | XMS_ITS | Clinical Summary ---
Author Organization [facility] Address [address] [place] [address] Care Team Providers Care Pharmacy Data Analyst Name Role Phone Beni Valle MD Primary Care Provider + [phone] Derek Roche PA-C Unavailable [phone] Allergies Active Allergy Reactions Criticality Noted Date [...] Of Breath,Hives High 08/07/2009 Metronidazole Other (See Comments),Rash/[place] titis,Shortness Of Breath,Hives High 11/13/2009 Other reaction(s): O/E - respiratory distress Midodrine Rash/Dermatitis Low 01/20/2015 Morphine Shortness Of Breath,Bleeding (Non-Gastrointestina l),GI Bleeding,Other (See Comments),Rash/[place] titis High 02/09/2015 Other reaction(s): Bleeding Ondansetron [...] syndrome) 02/12/2012 Overview (03/23/2024): Dr Joseph in [place] SVT (supraventricular tachycardia) 02/12/2012 Overview (03/23/2024): Sees Dr Light and EP docs in [place] Vitamin D deficiency 05/23/2008 PFO (patent foramen ovale) 01/20/2008 Overview (03/23/2024): No tx unless it gets worse Encounters Date Type Department Care Team Description 10/26/2024 1:43 PM EST - 10/26/2024 11:59 PM EST Hospital Encounter [facility] Heart & [place] at [address] [phone] Derek Roche PA-C Follow-up Discharge Disposition: Home or Self Care 10/26/2024 Travel 09/15/2024 1:54 PM EST - 09/15/2024 11:59 PM EST Hospital Encounter [facility] Heart & [place] at [address] [phone] Derek Roche PA-C Follow-up Discharge Disposition: Home or Self Care 09/15/2024 Travel 09/08/2024 Orders Only [facility] Heart & [place] at [address] [phone] Derek Roche PA-C POTS (postural orthostatic tachycardia syndrome) (Primary Dx) 09/08/2024 Telephone [facility] Heart & [place] at [address], [place] [phone] Derek Roche PA-C from Last 3 Months [...] Info) Description 01/05/2025 2:00 PM EDT Appointment [facility] Heart & [place] at [address], [place] [phone] Derek Roche PA-C [address] [place] [address], [place] Health Maintenance Due Date Last Done Comments [...] age to complete this topic Care Teams Pharmacy Data Analyst Relationship Specialty Start Date End Date Beni Valle MD [address] [place] [address] PCP - General Family Medicine 10/27/23 Derek Roche PA-C [address] [place] [address] Physician Cloth Mercerizer Back Tender Cardiac Electrophysiology 03/23/24
--- OUTSIDE RECORDS SUMMARY | 2024-11-16 12:05 | XMS_ITS | Encounter Summary ---
Author Organization [employer] Address [address] [facility] 7t [place] [address] Care Team Providers Care Wind Development Director Name Role Phone Unavailable Primary Care Provider Unavailabl e Reason for Visit * Reason Onset Date Comments Appointment 01/24/2023 Encounter Details Date Type Department Care Team ([facility] st Contact Info) Description 01/24/2023 Telephone [facility] ADULT DENTAL [address] [place] [address] Sumeet Nascimento DMD [address] [place], [place] [phone] Appointment Social History Tobacco Use Types Packs/Day [...] 01/24/2023 and stated she needed medication from [facility] because she is starting to [...]
--- OUTSIDE RECORDS SUMMARY | 2024-11-16 12:05 | XMS_ITS | Encounter Summary ---
Author Organization [employer] Address [address] [place] [address] 7[address] [place] [address] Care Team Providers Care Spent Grain Dryer Name Role Phone Unavailable Primary Care Provider Unavailabl e Reason for Visit * Reason Onset Date Comments medication 04/28/2024 Encounter Details Date Type Department Care Team ([facility] st Contact Info) Description 04/28/2024 Telephone [facility] ADULT DENTAL [address] [place], [place] [phone] Sumeet Anderson DMD [address] [place], [place] [phone] medication Social History Tobacco Use Types Packs/Day [...] be sent. Patient spoke to office at [facility] on Friday concerning script. Krystin and [...]
--- OUTSIDE RECORDS SUMMARY | 2024-11-16 12:05 | XMS_ITS | Encounter Summary ---
Author Organization [employer] Address [address] [facility] [address] [place] [address] Care Team Providers Care Cinder Crew Worker Name Role Phone Unavailable Primary Care Provider Unavailabl e Reason for Visit * Reason Onset Date Comments medical clearance 06/26/2023 Encounter Details Date Type Department Care Team (Late st Contact Info) Description 06/26/2023 Telephone [facility] DENTAL [address] [place] [address] VeSelam dhillon [address] [place] [address] medical clearance Social History Tobacco Use Types [...] - 06/26/2023 11:21 AM EDT Rylan from [facility] called in looking to facilitate treatment for [...] be scheduled for treatment. Please fax to [phone] documented in this encounter Plan of Treatment Not on file documented as of this encounter Visit Diagnoses Not on filedocumented in this encounter
--- OUTSIDE RECORDS SUMMARY | 2024-11-16 12:05 | XMS_ITS | Encounter Summary ---
Author Organization [employer] Address [address] 7[address] [place] [address] Care Team Providers Care Manager Cardiac Cath Name Role Phone Unavailable Primary Care Provider Unavailabl e Encounter Details Date Type Department Care Team (Late st Contact Info) Description 11/20/2022 Orders Only [facility] DENTAL [address] [place] [phone] Annalise Mix, BDS [address] [place], [place] [phone] Dental abscess (Primary Dx) Social History Tobacco [...]
--- OUTSIDE RECORDS SUMMARY | 2024-11-16 12:05 | XMS_ITS | Encounter Summary ---
Author Organization [facility] Address [address] [place] [address] Care Team Providers Care Casing Crew Pusher Name Role Phone Beni Valle MD Primary Care Provider [phone] Derek Roche PA-C Unavailable [phone] Encounter Details Date Type Department Care Team (Late st Contact Info) Description 05/10/2024 Telephone [facility] Heart & Vascular [place] at [facility] - Electrophysiology Laboratory [address] [place] [address] Vanessa Waite MD [address] [place] [address] Social History Tobacco Use Types Packs/Day Years [...] higher dose of propanolol such as 20 usp but would increase slowly documented in this encounter Plan of Treatment Upcoming Encounters Date Type Department Care Team (Late st Contact Info) Description 01/05/2025 2:00 PM EDT Appointment [facility] Heart & Vascular [place] at [facility] - Cardiology [address] [place] [address] Derek Roche PA-C [address] [place] [address] documented as of this encounter Visit Diagnoses Diagnosis POTS (postural orthostatic tachycardia syndrome)- Primary Unspecified tachycardia documented in this encounter Care Teams Casing Crew Pusher Relationship Specialty Start Date End Date Beni Valle MD [address] [facility] [place] [address] PCP - General Family Medicine 10/27/23 Derek Roche PA-C [address] [place] [address] Physician Physician Executive Cardiac Electrophysiology 03/23/24 documented as of this encounter
--- OUTSIDE RECORDS SUMMARY | 2024-11-16 12:06 | XMS_ITS | Encounter Summary ---
Author Organization [facility] Address [address] [place] [address] Care Team Providers Care Business Objects Name Role Phone Wilbert Fermin Primary Care Provider Renée Harding MD Primary Care Provider Unavailable Beni Valle NP Primary Care Provider Unavail Supriya Miranda Md, MD Primary Care Provider Unavailable Reason for Visit * Reason Onset Date Comments Information Needed 01/26/2014 Encounter Details Date Type Department Care Team Description 01/26/2014 Telephone OBGYN - [place] [address] [place] [address] Talia Gonzalez CNM [address] [place] [address] Information Needed Social History Tobacco [...] filedocumented in this encounter Care Teams Business Objects Relationship Specialty Start Date End Date Wilbert Fermin PCP - General Internal Medicine 09/13/11 10/10/14 Renée Soto MD PCP - General Internal Medicine 10/11/14 Beni Valle NP PCP - General Family Practice 05/26/15 12/31/18 Supriya Chase MD, MD PCP - General Internal Medicine 01/01/19 documented as of this encounter
--- OUTSIDE RECORDS SUMMARY | 2024-11-16 12:06 | XMS_ITS | Encounter Summary ---
Author Organization [facility] Address [address] [place] [address] Care Team Providers Care Auto Porter Name Role Phone Renée Soto MD Primary Care Provider Unavailable Beni Valle NP Primary Care Provider Unavail able Supriya Chase Md, MD Primary Care Provider Unavailable Encounter Details Date Type Department Care Team Description 11/15/2014 Controlled Substance Contract with Plan Medical Records [address] [place] [id number] Abstract, Provider Social History Tobacco Use Types [...] on filedocumented in this encounter Care Teams Auto Porter Relationship Specialty Start Date End Date Renée Soto MD PCP - General Internal Medicine 10/11/14 Beni Valle NP PCP - General Family Practice 05/26/15 12/31/18 Supriya Chase MD, MD PCP - General Internal Medicine 01/01/19 documented as of this encounter
--- OUTSIDE RECORDS SUMMARY | 2024-11-16 12:06 | XMS_ITS | Encounter Summary ---
Author Organization [facility] Address [address] [place] [address] Care Team Providers Care Rn Placement Name Role Phone Renée Soto MD Primary Care Provider Unavailable Beni Valle NP Primary Care Provider Unavail able Supriya Chase Md, MD Primary Care Provider Unavailable Encounter Details Date Type Department Care Team Description 11/22/2014 Telephone Adult [facility] [place] [facility] - [address] [address] Renée Soto MD Social History Tobacco Use [...] on filedocumented in this encounter Care Teams Rn Placement Relationship Specialty Start Date End Date Renée Soto MD PCP - General Internal Medicine 10/11/14 Beni Valle NP PCP - General Family Practice 05/26/15 12/31/18 Supriya Chase MD, MD PCP - General Internal Medicine 01/01/19 documented as of this encounter
--- OUTSIDE RECORDS SUMMARY | 2024-11-16 12:06 | XMS_ITS | Encounter Summary ---
Author Organization [facility] Address [address] [place] [address] Care Team Providers Care Finishing Wire Sawyer Name Role Phone Supriya Mclaughlin Md, MD Primary Care Provider Unavailable Reason for Visit * Reason Onset Date Comments asthma 03/19/2019 Encounter Details Date Type Department Care Team Description 03/19/2019 Telephone Pulmonology - [place] [address] [facility] [address] [place] [address] Beata Bernard MD [address] [place] [address] asthma Social History Tobacco Use Types Packs/Day Years Used Date Smoking Tobacco: Never Smokeless Tobacco: Never Alcohol Use Standard Drinks/Week Comments No 0 (1 standard drink = 0.6 oz pur e alcohol) Sex Assigned at Date Recorded Not on file documented as of this encounter Miscellaneous Notes * Telephone Encounter - Vanesa Camara M.A. - 03/19/2019 1:48 PM EDT I called pt and gave her an appt with for today at 2:45 pm. * Telephone Encounter - Maxine Larsen - 03/19/2019 1:30 PM EDT Symptoms patient is presenting: Asthma, getting worse If pain or injury related was it due to an accident at work or from a motor vehicle accident? NO If yes, gather 3rd constitution party insurance information Date of accident/Injury: How long has patient had these symptoms?: 4 days PCP: RHODA MCLAUGHLIN MD Payor: [employer] FFS / Plan: [facility] [employer] / Product Type: MEDICAID RISK documented in this encounter Plan of Treatment Not on file documented as of this encounter Visit Diagnoses Not on filedocumented in this encounter Care Teams Finishing Wire Sawyer Relationship Specialty Start Date End Date Supriya Mclaughlin MD, MD PCP - General Internal Medicine 01/01/19 documented as of this encounter
--- OUTSIDE RECORDS SUMMARY | 2024-11-16 12:06 | XMS_ITS | Encounter Summary ---
Author Organization [facility] Address [address] [place] [address] Care Team Providers Care Mainframe Systems Programmer Name Role Phone Renée Soto MD Primary Care Provider Unavailable Beni Valle NP Primary Care Provider Unavail able Supriya Chase Md, MD Primary Care Provider Unavailable Reason for Visit * Reason Onset Date Comments Medication Review 11/15/2014 Encounter Details Date Type Department Care Team Description 11/15/2014 Telephone Adult Medicine - [address] [address] Renée Soto MD Medication Review Social History Tobacco Use Types Packs/Day Years Used Date Smoking Tobacco: Never Alcohol Use Standard Drinks/Week Comments No 0 (1 standard drink = 0.6 oz pur e alcohol) Sex Assigned at Date Recorded Not on file documented as of this encounter Miscellaneous Notes * Telephone Encounter - Renée Soto MD - 11/15/2014 11:29 AM EST Thank you, I updated her contract as well * Telephone Encounter - Alyson Lee L.P.NKatherine - 11/15/2014 11:05 AM EST Med list updated. Pt does use 6 tabs per day. Reviewed with pt that since she got rx filled yesterday for #112 tabs, this is an 18 day supply. Pt will take 6 tabs a day and will call on 11/29/14 when due and full rx for #168 tabs (28 day supply) will be provided FYI to pcp * Telephone Encounter - Renée Soto MD - 11/15/2014 10:58 AM EST So she uses 6 pills a day? If this is correct, pelase set up correct script for 28 day supply, thanks * Telephone Encounter - Alyson AndersonPKatherineNKatherine - 11/15/2014 10:54 AM EST Please review and advise * Telephone Encounter - Aurora Traylor - 11/15/2014 10:35 AM EST Pt states that provider wrote script incorrectly yesterday-- for oxycodone 30 mg-- pt states she take 1 pill every four hours -not 1 pill QID- --had been getting a 30 day supply #180 from previous PCP-- pt understands luis works on 28 day supply, she still states directions/quanitity are wrong. Pt has filled script-- darío call documented in this encounter Plan of Treatment Not on file documented as of this encounter Visit Diagnoses Not on filedocumented in this encounter Care Teams Mainframe Systems Programmer Relationship Specialty Start Date End Date Renée Soto MD PCP - General Internal Medicine 10/11/14 Beni Valle NP PCP - General Family Practice 05/26/15 12/31/18 Supriya Chase MD, MD PCP - General Internal Medicine 01/01/19 documented as of this encounter
--- OUTSIDE RECORDS SUMMARY | 2024-11-16 12:06 | XMS_ITS | Encounter Summary ---
Author Organization [facility] Address [address] [place] [address] Care Team Providers Care Janitor And Cleaner Name Role Phone Supriya Chase Md, MD Primary Care Provider Unavailable Reason for Visit * Reason Onset Date Comments DME Request 11/18/2019 nebulizer suppli es Encounter Details Date Type Department Care Team Description 11/18/2019 Telephone Pulmonology - [place] 175 [facility] [address] [place] [phone] Beata Bernard MD [address] [place] [address] DME Request (nebulizer supplies) Social [...] PM EST I faxed this order to [facility]. * Telephone Encounter - Beata Bernard MD [...] Specific information about product tubing for nebulizer ([place] PERL nebulizer compressor nebulizer system) # Needed 1 [...] Primary documented in this encounter Care Teams Janitor And Cleaner Relationship Specialty Start Date End Date Supriya Chase MD, MD PCP - General Internal Medicine 01/01/19 documented as of this encounter
--- OUTSIDE RECORDS SUMMARY | 2024-11-16 12:06 | XMS_ITS | Encounter Summary ---
Author Organization [facility] Address [address] [place] [address] Care Team Providers Care Manager Activities Name Role Phone Renée Soto MD Primary Care Provider Unavailable Beni Valle NP Primary Care Provider Unavail able Supriya Chase Md, MD Primary Care Provider Unavailable Encounter Details Date Type Department Care Team Description 03/28/2015 Field Marketing Associate Report Medical Records [address] [place] [address] Xiomy Light Social History Tobacco Use Types [...] filedocumented in this encounter Care Teams Manager Activities Relationship Specialty Start Date End Date Renée Soto MD PCP - General Internal Medicine 10/11/14 Beni Valle NP PCP - General Family Practice 05/26/15 12/31/18 Supriya Chase MD, MD PCP - General Internal Medicine 01/01/19 documented as of this encounter
--- OUTSIDE RECORDS SUMMARY | 2024-11-16 12:06 | XMS_ITS | Encounter Summary ---
Author Organization [facility] Address [address] [place] [address] Care Team Providers Care Commercial Credit Analyst Name Role Phone Renée Soto MD Primary Care Provider Unavailable Beni Valle NP Primary Care Provider Unavail able Supriya Chase Md, MD Primary Care Provider Unavailable Reason for Visit * Reason Onset Date Comments Information Needed 11/17/2014 Encounter Details Date Type Department Care Team Description 11/17/2014 Telephone Adult Medicine - [address] [address] Renée Soto MD Information Needed Social History [...] filedocumented in this encounter Care Teams Commercial Credit Analyst Relationship Specialty Start Date End Date [place]-Renée Damon MD PCP - General Internal Medicine 10/11/14 Beni Valle NP PCP - General Family Practice 05/26/15 12/31/18 Supriya Chase MD, MD PCP - General Internal Medicine 01/01/19 documented as of this encounter
--- OUTSIDE RECORDS SUMMARY | 2024-11-16 12:06 | XMS_ITS | Encounter Summary ---
Author Organization [facility] Address [address] [place] [address] Care Team Providers Care Helper Teacher Name Role Phone Renée Soto MD Primary Care Provider Unavailable Beni Valle NP Primary Care Provider Unavail able Supriya Chase Md, MD Primary Care Provider Unavailable Encounter Details Date Type Department Care Team Description 12/05/2014 Event Staff Report Medical Records [address] [place] [id number] John Resendez Social History Tobacco Use Types [...] on filedocumented in this encounter Care Teams Helper Teacher Relationship Specialty Start Date End Date Renée Soto MD PCP - General Internal Medicine 10/11/14 Beni Valle NP PCP - General Family Practice 05/26/15 12/31/18 Supriya Chase MD, MD PCP - General Internal Medicine 01/01/19 documented as of this encounter
--- OUTSIDE RECORDS SUMMARY | 2024-11-16 12:06 | XMS_ITS | Encounter Summary ---
Author Organization [facility] Address [address] [place] [address] Care Team Providers Care Emergency Dept Tech Name Role Phone Supriya Chase Md, MD Primary Care Provider Unavailable Reason for Visit * Reason Onset Date Comments er follow up 11/08/2020 Encounter Details Date Type Department Care Team Description 11/08/2020 Telephone Internal Medicine - [place] 175 [facility], [address] [place] [address] Beata Bernard MD [address] [place] [phone] er follow up Social History Tobacco Use [...] appointment needed Hospital patient was treated at: [facility] Was this only an ER visit or [...] on filedocumented in this encounter Care Teams Emergency Dept Tech Relationship Specialty Start Date End Date Supriya Chase MD, MD PCP - General Internal Medicine 01/01/19 documented as of this encounter
--- OUTSIDE RECORDS SUMMARY | 2024-11-16 12:06 | XMS_ITS | Encounter Summary ---
Author Organization [facility] Address [address] [place] [address] Care Team Providers Care Cardio Tech Name Role Phone Beni Valle NP Primary Care Provider Unavail able Supriya Chase Md, MD Primary Care Provider Unavailable Encounter Details Date Type Department Care Team Description 07/17/2015 Nut Cracker Report Medical Records [address] [place] [address] John Resendez Social History Tobacco Use Types [...] on filedocumented in this encounter Care Teams Cardio Tech Relationship Specialty Start Date End Date Beni Valle NP PCP - General Family Practice 05/26/15 12/31/18 Supriya Chase MD, MD PCP - General Internal Medicine 01/01/19 documented as of this encounter
--- OUTSIDE RECORDS SUMMARY | 2024-11-16 12:06 | XMS_ITS | Encounter Summary ---
Author Organization [facility] Address [address] [place] [address] Care Team Providers Care Compressor Stations Superintendent Name Role Phone Beni Valle NP Primary Care Provider Unavail Supriya Miranda Md, MD Primary Care Provider Unavailable Reason for Visit * Reason Comments E-prescribe Rx Request Encounter Details Date Type Department Care Team Description 07/13/2018 Refill Pulmonology - [place] 175 [facility] [address] [place] [address] Beata Bernard MD [address] [place] [address] E-prescribe Rx Request Social History [...] NO Patients current insurance carrier is: Payor: [employer] / Plan: [employer] [facility] / Product Type: MEDICAID RISK documented in this encounter Plan of Treatment Not on file documented as of this encounter Visit Diagnoses Not on filedocumented in this encounter Care Teams Compressor Stations Superintendent Relationship Specialty Start Date End Date Beni Valle NP PCP - General Family Practice 05/26/15 12/31/18 Supriya Chase MD, MD PCP - General Internal Medicine 01/01/19 documented as of this encounter
--- OUTSIDE RECORDS SUMMARY | 2024-11-16 12:06 | XMS_ITS | Encounter Summary ---
Author Organization [facility] Address [address] [place] [address] Care Team Providers Care Clinical Rehabilitation Aide Name Role Phone Renée Soto MD Primary Care Provider Unavailable Beni Valle NP Primary Care Provider Unavail able Supriya Chase Md, MD Primary Care Provider Unavailable Encounter Details Date Type Department Care Team Description 04/27/2015 Contracting Executive Report Medical Records [address] [place] [address] Louisa Caballero NP Social History Tobacco Use [...] on filedocumented in this encounter Care Teams Clinical Rehabilitation Aide Relationship Specialty Start Date End Date Renée Soto MD PCP - General Internal Medicine 10/11/14 Beni Valle NP PCP - General Family Practice 05/26/15 12/31/18 Supriya Chase MD, MD PCP - General Internal Medicine 01/01/19 documented as of this encounter
--- OUTSIDE RECORDS SUMMARY | 2024-11-16 12:06 | XMS_ITS | Encounter Summary ---
Author Organization [facility] Address [address] [place] [address] Care Team Providers Care Underground Repairer Name Role Phone Renée Soto MD Primary Care Provider Unavailable Beni Valle NP Primary Care Provider Unavail able Supriya Chase Md, MD Primary Care Provider Unavailable Encounter Details Date Type Department Care Team Description 05/25/2015 AUTOMOTIVE FLEET SUPERVISOR/[place] Report Medical Records [address] [place] [id number] Abstract, Provider Social History Tobacco Use Types [...] on filedocumented in this encounter Care Teams Underground Repairer Relationship Specialty Start Date End Date Renée Soto MD PCP - General Internal Medicine 10/11/14 Beni Valle NP PCP - General Family Practice 05/26/15 12/31/18 Supriya Chase MD, MD PCP - General Internal Medicine 01/01/19 documented as of this encounter
--- OUTSIDE RECORDS SUMMARY | 2024-11-16 12:06 | XMS_ITS | Encounter Summary ---
Author Organization [facility] Address [address] [place] [address] Care Team Providers Care Retort Fireman Name Role Phone Wilbert Fermin Primary Care Provider UnaRenée Akhtar MD Primary Care Provider Unavailable Beni Valle NP Primary Care Provider Unavail able Supriya Chase Md, MD Primary Care Provider Unavailable Encounter Details Date Type Department Care Team Description 08/18/2014 Transfer Records Medical Records [address] [place] [address] Abstract, Provider Social History Tobacco Use Types [...] on filedocumented in this encounter Care Teams Retort Fireman Relationship Specialty Start Date End Date Wilbert Fermin PCP - General Internal Medicine 09/13/11 10/10/14 Renée Soto MD PCP - General Internal Medicine 10/11/14 Beni Valle NP PCP - General Family Practice 05/26/15 12/31/18 Supriya Chase MD, MD PCP - General Internal Medicine 01/01/19 documented as of this encounter
--- OUTSIDE RECORDS SUMMARY | 2024-11-16 12:06 | XMS_ITS | Encounter Summary ---
Author Organization [facility] Address [address] [place] [address] Care Team Providers Care Supervisor Display Fabrication Name Role Phone Renée Soto MD Primary Care Provider Unavailable Beni Valle NP Primary Care Provider Unavail able Supriya Chase Md, MD Primary Care Provider Unavailable Encounter Details Date Type Department Care Team Description 10/18/2014 Telephone Adult Medicine - [address] [address] Renée Soto MD Social History Tobacco Use [...] same time of her appointment here at [place]. Tomorrow's appointment cancelled and rescheduled. Appointment 10/27 with @2:30pm documented in this encounter Plan of Treatment Not on file documented as of this encounter Visit Diagnoses Not on filedocumented in this encounter Care Teams Supervisor Display Fabrication Relationship Specialty Start Date End Date Renée Soto MD PCP - General Internal Medicine 10/11/14 Beni Valle NP PCP - General Family Practice 05/26/15 12/31/18 Supriya Chase MD, MD PCP - General Internal Medicine 01/01/19 documented as of this encounter
--- OUTSIDE RECORDS SUMMARY | 2024-11-16 12:06 | XMS_ITS | Encounter Summary ---
Author Organization [facility] Address [address] [place] [address] Care Team Providers Care Motion Picture Commentator Name Role Phone Supriya Chase Md MD Primary Care Provider Unavailable Encounter Details Date Type Department Care Team Description 11/08/2020 Refill Pulmonology [address] [place] [phone] Supriya Chase MD, MD Social History Tobacco [...] on filedocumented in this encounter Care Teams Motion Picture Commentator Relationship Specialty Start Date End Date Supriya Chase MD, MD PCP - General Internal Medicine 01/01/19 documented as of this encounter
--- OUTSIDE RECORDS SUMMARY | 2024-11-16 12:06 | XMS_ITS | Clinical Summary ---
Author Organization [facility] Address [address] [place] [address] Care Team Providers Care Production Maintenance Mechanic Name Role Phone Supriya Chase Md, MD [...] Sees Dr Light and EP docs in [place] PFO (patent foramen ovale) 02/12/2012 Overview: No tx unless it gets worse POTS (postural orthostatic tachycardia s yndrome) 02/12/2012 Overview: Dr Joseph in [place] Resolved Problems Problem Noted Date Resolved Date Gestational diabetes 02/09/2015 03/23/2015 Family History Medical History Relation Name Comments Hypertension Father tumors from ag ent orange , HLD, Leukemia Maternal Grandmother [place] Breast Mother postmenopausal, COPD , colitis Leukemia Mother's side Aunt Colitis Sister 2 Cervical Cancer Sister 3 Relation Name Status Comments Brother Alive Father Alive Maternal Grandfather (Age elderl y) [place] Maternal Grandmother (Age 80) st aph infection Mother Alive Mother's side Paternal Grandfather (Age elderl y) [place] Paternal Grandmother (Age elderl y) [place] Sister 1 Alive Sister 2 Alive Sister [...] 10/27/2014 SOCIAL NEEDS SCREENING 09/29/2024 Care Teams Production Maintenance Mechanic Relationship Specialty Start Date End Date Supriya Chase MD, MD PCP - General Internal Medicine 01/01/19
--- OUTSIDE RECORDS SUMMARY | 2024-11-16 12:06 | XMS_ITS | Encounter Summary ---
Author Organization [facility] Address [address] [place] [address] Care Team Providers Care Rn Long Term Care Name Role Phone Supriya Chase Md, MD Primary Care Provider Unavailable Reason for Visit * Reason Onset Date Comments hospital follow up 07/30/2024 Encounter Details Date Type Department Care Team Description 07/30/2024 Telephone Pulmonology - [place] 175 [facility] [address] [place] [phone] Beata Bernard MD [address] [place] [address] hospital follow up Social History [...] appointment needed Hospital patient was treated at[facility] Was this only an ER visit [...] filedocumented in this encounter Care Teams Rn Long Term Care Relationship Specialty Start Date End Date Supriya Chase MD, MD PCP - General Internal Medicine 01/01/19 documented as of this encounter
--- OUTSIDE RECORDS SUMMARY | 2024-11-16 12:06 | XMS_ITS | Encounter Summary ---
Author Organization [facility] Address [address] [place] [address] Care Team Providers Care Erp Manager Name Role Phone Wilbert Fermin Primary Care Provider Unava Renée Marion MD Primary Care Provider Unavailable Beni Valle NP Primary Care Provider Unavail able Supriya Chase Md, MD Primary Care Provider Unavailable Encounter Details Date Type Department Care Team Description 04/05/2014 Supervisor Delivery Department Report Medical Records [address] [place] [address] Sonny Jones MD Social History Tobacco Use [...] on filedocumented in this encounter Care Teams Erp Manager Relationship Specialty Start Date End Date Wilbert Fermin PCP - General Internal Medicine 09/13/11 10/10/14 Renée Soto MD PCP - General Internal Medicine 10/11/14 Beni Valle NP PCP - General Family Practice 05/26/15 12/31/18 Supriya Chase MD, MD PCP - General Internal Medicine 01/01/19 documented as of this encounter
--- OUTSIDE RECORDS SUMMARY | 2024-11-16 12:06 | XMS_ITS | Encounter Summary ---
Author Organization [facility] Address [address] [place] [address] Care Team Providers Care Chief Guard Name Role Phone Renée Soto MD Primary Care Provider Unavailable Beni Valle NP Primary Care Provider Unavail able Supriya Chase Md, MD Primary Care Provider Unavailable Encounter Details Date Type Department Care Team Description 03/24/2015 Certified Orthotic Fitter Report Medical Records [address] [place] [address] Robert Haque MD Social History Tobacco Use [...] on filedocumented in this encounter Care Teams Chief Guard Relationship Specialty Start Date End Date Renée Soto MD PCP - General Internal Medicine 10/11/14 Beni Valle NP PCP - General Family Practice 05/26/15 12/31/18 Supriya Chase MD, MD PCP - General Internal Medicine 01/01/19 documented as of this encounter
--- OUTSIDE RECORDS SUMMARY | 2024-11-16 12:06 | XMS_ITS | Encounter Summary ---
Author Organization [facility] Address [address] [place] [address] Care Team Providers Care Tool Salvage Worker Name Role Phone Supriya Chase Md, MD Primary Care Provider Unavailable Reason for Visit * Reason Onset Date Comments refill request 11/13/2020 Encounter Details Date Type Department Care Team Description 11/13/2020 Refill Pulmonology - [place] 175 [facility] [address] [place], [place] [phone] Beata Bernard MD [address] [place] [phone] refill request Social History Tobacco Use Types [...] N/A Patients current insurance carrier is: Payor: [employer] / Plan: COUNTS INCLUDE 234 BEDS AT [facility] / Product Type: MEDICAID RISK documented in this encounter Plan of Treatment Not on file documented as of this encounter Visit Diagnoses Not on filedocumented in this encounter Care Teams Tool Salvage Worker Relationship Specialty Start Date End Date Supriya Chase MD, MD PCP - General Internal Medicine 01/01/19 documented as of this encounter
--- OUTSIDE RECORDS SUMMARY | 2024-11-16 12:07 | XMS_ITS | Encounter Summary ---
Author Organization [facility] Address [address] [place] [address] Care Team Providers Care Mix Mill Tender Name Role Phone Renée Soto MD Primary Care Provider Unavailable Beni Valle NP Primary Care Provider Unavail able Supriya Chase Md, MD Primary Care Provider Unavailable Encounter Details Date Type Department Care Team Description 11/07/2014 Laborer Driver Report Medical Records [address] [place] [address] Laurita Isaacs PA-C Social History Tobacco Use [...] on filedocumented in this encounter Care Teams Mix Mill Tender Relationship Specialty Start Date End Date Renée Soto MD PCP - General Internal Medicine 10/11/14 Beni Valle NP PCP - General Family Practice 05/26/15 12/31/18 Supriya Chase MD, PCP - General Internal Medicine 01/01/19 documented as of this encounter
== END 2024-11-16 12:05 | disposition home or self-care (01) ==
PROVIDERS: PCP Nurse Practitioner Family; Visit Provider Nurse Practitioner Family
DX: Z00.00 Encounter for general adult medical examination without abnormal findings (principal); G93.0 Cerebral cysts; G43.909 Migraine, unspecified, not intractable, without status migrainosus

== ENCOUNTER 2024-11-16 10:53 | Outpatient (REF) | payer OTHER, SELFPAY ==
[2024-11-16 13:04] LABS: MANUAL DIFF FLAG NO
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
--- OUTSIDE RECORDS SUMMARY | 2024-11-16 13:07 | XMS_ITS | Encounter Summary ---
Author Organization [employer] Address [address] [facility] [address] [place] [address] Care Team Providers Care P D Driver Name Role Phone Unavailable Primary Care Provider Unavailabl e Reason for Visit * Reason Onset Date Comments medical clearance 06/26/2023 Encounter Details Date Type Department Care Team (Late st Contact Info) Description 06/26/2023 Telephone [facility] DENTAL [address] [place] [address] VeSelam dhillon [address] [place] [address] medical clearance Social History Tobacco Use Types [...] - 06/26/2023 11:21 AM EDT Rylan from [facility] called in looking to facilitate treatment for [...] be scheduled for treatment. Please fax to [phone] documented in this encounter Plan of Treatment Not on file documented as of this encounter Visit Diagnoses Not on filedocumented in this encounter
--- OUTSIDE RECORDS SUMMARY | 2024-11-16 13:07 | XMS_ITS | Encounter Summary ---
Author Organization [employer] Address [address] [place] [address] [address] [place] [address] Care Team Providers Care Home Restoration Service Supervisor Name Role Phone Unavailable Primary Care Provider Unavailabl e Reason for Visit * Reason Comments Med Refill Encounter Details Date Type Department Care Team (Late st Contact Info) Description 05/03/2024 Refill [facility] [address] [place], [place] [phone] Annalise Mix, BDS [address] [place], [place] [phone] Social History Tobacco Use Types Packs/Day Years [...]
--- OUTSIDE RECORDS SUMMARY | 2024-11-16 13:07 | XMS_ITS | Encounter Summary ---
Author Organization [facility] Address [address] [place] [address] Care Team Providers Care Senior Research Executive Name Role Phone Beni Valle MD Primary Care Provider [phone] Derek Roche PA-C Unavailable [phone] Encounter Details Date Type Department Care Team ([facility] st Contact Info) Description 07/28/2024 Telephone [facility] [place] [facility] - Cardiology [address] [place] [address] Derek Roche PA-C [address] [place] [phone] Social History Tobacco Use Types Packs/Day Years [...] again. Please follow up with pt at [phone] documented in this encounter Plan of Treatment Upcoming Encounters Date Type Department Care Team (Late st Contact Info) Description 01/05/2025 2:00 PM EDT Appointment [facility] [place] [facility] - Cardiology [address] [place] [address] Derek Roche PA-C [address] [place] [address] documented as of this encounter Visit Diagnoses Not on filedocumented in this encounter Care Teams Senior Research Executive Relationship Specialty Start Date End Date Beni Valle MD [address] [facility] [place] [address] PCP - General Family Medicine 10/27/23 Derek Roche PA-C [address] [place] [address] Physician Flower Arranger Cardiac Electrophysiology 03/23/24 documented as of this encounter
--- OUTSIDE RECORDS SUMMARY | 2024-11-16 13:07 | XMS_ITS | Encounter Summary ---
Author Organization [employer] Address [address] [place] [address] [address] [place] [address] Care Team Providers Care Tile And Marble Installer Name Role Phone Unavailable Primary Care Provider Unavailabl e Reason for Visit * Reason Comments Med Refill Encounter Details Date Type Department Care Team (Late st Contact Info) Description 05/19/2024 Refill [facility] DENTAL [address] [place], [place] [phone] Annalise Mix, BDS [address] [place], [place] [phone] Social History Tobacco Use Types Packs/Day Years [...]
--- OUTSIDE RECORDS SUMMARY | 2024-11-16 13:07 | XMS_ITS | Encounter Summary ---
Author Organization [employer] Address [address] 7t [place] [address] Care Team Providers Care Vp Ad Sales West Name Role Phone Unavailable Primary Care Provider Unavailabl e Encounter Details Date Type Department Care Team (Late st Contact Info) Description 11/20/2022 Orders Only [facility] DENTAL [address] [place] [address] [phone] Annalise Mix, BDS [address] [place], [place] [phone] Dental abscess (Primary Dx) Social History Tobacco [...]
--- OUTSIDE RECORDS SUMMARY | 2024-11-16 13:07 | XMS_ITS | Encounter Summary ---
Author Organization [employer] Address [address] [place] [address] 7t [place] [address] Care Team Providers Care Hooker Up Name Role Phone Unavailable Primary Care Provider Unavailabl e Reason for Visit * Reason Onset Date Comments medication 04/28/2024 Encounter Details Date Type Department Care Team ([facility] st Contact Info) Description 04/28/2024 Telephone [facility] ADULT DENTAL [address] [place], [place] [phone] Sumeet Anderson DMD [address] [place], [place] [phone] medication Social History Tobacco Use Types Packs/Day [...] be sent. Patient spoke to office at [facility] on Friday concerning script. Krystin and [...]
--- OUTSIDE RECORDS SUMMARY | 2024-11-16 13:07 | XMS_ITS | Encounter Summary ---
Author Organization [facility] Address [address] [place] [address] Care Team Providers Care Auto Machinist Name Role Phone Beni Valle MD Primary Care Provider +1 [phone] Derek Roche PA-C Unavailable [phone] Encounter Details Date Type Department Care Team [...] EDT Appointment [facility] Heart & Vascular [place] at [facility] - Cardiology [address] [place] [address] Derek Roche PA-C [address] [place] [address] documented as of this encounter Visit Diagnoses Not on filedocumented in this encounter Care Teams Auto Machinist Relationship Specialty Start Date End Date Beni Valle MD [address] [place] [address] [place] [address] PCP - General Family Medicine 10/27/23 Derek Roche PA-C [address] [place] [address] Physician Rn X Ray Cardiac Electrophysiology 03/23/24 documented as of this encounter
--- OUTSIDE RECORDS SUMMARY | 2024-11-16 13:07 | XMS_ITS | Encounter Summary ---
Author Organization [employer] Address [address] 7t [place] [address] Care Team Providers Care Regional Trainer Name Role Phone Unavailable Primary Care Provider Unavailabl e Encounter Details Date Type Department Care Team (Late st Contact Info) Description 12/11/2022 Telephone [facility] ADULT DENTAL [address] [place] [address] Annalise Mix, BDS [address] [place] [address] Social History Tobacco Use Types Packs/Day Years [...]
--- OUTSIDE RECORDS SUMMARY | 2024-11-16 13:07 | XMS_ITS | Encounter Summary ---
Author Organization [facility] Address [address] [place] [address] Care Team Providers Care Chicle Grinder Feeder Name Role Phone Beni Valle MD Primary Care Provider +1- [phone] Derek Roche PA-C Unavailable +1 [phone] Encounter Details Date Type Department Care Team (Late st Contact Info) Description 05/10/2024 Telephone [facility] Heart & Vascular [place] at [facility] - Electrophysiology Laboratory [address] [place] [address] Vanessa Waite MD [address] [place] [address] Social History Tobacco Use Types Packs/Day Years [...] higher dose of propanolol such as 20 senior living but would increase slowly documented in this encounter Plan of Treatment Upcoming Encounters Date Type Department Care Team (Late st Contact Info) Description 01/05/2025 2:00 PM EDT Appointment [facility] Heart & Vascular [place] at [facility] - Cardiology [address] [place] [address] Derek Roche PA-C [address] [place] [address] documented as of this encounter Visit Diagnoses Diagnosis POTS (postural orthostatic tachycardia syndrome)- Primary Unspecified tachycardia documented in this encounter Care Teams Chicle Grinder Feeder Relationship Specialty Start Date End Date Beni Valle MD [address] [facility] [place] [address] PCP - General Family Medicine 10/27/23 Derek Roche PA-C [address] [place] [address] Physician Surgical Appliances Salesperson Cardiac Electrophysiology 03/23/24 documented as of this encounter
--- OUTSIDE RECORDS SUMMARY | 2024-11-16 13:07 | XMS_ITS | Encounter Summary ---
Author Organization [employer] Address [address] 7t [place] [address] Care Team Providers Care Drying Room Operator Name Role Phone Unavailable Primary Care Provider Unavailabl e Encounter Details Date Type Department Care Team (Late st Contact Info) Description 07/09/2024 Telephone [facility] ADULT DENTAL 230 [place] [address] Annalise Mix, BDS [address] [place] [address] Social History Tobacco Use Types Packs/Day Years [...]
--- OUTSIDE RECORDS SUMMARY | 2024-11-16 13:07 | XMS_ITS | Encounter Summary ---
Author Organization [employer] Address [address] 7t [place] [address] Care Team Providers Care Barrel Marker Name Role Phone Unavailable Primary Care Provider [...] patient that Dr. Doss is transitioning into [facility] again . Message would be sent to office. Encounter Details Date Type Department Care Team (Late st Contact Info) Description 09/25/2022 Telephone [facility] ADULT DENTAL [address] [place] [address] Annalise Mix, BDS 91 [place] [address] Appointment (Patient upset because states she has [...] patient that Dr. Doss is transitioning into [facility] again . Message would be [...] patient that Dr. Doss is transitioning into [facility] again . Message would be sent to office. documented in this encounter Plan of Treatment Not on file documented as of this encounter Visit Diagnoses Not on filedocumented in this encounter
--- OUTSIDE RECORDS SUMMARY | 2024-11-16 13:07 | XMS_ITS | Clinical Summary ---
Author Organization [facility] Address [address] [place] [address] Care Team Providers Care Clay Burner Name Role Phone Beni Valle MD Primary Care Provider + [phone] Derek Roche PA-C Unavailable +[phone] Allergies Active Allergy Reactions Criticality Noted Date [...] Of Breath,Hives High 08/07/2009 Metronidazole Other (See Comments),Rash/[place] titis,Shortness Of Breath,Hives High 11/13/2009 Other reaction(s): O/E - respiratory distress Midodrine Rash/Dermatitis Low 01/20/2015 Morphine Shortness Of Breath,Bleeding (Non-Gastrointestina l),GI Bleeding,Other (See Comments),Rash/[place] titis High 02/09/2015 Other reaction(s): Bleeding Ondansetron [...] syndrome) 02/12/2012 Overview (03/23/2024): Dr Joseph in [place] SVT (supraventricular tachycardia) 02/12/2012 Overview (03/23/2024): Sees Dr Light and EP docs in [place] Vitamin D deficiency 05/23/2008 PFO (patent foramen ovale) 01/20/2008 Overview (03/23/2024): No tx unless it gets worse Encounters Date Type Department Care Team Description 10/26/2024 1:43 PM EST - 10/26/2024 11:59 PM EST Hospital Encounter [facility] Heart & Vascular [place] at [address] [phone] Derek Roche PA-C Follow-up Discharge Disposition: Home or Self Care 10/26/2024 Travel 09/15/2024 1:54 PM EST - 09/15/2024 11:59 PM EST Hospital Encounter [facility] Heart & Vascular [place] at [address] [phone] Derek Roche PA-C Follow-up Discharge Disposition: Home or Self Care 09/15/2024 Travel 09/08/2024 Orders Only [facility] Heart & Vascular [place] at [address] [phone] Derek Roche PA-C POTS (postural orthostatic tachycardia syndrome) (Primary Dx) 09/08/2024 Telephone [facility] Heart & Vascular [place] at [address], [place] [phone] Derek Roche PA-C from Last 3 Months [...] Description 01/05/2025 2:00 PM EDT Appointment [facility] Heart & Vascular [place] at [address], [place] [phone] Derek Roche PA-C [address] [place] [address], [place] Health Maintenance Due Date Last Done Comments [...] age to complete this topic Care Teams Clay Burner Relationship Specialty Start Date End Date Beni Valle MD [address] [place] [address] PCP - General Family Medicine 10/27/23 Derek Roche PA-C [address] [place] [address] Physician Event Promotions Coordinator Cardiac Electrophysiology 03/23/24
--- OUTSIDE RECORDS SUMMARY | 2024-11-16 13:07 | XMS_ITS | Encounter Summary ---
Author Organization [employer] Address [address] [facility] 7t [place] [address] Care Team Providers Care Corporate Affairs Manager Name Role Phone Unavailable Primary Care Provider Unavailabl e Reason for Visit * Reason Onset Date Comments Appointment 01/24/2023 Encounter Details Date Type Department Care Team ([facility] st Contact Info) Description 01/24/2023 Telephone [facility] ADULT DENTAL [address] [place] [address] Sumeet Nascimento DMD [address] [place], [place] [phone] Appointment Social History Tobacco Use Types Packs/Day [...] 01/24/2023 and stated she needed medication from [facility] because she is starting to get [...]
--- OUTSIDE RECORDS SUMMARY | 2024-11-16 13:07 | XMS_ITS | Clinical Summary ---
Author Organization [employer] Address [address] [place] [address] 7t [place] [address] Care Team Providers Care Materials Management Clerk Name Role Phone Unavailable Primary Care [...]
--- OUTSIDE RECORDS SUMMARY | 2024-11-16 13:07 | XMS_ITS | Encounter Summary ---
Author Organization [facility] Address [address] [place] [address] Care Team Providers Care Tile Helper Name Role Phone Beni Valle MD Primary Care Provider [phone] Derek Roche PA-C Unavailable + [phone] Reason for Visit * Reason Comments Follow-up Encounter Details Date Type Department Care Team (Latest Contact Info) Description 10/26/2024 1:43 PM EST - 10/26/2024 11:59 PM EST Hospital Encounter [facility] Heart & Vascular [place] at [facility] - Cardiology [address] [place] [address] Derek Roche PA-C [address] [place] [address] Follow-up Discharge Disposition: Home or Self Care [...] from the original note were not included. [facility] Cardiac Electrophysiology Office Visit Patient Name Cesilia Walker Date of 1980 Gender female Age 44 y.o. Encounter Date 10/26/2024 Business Quality Assurance Analyst: Primary Care Physician: Beni aVlle MD Referring Physician: Beni Valle MD Reason [...] propranolol. She also reports that shedrools to [place] and even though she stopped every 3-4 [...] by Dr. Jose Joseph dysautonomia specialist in [place] back in June 2020. She apparently underwent [...] recommended that she be seen by an media senior recruiter as he felt she likely had mast [...] underwent vascular studies of lower extremities at [facility] and reports that they were negative. She [...] 01/05/2025 2:00 PM EDT Appointment [facility] Heart & Vascular [place] at [facility] - Cardiology [address] [place] [address] Derek Roche PA-C [address] [place] [address] documented as of this encounter Visit Diagnoses Diagnosis POTS (postural orthostatic tachycardia syndrome)- Primary Unspecified tachycardia documented in this encounter Care Teams Tile Helper Relationship Specialty Start Date End Date Beni Valle MD [address] [place] [address] PCP - General Family Medicine 10/27/23 Derek Roche PA-C [address] [place] [address] Physician Business Support Professional Cardiac Electrophysiology 03/23/24 documented as of this encounter
[2024-11-16 13:08] LABS: Appearance Urine Clear; Color Urine Yellow; Glucose Urine UA Negative (Negative); Leukocyte Esterase Urine Negative (Negative); Nitrite Urine Negative (Negative); Specific Gravity - Urine 1.025 (1.005-1.025); Urine Blood Negative (Negative); Urine Ketones Negative (Negative); Urine Protein Negative (Neg-Trace)
[2024-11-16 13:13] LABS: Basophils Absolute Auto 0.1 X10*3/uL (0.0-0.2); Basophils Percent Auto 0.9 % (0-2); Eosinophils Absolute Auto 0.7 X10*3/uL (0.0-0.4); Eosinophils Percent Auto 7.6 % (0-4); Hematocrit 39.1 % (37.0-47.0); Hemoglobin 13.2 g/dl (12.0-16.0); Imm Gran Abs Auto 0.06 X10*3/uL (0.00-0.03); Imm Gran Pct Auto 0.7 % (0.0-0.4); Lymphocytes Absolute Auto 2.1 X10*3/uL (1.2-4.9); Lymphocytes Percent Auto 22.8 % (20-40); Mean Corpuscular HGB Conc 33.8 g/dl (31.0-35.0); Mean Corpuscular Hemoglobin 31.5 pg (27.0-33.0); Mean Corpuscular Volume 93.3 fL (80.0-98.0); Mean Platelet Volume 9.9 fL (9.4-12.3); Monocytes Absolute Auto 0.5 X10*3/uL (0.1-1.2); Neutrophils Absolute Auto 5.6 x10*3/uL (2.0-8.3); Platelet Count 240 X10*3/uL (160-400); Red Blood Count 4.19 X10*6/uL (4.20-5.50); Red Cell Distribution Width 12.7 % (11.0-16.0); White Blood Count 9.1 X10*3/uL (4.8-10.8)
[2024-11-16 13:35] LABS: B Type Natriuretic Peptide < 10 pg/mL (<100)
[2024-11-16 13:57] LABS: Alanine Aminotransferase 20 U/L (0-31); Albumin Level 3.9 g/dL (3.5-5.0); Alkaline Phosphatase 56 U/L (39-117); Anion Gap 11 (12-20); Aspartate Amino Transferase 21 U/L (5-31); Bilirubin Total 0.3 mg/dL (0.0-1.0); Blood Urea Nitrogen 8 mg/dL (9-16); Calcium 8.4 mg/dL (8.4-10.2); Carbon Dioxide 24 mmol/L (22-29); Chloride 107 mmol/L (96-108); Cholesterol 178 mg/dL (<200); Estimated Glomerular Filt Rate > 60; Glucose Fasting 83 mg/dL (60-99); Glucose Random 82 mg/dL (60-115); HDL Cholesterol 52 mg/dL (>40); LDL Cholesterol Calculated 98 mg/dL (<100); Sodium 138 mmol/L (135-145); Total Protein 7.2 g/dL (6.5-8.0); Triglycerides 143 mg/dL (<150)
[2024-11-16 14:12] LABS: TSH reflex Free T4 1.69 uIU/mL (0.32-4.0)
== END 2024-11-16 10:54 | disposition home or self-care (01) ==
LOC: HO.HMGCLDS 10:53
PROVIDERS: PCP Nurse Practitioner Family; Visit Provider Nurse Practitioner Family
DX: Z00.00 Encounter for general adult medical examination without abnormal findings (principal); G93.0 Cerebral cysts; G43.909 Migraine, unspecified, not intractable, without status migrainosus; G90.A Postural orthostatic tachycardia syndrome [POTS]; M79.89 Other specified soft tissue disorders; I49.8 Other specified cardiac arrhythmias
CPT/HCPCS: 36415; 80053; 80061; 81003; 83880; 84443; 85025; 96127; 99396

== ENCOUNTER 2024-11-23 12:51 | Outpatient (REF) | payer OTHER, SELFPAY ==
--- NOTE | ~2024-11-23 | US_ITS ---
EXAMINATION: US LOWER EXTREMITY VENOUS (REFLUX EXAM), BILATERAL CLINICAL INFORMATION: Varices. COMPARISON: DVT ultrasound dated February 25, 2024. TECHNIQUE: Color flow triplex imaging and compression Doppler was performed to evaluate both the deep and the superficial systems bilaterally. To evaluate the superficial system, the examination was performed in the upright position. Color-flow Doppler ultrasound and compression ultrasound were utilized. In addition, maneuvers were utilized to demonstrate reflux. FINDINGS: 1. DEEP VENOUS ULTRASOUND OF THE RIGHT LOWER EXTREMITY: Common Femoral Vein: Compressible, normal respiratory variation and augmented flow. Femoral Vein: Compressible, normal color flow and augmentation. Popliteal Vein: Compressible, normal augmentation. Deep Reflux: There is no evidence of reflux in the deep system in either the common femoral vein, superficial femoral or the popliteal vein. There is no evidence of a Lombardo's cyst. 2. SUPERFICIAL ULTRASOUND WITH DOPPLER OF RIGHT LOWER EXTREMITY: GREAT SAPHENOUS VEIN: Saphenofemoral Junction: 0.7 cm; Reflux: 0 ms Proximal Thigh: 0.3 cm; Reflux: 0 ms Mid Thigh: 0.1 cm; Reflux: 0 ms Distal Thigh: 0.1 cm; Reflux: 0 ms At Knee: 0.3 cm; Reflux: 0 ms Proximal Calf: 0.1 cm; Reflux: 0 ms Mid Calf: 0.1 cm; Reflux: 0 ms Distal Calf: 0.2 cm; Reflux: 0 ms DUPLICATED MEDIAL GREAT SAPHENOUS VEIN: Diameter: 0.5 cm. Reflux: NA DUPLICATED LATERAL GREAT SAPHENOUS VEIN: Diameter: 0.3 cm. Reflux: NA SMALL SAPHENOUS VEIN: Saphenopopliteal Junction: 0.3 cm; Reflux: 0 ms Proximal: 0.2 cm; Reflux: 0 ms Distal: 0.3 cm; Reflux: 0 ms VEIN OF GIACOMINI: Size: NA Reflux: NA PERFORATORS: Location: None imaged Size: NA Reflux: NA VARICOSITIES: Location: Great saphenous vein at the knee. Size: 0.3 cm. Reflux: NA 3. DEEP VENOUS ULTRASOUND OF THE LEFT LOWER EXTREMITY: Common Femoral Vein: Compressible, normal respiratory variation and augmented flow. Femoral Vein: Compressible, normal color flow and augmentation. Popliteal Vein: Compressible, normal augmentation. Deep Reflux: There is no evidence of reflux in the deep system in either the common femoral vein, superficial femoral or the popliteal vein. There is no evidence of a Lombardo's cyst. 4. SUPERFICIAL ULTRASOUND WITH DOPPLER OF LEFT LOWER EXTREMITY: GREAT SAPHENOUS VEIN: Saphenofemoral Junction: 0.7 cm; Reflux: 0 ms Proximal Thigh: 0.4 cm; Reflux: 0 ms Mid Thigh: 0.3 cm; Reflux: 0 ms Distal Thigh: 0.2 cm; Reflux: 0 ms At Knee: 0.2 cm; Reflux: 0 ms Proximal Calf: 0.2 cm; Reflux: 0 ms Mid Calf: 0.2 cm; Reflux: 0 ms Distal Calf: 0.1 cm; Reflux: 0 ms DUPLICATED MEDIAL GREAT SAPHENOUS VEIN: Diameter: None imaged Reflux: NA DUPLICATED LATERAL GREAT SAPHENOUS VEIN: Diameter: 0.4 cm. Reflux: NA SMALL SAPHENOUS VEIN: Saphenopopliteal Junction: 0.3 cm; Reflux: 0 ms Proximal: 0.2 cm; Reflux: 0 ms Distal: 0.2 cm; Reflux: 0 ms VEIN OF GIACOMINI: Size: NA Reflux: NA PERFORATORS: Location: Great saphenous vein, mid thigh and midcalf. Size: 0.2 cm. Reflux: NA VARICOSITIES: Location: Great saphenous vein proximal thigh. Size: 0.3 cm. Reflux: NA US/US venous duplex LE BI IMPRESSION: Right: No venous insufficiency. Varices at the great saphenous vein, knee level without reflux. Left: No venous insufficiency. Varices without reflux in the proximal thigh, great saphenous vein. Electronically signed by: Anirudh Bird MD 11/24/2024 09:29 AM [facility]
--- OUTSIDE RECORDS SUMMARY | 2024-11-23 15:37 | XMS_ITS | Encounter Summary ---
Author Organization [facility] Address [address] [place] [address] Care Team Providers Care Service Department Manager Name Role Phone Beni Valle MD Primary Care Provider +[phone] Derek Roche PA-C Unavailable [phone] Encounter Details Date Type Department Care Team [...] Info) Description 01/05/2025 2:00 PM EDT Appointment [facility] Heart & Vascular [place] at [facility] - Cardiology [address] [place] [address] Derek Roche PA-C [address] [place] [address] documented as of this encounter Visit Diagnoses Not on filedocumented in this encounter Care Teams Service Department Manager Relationship Specialty Start Date End Date Beni Valle MD [address] [place] [address] [place] [address] PCP - General Family Medicine 10/27/23 Derek Roche PA-C [address] [place] [address] Physician Sign Language Interpreter Cardiac Electrophysiology 03/23/24 documented as of this encounter
--- OUTSIDE RECORDS SUMMARY | 2024-11-23 15:37 | XMS_ITS | Clinical Summary ---
Author Organization [employer] Address [address] [place] [address] 7t [place] [address] Care Team Providers Care Banquet Kitchen Supervisor Name Role Phone Unavailable Primary Care [...]
--- OUTSIDE RECORDS SUMMARY | 2024-11-23 15:37 | XMS_ITS | Encounter Summary ---
Author Organization [facility] Address [address] [place] [address] Care Team Providers Care Commissions Analyst Name Role Phone Beni Valle MD Primary Care Provider +[phone]- [phone] Derek Roche PA-C Unavailable +1 [phone] Encounter Details Date Type Department Care Team (Late st Contact Info) Description 05/10/2024 Telephone [facility] Heart & Vascular [place] at [facility] - Electrophysiology Laboratory [address] [place] [address] Vanessa Waite MD [address] [place] [address] Social History Tobacco Use Types Packs/Day Years [...] higher dose of propanolol such as 20 snf but would increase slowly documented in this encounter Plan of Treatment Upcoming Encounters Date Type Department Care Team (Late st Contact Info) Description 01/05/2025 2:00 PM EDT Appointment [facility] Heart & Vascular [place] at [facility] - Cardiology [address] [place] [address] Derek Roche PA-C [address] [place] [address] documented as of this encounter Visit Diagnoses Diagnosis POTS (postural orthostatic tachycardia syndrome)- Primary Unspecified tachycardia documented in this encounter Care Teams Commissions Analyst Relationship Specialty Start Date End Date Beni Valle MD [address] [facility] [place] [address] PCP - General Family Medicine 10/27/23 Derek Roche PA-C [address] [place] [address] Physician Boom Cat Operator Cardiac Electrophysiology 03/23/24 documented as of this encounter
--- OUTSIDE RECORDS SUMMARY | 2024-11-23 15:37 | XMS_ITS | Encounter Summary ---
Author Organization [employer] Address [address] [address] 7t [place] [address] Care Team Providers Care Portrait Artist Name Role Phone Unavailable Primary Care Provider Unavailabl e Encounter Details Date Type Department Care Team (Late st Contact Info) Description 12/11/2022 Telephone [facility] ADULT DENTAL [address] [place] [address] Annalise Mix, BDS [address] [place] [address] Social History Tobacco Use Types Packs/Day Years [...]
--- OUTSIDE RECORDS SUMMARY | 2024-11-23 15:37 | XMS_ITS | Encounter Summary ---
Author Organization [employer] Address [address] 7t [place] [address] Care Team Providers Care Time Stamp Assembler Name Role Phone Unavailable Primary Care Provider Unavailabl e Encounter Details Date Type Department Care Team (Late st Contact Info) Description 07/09/2024 Telephone [facility] ADULT DENTAL [address] [place] [address] Annalise Mix, BDS [address] [place] [address] Social History Tobacco Use Types Packs/Day Years [...]
--- OUTSIDE RECORDS SUMMARY | 2024-11-23 15:37 | XMS_ITS | Encounter Summary ---
Author Organization [employer] Address [address] [place] [address] 7[place] [address] Care Team Providers Care Street Roller Engineer Name Role Phone Unavailable Primary Care Provider Unavailabl e Reason for Visit * Reason Comments Med Refill Encounter Details Date Type Department Care Team (Late st Contact Info) Description 05/19/[address] [facility] DENTAL [address] [place], [place] [phone] Annalise Mix, BDS [address] [place], [place] [phone] Social History Tobacco Use Types Packs/Day Years [...]
--- OUTSIDE RECORDS SUMMARY | 2024-11-23 15:37 | XMS_ITS | Encounter Summary ---
Author Organization [employer] Address [address] 7t [place] [address] Care Team Providers Care Subway Repair Supervisor Name Role Phone Unavailable Primary Care [...] patient that Dr. Doss is transitioning into [facility] again . Message would be sent to office. Encounter Details Date Type Department Care Team (Late st Contact Info) Description 09/25/2022 Telephone [facility] ADULT DENTAL [address] [place] [address] Annalise Mix, BDS [address] [place] [address] Appointment (Patient upset because states she has [...] patient that Dr. Doss is transitioning into [facility] again . Message would be [...] patient that Dr. Doss is transitioning into [facility] again . Message would be sent to office. documented in this encounter Plan of Treatment Not on file documented as of this encounter Visit Diagnoses Not on filedocumented in this encounter
--- OUTSIDE RECORDS SUMMARY | 2024-11-23 15:37 | XMS_ITS | Encounter Summary ---
Author Organization [employer] Address [address] [place] [address] 7t [place] [address] Care Team Providers Care Project Development Engineer Name Role Phone Unavailable Primary Care Provider Unavailabl e Reason for Visit * Reason Onset Date Comments medication 04/28/2024 Encounter Details Date Type Department Care Team ([facility] st Contact Info) Description 04/28/2024 Telephone [facility] ADULT DENTAL [address] [place], [place] [phone] Sumeet Anderson DMD [address] [place], [place] [phone] medication Social History Tobacco Use Types Packs/Day [...] be sent. Patient spoke to office at [facility] on Friday concerning script. Krystin and Dr [...]
--- OUTSIDE RECORDS SUMMARY | 2024-11-23 15:37 | XMS_ITS | Clinical Summary ---
Author Organization [facility] Address [address] [place] [address] Care Team Providers Care Adult Specialist Name Role Phone Beni Valle MD Primary Care Provider + [phone] Derek Roche PA-C Unavailable +[phone] Allergies Active Allergy Reactions Criticality Noted Date [...] Of Breath,Hives High 08/07/2009 Metronidazole Other (See Comments),Rash/[place] titis,Shortness Of Breath,Hives High 11/13/2009 Other reaction(s): O/E - respiratory distress Midodrine Rash/Dermatitis Low 01/20/2015 Morphine Shortness Of Breath,Bleeding (Non-Gastrointestina l),GI Bleeding,Other (See Comments),Rash/[place] titis High 02/09/2015 Other reaction(s): Bleeding Ondansetron [...] syndrome) 02/12/2012 Overview (03/23/2024): Dr Joseph in [place] SVT (supraventricular tachycardia) 02/12/2012 Overview (03/23/2024): Sees Dr Light and EP docs in [place] Vitamin D deficiency 05/23/2008 PFO (patent foramen ovale) 01/20/2008 Overview (03/23/2024): No tx unless it gets worse Encounters Date Type Department Care Team Description 10/26/2024 1:43 PM EST - 10/26/2024 11:59 PM EST Hospital Encounter [facility] Heart & Vascular [place] at [address] [phone] Derek Roche PA-C Follow-up Discharge Disposition: Home or Self Care 10/26/2024 Travel 09/15/2024 1:54 PM EST - 09/15/2024 11:59 PM EST Hospital Encounter [facility] Heart & Vascular [place] at [address] [phone] Derek Roche PA-C Follow-up Discharge Disposition: Home or Self Care 09/15/2024 Travel 09/08/2024 Orders Only [facility] Heart & Vascular [place] at [address] [phone] Derek Roche PA-C POTS (postural orthostatic tachycardia syndrome) (Primary Dx) 09/08/2024 Telephone [facility] Heart & Vascular [place] at [address], [place] [phone] Derek Roche PA-C from Last 3 Months [...] Info) Description 01/05/2025 2:00 PM EDT Appointment [facility] Heart & Vascular [place] at [address], [place] [phone] Derek Roche PA-C [address] [place] [address], [place] Health Maintenance Due Date Last Done Comments [...] age to complete this topic Care Teams Adult Specialist Relationship Specialty Start Date End Date Beni Valle MD [address] [place] [address] PCP - General Family Medicine 10/27/23 Derek Roche PA-C [address] [place] [address] Physician Dust Collector Cardiac Electrophysiology 03/23/24
--- OUTSIDE RECORDS SUMMARY | 2024-11-23 15:37 | XMS_ITS | Encounter Summary ---
Author Organization [employer] Address [address] [place] [address] 7t [place] [address] Care Team Providers Care Care Professionals Name Role Phone Unavailable Primary Care Provider Unavailabl e Reason for Visit * Reason Comments Med Refill Encounter Details Date Type Department Care Team (Late st Contact Info) Description 05/03/2024 Refill [facility] DENTAL [address] [place], [place] [phone] Annalise Mix, BDS [address] [place], [place] [phone] Social History Tobacco Use Types Packs/Day Years [...]
--- OUTSIDE RECORDS SUMMARY | 2024-11-23 15:37 | XMS_ITS | Encounter Summary ---
Author Organization [employer] Address [address] 7t [place] [address] Care Team Providers Care Videogame Tester Name Role Phone Unavailable Primary Care Provider Unavailabl e Encounter Details Date Type Department Care Team (Late st Contact Info) Description 11/20/2022 Orders Only [facility] DENTAL [address] [place] [address] [phone] Annalise Mix, BDS [address] [place], [place] [phone] Dental abscess (Primary Dx) Social History Tobacco [...]
--- OUTSIDE RECORDS SUMMARY | 2024-11-23 15:37 | XMS_ITS | Encounter Summary ---
Author Organization [employer] Address [address] [facility] 7[place] [address] Care Team Providers Care Fire Fighter Airport Name Role Phone Unavailable Primary Care Provider Unavailabl e Reason for Visit * Reason Onset Date Comments medical clearance 06/26/2023 Encounter Details Date Type Department Care Team (Late st Contact Info) Description 06/26/[address] [facility] DENTAL [address] [place] [address] VeSelam dhillon [address] [place] [address] medical clearance Social History Tobacco Use Types [...] - 06/26/2023 11:21 AM EDT Rylan from [facility] called in looking to facilitate treatment [...] be scheduled for treatment. Please fax to [phone] documented in this encounter Plan of Treatment Not on file documented as of this encounter Visit Diagnoses Not on filedocumented in this encounter
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
--- OUTSIDE RECORDS SUMMARY | 2024-11-23 15:37 | XMS_ITS | Encounter Summary ---
Author Organization [employer] Address [address] [facility] 7t [place] [address] Care Team Providers Care Hatchery Worker Name Role Phone Unavailable Primary Care Provider Unavailabl e Reason for Visit * Reason Onset Date Comments Appointment 01/24/2023 Encounter Details Date Type Department Care Team ([facility] st Contact Info) Description 01/24/2023 Telephone [facility] ADULT DENTAL [address] [place] [address] Sumeet Nascimento DMD [address] [place], [place] [phone] Appointment Social History Tobacco Use Types Packs/Day [...] 01/24/2023 and stated she needed medication from [facility] because she is starting to [...]
--- OUTSIDE RECORDS SUMMARY | 2024-11-23 15:37 | XMS_ITS | Encounter Summary ---
Author Organization [facility] Address [address] [place] [address] Care Team Providers Care Clerical Investigator Name Role Phone Beni Valle MD Primary Care Provider [phone] Derek Roche PA-C Unavailable + [phone] Reason for Visit * Reason Comments Follow-up Encounter Details Date Type Department Care Team (Latest Contact Info) Description 10/26/2024 1:43 PM EST - 10/26/2024 11:59 PM EST Hospital Encounter [facility] Heart & Vascular [place] at [facility] - Cardiology [address] [place] [address] Derek Roche PA-C [address] [place] [address] Follow-up Discharge Disposition: Home or Self Care [...] from the original note were not included. [facility] Cardiac Electrophysiology Office Visit Patient Name Cesilia Walker Date of 1980 Gender female Age 44 y.o. Encounter Date 10/26/2024 Mineral Ore Processing Labourer: Primary Care Physician: Beni Valle MD Referring [...] propranolol. 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 Jose Joseph dysautonomia specialist in [place] back in June 2020. She apparently underwent [...] recommended that she be seen by an library specialist as he felt she likely had [...] underwent vascular studies of lower extremities at [facility] and reports that they were negative. She [...] propranolol. ECG reveals SR at 80 bpm; NY 116 ms; QRS duration 76 ms. Short [place] without manifest preexcitation 30-day MCOT revealed sinus [...] by mouth 2 (two) times a day. Derke Roche PA-C Medical Compression Stockings Level of [...] 01/05/2025 2:00 PM EDT Appointment [facility] Heart & Vascular [place] at [facility] - Cardiology [address] [place] [address] Derek Roche PA-C [address] [place] [address] documented as of this encounter Visit Diagnoses Diagnosis POTS (postural orthostatic tachycardia syndrome)- Primary Unspecified tachycardia documented in this encounter Care Teams Clerical Investigator Relationship Specialty Start Date End Date Beni Valle MD [address] [place] [address] PCP - General Family Medicine 10/27/23 Derek Roche PA-C [address] [place] [address] Physician Partition Assembler Cardiac Electrophysiology 03/23/24 documented as of this encounter
--- OUTSIDE RECORDS SUMMARY | 2024-11-23 15:37 | XMS_ITS | Encounter Summary ---
Author Organization [facility] Address [address] [place] [address] Care Team Providers Care Living Manager Name Role Phone Beni Valle MD Primary Care Provider [phone] Derek Roche PA-C Unavailable [phone] Encounter Details Date Type Department Care Team ([facility] st Contact Info) Description 07/28/2024 Telephone [facility] Heart & Vascular [place] at [facility] - Cardiology [address] [place] [address] Derek Roche PA-C [address] [place] [address] Social History Tobacco Use Types Packs/Day Years [...] again. Please follow up with pt at [phone] documented in this encounter Plan of Treatment Upcoming Encounters Date Type Department Care Team (Late st Contact Info) Description 01/05/2025 2:00 PM EDT Appointment [facility] Heart & Vascular [place] at [facility] - Cardiology [address] [place] [address] Derek Roche PA-C [address] [place] [address] documented as of this encounter Visit Diagnoses Not on filedocumented in this encounter Care Teams Living Manager Relationship Specialty Start Date End Date Beni Valle MD [address] [facility] [place] [address] PCP - General Family Medicine 10/27/23 Derek Rcohe PA-C [address] [place] [address] Physician Telegraphic Instrument Supervisor Cardiac Electrophysiology 03/23/24 documented as of this encounter
== END 2024-11-23 12:52 | disposition home or self-care (01) ==
LOC: HO.US 12:51
PROVIDERS: PCP Nurse Practitioner Family; Visit Provider Nurse Practitioner Family
DX: R60.0 Localized edema (principal)
CPT/HCPCS: 93970

== ENCOUNTER → 2024-11-23 12:53 | Outpatient (BNV) | payer OTHER, SELFPAY | PROVIDERS: PCP Nurse Practitioner Family; Visit Provider Radiology Diagnostic Radiology | DX: I83.893 Varicose veins of bilateral lower extremities with other complications (principal) | CPT/HCPCS: 93970 ==

== ENCOUNTER 2024-11-26 16:15 | Outpatient (REF) | payer OTHER, SELFPAY ==
--- NOTE | ~2024-11-26 | MR_ITS ---
CLINICAL HISTORY: G93.0 - Cerebral cysts MR Brain without gadolinium Comparison: MR/REG - MRI BRAIN WITHOUT CONT [id number] - 04/24/20 10:34 EDT Findings: No restricted diffusion. No intracranial mass or hemorrhage. No midline shift. No hydrocephalus. Vascular flow voids are intact. Stable benign arachnoid cyst along the posterior medial right temporal-occipital region, axial 19. The orbits are normal. The sinuses and mastoid air cells are clear. No focal bone lesion. IMPRESSION: No acute findings. Stable benign arachnoid cyst. This document has been electronically signed by: Stephen Quintana MD on 11/29/2024 13:49:39
[2024-11-26 16:36] LABS: MANUAL DIFF FLAG NO
[2024-11-26 17:10] LABS: Basophils Absolute Auto 0.1 X10*3/uL (0.0-0.2); Basophils Percent Auto 0.7 % (0-2); Eosinophils Absolute Auto 0.5 X10*3/uL (0.0-0.4); Hematocrit 39.4 % (37.0-47.0); Hemoglobin 13.2 g/dl (12.0-16.0); Imm Gran Abs Auto 0.04 X10*3/uL (0.00-0.03); Imm Gran Pct Auto 0.5 % (0.0-0.4); Lymphocytes Absolute Auto 2.1 X10*3/uL (1.2-4.9); Lymphocytes Percent Auto 24.6 % (20-40); Mean Corpuscular HGB Conc 33.5 g/dl (31.0-35.0); Mean Corpuscular Hemoglobin 31.4 pg (27.0-33.0); Mean Corpuscular Volume 93.6 fL (80.0-98.0); Mean Platelet Volume 9.8 fL (9.4-12.3); Monocytes Absolute Auto 0.6 X10*3/uL (0.1-1.2); Monocytes Percent Auto 6.8 % (2-11); Neutrophils Absolute Auto 5.2 x10*3/uL (2.0-8.3); Neutrophils Percent Auto 61.4 % (45-73); Platelet Count 235 X10*3/uL (160-400); Red Blood Count 4.21 X10*6/uL (4.20-5.50); Red Cell Distribution Width 12.9 % (11.0-16.0); White Blood Count 8.5 X10*3/uL (4.8-10.8)
[2024-11-26 17:11] LABS: Appearance Urine Turbid; Color Urine Yellow; Glucose Urine UA Negative (Negative); Leukocyte Esterase Urine Small (1+) (Negative); Nitrite Urine Negative (Negative); PH 7.5 (5.0-9.0); Specific Gravity - Urine 1.015 (1.005-1.025); UMIC TRIGGER UACC YES; Urine Blood Small (1+) (Negative); Urine Ketones Negative (Negative); Urine Protein Trace mg/dL (Neg-Trace)
[2024-11-26 17:23] LABS: Bacteria Urine 3+ (None Seen); Hyaline Casts Urine 0-2 /LPF (0-2); UACC Culture Trigger YES
[2024-11-26 17:48] LABS: Alanine Aminotransferase 24 U/L (0-31); Albumin Level 4.1 g/dL (3.5-5.0); Alkaline Phosphatase 62 U/L (39-117); Anion Gap 11 (12-20); Aspartate Amino Transferase 21 U/L (5-31); Bilirubin Total 0.4 mg/dL (0.0-1.0); Blood Urea Nitrogen 10 mg/dL (9-16); Carbon Dioxide 26 mmol/L (22-29); Chloride 108 mmol/L (96-108); Cholesterol 208 mg/dL (<200); Estimated Glomerular Filt Rate > 60; Glucose Fasting 87 mg/dL (60-99); Glucose Random 87 mg/dL (60-115); HDL Cholesterol 55 mg/dL (>40); Iron 93 mcg/dL (30-160); LDL Cholesterol Calculated 103 mg/dL (<100); Magnesium 2.3 mg/dL (1.6-2.6); Percent Iron Saturation 27 % (15-50); Potassium 3.9 mmol/L (3.3-5.1); Sodium 141 mmol/L (135-145); Total Iron Binding Capacity 345 mcg/dL (228-428); Total Protein 7.5 g/dL (6.5-8.0); Triglycerides 250 mg/dL (<150); Unsaturated Iron Binding 252 ug/dL
[2024-11-26 17:57] LABS: Ferritin 30 ng/mL (10-250); TSH reflex Free T4 1.78 uIU/mL (0.32-4.0)
--- OUTSIDE RECORDS SUMMARY | 2024-11-26 17:57 | XMS_ITS | Encounter Summary ---
Author Organization [facility] Address [address] [place] [address] Care Team Providers Care Slitter Processed Film Name Role Phone Renée Soto MD Primary Care Provider Unavailable Beni Valle NP Primary Care Provider Unavail able Supirya Chase Md, MD Primary Care Provider Unavailable Encounter Details Date Type Department Care Team Description 11/22/2014 Telephone Adult [facility] - [address] [address] Renée Soto MD Social History Tobacco Use [...] on filedocumented in this encounter Care Teams Slitter Processed Film Relationship Specialty Start Date End Date Renée Soto MD PCP - General Internal Medicine 10/11/14 Beni Valle NP PCP - General Family Practice 05/26/15 12/31/18 Supriya Chase MD, MD PCP - General Internal Medicine 01/01/19 documented as of this encounter
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
--- OUTSIDE RECORDS SUMMARY | 2024-11-26 17:57 | XMS_ITS | Encounter Summary ---
Author Organization [facility] Address [address] [place] [address] Care Team Providers Care [place] Auditor Name Role Phone Renée Soto MD Primary Care Provider Unavailable Beni Valle NP Primary Care Provider Unavail able Supriya Chase Md, MD Primary Care Provider Unavailable Encounter Details Date Type Department Care Team Description 03/28/2015 Cover Inspector Report Medical Records [address] [place] [address] Xiomy Light Social History Tobacco Use Types [...] on filedocumented in this encounter Care Teams [place] Auditor Relationship Specialty Start Date End Date Renée Soto MD PCP - General Internal Medicine 10/11/14 Beni Valle NP PCP - General Family Practice 05/26/15 12/31/18 Supriya Chase MD, MD PCP - General Internal Medicine 01/01/19 documented as of this encounter
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
--- OUTSIDE RECORDS SUMMARY | 2024-11-26 17:57 | XMS_ITS | Encounter Summary ---
Author Organization [employer] Address [address] 7[address] [place] [address] Care Team Providers Care Pharmaceutical Plant Operator Name Role Phone Unavailable Primary Care Provider Unavailabl e Encounter Details Date Type Department Care Team (Late st Contact Info) Description 07/09/2024 Telephone [facility] ADULT DENTAL [address] [place] [address] Annalise Mix, BDS [address] [place] [address] Social History Tobacco Use Types Packs/Day Years [...]
--- OUTSIDE RECORDS SUMMARY | 2024-11-26 17:57 | XMS_ITS ---
Author Organization [facility] Address [address] [place] [address] Care Team Providers Care Toll Collector Name Role Phone JUSTINEVELYN MITCHELL Primary Care Provider Humberto De Oliveira Jr, Desmond Unavailable REASON FOR VISIT patient presents today for lump in rectum Encounters Encounter Location Date Provider Diagnosis [facility] [address] [place] [phone] 12/15/2023 Desmond De Oliveira Jr PLAN OF TREATMENT No Information
--- OUTSIDE RECORDS SUMMARY | 2024-11-26 17:57 | XMS_ITS | Encounter Summary ---
Author Organization [facility] Address [address] [place] [address] Care Team Providers Care Intranet Specialist Name Role Phone Renée Soto MD Primary Care Provider Unavailable Beni Valle NP Primary Care Provider Unavail able Supriya Chase Md, MD Primary Care Provider Unavailable Reason for Visit * Reason Onset Date Comments medication problems 04/09/2015 Encounter Details Date Type Department Care Team Description 04/09/2015 Telephone Adult Medicine - [address] [address] Renée Soto MD medication problems Social History Tobacco Use Types Packs/Day Years Used Date Smoking Tobacco: Never Smokeless Tobacco: Never Alcohol Use Standard Drinks/Week Comments No 0 (1 standard drink = 0.6 oz pur e alcohol) Sex Assigned at Date Recorded Not on file documented as of this encounter Miscellaneous Notes * Telephone Encounter - Reéne Soto MD - 04/10/2015 8:19 AM EDT [...] on filedocumented in this encounter Care Teams Intranet Specialist Relationship Specialty Start Date End Date [place]-Renée Damon MD PCP - General Internal Medicine 10/11/14 Beni Valle NP PCP - General Family Practice 05/26/15 12/31/18 Supriya Chase MD, MD PCP - General Internal Medicine 01/01/19 documented as of this encounter
--- OUTSIDE RECORDS SUMMARY | 2024-11-26 17:57 | XMS_ITS | Encounter Summary ---
Author Organization [facility] Address [address] [place] [address] Care Team Providers Care Sensitizer Name Role Phone Renée Soto MD Primary Care Provider Unavailable Beni Valle NP Primary Care Provider Unavail able Supriya Chase Md, MD Primary Care Provider Unavailable Encounter Details Date Type Department Care Team Description 11/07/2014 Manager Subway Report Medical Records [address] [place] [address] Laurita Isaacs PA-C Social History Tobacco Use [...] on filedocumented in this encounter Care Teams Sensitizer Relationship Specialty Start Date End Date Renée Soto MD PCP - General Internal Medicine 10/11/14 Beni Valle NP PCP - General Family Practice 05/26/15 12/31/18 Supriya Chase MD, PCP - General Internal Medicine 01/01/19 documented as of this encounter
--- OUTSIDE RECORDS SUMMARY | 2024-11-26 17:57 | XMS_ITS | Encounter Summary ---
Author Organization [facility] Address [address] [place] [address] Care Team Providers Care Spar Machine Operator Name Role Phone Wilbert Fermin Primary Care Provider UnaRenée Akhtar MD Primary Care Provider Unavailable Beni Valle NP Primary Care Provider Unavail able Supriya Chase Md, MD Primary Care Provider Unavailable Encounter Details Date Type Department Care Team Description 08/18/2014 Transfer Records Medical Records [address] [place] [address] Abstract, Provider Social History Tobacco Use Types [...] on filedocumented in this encounter Care Teams Spar Machine Operator Relationship Specialty Start Date End Date Wilbert Fermin PCP - General Internal Medicine 09/13/11 10/10/14 Renée Soto MD PCP - General Internal Medicine 10/11/14 Beni Valle NP PCP - General Family Practice 05/26/15 12/31/18 Spuriya Chase MD, MD PCP - General Internal Medicine 01/01/19 documented as of this encounter
--- OUTSIDE RECORDS SUMMARY | 2024-11-26 17:57 | XMS_ITS | Encounter Summary ---
Author Organization [employer] Address [address] [facility] [address] [place] [address] Care Team Providers Care Liner Machine Operator Helper Name Role Phone Unavailable Primary Care Provider Unavailabl e Reason for Visit * Reason Onset Date Comments medical clearance 06/26/2023 Encounter Details Date Type Department Care Team (Late st Contact Info) Description 06/26/2023 Telephone [facility] DENTAL [address] [place] [address] VeSelam dhillon [address] [place] [address] medical clearance Social History Tobacco Use Types [...] - 06/26/2023 11:21 AM EDT Rylan from [facility] called in looking to facilitate [...] be scheduled for treatment. Please fax to [phone] documented in this encounter Plan of Treatment Not on file documented as of this encounter Visit Diagnoses Not on filedocumented in this encounter
--- OUTSIDE RECORDS SUMMARY | 2024-11-26 17:57 | XMS_ITS | Encounter Summary ---
Author Organization [facility] Address [address] [place] [address] Care Team Providers Care Day Light Relief Operator Name Role Phone Renée Soto MD Primary Care Provider Unavailable Beni Valle NP Primary Care Provider Unavail able Supriya Chase Md, MD Primary Care Provider Unavailable Encounter Details Date Type Department Care Team Description 12/26/2014 Transfer Records Medical Records [address] [place] [id number] Lori Jorge NP Social History Tobacco Use [...] on filedocumented in this encounter Care Teams Day Light Relief Operator Relationship Specialty Start Date End Date Renée Soto MD PCP - General Internal Medicine 10/11/14 Beni Valle NP PCP - General Family Practice 05/26/15 12/31/18 Supriya Chase MD, MD PCP - General Internal Medicine 01/01/19 documented as of this encounter
--- OUTSIDE RECORDS SUMMARY | 2024-11-26 17:57 | XMS_ITS | Encounter Summary ---
Author Organization [employer] Address [address] [facility] [address] [address] [place] [address] Care Team Providers Care Entry Level Installation Technician Name Role Phone Unavailable Primary Care Provider Unavailabl e Encounter Details Date Type Department Care Team (Late st Contact Info) Description 11/20/2022 Orders Only [facility] [address] [place] [phone] Annalise Mix, BDS [address] [place], [place] [phone] Dental abscess (Primary Dx) Social History Tobacco [...]
--- OUTSIDE RECORDS SUMMARY | 2024-11-26 17:57 | XMS_ITS | Encounter Summary ---
Author Organization [employer] Address [address] [place] [address] 7t [place] [address] Care Team Providers Care Power Bender Operator Name Role Phone Unavailable Primary Care Provider Unavailabl e Reason for Visit * Reason Onset Date Comments medication 04/28/2024 Encounter Details Date Type Department Care Team ([facility] st Contact Info) Description 04/28/2024 Telephone [facility] ADULT DENTAL [address] [place], [place] [phone] Sumeet Anderson DMD [address] [place], [place] [phone] medication Social History Tobacco Use Types Packs/Day [...] be sent. Patient spoke to office at [facility] on Friday concerning script. Krystin and [...]
--- OUTSIDE RECORDS SUMMARY | 2024-11-26 17:57 | XMS_ITS | Encounter Summary ---
Author Organization [facility] Address [address] [place] [address] Care Team Providers Care Net Programmer Name Role Phone Renée Soto MD Primary Care Provider Unavailable Beni Valle NP Primary Care Provider Unavail able Supriya Chase Md, MD Primary Care Provider Unavailable Encounter Details Date Type Department Care Team Description 11/15/2014 IMPLEMENTATION TECHNICIAN/MassPat Report Medical Records [address] [place] [id number] Abstract, Provider Social History Tobacco Use Types [...] on filedocumented in this encounter Care Teams Net Programmer Relationship Specialty Start Date End Date Renée Soto MD PCP - General Internal Medicine 10/11/14 Beni Valle NP PCP - General Family Practice 05/26/15 12/31/18 Supriya Chase MD, MD PCP - General Internal Medicine 01/01/19 documented as of this encounter
--- OUTSIDE RECORDS SUMMARY | 2024-11-26 17:57 | XMS_ITS ---
Author Organization [facility] Address [address] [place] [address] Care Team Providers Care Workforce Services Representative Name Role Phone MITCHELL BOND Primary Care Provider Desmond Francisco Jr Unavailable REASON FOR VISIT cancel appt Encounters Encounter Location Date Provider Diagnosis [facility] [address] [place] [address] 12/15/2023 Desmond De Oliveira Jr PLAN OF TREATMENT No Information
--- OUTSIDE RECORDS SUMMARY | 2024-11-26 17:57 | XMS_ITS | Patient Health Record ---
Author Organization [facility] Address [address] [place] [address] Care Team Providers Care Music Therapist [employer] Name Role Phone JUSTINMITCHELL RIVAS Primary Care Provider Desmond Francisco Jr Unavailable REASON FOR REFERRAL No Information SOCIAL HISTORY Sex Assigned At : Social History Observation Description Sex Assigned At Unknown Encounters Encounter Location Date Provider Diagnosis [facility] [address] [place] [phone] 12/15/2023 Desmond De Oliveira Jr [facility] [address] [place] [phone] 12/15/2023 Desmond De Oliveira Jr PLAN OF TREATMENT No Information Insurance Providers Payer Name Payer Address Payer Phone Subscriber Number Group Number Insured Name Patient Relationship to Insured Coverage Start Date Coverage End Date [facility] [address] [address] [place], [place] [id number] LYNN DONNELLY Self - patient is the insured
--- OUTSIDE RECORDS SUMMARY | 2024-11-26 17:57 | XMS_ITS | Encounter Summary ---
Author Organization [facility] Address [address] [place] [address] Care Team Providers Care Carpet Loom Fixer Name Role Phone Beni Valle MD Primary Care Provider [phone] Derek Roche PA-C Unavailable [phone] Encounter Details Date Type Department Care Team ([facility] st Contact Info) Description 07/28/2024 Telephone [facility] Heart & Vascular [place] at [facility] - Cardiology [address] [place] [address] Derek Roche PA-C [address] [place] [address] Social History Tobacco Use Types Packs/Day Years [...] again. Please follow up with pt at [phone] documented in this encounter Plan of Treatment Upcoming Encounters Date Type Department Care Team (Late st Contact Info) Description 01/05/2025 2:00 PM EDT Appointment [facility] [place] [facility] - Cardiology [address] [place] [address] Derek Roche PA-C [address] [place] [address] documented as of this encounter Visit Diagnoses Not on filedocumented in this encounter Care Teams Carpet Loom Fixer Relationship Specialty Start Date End Date Beni Valle MD [address] [facility] [place] [address] PCP - General Family Medicine 10/27/23 Derek Roche PA-C [address] [place] [address] Physician Director Distribution Cardiac Electrophysiology 03/23/24 documented as of this encounter
--- OUTSIDE RECORDS SUMMARY | 2024-11-26 17:57 | XMS_ITS | Encounter Summary ---
Author Organization [employer] Address [address] 7[address] [place] [address] Care Team Providers Care Dope House Operator Helper Name Role Phone Unavailable Primary Care Provider Unavailabl e Encounter Details Date Type Department Care Team (Late st Contact Info) Description 12/11/2022 Telephone [facility] ADULT DENTAL [address] [place] [address] Annalise Mix, BDS [address] [place] [address] Social History Tobacco Use Types Packs/Day Years [...]
--- OUTSIDE RECORDS SUMMARY | 2024-11-26 17:57 | XMS_ITS | Encounter Summary ---
Author Organization [facility] Address [address] [place] [address] Care Team Providers Care Cutting Supervisor Name Role Phone Wilbert Fermin Primary Care Provider Unava Renée Marion MD Primary Care Provider Unavailable Beni Valle NP Primary Care Provider Unavail able Supriya Chase Md, MD Primary Care Provider Unavailable Encounter Details Date Type Department Care Team Description 04/05/2014 Concrete Foreman Report Medical Records [address] [place] [address] Sonny Jones MD Social History Tobacco Use [...] on filedocumented in this encounter Care Teams Cutting Supervisor Relationship Specialty Start Date End Date Wilbert Fermin PCP - General Internal Medicine 09/13/11 10/10/14 Renée Soto MD PCP - General Internal Medicine 10/11/14 Beni Valle NP PCP - General Family Practice 05/26/15 12/31/18 Supriya Chase MD, MD PCP - General Internal Medicine 01/01/19 documented as of this encounter
--- OUTSIDE RECORDS SUMMARY | 2024-11-26 17:57 | XMS_ITS | Encounter Summary ---
Author Organization [facility] Address [address] [place] [address] Care Team Providers Care Clicking Machine Operator Name Role Phone Supriya Chase Md, MD Primary Care Provider Unavailable Reason for Visit * Reason Onset Date Comments Medication 11/02/2020 Encounter Details Date Type Department Care Team Description 11/02/2020 Telephone Pulmonology - [place] [address] [facility] [address] [place] [address] Beata Bernard MD [address] [place] [address] Medication Social History Tobacco Use [...] on filedocumented in this encounter Care Teams Clicking Machine Operator Relationship Specialty Start Date End Date Supriya Chase MD, MD PCP - General Internal Medicine 01/01/19 documented as of this encounter
--- OUTSIDE RECORDS SUMMARY | 2024-11-26 17:57 | XMS_ITS | Encounter Summary ---
Author Organization [facility] Address [address] [place] [address] Care Team Providers Care Software Engineering Associate Manager Name Role Phone Renée Soto MD Primary Care Provider Unavailable Beni Valle NP Primary Care Provider Unavail able Supriya Chase Md, MD Primary Care Provider Unavailable Encounter Details Date Type Department Care Team Description 05/25/2015 COMIC BOOK ARTIST/MassPat Report Medical Records [address] [place] [address] Abstract, Provider Social History Tobacco Use Types [...] filedocumented in this encounter Care Teams Software Engineering Associate Manager Relationship Specialty Start Date End Date Renée Soto MD PCP - General Internal Medicine 10/11/14 Beni Valle NP PCP - General Family Practice 05/26/15 12/31/18 Supriya Chase MD, MD PCP - General Internal Medicine 01/01/19 documented as of this encounter
--- OUTSIDE RECORDS SUMMARY | 2024-11-26 17:57 | XMS_ITS | Encounter Summary ---
Author Organization [employer] Address [address] [place] [address] [address] [place] [address] Care Team Providers Care Sales Merchandising Specialist Name Role Phone Unavailable Primary Care Provider Unavailabl e Reason for Visit * Reason Comments Med Refill Encounter Details Date Type Department Care Team (Late st Contact Info) Description 05/19/2024 Refill [facility] DENTAL [address] [place], [place] [phone] Annalise Mix, BDS [address] [place], [place] [phone] Social History Tobacco Use Types Packs/Day Years [...]
--- OUTSIDE RECORDS SUMMARY | 2024-11-26 17:57 | XMS_ITS | Encounter Summary ---
Author Organization [facility] Address [address] [place] [address] Care Team Providers Care Push Connector Assembler Name Role Phone Supriya Chase Md, MD Primary Care Provider Unavailable Reason for Visit * Reason Onset Date Comments hospital follow up 07/30/2024 Encounter Details Date Type Department Care Team Description 07/30/2024 Telephone Pulmonology - [place] 175 [facility] [address] [place] [address] Beata Bernard MD [address] [place] [address] hospital follow up Social History [...] appointment needed Hospital patient was treated at: [facility] Was this only an ER visit [...] on filedocumented in this encounter Care Teams Push Connector Assembler Relationship Specialty Start Date End Date Supriya Chase MD, MD PCP - General Internal Medicine 01/01/19 documented as of this encounter
--- OUTSIDE RECORDS SUMMARY | 2024-11-26 17:57 | XMS_ITS | Encounter Summary ---
Author Organization [facility] Address [address] [place] [address] Care Team Providers Care Hvac Operations Technician Name Role Phone Beni Valle MD Primary Care Provider [phone] Derek Roche PA-C Unavailable + [phone] Reason for Visit * Reason Comments Follow-up Encounter Details Date Type Department Care Team (Latest Contact Info) Description 10/26/2024 1:43 PM EST - 10/26/2024 11:59 PM EST Hospital Encounter [facility] Heart & Vascular [place] at [facility] - Cardiology [address] [place] [address] Derek Roche PA-C [address] [place] [address] Follow-up Discharge Disposition: Home or Self Care [...] from the original note were not included. [facility] Cardiac Electrophysiology Office Visit Patient Name Cesilia Walker Date of 1980 Gender female Age 44 y.o. Encounter Date 10/26/2024 Cold Header Operator: Primary Care Physician: Beni Valle MD [...] propranolol. She also reports that shedrools to [place] and even though she stopped every 3-4 [...] IBS (Crohn's), [place] Ledesma syndrome (short OR), SVT (unclear burden), PFO, and mast cell [...] Dr. Jose Joseph dysautonomia specialist in [place] back in June 2020. She apparently underwent [...] recommended that she be seen by an zinc plate grainer as he felt she likely had mast [...] underwent vascular studies of lower extremities at [facility] and reports that they were negative. [...] propranolol. ECG reveals SR at 80 bpm; OR 116 ms; QRS duration 76 ms. Short OR without manifest preexcitation 30-day MCOT revealed sinus [...] [facility] [place] at [facility] - Cardiology [address] [place] [address] Derek Roche PA-C [address] [place] [address] documented as of this encounter Visit Diagnoses Diagnosis POTS (postural orthostatic tachycardia syndrome)- Primary Unspecified tachycardia documented in this encounter Care Teams Hvac Operations Technician Relationship Specialty Start Date End Date Beni Valle MD [address] [place] [address] PCP - General Family Medicine 10/27/23 Derek Roche PA-C [address] [place] [address] Physician Shank Piece Tacker Cardiac Electrophysiology 03/23/24 documented as of this encounter
--- OUTSIDE RECORDS SUMMARY | 2024-11-26 17:57 | XMS_ITS | Encounter Summary ---
Author Organization [facility] Address [address] [place] [address] Care Team Providers Care Certified Medical Asst Name Role Phone Supriya Chase Md, MD Primary Care Provider Unavailable Reason for Visit * Reason Comments E-prescribe Rx Request Encounter Details Date Type Department Care Team Description 11/14/2021 Refill Pulmonology - [place] 175 [facility] [address] [place] [address] Beata Bernard MD [address] [place] [address] E-prescribe Rx Request Social History [...] N/A Patients current insurance carrier is: Payor: [employer] / Plan: [employer] / Product Type: MEDICAID RISK documented in this encounter Plan of Treatment Not on file documented as of this encounter Visit Diagnoses Not on filedocumented in this encounter Care Teams Certified Medical Asst Relationship Specialty Start Date End Date Supriya Cahse MD, MD PCP - General Internal Medicine 01/01/19 documented as of this encounter
--- OUTSIDE RECORDS SUMMARY | 2024-11-26 17:57 | XMS_ITS | Encounter Summary ---
Author Organization [employer] Address [address] [place] [address] 7t [place] [address] Care Team Providers Care Glass Science Engineer Name Role Phone Unavailable Primary Care Provider Unavailabl e Reason for Visit * Reason Comments Med Refill Encounter Details Date Type Department Care Team (Late st Contact Info) Description 05/03/2024 Refill [facility] DENTAL [address] [place], [place] [phone] Annalise Mix, BDS [address] [place], [place] [phone] Social History Tobacco Use Types Packs/Day Years [...]
--- OUTSIDE RECORDS SUMMARY | 2024-11-26 17:57 | XMS_ITS | Encounter Summary ---
Author Organization [employer] Address [address] 7t [place] [address] Care Team Providers Care Magnetic Testing Technician Name Role Phone Unavailable Primary Care [...] patient that Dr. Doss is transitioning into [facility] again . Message would be sent to office. Encounter Details Date Type Department Care Team (Late st Contact Info) Description 09/25/2022 Telephone [facility] ADULT DENTAL [address] [place] [address] Annalise Mix, BDS [address] [place] [address] Appointment (Patient upset because states she has [...] patient that Dr. Doss is transitioning into [facility] again . Message would be sent [...] patient that Dr. Doss is transitioning into [facility] again . Message would be sent to office. documented in this encounter Plan of Treatment Not on file documented as of this encounter Visit Diagnoses Not on filedocumented in this encounter
--- OUTSIDE RECORDS SUMMARY | 2024-11-26 17:57 | XMS_ITS | Encounter Summary ---
Author Organization [facility] Address [address] [place] [address] Care Team Providers Care Education Officer Name Role Phone Beni Valle MD Primary Care Provider [phone] Derek Roche PA-C Unavailable [phone] Encounter Details Date Type Department Care Team (Late st Contact Info) Description 05/10/[address] [facility] Heart & Vascular [place] [facility] - Electrophysiology Laboratory [address] [place] [address] Vanessa Waite MD [address] [place] [address] Social History Tobacco Use Types Packs/Day Years [...] dose of propanolol such as 20 senior care but would increase slowly documented in this encounter Plan of Treatment Upcoming Encounters Date Type Department Care Team (Late st Contact Info) Description 01/05/2025 2:00 PM EDT Appointment [facility] Heart & [place]ascular [place] at [facility] - Cardiology [address] [place] [address] Derek Roche PA-C [address] [place] [address] documented as of this encounter Visit Diagnoses Diagnosis POTS (postural orthostatic tachycardia syndrome)- Primary Unspecified tachycardia documented in this encounter Care Teams Education Officer Relationship Specialty Start Date End Date Beni Valle MD [address] [facility] [place] [address] PCP - General Family Medicine 10/27/23 Derek Roche PA-C [address] [place] [address] Physician Seasoner Cardiac Electrophysiology 03/23/24 documented as of this encounter
--- OUTSIDE RECORDS SUMMARY | 2024-11-26 17:57 | XMS_ITS | Encounter Summary ---
Author Organization [employer] Address [address] [facility] 7t [place] [address] Care Team Providers Care Glue Sprayer Name Role Phone Unavailable Primary Care Provider Unavailabl e Reason for Visit * Reason Onset Date Comments Appointment 01/24/2023 Encounter Details Date Type Department Care Team ([facility] st Contact Info) Description 01/24/2023 Telephone [facility] ADULT DENTAL [address] [place] [address] Sumeet Nascimento DMD [address] [place], [place] [phone] Appointment Social History Tobacco Use Types Packs/Day [...] 01/24/2023 and stated she needed medication from [facility] because she is starting to get [...]
--- OUTSIDE RECORDS SUMMARY | 2024-11-26 17:57 | XMS_ITS | Clinical Summary ---
Author Organization [employer] Address [address] [place] [address] 7t [place] [address] Care Team Providers Care Home Theater Specialist Name Role Phone Unavailable Primary Care [...]
--- OUTSIDE RECORDS SUMMARY | 2024-11-26 17:57 | XMS_ITS | Clinical Summary ---
Author Organization [facility] Address [address] [place] [address] Care Team Providers Care Ticket Writer Name Role Phone Beni Valle MD Primary Care Provider + [phone] Derek Roche PA-C Unavailable +[phone] Allergies Active Allergy Reactions Criticality Noted Date [...] Of Breath,Hives High 08/07/2009 Metronidazole Other (See Comments),Rash/[place] titis,Shortness Of Breath,Hives High 11/13/2009 Other reaction(s): O/E - respiratory distress Midodrine Rash/Dermatitis Low 01/20/2015 Morphine Shortness Of Breath,Bleeding (Non-Gastrointestina l),GI Bleeding,Other (See Comments),Rash/[place] titis High 02/09/2015 Other reaction(s): Bleeding Ondansetron [...] syndrome) 02/12/2012 Overview (03/23/2024): Dr Joseph in [place] SVT (supraventricular tachycardia) 02/12/2012 Overview (03/23/2024): Sees Dr Light and EP docs in [place] Vitamin D deficiency 05/23/2008 PFO (patent foramen ovale) 01/20/2008 Overview (03/23/2024): No tx unless it gets worse Encounters Date Type Department Care Team Description 10/26/2024 1:43 PM EST - 10/26/2024 11:59 PM EST Hospital Encounter [facility] Heart & Vascular [place] at [address] [phone] Derek Roche PA-C Follow-up Discharge Disposition: Home or Self Care 10/26/2024 Travel 09/15/2024 1:54 PM EST - 09/15/2024 11:59 PM EST Hospital Encounter [facility] Heart & [place] at [address] [phone] Derek Roche PA-C Follow-up Discharge Disposition: Home or Self Care 09/15/2024 Travel 09/08/2024 Orders Only [facility] Heart & [facility] [place] at [address] [phone] Derek Roche PA-C POTS (postural orthostatic tachycardia syndrome) (Primary Dx) 09/08/2024 Telephone [facility] Heart & [place] at [address], [place] [phone] Derek Roche PA-C from Last 3 Months [...] Info) Description 01/05/2025 2:00 PM EDT Appointment [facility] Heart & [place] at [address], [place] [phone] Derek Roche PA-C [address] [place] [address], [place] Health Maintenance Due Date Last Done Comments [...] age to complete this topic Care Teams Ticket Writer Relationship Specialty Start Date End Date Beni Valle MD [address] [place] [address] PCP - General Family Medicine 10/27/23 Derek Roche PA-C [address] [place] [address] Physician Employment Service Specialist Cardiac Electrophysiology 03/23/24
--- OUTSIDE RECORDS SUMMARY | 2024-11-26 17:57 | XMS_ITS | Encounter Summary ---
Author Organization [facility] Address [address] [place] [address] Care Team Providers Care Supervisor Delivery Department Name Role Phone Supriya Chase Md, MD Primary Care Provider Unavailable Reason for Visit * Reason Onset Date Comments DME Request 11/18/2019 nebulizer suppli es Encounter Details Date Type Department Care Team Description 11/18/2019 Telephone Pulmonology - [place] 175 [facility] [address] [place] [phone] Beata Bernard MD [address] [place] [address] DME Request (nebulizer supplies) Social [...] PM EST I faxed this order to [facility]. * Telephone Encounter - Beata Bernard MD [...] Specific information about product tubing for nebulizer ([employer] nebulizer compressor nebulizer system) # Needed 1 [...] Primary documented in this encounter Care Teams Supervisor Delivery Department Relationship Specialty Start Date End Date Supriya Chase MD, MD PCP - General Internal Medicine 01/01/19 documented as of this encounter
--- OUTSIDE RECORDS SUMMARY | 2024-11-26 17:57 | XMS_ITS | Encounter Summary ---
Author Organization [facility] Address [address] [place] [address] Care Team Providers Care Corporate Driver Name Role Phone Renée Soto MD Primary Care Provider Unavailable Beni Valle NP Primary Care Provider Unavail able Supriya Chase Md, MD Primary Care Provider Unavailable Encounter Details Date Type Department Care Team Description 03/24/2015 Tile Setter Supervisor Report Medical Records [address] [place] [address] Robert Haque MD Social History Tobacco Use [...] on filedocumented in this encounter Care Teams Corporate Driver Relationship Specialty Start Date End Date Renée Soto MD PCP - General Internal Medicine 10/11/14 Beni Valle NP PCP - General Family Practice 05/26/15 12/31/18 Supriya Chase MD, MD PCP - General Internal Medicine 01/01/19 documented as of this encounter
--- OUTSIDE RECORDS SUMMARY | 2024-11-26 17:57 | XMS_ITS | Encounter Summary ---
Author Organization [facility] Address [address] [place] [address] Care Team Providers Care Transmission And Protection Engineer Name Role Phone Wilbert Fermin Primary Care Provider Renée Harding MD Primary Care Provider Unavailable Beni Valle NP Primary Care Provider Unavail Supriya Miranda Md, MD Primary Care Provider Unavailable Reason for Visit * Reason Onset Date Comments Information Needed 01/26/2014 Encounter Details Date Type Department Care Team Description 01/26/2014 Telephone OBGYN - [place] [address] [place] [address] Talia Gonzalez CNM [address] [place] [address] Information Needed Social History Tobacco [...] on filedocumented in this encounter Care Teams Transmission And Protection Engineer Relationship Specialty Start Date End Date Wilbert Fermin PCP - General Internal Medicine 09/13/11 10/10/14 Renée Soto MD PCP - General Internal Medicine 10/11/14 Beni Valle NP PCP - General Family Practice 05/26/15 12/31/18 Supriya Chase MD, MD PCP - General Internal Medicine 01/01/19 documented as of this encounter
--- OUTSIDE RECORDS SUMMARY | 2024-11-26 17:57 | XMS_ITS | Encounter Summary ---
Author Organization [facility] Address [address] [place] [address] Care Team Providers Care Aircraft Launch And Recovery Technician Name Role Phone Renée Soto MD Primary Care Provider Unavailable Beni Valle NP Primary Care Provider Unavail able Supriya Chase Md, MD Primary Care Provider Unavailable Encounter Details Date Type Department Care Team Description 01/16/2015 Release of Information Medical Records [address] [place] [id number] Abstract, Provider Social History Tobacco Use Types [...] on filedocumented in this encounter Care Teams Aircraft Launch And Recovery Technician Relationship Specialty Start Date End Date Renée Soto MD PCP - General Internal Medicine 10/11/14 Beni Valle NP PCP - General Family Practice 05/26/15 12/31/18 Supriya Chase MD, MD PCP - General Internal Medicine 01/01/19 documented as of this encounter
[2024-11-26 18:11] LABS: Folate 6.2 ng/mL (> or = 4.0); Vitamin B12 319 pg/mL (200-900)
== END 2024-11-26 16:16 | disposition home or self-care (01) ==
LOC: HO.MRI 16:15
PROVIDERS: PCP Nurse Practitioner Family; Visit Provider Nurse Practitioner Family
DX: I49.8 Other specified cardiac arrhythmias (principal); G93.0 Cerebral cysts; M62.838 Other muscle spasm; Z00.00 Encounter for general adult medical examination without abnormal findings
CPT/HCPCS: 36415; 70551; 80053; 80061; 81001; 82550; 82607; 82728; 82746; 83540; 83735; 84443; 85025; 87086

== ENCOUNTER → 2024-11-26 18:14 | Outpatient (BNV) | payer OTHER, SELFPAY | PROVIDERS: PCP Nurse Practitioner Family; Visit Provider Radiology Vascular & Interventional Radiology | DX: G93.0 Cerebral cysts (principal) | CPT/HCPCS: 70551 ==

== ENCOUNTER 2024-12-15 06:56 | Outpatient (AMB) | payer OTHER, SELFPAY ==
--- NOTE | 2024-12-15 07:41 | MHC.PC.OV ---
Intake Visit Reasons: F/H-vrqq-sjtatmaaqo Allergies doxycycline [DOXYCYCLINE] Allergy (Severe, Verified 12/15/24 07:43) RASH, GI Upset levofloxacin [From LEVAQUIN] Allergy (Severe, Verified 12/15/24 07:43) RASH metronidazole [From FLAGYL] Allergy (Severe, Verified 12/15/24 07:43) ANAPHYLAXIS morphine [MORPHINE] Allergy (Severe, Verified 12/15/24 07:43) ANAPHYLAXIS, cant breathe, SOB Sulfa (Sulfonamide Antibiotics) [SULFA (SULFONAMIDE ANTIBIOTICS)] Allergy (Severe, Verified 12/15/24 07:43) STOP BREATHING, rash/cant breathe adhesive [ADHESIVE] Allergy (Intermediate, Verified 12/15/24 07:43) RASH clindamycin [CLINDAMYCIN] Allergy (Intermediate, Verified 12/15/24 07:43) RASH Iodinated Contrast Media [IV CONTRAST] Allergy (Intermediate, Verified 12/15/24 07:43) ANAPHALAXIS latex [LATEX] Allergy (Intermediate, Verified 12/15/24 07:43) RASH ciprofloxacin [Cipro] Allergy (Unknown, Verified 12/15/24 07:43) unknown fludrocortisone Allergy (Unknown, Verified 12/15/24 07:43) Unknown hydromorphone [Dilaudid] Allergy (Unknown, Verified 12/15/24 07:43) Unknown ALL CONTRAST DYE Allergy (Unknown, Uncoded 12/15/24 07:43) Unknown Cortisone Allergy (Unknown, Uncoded 12/15/24 07:43) unknown IVP Dye Allergy (Unknown, Uncoded 12/15/24 07:43) Unknown Midodrine HCl Allergy (Unknown, Uncoded 12/15/24 07:43) Unknown Medication List - Last Reconciled 12/15/24 by Beni Valle, [facility]- albuterol sulfate 90 mcg/actuation (Ventolin HFA) 2 puffs inhalation Q4-6H PRN betamethasone dipropionate 0.05% 1 appl topical DAILY PRN cholecalciferol (vitamin D3) 50 mcg PO DAILY ipratropium bromide 17 mcg/actuation (Atrovent HFA) inhalation levalbuterol tartrate 45 mcg/actuation 2 puffs inhalation Q4-6H lidocaine 5% 1 patch topical DAILY 30 days lorazepam 0.5 mg PO BEDTIME PRN 20 days magnesium oxide 400 mg PO BEDTIME meclizine 12.5 mg PO BID PRN 20 days [Normal Saline 0.9% 2 L continuous IV infusion 3XW 52 weeks] propranolol mg PO 3XD riboflavin (vitamin B2) 400 mg PO DAILY scopolamine base 1 patch transdermal Q3D PRN vitamin B complex 1 tab PO DAILY Tobacco use date assessed: 11/16/24 Dental Screening Dental Screen Date: 11/16/24 HPI F/K-ldne-uhimiefcgw HPI Details History of Present Illness The patient is a 44-year-old female presenting with concerns following recent laboratory findings and urinary symptoms. She has noted elevated triglyceride and cholesterol levels in recent lab results and plans to make dietary changes in response. Urinary frequency is a concern, with urinalysis indicating microhematuria, bacteria, white blood cells, and yeast, though she denies associated symptoms such as vaginal itching, discharge, burning during urination, fevers, or chills. She reported not having her menses at this time as well. Also of note is new rectal pressure experienced for two days, unrelated to defecation. She has a personal health history that includes Crohn?s Disease but has not been recently followed by a roadmaster. She occasionally experiences diarrhea but without consistent pattern or additional symptoms like blood in stool or defecation pain. Review of Systems - Genitourinary: Reports urinary frequency. Denies burning with urination, vaginal itching, and discharge. - Gastrointestinal: Reports pressure in anal region. Denies blood in stool, pain with defecation, and ongoing constipation or diarrhea. - Constitutional: Denies fevers, chills. Plan I will focus on optimizing the patient?s management of hyperlipidemia through dietary adjustments. For urinary symptoms, I have ordered a repeat urinalysis, urine culture, and a BV panel to gather more data on the potential infection presence, particularly a yeast etiology. The patient?s reports of rectal pressure will be addressed with a recommended physical examination to evaluate any potential Crohn?s disease involvement. Discussion Notes During our discussion, I emphasized the importance of dietary modifications to manage her hyperlipidemia. I outlined the potential next steps involving repeat urinalysis, urine cultures, and a BV panel to clarify her urinary symptoms and possible infection. The possibility of examining any underlying causes of rectal pressure, potentially relating it to Crohn's disease, was discussed, with an encouragement to seek a physical exam with a female provider here at our Urgent Care today. We acknowledged her ongoing acceptance of the current plan and her understanding of the need for these further evaluations. Patient Instructions - Follow a heart-healthy diet to manage lipid levels. - Return for repeat urinalysis, urine culture, and BV panel. - follow up with a female provider for an examination to address rectal pressure here at our Urgent Care. - Contact the office if symptoms worsen or new symptoms develop. [facility] Medical History (Updated 12/15/24 @ 07:44 by Beni Valle [facility]) Recent urinary tract infection Acid reflux Huynh disease Crohn disease Colitis Arachnoid cyst Asthma Autoimmune disorder Arthritis Bulging disc Spinal stenosis POTS (postural orthostatic tachycardia syndrome) SVT (supraventricular tachycardia) Surgical History History of kidney surgery History of liver biopsy Hx of cholecystectomy Family History Father High cholesterol HTN (hypertension) Tumors Mental health disorder Mother COPD (chronic obstructive pulmonary disease) Colitis Sister Colitis Substance use disorder Mental health disorder Sister Cervical cancer Social History Household Members: Family and Children Housing: House Alcohol intake: former Patient Tobacco Use Status: Former Tobacco user Years Smoked: quit 20b years ago e-Cigarette/Vaping Use: Never Used Second Hand Smoke Exposure: No service: No Current occupational status: employed 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 Current occupational exposures/hazards: No Cognitive needs: No Hearing needs: No Vision needs: No Female Reproductive History Menstrual Age of Menarche: 12 Questionnaire Thrive Questionnaire Date Thrive assessed: 05/03/24 I am a: Patient What is your living situation today?: I have a steady place to live Within the past 12 months, did the food you bought not last and you didn't have the money to get more?: Never true Within the past 12 months, did you worry whether your food would run out before you got money to buy more?: Never true Do you have trouble paying for medicines?: No Do you have trouble getting transportation to medical appointments?: No Do you have trouble paying your heating and electricity bill?: No Do you have trouble taking care of your child, family member or friend?: No Do you have trouble with day-to-day activities such as bathing, preparing meals, shopping, managing finances, etc.?: Yes Are you currently unemployed and looking for a job?: No Are you interested in more education?: No Please select the resources that you would like help with: Daily support THRIVE Score: 0 CHAVA-7 AMB Questionnaire CHAVA-7 Date CHAVA - 7 assessed: 11/16/24 Source: Developed by Drs. Chucho Elmore, Elsa Christensen, Guzman Reyes and colleagues, with an educational jose guadalupe from [employer]. Physical exam (Primary Care) Tobacco/Smoking Status: Tobacco use Status Tobacco use date assessed 11/16/24 11/16/24 11:09 Patient Tobacco Use Status Former Tobacco user 11/16/24 10:57 e-Cigarette/Vaping Use Never Used 11/16/24 10:57 Thrive Assessment: Date of Thrive Assessment Date Thrive assessed 05/03/24 12/15/24 06:57 Telehealth Telehealth Telehealth Platform: Clerts! Location of provider rendering services: practice address Location of patient: address on file Patient Identification confirmed using: Name, : Yes Telehealth method: video Patient verbally consented to treatment: Yes Patient verbally consented to billing insurance company: Yes Patient informed of any privacy concerns related to visit: Yes Minutes spent on Phone/Video with Pt.: 15 Coding Level of Care Code Tele Est Pt Level 3 (69234) Diagnoses Yeast UTI B37.49 Urinary frequency R35.0 Dyslipidemia E78.5 Rectal pressure R19.8 Assessment & Plan Assessment & Plan (1) Yeast UTI: Code(s): B37.49 - Other urogenital candidiasis Category: Medical (2) Urinary frequency: Code(s): R35.0 - Frequency of micturition Category: Medical (3) Dyslipidemia: Code(s): E78.5 - Hyperlipidemia, unspecified Category: Medical (4) Rectal pressure: Code(s): R19.8 - Other specified symptoms and signs involving the digestive system and abdomen Category: Medical Plan . Orders: Orders UA CC w/rflx Micro + Cult Today B37.49 - Other urogenital candidiasis, R35.0 - Frequency of micturition Urine Culture Today B37.49 - Other urogenital candidiasis, R35.0 - Frequency of micturition Bacterial Vaginosis Panel Today B37.49 - Other urogenital candidiasis
== END 2024-12-15 08:09 | disposition home or self-care (01) ==
LOC: HO.HMCC 06:57
PROVIDERS: PCP Nurse Practitioner Family; Visit Provider Nurse Practitioner Family
DX: R35.0 Frequency of micturition (principal); B37.49 Other urogenital candidiasis; E78.5 Hyperlipidemia, unspecified; R19.8 Other specified symptoms and signs involving the digestive system and abdomen

== ENCOUNTER 2024-12-15 06:56 | Outpatient (REF) | payer OTHER, SELFPAY ==
[2024-12-15 16:24] LABS: Appearance Urine Clear; Color Urine Yellow; Glucose Urine UA Negative (Negative); Leukocyte Esterase Urine Negative (Negative); Nitrite Urine Negative (Negative); UMIC TRIGGER UACC YES; Urine Blood Moderate (2+) (Negative); Urine Ketones Negative (Negative); Urine Protein Negative (Neg-Trace)
[2024-12-15 16:50] LABS: Bacteria Urine Trace (None Seen); Hyaline Casts Urine 0-2 /LPF (0-2); RBC Urine 0-2 /HPF (0-2); WBC Urine 0-5 /HPF (0-5)
== END 2024-12-15 06:57 | disposition home or self-care (01) ==
LOC: HO.HMGCLDS 06:56
PROVIDERS: PCP Nurse Practitioner Family; Visit Provider Nurse Practitioner Family
DX: K64.4 Residual hemorrhoidal skin tags (principal); B37.49 Other urogenital candidiasis; R35.0 Frequency of micturition; E78.5 Hyperlipidemia, unspecified; R19.8 Other specified symptoms and signs involving the digestive system and abdomen
CPT/HCPCS: 81001; 87086; 99212

== ENCOUNTER 2024-12-15 11:42 | Outpatient (AMB) | payer OTHER, SELFPAY ==
[2024-12-15 12:16] VITALS: BP 120/80; PULSE 82; TEMP 36.8; O2SAT 95; BMI 33.5
--- NOTE | 2024-12-15 12:16 | AM.OFFWIN_ITS ---
Intake Vital Signs 12/15/24 12:16 Height 5 ft 5 in Weight 201 lb 8 oz BMI 33.5 BP 120/80 Blood Pressure Location Lt brachial Position Sitting Pulse 82 Pulse Source Pulse Oximeter Temp 98.2 F Temp Source Oral Pulse Oximetry (%) 95 Oxygen Delivery Method Room Air Intake Visit Reasons: EP pain in the anus Intake Note: Pt presents to the office today for c/o constant pain and pressure around her rectum. Pt states she had a telehealth with Beni Valle this morning and he recommended she can to the walk in. Pt denies any other symptoms at this time. Patient Tobacco Use Status: Former Tobacco user Allergies doxycycline [DOXYCYCLINE] Allergy (Severe, Verified 12/15/24 12:16) RASH, GI Upset levofloxacin [From LEVAQUIN] Allergy (Severe, Verified 12/15/24 12:16) RASH metronidazole [From FLAGYL] Allergy (Severe, Verified 12/15/24 12:16) ANAPHYLAXIS morphine [MORPHINE] Allergy (Severe, Verified 12/15/24 12:16) ANAPHYLAXIS, cant breathe, SOB Sulfa (Sulfonamide Antibiotics) [SULFA (SULFONAMIDE ANTIBIOTICS)] Allergy (Severe, Verified 12/15/24 12:16) STOP BREATHING, rash/cant breathe adhesive [ADHESIVE] Allergy (Intermediate, Verified 12/15/24 12:16) RASH clindamycin [CLINDAMYCIN] Allergy (Intermediate, Verified 12/15/24 12:16) RASH Iodinated Contrast Media [IV CONTRAST] Allergy (Intermediate, Verified 12/15/24 12:16) ANAPHALAXIS latex [LATEX] Allergy (Intermediate, Verified 12/15/24 12:16) RASH ciprofloxacin [Cipro] Allergy (Unknown, Verified 12/15/24 12:16) unknown fludrocortisone Allergy (Unknown, Verified 12/15/24 12:16) Unknown hydromorphone [Dilaudid] Allergy (Unknown, Verified 12/15/24 12:16) Unknown ALL CONTRAST DYE Allergy (Unknown, Uncoded 12/15/24 12:16) Unknown Cortisone Allergy (Unknown, Uncoded 12/15/24 12:16) unknown IVP Dye Allergy (Unknown, Uncoded 12/15/24 12:16) Unknown Midodrine HCl Allergy (Unknown, Uncoded 12/15/24 12:16) Unknown HPI EP pain in the anus HPI Details This is a 44-year-old female patient who presents to the walk-in clinic today with report of several-day history of rectal pain/pressure. She had a telehealth visit with her PCP Beni Valle NP this morning, where they discussed health maintenance/screenings, however he did advise she come to the [place] clinic to have the rectal pressure/pain evaluated in person. She reports having some GI issues in the past, and was told that she may have Crohn's, however she states she never received an official diagnosis. She has not followed up with GI in a couple of years. She denies any recent constipation or diarrhea. Denies any blood in stool or when wiping. Denies fecal incontinence. Denies fever/chills. Denies abdominal pain. [facility] Medical History Recent urinary tract infection Acid reflux Huynh disease Crohn disease Colitis Arachnoid cyst Asthma Autoimmune disorder Arthritis Bulging disc Spinal stenosis POTS (postural orthostatic tachycardia syndrome) SVT (supraventricular tachycardia) Surgical History History of kidney surgery History of liver biopsy Hx of cholecystectomy Family History Father High cholesterol HTN (hypertension) Tumors Mental health disorder Mother COPD (chronic obstructive pulmonary disease) Colitis Sister Colitis Substance use disorder Mental health disorder Sister Cervical cancer Social History Household Members: Family and Children Housing: House Alcohol intake: former Patient Tobacco Use Status: Former Tobacco user Years Smoked: quit 20b years ago e-Cigarette/Vaping Use: Never Used Second Hand Smoke Exposure: No service: No Current occupational status: employed 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 Current occupational exposures/hazards: No Cognitive needs: No Hearing needs: No Vision needs: No Female Reproductive History Menstrual Age of Menarche: 12 Physical Exam Vital Signs: Last Vital Signs Temp 98.2 F 12/15/24 12:16 Pulse 82 12/15/24 12:16 BP 120/80 12/15/24 12:16 Pulse Ox 95 12/15/24 12:16 Oxygen Delivery Method Room Air 12/15/24 12:16 BMI result Body Mass Index 33.5 Const General: cooperative, healthy appearing, comfortable and no acute distress Resp Effort & Inspection: normal respiratory effort GI Inspection: Yes normal to inspection and Yes obesity Palpation (GI): Soft to palpation (nontender) Auscultation: normal bowel sounds Rectal Exam - Female: visual inspection normal and External hemorrhoid(s) present General: Yes bladder normal to palpation and Yes no CVA tenderness Bimanual exam- vagina & uterus: bladder normal to palpation Back/Spine/Pelvis Back: no CVA tenderness Skin General skin exam: no rashes or lesions noted Extrem General: Yes no clubbing, cyanosis or edema Psych Appearance: grossly normal Mental Status: mental status grossly normal Speech and movement: Normal speech and movement present Assessment & Plan Assessment & Plan (1) External hemorrhoid: Code(s): K64.4 - Residual hemorrhoidal skin tags Plan: Patient has a large external hemorrhoid - nonthrombosed. No perianal abscesses, erythema, or other abnormal findings noted. She does have a documented hx of Chron's, however has not followed up with GI in >2 years. I called and was able to get her an appt. for 02/17, which patient agrees to. As for her hemorrhoid, I advised refraining from straining for BMs, adequate cleaning, and use of witch clara externally to affected area. She may also try to reduce hemorrhoid herself if she wishes, which we discussed. I am going to prescribe her a topical the lidocaine/hydrocortisone cream to apply, which we reviewed use of. If she develops any worsening symptoms prior to her GI appt, she can go to the ED for evaluation. She verbalizes understanding and agrees to plan. Medications: New lidocaine HCl-hydrocortison ac 3-0.5 % Apply externally to affected area twice a day. 1 appl [place] BID 98 grams 0RF K64.4 - Residual hemorrhoidal skin tags Coding Level of Care Code Est Pt Level 4 (09389) Diagnoses External hemorrhoid K64.4
--- OUTSIDE RECORDS SUMMARY | 2024-12-15 14:31 | XMS_ITS | Encounter Summary ---
Author Organization [employer] Address [address] [place] [address] [address] [place] [address] Care Team Providers Care Ssn/Ssbn Assistant Navigator Name Role Phone Unavailable Primary Care Provider Unavailabl e Reason for Visit * Reason Onset Date Comments medication 04/28/2024 Encounter Details Date Type Department Care Team ([facility] st Contact Info) Description 04/28/2024 Telephone [facility] ADULT DENTAL [address] [place], [place] [phone] Sumete Anderson DMD [address] [place], [place] [phone] medication Social History Tobacco Use Types Packs/Day [...] be sent. Patient spoke to office at [facility] on Friday concerning script. Krystin and [...]
--- OUTSIDE RECORDS SUMMARY | 2024-12-15 14:31 | XMS_ITS | Encounter Summary ---
Author Organization [employer] Address [address] [place] [address] Care Team Providers Care Honest John Rocket Crew Member Name Role Phone Unavailable Primary Care Provider Unavailabl e Encounter Details Date Type Department Care Team (Late st Contact Info) Description 12/11/2022 Telephone [facility] ADULT DENTAL [address] [place] [address] Annalise Mix, BDS [address] [place] [address] Social History Tobacco Use Types Packs/Day Years [...]
--- OUTSIDE RECORDS SUMMARY | 2024-12-15 14:31 | XMS_ITS | Encounter Summary ---
Author Organization [facility] Address [address] [place] [address] Care Team Providers Care Delivery Consultant Name Role Phone Beni Valle MD Primary Care Provider [phone] Derek Roche PA-C Unavailable [phone] Encounter Details Date Type Department Care Team ([facility] st Contact Info) Description 07/28/2024 Telephone [facility] Heart & Vascular [place] at [facility] - Cardiology [address] [place] [address] Derek Roche PA-C [address] [place] [phone] Social History Tobacco Use Types Packs/Day Years [...] again. Please follow up with pt at [phone] documented in this encounter Plan of Treatment Upcoming Encounters Date Type Department Care Team (Late st Contact Info) Description 02/02/2025 1:30 PM EDT Appointment [facility] Heart & Vascular [place] at [facility] - Cardiology [address] [place] [address] Derek Roche PA-C [address] [place] [address] documented as of this encounter Visit Diagnoses Not on filedocumented in this encounter Care Teams Delivery Consultant Relationship Specialty Start Date End Date Beni Valle MD [address] [place] [address] PCP - General Family Medicine 10/27/23 Derek Roche PA-C [address] [place] [address] Physician Bond Analyst Cardiac Electrophysiology 03/23/24 documented as of this encounter
--- OUTSIDE RECORDS SUMMARY | 2024-12-15 14:31 | XMS_ITS | Encounter Summary ---
Author Organization [employer] Address [address] [place] [address] Care Team Providers Care Casework Supervisor Name Role Phone Unavailable Primary Care Provider Unavailabl e Encounter Details Date Type Department Care Team (Late st Contact Info) Description 07/09/2024 Telephone [facility] ADULT DENTAL [address] [place] [address] Annalise Mix, BDS [address] [place] [address] Social History Tobacco Use Types Packs/Day Years [...]
--- OUTSIDE RECORDS SUMMARY | 2024-12-15 14:31 | XMS_ITS | Encounter Summary ---
Author Organization [employer] Address [address] [place] [address] [address] [place] [address] Care Team Providers Care Traveling Buyer Name Role Phone Unavailable Primary Care Provider Unavailabl e Reason for Visit * Reason Comments Med Refill Encounter Details Date Type Department Care Team (Late st Contact Info) Description 05/03/2024 Refill [facility] DENTAL [address] [employer], [place] [phone] Annalise Mix, BDS [address] [place], [place] [phone] Social History Tobacco Use Types Packs/Day Years [...]
--- OUTSIDE RECORDS SUMMARY | 2024-12-15 14:31 | XMS_ITS | Encounter Summary ---
Author Organization [employer] Address [address] [place] [address] Care Team Providers Care Ferry Hand Name Role Phone Unavailable Primary Care Provider Unavailabl e Encounter Details Date Type Department Care Team (Late st Contact Info) Description 11/20/[address] [facility] DENTAL [address] [place] [phone] Annalise Mix, BDS [address] [place], [place] [phone] Dental abscess (Primary Dx) Social History Tobacco [...]
--- OUTSIDE RECORDS SUMMARY | 2024-12-15 14:31 | XMS_ITS | Clinical Summary ---
Author Organization [employer] Address [address] [place] [address] [address] [place] [address] Care Team Providers Care Hunting Guide Name Role Phone Unavailable Primary Care Provider [...]
--- OUTSIDE RECORDS SUMMARY | 2024-12-15 14:31 | XMS_ITS | Encounter Summary ---
Author Organization [facility] Address [address] [place] [address] Care Team Providers Care Clutch Rebuilder Name Role Phone Beni Valle MD Primary Care Provider [phone] Derek Roche PA-C Unavailable [phone] Encounter Details Date Type Department Care Team (Late st Contact Info) Description 05/10/2024 Telephone [facility] Heart & Vascular [place] at [facility] - Electrophysiology Laboratory [address] [place] [address] Vanessa Waite MD [address] [place] [phone] Social History Tobacco Use Types Packs/Day Years [...] higher dose of propanolol such as 20 rn long term care but would increase slowly documented in this encounter Plan of Treatment Upcoming Encounters Date Type Department Care Team (Late st Contact Info) Description 02/02/2025 1:30 PM EDT Appointment [facility] Heart & Vascular [place] at [facility] - Cardiology [address] [place] [address] Derek Roche PA-C [address] [place] [address] documented as of this encounter Visit Diagnoses Diagnosis POTS (postural orthostatic tachycardia syndrome)- Primary Unspecified tachycardia documented in this encounter Care Teams Clutch Rebuilder Relationship Specialty Start Date End Date Beni Valle MD [address] [facility] [place] [address] PCP - General Family Medicine 10/27/23 Derek Roche PA-C [address] [place] [address] Physician Wax Pourer Cardiac Electrophysiology 03/23/24 documented as of this encounter
--- OUTSIDE RECORDS SUMMARY | 2024-12-15 14:31 | XMS_ITS | Encounter Summary ---
Author Organization [employer] Address [address] [facility] 7[address] [place] [address] Care Team Providers Care Down Filler Name Role Phone Unavailable Primary Care Provider Unavailabl e Reason for Visit * Reason Onset Date Comments Appointment 01/24/2023 Encounter Details Date Type Department Care Team ([facility] st Contact Info) Description 01/24/2023 Telephone [facility] ADULT DENTAL [address] [place] [address] Sumeet Nascimento DMD [address] [place], [place] [phone] Appointment Social History Tobacco Use Types Packs/Day [...] 01/24/2023 and stated she needed medication from [facility] because she is starting to get swollen [...]
--- OUTSIDE RECORDS SUMMARY | 2024-12-15 14:31 | XMS_ITS | Encounter Summary ---
Author Organization [employer] Address [address] [place] [address] [address] [place] [address] Care Team Providers Care Auto Finance Sales Rep Name Role Phone Unavailable Primary Care Provider Unavailabl e Reason for Visit * Reason Comments Med Refill Encounter Details Date Type Department Care Team (Late st Contact Info) Description 05/19/2024 Refill [facility] DENTAL [address] [place], [place] [phone] Annalise Mix, BDS [address] [place], [place] [id number] Social History Tobacco Use Types Packs/Day Years [...]
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
--- OUTSIDE RECORDS SUMMARY | 2024-12-15 14:31 | XMS_ITS | Encounter Summary ---
Author Organization [facility] Address [address] [place] [address] Care Team Providers Care Metal Neutralizer Name Role Phone Beni Valle MD Primary Care Provider [phone] Derek Roche PA-C Unavailable + [phone] Encounter Details Date Type Department Care Team (Late st Contact Info) Description 12/13/2024 Telephone [facility] [place] at [facility] - Cardiology [address] [place] [address] Derek Roche PA-C [address] [place] [address] Social History Tobacco Use Types Packs/Day Years Used Date Smoking Tobacco: Former Cigarettes Sex and Gender Information Value Date Recorded Sex Assigned at Female 10/27/2023 1:22 PM EST Gender Identity Female 10/27/2023 1:22 PM EST Sexual Orientation Heterosexual (straight) 10/27 1:22 PM EST documented as of this encounter Miscellaneous Notes * Telephone Encounter - Cindy Lorenzana - 12/13/2024 8:26 AM EDT Patient called need refills Propranolol 10mg and Propranolol 20mg thank you documented in this encounter Plan of Treatment Upcoming Encounters Date Type Department Care Team (Late st Contact Info) Description 02/02/2025 1:30 PM EDT Appointment [facility] [place] at [facility] - Cardiology [address] [place] [address], [place] [phone] Derek Roche PA-C [address] [place] [address] documented as of this encounter Visit Diagnoses Not on filedocumented in this encounter Care Teams Metal Neutralizer Relationship Specialty Start Date End Date Beni Valle MD [address] [facility] [place] [address] PCP - General Family Medicine 10/27/23 Derek Roche PA-C [address] [place] [address] Physician Consultant Nurse Cardiac Electrophysiology 03/23/24 documented as of this encounter
--- OUTSIDE RECORDS SUMMARY | 2024-12-15 14:31 | XMS_ITS | Encounter Summary ---
Author Organization [employer] Address [address] [place] [address] Care Team Providers Care Pensionholder Information Clerk Name Role Phone Unavailable Primary Care [...] (Late st Contact Info) Description 09/25/2022 Telephone [facility] DENTAL [address] [place] [address] Annalise Mix, BDS [address] [place] [address] Appointment (Patient upset because states she has [...]
--- OUTSIDE RECORDS SUMMARY | 2024-12-15 14:31 | XMS_ITS | Encounter Summary ---
Author Organization [facility] Address [address] [place] [address] Care Team Providers Care Continuity Tester Name Role Phone Beni Valle MD Primary Care Provider [phone] Derek Roche PA-C Unavailable [phone] Encounter Details Date Type Department Care Team (Late st Contact Info) Description 12/13/2024 Refill [facility] Heart & Vascular [place] at [address] [phone] Derek Roche PA-C [address] [place] [address] Social History Tobacco Use Types Packs/Day Years [...] Info) Description 02/02/2025 1:30 PM EDT Appointment [facility] Heart & Vascular [place] at [address] [phone] Derek Roche PA-C [address] [place] [address] documented as of this encounter Visit Diagnoses Diagnosis POTS (postural orthostatic tachycardia syndrome) Unspecified tachycardia documented in this encounter Care Teams Continuity Tester Relationship Specialty Start Date End Date Beni Valle MD [address] [facility] [place] [address] PCP - General Family Medicine 10/27/23 Derek Roche PA-C [address] [place] [address] Physician Emergency Vehicle Technician Cardiac Electrophysiology 03/23/24 documented as of this encounter
--- OUTSIDE RECORDS SUMMARY | 2024-12-15 14:31 | XMS_ITS | Encounter Summary ---
Author Organization [employer] Address [address] [facility] [address] [place] [address] Care Team Providers Care Certified Surgical Technologist Name Role Phone Unavailable Primary Care Provider Unavailabl e Reason for Visit * Reason Onset Date Comments medical clearance 06/26/2023 Encounter Details Date Type Department Care Team (Late st Contact Info) Description 06/26/2023 Telephone [facility] DENTAL [address] [place] [address] VeSelam dhillon [address] [place] [address] medical clearance Social History Tobacco Use Types [...] - 06/26/2023 11:21 AM EDT Rylan from [facility] called in looking to facilitate [...] be scheduled for treatment. Please fax to [phone] documented in this encounter Plan of Treatment Not on file documented as of this encounter Visit Diagnoses Not on filedocumented in this encounter
--- OUTSIDE RECORDS SUMMARY | 2024-12-15 14:31 | XMS_ITS | Clinical Summary ---
Author Organization [facility] Address [address] [place] [address] Care Team Providers Care Lime Kiln Operator Name Role Phone Beni Valle MD Primary Care Provider + [phone] Derek Roche PA-C Unavailable [phone] Allergies Active Allergy Reactions Criticality Noted Date [...] Of Breath,Hives High 08/07/2009 Metronidazole Other (See Comments),Rash/[place] titis,Shortness Of Breath,Hives High 11/13/2009 Other reaction(s): O/E - respiratory distress Midodrine Rash/Dermatitis Low 01/20/2015 Morphine Shortness Of Breath,Bleeding (Non-Gastrointestina l),GI Bleeding,Other (See Comments),Rash/[place] titis High 02/09/2015 Other reaction(s): Bleeding Ondansetron [...] shortness of breath. 04/10/2023 Active Medical Compression StockingsIndicati ons:POTS (postural orthostatic tachycardia syndrome) Level of Compression: 20-30 mmHg; knee-high, bilateral 2 each 1 03/23/2024 Active sodium chloride 1 g tabletIndications :POTS (postural orthostatic tachycardia syndrome) Take 1 tablet (1 g total) by mouth 2 (two) times a day after breakfast and lunch. 60 tablet 5 03/23/2024 Active montelukast (SINGULAIR) 10 MG tabletIndications :Mast cell activation syndrome Take 1 tablet (10 mg total) by mouth nightly. 30 tablet 5 04/23/2024 Active pyridostigmine (MESTINON) 60 MG tabletIndications :POTS (postural orthostatic tachycardia syndrome) Take 1 tablet (60 mg total) by mouth 2 (two) times a day. 60 tablet 5 04/23/2024 Active amoxicillin-clavu lanate (AUGMENTIN) 875-125 MG per tablet 04/22/2024 Active Vitamin D3 (CHOLECALCIFEROL) 50 MCG (1999 UT) capsule 02/08/2024 Active doxycycline (VIBRA-TABS) 100 MG tablet Please see attached for detailed directions 04/29/2024 Active ivabradine (CORLANOR) 5 MG tabletIndications :Postural orthostatic tachycardia syndrome (POTS) Take 1 tablet (5 mg total) by mouth 2 (two) times a day. 60 tablet 5 07/28/2024 5 Active propranolol (INDERAL LA) 60 MG 24 hr capsuleIndication s:POTS (postural orthostatic tachycardia syndrome) Take 1 capsule (60 mg total) by mouth nightly. 30 capsule 5 09/15/2024 5 Active cefpodoxime (VANTIN) 200 MG tablet 10/24/2024 Active Arnuity Ellipta 100 MCG/ACT inhaler inhale 1 puff by mouth 1 (one) time each day. 08/03/2024 Active Medical Compression StockingsIndicati ons:POTS (postural orthostatic tachycardia syndrome) Level of Compression: 20-30 mmHg; knee high bilateral. Please measure to fit 3 each 1 10/26/2024 Active propranolol (INDERAL) 20 MG tabletIndications :POTS (postural orthostatic tachycardia syndrome) Take 1 tablet (20 mg total) by mouth 3 (three) times a day. As discussed at visit 90 tablet 5 12/13/2024 5 Active propranolol (INDERAL) 10 MG tabletIndications :POTS (postural orthostatic tachycardia syndrome) Take 1 tablet (10 mg total) by mouth 3 (three) times a day. 90 tablet 3 12/13/2024 Active propranolol (INDERAL) 20 MG tabletIndications :POTS (postural orthostatic tachycardia syndrome) Take 1 tablet (20 mg total) by mouth 3 (three) times a day. As discussed at visit 90 tablet 5 06/24/2024 Discontinue d(Reorder) propranolol (INDERAL) 10 MG tabletIndications :POTS (postural orthostatic tachycardia syndrome) Take 1 tablet (10 mg total) by mouth 3 (three) times a day. 90 tablet 3 09/08/2024 Discontinue d(Reorder) Active Problems Problem Noted Date Diagnosed Date [...] syndrome) 02/12/2012 Overview (03/23/2024): Dr Joseph in [place] SVT (supraventricular tachycardia) 02/12/2012 Overview (03/23/2024): Sees Dr Light and EP docs in [place] Vitamin D deficiency 05/23/2008 PFO (patent foramen ovale) 01/20/2008 Overview (03/23/2024): No tx unless it gets worse Encounters Date Type Department Care Team Description 12/13/2024 Refill [facility] Heart & [facility] [place] [facility] - Cardiology [address] [place] [address] Derek Roche PA-C 12/13/2024 Telephone [facility] [place] at [address], [place] [phone] Derek Roche PA-C 10/26/2024 1:43 PM EST - 10/26/2024 11:59 PM EST Hospital Encounter [facility] Heart [facility] [place] at [address], [place] [phone] Derek Roche PA-C Follow-up Discharge Disposition: Home or Self Care 10/26/2024 Travel from Last 3 Months Immunizations Name [...] Info) Description 02/02/2025 1:30 PM EDT Appointment [facility] [place] at [address], [place] [phone] Derek Roche PA-C [address] [place] [address] Health Maintenance Due Date Last Done Comments [...] age to complete this topic Care Teams Lime Kiln Operator Relationship Specialty Start Date End Date Beni Valle MD [address] [place] [address] PCP - General Family Medicine 10/27/23 Derek Roche PA-C [address] [place] [address] Physician Strip Mine Supervisor Cardiac Electrophysiology 03/23/24
== END 2024-12-15 13:27 | disposition home or self-care (01) ==
PROVIDERS: PCP Nurse Practitioner Family; Visit Provider Nurse Practitioner Family
DX: K64.4 Residual hemorrhoidal skin tags (principal)

== ENCOUNTER 2025-01-28 14:49 | Outpatient (REF) | payer OTHER, SELFPAY ==
--- NOTE | ~2025-01-28 | US_ITS ---
EXAMINATION: US LOWER EXTREMITY VEINS LIMITED FOLLOW UP RIGHT HISTORY: M79.89 - RLE swelling COMPARISON: Comparison is made with the prior examination dated 02/25/2024. TECHNIQUE: Duplex and color Doppler sonographic examination of the deep venous system of the right lower extremity was performed. FINDINGS: The common femoral, superficial femoral, and popliteal veins are patent demonstrating normal compressibility, spontaneous flow, and augmentation. There is a normal color and spectral Doppler waveform appearance of the visualized deep venous system above the knee. The posterior tibial and peroneal veins are patent. US/US venous duplex LE RT IMPRESSION: No evidence of acute DVT in the right lower extremity. Electronically signed by: Chucho Greene MD 01/28/2025 03:22 PM EDT
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
--- OUTSIDE RECORDS SUMMARY | 2025-01-28 14:52 | XMS_ITS | Continuity of Care Document ---
Author Organization Formerly [facility]. If a dditional information is needed, contact Health Information Management at [phone] Address [address] [place] [address] Phone Care Team Providers Care Packing Checker Name Role Phone Unavailable Unavailable Unavailable Unavailable [...] POC,STREP GROUP A AG QUAL Ordered On:06-Jan-2025 Comments:[facility] , [address] [facility], [place], [address], 06-Jan-2025 11:19 POC,STREP GROUP A AG QUALNegative Range:Negative IFLUENZA A B ANTIGEN Ordered On:06-Jan-2025 Comm ents:[facility], [address], [place], [address], 06-Jan-2025 11:15 INFLUENZA A ANTIGENNegative Ra nge:Negative INFLUENZA B ANTIGENNegative Rang e:Negative Comments:ID-NOW Influenza A&B assay is a rapid molecular in vitrodiagnostic test utilizing an isothermal nucleic acidamplification technology for the qualitative detectionand discrimination of influenza A and B viral RNA. Vital Signs 07-Jan-2025 17:15 Jvxqobdtqfo48.9f Comments:98.9 Pulse89/min Comments:89 Respiratory Rate18/min Comments: 18 O2 SAT97% Comments:97 Height in:5in Comments:5 BP Vdeiajnj355cb[Hg] Comments:14 6 BP Vmkbuizqb61wv[Hg] Comments:70 Oxygen delivery devices: Comment s:Room air Height5[ft_us] Comments:5 Ogrbyr74.1kg Comments:92.100 07-Jan-2025 17:15 BMI33.7kg/m2 Comments:33.7 06-Jan-2025 11:15 Pulse80/min Comments:80 O2 SAT98% Comments:98 BP Lyzazcca162vn[Hg] Comments:12 8 BP Ageapgeqe19pf[Hg] Comments:59 06-Jan-2025 10:45 Pulse87/min Comments:87 O2 SAT99% Comments:99 BP Xsnzczhs688zp[Hg] Comments:12 9 BP Urzzqenbc22wv[Hg] Comments:68 06-Jan-2025 10:34 Bccadnrtxyk27.5f Comments:98.5 Pulse90/min Comments:90 Respiratory Rate18/min Comments: 18 O2 TKL769% Comments:100 Height in:5in Comments:5 BP Ddufiroa259me[Hg] Comments:14 1 BP Tufxitphw50wo[Hg] Comments:79 Oxygen delivery devices: Comment s:Room air Height5[ft_us] Comments:5 Vjjoau76.9kg Comments:91.900 06-Jan-2025 10:34 BMI33.7kg/m2 Comments:33.7 Encounters Emergency Encounter Reason:FLU SYMPTOMS Encounter Diagnosis:Bronchitis, not specified as acute or chronic 07-Jan-2025 17:[id number] 17:54 [facility] Discharge Disposition:Discharged to home or self care (routine discharge) ? ? ? Faisal Brannon MD-07-Jan-2025 [facility] ([facility])EMERGENCY PROVIDER REPORTREPORT#:[id number] REPORT STATUS: SignedDATE:01/07/25 TIME: 1741PATIENT: LYNN DONNELLY UNIT #: [id number]#: [id number] ROOM/BED:: 81 AGE: 45 SEX:F PCP PHYS: Undefined ProviderSERVICE AUTHOR: Danelle Malone MDREP SRV REP SRV TM: 1741* ALL edits or amendments must be made on the electronic/computer document *OBI-Ykb-Epft IllnessGeneralInitial Greet Date/Time 01/07/25 1713PresentationChief Complaint Cough, [...] Temp 37.2 01/07 1715 Pulse 89 01/07 171 Resp 18 01/07 1715Last Documented: Result Date [...] 1715 Pulse 89 01/07 1715 Resp 18 01/075All vital signs available at the time of this entry have been reviewed.Clinical ImpressionClinical ImpressionPrimary Impression: BronchitisDisposition DecisionDischarge )( Discharged to Home Yes )( Time 1742 )( Date 01/07/25Discharge/Care Plan(Auto) PrescriptionsCurrent Visit ScriptsAMOXICILLIN/CLAV K (AUGMENTIN 400 MG/5 ML) 10 ML PO Q12H 7 Days #140 MLPatient Instructions ED URI Abx at 0917RPT #:[id number] OF REPORT Emergency Encounter Reason:ZUC-DKJ-UGDMA-SORE THROAT-RUNNY NOSE Encounter Diagnosis:Acute upper respiratory infection, unspecified 06-Jan-2025 10:[id number] 11:28 [facility] Discharge Disposition:Discharged to home or self care (routine discharge) ? ? ? Faisal Brannon MD-06-Jan-2025 [facility] ([facility])EMERGENCY PROVIDER REPORTREPORT#:[id number] REPORT STATUS: SignedDATE:01/06/25 TIME: 1122PATIENT: LYNN DONNELLY UNIT #: [id number]#: [id number] ROOM/BED:: 81 AGE: 45 SEX:F PCP PHYS: [...] pain, Vomiting.Past Medical History - AdultStated Complaint JGN-TQF-WZCTG-SORE THROAT-RUNNY NOSEAllergiesCoded Allergies:acetaminophen (From [facility]) (UNKNOWN 01/07/25)amoxicillin [...] Documented: Result Date Time Pulse Ox 98 04/10 1115 B/P 128/59 04/10 1115 B/P Mean 85 04/10 1115 Pulse 80 04/10 1115 O2 Delivery Room air 04/ 1034 Temp 36.9 04/10 1034 Resp 18 / 1034Review of Vital Signs ReviewedBasic Physical ExamBasic [...] 141/79 04/ 1034 O2 Delivery Room air / 1034 Temp 36.9 04/10 1034 Pulse 90 04/10 1034 Resp 18 04/ 1034 B/P Mean 92 04/ 1045Last Documented: Result Date Time Pulse Ox 98 04/10 1115 B/P 128/59 04/ 1115 B/P Mean 85 04/10 1115 Pulse 80 04/10 1115 O2 Delivery Room air 04/ 1034 Temp 36.9 04/10 1034 Resp 18 / 1034All vital signs available at the time of this entry have been reviewed.Clinical ImpressionClinical ImpressionPrimary Impression: URI (upper respiratory infection)Disposition DecisionDischarge )( Discharged to Home Yes )( Time 1122 )( Date 01/06/25Discharge/Care PlanPatient Instructions ED URI, Viral, No Abx (Adult) at 0257RPT #:[id number] OF REPORT Plan of Treatment Future Tests [...]
--- OUTSIDE RECORDS SUMMARY | 2025-01-28 14:53 | XMS_ITS | Encounter Summary ---
Author Organization [facility] Address [address] [place] [address] Care Team Providers Care Worldwide Chief Creative Officer Name Role Phone Beni Valle MD Primary Care Provider [phone] Derek Roche PA-C Unavailable + [phone] Encounter Details Date Type Department Care Team (Latest Contact Info) Description 01/25/2025 Travel Social History Tobacco Use Types Packs/Day Years Used Date Smoking Tobacco: Former Cigarettes Comments Unknown Sex and Gender Information Value Date Recorded Sex Assigned at Female 10/27/2023 1:22 PM EST Legal Sex Female 10:54 AM EST Gender Identity Female 10/27/2023 1:22 PM EST Sexual Orientation Heterosexual (straight) 10/27 1:22 PM EST documented as of this encounter Plan of Treatment Upcoming Encounters Date Type Department Care Team ( st Contact Info) Description 03/15/2025 3:30 PM EDT Appointment [facility] Heart & Vascular [place] at [facility] - Cardiology [address] [place] [address] Derek Roche PA-C [address] [place] [address] documented as of this encounter Visit Diagnoses Not on filedocumented in this encounter Care Teams Worldwide Chief Creative Officer Relationship Specialty Start Date End Date Beni Valle MD [address] [place] [address] [place] [address] PCP - General Family Medicine 10/27/23 Derek Roche PA-C [address] [place] [address] Physician Construction Engineer Cardiac Electrophysiology 03/23/24 documented as of this encounter
--- OUTSIDE RECORDS SUMMARY | 2025-01-28 14:53 | XMS_ITS | Encounter Summary ---
Author Organization [employer] Address [address] [facility] [address] [place] [address] Care Team Providers Care Air Crew Supervisor Name Role Phone Unavailable Primary Care Provider Unavailabl e Reason for Visit * Reason Onset Date Comments medical clearance 06/26/2023 Encounter Details Date Type Department Care Team (Late st Contact Info) Description 06/26/2023 Telephone [facility] [address] [place] [address] Vedugeorge Selam [address] [place] [address] medical clearance Social History Tobacco Use Types [...] - 06/26/2023 11:21 AM EDT Rylan from [facility] called in looking to facilitate [...] be scheduled for treatment. Please fax to [phone] documented in this encounter Plan of Treatment Not on file documented as of this encounter Visit Diagnoses Not on filedocumented in this encounter
--- OUTSIDE RECORDS SUMMARY | 2025-01-28 14:53 | XMS_ITS | Encounter Summary ---
Author Organization [employer] Address [address] [place] [address] [address] [place] [address] Care Team Providers Care Java J2Ee Software Engineer Name Role Phone Unavailable Primary Care Provider Unavailabl e Reason for Visit * Reason Onset Date Comments medication 04/28/2024 Encounter Details Date Type Department Care Team ([facility] st Contact Info) Description 04/28/2024 Telephone [facility] ADULT DENTAL [address] [place], [place] [phone] Sumeet Anderson DMD [address] [place], [place] [phone] medication Social History Tobacco Use Types Packs/Day [...] be sent. Patient spoke to office at [facility] on Friday concerning script. Krystin and Dr [...]
--- OUTSIDE RECORDS SUMMARY | 2025-01-28 14:53 | XMS_ITS | Patient Health Record ---
Author Organization [facility] Address [address] [place] [phone] Care Team Providers Care Miller Head Name Role Phone MITCHELL BOND Primary Care Provider Desmond Francisco Jr Unavailable Reason For Referral No Information Plan Of Treatment No Information Insurance Providers Payer Name Payer Address Payer Phone Subscriber Number Group Number Insured Name Patient Relationship to Insured Coverage Start Date Coverage End Date [facility] [address] [address] [place], [place] [id number] LYNN DONNELLY Self - patient is the insured
--- OUTSIDE RECORDS SUMMARY | 2025-01-28 14:53 | XMS_ITS | Encounter Summary ---
Author Organization [employer] Address [address] [facility] [address] [place] [address] Care Team Providers Care Logistics Analyst Name Role Phone Unavailable Primary Care Provider Unavailabl e Encounter Details Date Type Department Care Team (Late st Contact Info) Description 11/20/2022 Orders Only [facility] [address] [place] [phone] Annalise Mix, BDS [address] [place], [place] [phone] Dental abscess (Primary Dx) Social History Tobacco [...]
--- OUTSIDE RECORDS SUMMARY | 2025-01-28 14:53 | XMS_ITS | Encounter Summary ---
Author Organization [employer] Address [address] [facility] [facility] [address] [place] [address] Care Team Providers Care Employment Coordinator Name Role Phone Unavailable Primary Care Provider Unavailabl e Encounter Details Date Type Department Care Team (Late st Contact Info) Description 12/11/2022 Telephone [facility] [address] [place] [address] Annalise Mix, BDS [address] [place] [address] Social History Tobacco Use Types Packs/Day Years [...]
--- OUTSIDE RECORDS SUMMARY | 2025-01-28 14:53 | XMS_ITS | Clinical Summary ---
Author Organization [employer] Address [address] [place] [address] [address] [place] [address] Care Team Providers Care Television Production Assistant Name Role Phone Unavailable Primary Care [...]
--- OUTSIDE RECORDS SUMMARY | 2025-01-28 14:53 | XMS_ITS | Encounter Summary ---
Author Organization [facility] Address [address] [place] [address] Care Team Providers Care Zig Zag Spring Machine Operator Name Role Phone Beni Valle MD Primary Care Provider [phone] Derek Roche PA-C Unavailable [phone] Encounter Details Date Type Department Care Team ([facility] st Contact Info) Description 01/24/2025 Telephone [facility] Heart & Vascular [place] at [facility] - Cardiology [address] [place] [address] Derek Roche PA-C [address] [place] [phone] Social History Tobacco Use Types Packs/Day Years Used Date Smoking Tobacco: Former Cigarettes Comments Unknown Sex and Gender Information Value Date Recorded Sex Assigned at Female 10/27/2023 1:22 PM EST Legal Sex Female 10:54 AM EST Gender Identity Female 10/27/2023 1:22 PM EST Sexual Orientation Heterosexual (straight) 10/27 1:22 PM EST documented as of this encounter Miscellaneous Notes * Telephone Encounter - Gricel Orellana RN - 01/24/2025 2:32 PM EDT Cesilia called and LVM on non-urgent nursing line with concerns of a worsening in her POTS. I returned her call and discussed her symptoms. Her heart rate has been elevated at rest laying down over 100 bpm and she has had worsening palpitations. She has tried vagal maneuvers to stop the palpitations with no success. She is currently taking propranolol 30 mg TID. She had been getting IV infusions 3 times a week but recently they were unavailable. For her fluid intake, she drinks about 2-3 28oz bottles of Gatorade per day and occasionally adds aliquid IV. She was concerned she was taking in too much sodium recently as she is a little puffy so she has not added the liquid IV. She is looking for recommendations on next steps. documented in this encounter Plan of Treatment Upcoming Encounters Date Type Department Care Team (Late st Contact Info) Description 03/15/2025 3:30 PM EDT Appointment [facility] Heart & Vascular [place] at [facility] - Cardiology [address] [place] [address] Derek Roche PA-C [address] [place] [address] documented as of this encounter Visit Diagnoses Not on filedocumented in this encounter Care Teams Zig Zag Spring Machine Operator Relationship Specialty Start Date End Date Beni Valle MD [address] [place] [address] PCP - General Family Medicine 10/27/23 Derek Roche PA-C [address] [place] [address] Physician Business Segment Manager Cardiac Electrophysiology 03/23/24 documented as of this encounter
--- OUTSIDE RECORDS SUMMARY | 2025-01-28 14:53 | XMS_ITS | Encounter Summary ---
Author Organization [facility] Address [address] [place] [address] Care Team Providers Care Jewel Inspector Name Role Phone Beni Valle MD Primary Care Provider [phone]- [phone] Derek Roche PA-C Unavailable + -[phone] Reason for Visit * Reason Comments Follow-up Encounter Details Date Type Department Care Team (Latest Contact Info) Description 01/25/2025 2:12 PM EDT - 01/25/2025 11:59 PM EDT Hospital Encounter [facility] [place] [facility] - Cardiology [address] [place] [address] Derek Roche PA-C [address] [place] [address] Follow-up Discharge Disposition: Home or Self Care [...] Pulse 77 01/25/2025 2:33 PM EDT Temperature - - Respiratory Rate - - Oxygen Saturation 97% 01/25/2025 2:33 PM EDT Inhaled Oxygen Concentration - - Weight 88.9 kg (196 lb) 01/25/2025 2:33 PM EDT Height 165.1 cm (5' 5 ) 01/25/2025 2:33 PM EDT Body Mass Index 32.62 01/25/2025 2:33 PM EDT documented in this encounter Medications at Time of Discharge amoxicillin-clavu lanate (AUGMENTIN) 875-125 MG per tablet 04/22/2024 Arnuity [...] 8 hours) as needed for moderate pain. levalbuterol (XOPENEX HFA) 45 mcg/puff inhaler Inhale 1 puff every 4 (four) hours as needed for wheezing or shortness of breath. 04/10/2023 Levonorgestrel (MIRENA, 52 MG, IU) 1 Units by Intrauterine route 1 time. Medical Compression StockingsIndicati ons:POTS (postural orthostatic tachycardia syndrome) Level of Compression: 20-30 mmHg; knee-high, bilateral 2 each 1 03/23/2024 Medical Compression StockingsIndicati ons:POTS (postural orthostatic tachycardia [...] mouth nightly. 30 capsule 5 09/15/2024 5 propranolol (INDERAL) 10 MG tabletIndications :POTS (postural orthostatic tachycardia syndrome) Take 1 tablet (10 mg total) by mouth 3 (three) times a day. 90 tablet 3 12/13/2024 propranolol (INDERAL) 20 MG tabletIndications :POTS (postural orthostatic tachycardia syndrome) Take 1 tablet (20 mg total) by mouth 3 (three) times a day. As discussed at visit 90 tablet 5 12/13/2024 5 Vitamin D3 (CHOLECALCIFEROL) 50 MCG (1999) capsule 02/08/2024 documented as of this encounter Progress Notes * Derek Roche PA-C - 01/25/2025 2:30 PM EDT Images from the original note were not included. [facility] Cardiac Electrophysiology Office Visit Patient Name Cesilia Walker Date of 1980 Gender female Age 45 y.o. Encounter Date 01/25/2025 Surfboard Maker: Primary Care Physician: Beni Valle MD Referring Physician: Beni Valle MD Reason for Visit Follow-up on management of POTS Assessment & Plan Impression Today Elham reports that she unfortunately contracted COVID just prior to her cruise and spent the entire time in her room. She has been taking propranolol 30 mg TID and HR overall has been controlled however, she has had episodes of tachycardia in between doses for which I recommended a 10 mg PRN propranolol. I also discussed the option of starting ivabradine in place of propranolol, particularly if she struggles during summer months Recommendations She will primarily focus on titration of propranolol upwards to achieve resting HR consistently in low 70s (as it is in office today) We will follow up in February to discuss treatment changes for summer heat Subjective History of Present Illness Cesilia is [...] IBS (Crohn's), Lown Ganong Ledesma syndrome (short ME), SVT (unclear burden), PFO, and mast cell [...] by Dr. Jose Joseph dysautonomia specialist in [place] back in June 2020. She apparently underwent [...] recommended that she be seen by an food service sales representatives as he felt she likely had mast [...] underwent vascular studies of lower extremities at [facility] and reports that they were [...] need to give both ivabradine and propranolol. At last visit I recommended that she increase propranolol IR to 30 mg 3 times daily and to not start ivabradine just yet. I also recommended as needed propranolol 10-20 mg for breakthrough palpitations and an increase in supplemental salts as she was planning on traveling to hot environment. ECG reveals SR at 80 bpm; ME 116 ms; QRS duration 76 ms. Short ME without manifest preexcitation 30-day MCOT revealed sinus [...] Start Date End Date Taking? Authorizing Provider amoxicillin-clavulanate (AUGMENTIN) 875-125 MG per tablet 04/22/24 External Provider, MD Yin Ellipta 100 MCG/ACT inhaler inhale 1 puff [...] times a day. 04/10/23 05/04/24 External Provider, ibuprofen (MOTRIN) 800 mg tablet Take 1 tablet (800 mg total) by mouth 3 times daily (every 8 hours) as needed for moderate pain. External Provider, ivabradine (CORLANOR) 5 MG tablet Take 1 tablet (5 mg total) by mouth 2 (two) times a day. 07/28/ Derek Roche PA-C levalbuterol (XOPENEX HFA) 45 mcg/puff inhaler Inhale 1 puff every 4 (four) hours as needed for wheezing or shortness of breath. 04/10/23 External Provider, Levonorgestrel (MIRENA, 52 MG, IU) 1 Units by Intrauterine route 1 time. External Provider, Medical Compression Stockings Level of Compression: 20-30 mmHg; knee-high, bilateral 03/23/24 Derek Roche PA-C Medical Compression Stockings Level of Compression: 20-30 mmHg; knee high bilateral. Please measureto fit 10/26/24 Derek Roche PA-C montelukast (SINGULAIR) 10 MG [...] by mouth 3 (three) times a day. 12/13/24 Derek Roche PA-C propranolol (INDERAL) 20 MG tablet Take 1 tablet (20 mg total) by mouth 3 (three) times a day. As discussed at visit 12/13/24 06/11/25 Derek Roche PA-C pyridostigmine (MESTINON) 60 MG tablet Take 1 tablet (60 mg total) by mouth 2 (two) times a day. 04/23/24 10/20/24 Derek Roche PA-C sodium chloride (NS) bolus Infuse 1,000 mL into a venous catheter 3 (three) times a week. 10/27/23 10/27/24 External Provider, Vitamin D3 (CHOLECALCIFEROL) 50 MCG (1999 [place]) capsule 02/08/24 External Provider, Medical History Past Medical History: Diagnosis Date PFO (patent foramen ovale) POTS (postural orthostatic tachycardia syndrome) SVT (supraventricular tachycardia) Surgical History Past Surgical History: Procedure Laterality Date CHOLECYSTECTOMY Family History No family history on file. Allergies Allergies[1] Objective Vitals No data found. There is no height or weight on file to calculate BMI. Physical Exam General: A, A and O [...] CREAT 0.6 10/27/2023 Sign: Derek Roche PA-C 01/25/2025 2:00 PM [1] Allergies Allergen Reactions Azithromycin Rash/Dermatitis and Shortness [...] Rash/Dermatitis Tapentadol Rash/Dermatitis Wound Dressing Adhesive Rash/Dermatitis documented in this encounter Plan of Treatment Upcoming Encounters Date Type Department Care Team (Late st Contact Info) Description 03/15/2025 3:30 PM EDT Appointment [facility] Heart [facility] [place] [facility] - Cardiology [address] [place] [address] Derek Roche PA-C [address] [place] [phone] documented as of this encounter Visit Diagnoses Diagnosis POTS (postural orthostatic tachycardia syndrome)- Primary Unspecified tachycardia documented in this encounter Care Teams Jewel Inspector Relationship Specialty Start Date End Date Beni Valle MD [address] [facility] [place] [address] PCP - General Family Medicine 10/27/23 Derek Roche PA-C [address] [place] [address] Physician Retina Subspecialist Cardiac Electrophysiology 03/23/24 documented as of this encounter
--- OUTSIDE RECORDS SUMMARY | 2025-01-28 14:53 | XMS_ITS | Encounter Summary ---
Author Organization [employer] Address [address] [place] [address] Care Team Providers Care Senior Oracle Developer Name Role Phone Unavailable Primary Care Provider Unavailabl e Encounter Details Date Type Department Care Team (Late st Contact Info) Description 07/09/2024 Telephone [facility] ADULT DENTAL [address] [place] [address] Annalise Mix, BDS [address] [place] [address] Social History Tobacco Use Types Packs/Day Years [...]
--- OUTSIDE RECORDS SUMMARY | 2025-01-28 14:53 | XMS_ITS ---
Author Organization [facility] Address [address] [place] [id number] Care Team Providers Care Pin Worker Name Role Phone MITCHELL BOND Primary Care Provider Desmond Francisco Jr REASON FOR VISIT cancel appt Encounters Encounter Location Date Provider Diagnosis [facility] [address] [place] [phone] 12/15/2023 Desmond De Oliveira Jr Plan Of Treatment No Information Progress Notes * LYNN DONNELLYDOB:1980 (43 yo F)Acc No.[id number]:12/15/2023 Patient:?DAYTON DONNELLYANA :1980???Age:43 Y???Sex:Female Address:[address] [place] [address], [address] * true * Date:? Generated for Shaina tenorio/Nelson/eTransmitting on:?01/28/2025 02:52 PM EDT
--- OUTSIDE RECORDS SUMMARY | 2025-01-28 14:53 | XMS_ITS | Encounter Summary ---
Author Organization [employer] Address [address] [place] [address] [address] [place] [address] Care Team Providers Care Senior Project Engineer Name Role Phone Unavailable Primary Care Provider Unavailabl e Reason for Visit * Reason Comments Med Refill Encounter Details Date Type Department Care Team (Late st Contact Info) Description 05/19/[address] [facility] DENTAL [address] [place], [place] [phone] Annalise Mix, BDS [address] [place], [place] [phone] Social History Tobacco Use Types Packs/Day Years [...]
--- OUTSIDE RECORDS SUMMARY | 2025-01-28 14:53 | XMS_ITS | Encounter Summary ---
Author Organization [employer] Address [address] [facility] 7t [place] [address] Care Team Providers Care Woodworking Bench Carpenter Name Role Phone Unavailable Primary Care Provider Unavailabl e Reason for Visit * Reason Onset Date Comments Appointment 01/24/2023 Encounter Details Date Type Department Care Team ([facility] st Contact Info) Description 01/24/2023 Telephone [facility] ADULT DENTAL [address] [place] [address] Sumeet Nascimento DMD [address] [place], [place] [phone] Appointment Social History Tobacco Use Types Packs/Day [...] 01/24/2023 and stated she needed medication from [facility] because she is starting to [...]
--- OUTSIDE RECORDS SUMMARY | 2025-01-28 14:53 | XMS_ITS | Encounter Summary ---
Author Organization [employer] Address [address] [place] [address] 7t [place] [address] Care Team Providers Care Flash Oven Operator Name Role Phone Unavailable Primary Care Provider Unavailabl e Reason for Visit * Reason Comments Med Refill Encounter Details Date Type Department Care Team (Late st Contact Info) Description 05/03/2024 Refill [facility] DENTAL [address] [place], [place] [phone] Annalise Mix, BDS [address] [place], [place] [phone] Social History Tobacco Use Types Packs/Day Years [...]
--- OUTSIDE RECORDS SUMMARY | 2025-01-28 14:53 | XMS_ITS | Encounter Summary ---
Author Organization [employer] Address [address] [facility] [address] 7t [place] [address] Care Team Providers Care Cell Support Operator Name Role Phone Unavailable Primary Care [...] patient that Dr. Doss is transitioning into [facility] again . Message would be sent to office. Encounter Details Date Type Department Care Team (Late st Contact Info) Description 09/25/2022 Telephone [facility] ADULT DENTAL [address] [place] [address] Annalise Mix, BDS [address] [place] [address] Appointment (Patient upset because states she has [...] patient that Dr. Doss is transitioning into [facility] again . Message would be sent to [...] patient that Dr. Doss is transitioning into [facility] again . Message would be sent to office. documented in this encounter Plan of Treatment Not on file documented as of this encounter Visit Diagnoses Not on filedocumented in this encounter
--- OUTSIDE RECORDS SUMMARY | 2025-01-28 14:53 | XMS_ITS ---
Author Organization [facility] Address [address] [place] [phone] Care Team Providers Care Wallpaper Embosser Helper Name Role Phone MITCHELL BOND Primary Care Provider Desmond Francisco Jr REASON FOR VISIT patient presents today for lump in rectum Encounters Encounter Location Date Provider Diagnosis [facility] [address] [place] [phone] 12/15/2023 Desmond De Oliveira Jr Plan Of Treatment No Information Progress Notes * LYNN DONNELLYDOB:1980 (45 yo F)Acc No.[id number]:12/15/2023 Progress Notes Patient:?LYNN DONNELLY Provider:?Desmond De Oliveira MD :1980???Age:43 Y???Sex:Female D ate:12/15/2023 Address:[address] [place], [place] [id number] Pcp:MITCHELL BOND Subjective: * Chief Complaints: * ???1. Patient presents today for lump in rectum. * Medical History:? Objective: * Vitals:? Assessment: Plan: * Treatment: * * The named appointment provid er may or may not be the originator of this progress note, and it is not deemed complete until electronically signed by the appointment provider. Sign off status: Pending * Provider:?Desmond De Oliveira MD Date:?0 12/15/2023 Generated for Shaina tenorio/Nelson/eTransmitting on:?01/28/2025 02:53 PM EDT
--- OUTSIDE RECORDS SUMMARY | 2025-01-28 14:53 | XMS_ITS | Encounter Summary ---
Author Organization [facility] Address [address] [place] [address] Care Team Providers Care Cell Maker Name Role Phone Beni Valle MD Primary Care Provider [phone]- [phone] Derek Roche PA-C Unavailable [phone] [phone] Encounter Details Date Type Department Care Team (Late st Contact Info) Description 05/10/2024 Telephone [facility] Heart & Vascular [place] [facility] - Electrophysiology Laboratory [address] [place] [address] Vanessa Waite MD [address] [place] [phone] Social History Tobacco Use Types Packs/Day Years [...] Info) Description 03/15/2025 3:30 PM EDT Appointment [facility] Heart & Vascular [place] at [facility] - Cardiology [address] [place] [address] Derek Roche PA-C [address] [place] [address] documented as of this encounter Visit Diagnoses Diagnosis POTS (postural orthostatic tachycardia syndrome)- Primary Unspecified tachycardia documented in this encounter Care Teams Cell Maker Relationship Specialty Start Date End Date Beni Valle MD [address] [facility] [place] [address] PCP - General Family Medicine 10/27/23 Derek Roche PA-C [address] [place] [address] Physician Firearms Expert Cardiac Electrophysiology 03/23/24 documented as of this encounter
== END 2025-01-28 14:50 | disposition home or self-care (01) ==
LOC: HO.US 14:49
PROVIDERS: PCP Nurse Practitioner Family; Visit Provider Nurse Practitioner Family
DX: M79.604 Pain in right leg (principal); R60.0 Localized edema
CPT/HCPCS: 93971

== ENCOUNTER → 2025-01-28 14:51 | Outpatient (BNV) | payer OTHER, SELFPAY | PROVIDERS: PCP Nurse Practitioner Family; Visit Provider Radiology Diagnostic Radiology | DX: M79.89 Other specified soft tissue disorders (principal) | CPT/HCPCS: 93971 ==

== ENCOUNTER 2025-03-07 15:39 | Outpatient (REF) | payer OTHER, SELFPAY ==
--- NOTE | ~2025-03-07 | CT_ITS ---
EXAMINATION: CT ABDOMEN AND PELVIS WITHOUT CONTRAST CLINICAL INFORMATION: Crohn's disease, unspecified. COMPARISON: 09/10/2024, 10/20/2019 TECHNIQUE: Multidetector volumetric imaging was performed from the superior aspect of the liver through the pubic symphysis. Sagittal and coronal reformatted images were obtained on the technologist's workstation. This CT examination was performed using dose optimization techniques as appropriate, variously including the following: *Automated exposure control *Adjustment of mA and/or kV according to patient size (this includes techniques or standardized protocols for targeted exams where dose is matched to indication/reason for exam; i.e. extremities or head) *Use of iterative reconstruction technique FINDINGS: LUNG BASES: The visualized lung bases are unremarkable. LIVER, GALLBLADDER, AND BILIARY TREE: The liver is normal in size, shape, and attenuation. No focal hepatic lesion or biliary ductal dilatation is present. The gallbladder is surgically absent. PANCREAS: Unremarkable. SPLEEN: Normal. There is a calcified granuloma in the posterior aspect. ADRENAL GLANDS: Unremarkable. KIDNEYS AND URETERS: The kidneys are normal in size, shape, and attenuation. No hydronephrosis, hydroureter, or calculi seen. No perinephric stranding. BLADDER: Incompletely decompressed, limiting evaluation. No gross abnormality. GASTROINTESTINAL TRACT: Normal appendix is visualized. Submucosal fat deposition is evident within the ascending colon, hepatic flexure, transverse colon, splenic flexure, and descending colon, findings most likely related to sequela of inflammatory bowel disease. No acute wall thickening or inflammation identified. No rectal abnormality. The small bowel is normal in caliber and course. No abnormal dilatation or evidence of inflammation. There is submucosal deposition in the most distal ileum abutting the ileocecal valve, similar etiology. The stomach, and duodenal sweep have a normal appearance. ABDOMINAL WALL: There is a small periumbilical fat-containing hernia. LYMPH NODES: Normal. VASCULAR: Unremarkable. PELVIC VISCERA: There is an IUD situated within the uterus, appears likely well positioned. No adnexal abnormalities. OSSEOUS STRUCTURES: Normal appearance. The SI joints appear normal. No evidence of sacroiliitis. There is a bone island in the left sacral ala. CT/CT abdomen pelvis wo IV con IMPRESSION: 1. No acute findings in the abdomen or pelvis. 2. Submucosal fat deposition in the terminal ileum, and involving the majority of the colon, findings in keeping with known Crohn's disease. 3. No definite active Crohn's disease identified within the abdomen or pelvis. 4. IUD appears well situated. Electronically signed by: Herbie Guzman MD 03/07/2025 04:39 PM EDT
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
== END 2025-03-07 15:40 | disposition home or self-care (01) ==
LOC: HO.CT 15:39
PROVIDERS: PCP Nurse Practitioner Family; Visit Provider Nurse Practitioner Family
DX: K50.90 Crohn's disease, unspecified, without complications (principal); K52.9 Noninfective gastroenteritis and colitis, unspecified; R10.9 Unspecified abdominal pain
CPT/HCPCS: 74176

== ENCOUNTER → 2025-03-07 15:40 | Outpatient (BNV) | payer OTHER, SELFPAY | PROVIDERS: PCP Nurse Practitioner Family; Visit Provider Radiology Diagnostic Radiology | DX: K50.90 Crohn's disease, unspecified, without complications (principal) | CPT/HCPCS: 74176 ==

== ENCOUNTER 2025-03-09 09:31 | Outpatient (AMB) | payer OTHER, SELFPAY ==
--- NOTE | 2025-03-09 09:39 | MHC.OFFVIS ---
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: Garment Parts Cutter Hand Present (garfield) Allergies doxycycline [DOXYCYCLINE] Allergy (Severe, Verified 03/09/25 09:47) RASH, GI Upset levofloxacin [From LEVAQUIN] Allergy (Severe, Verified 03/09/25 09:47) RASH metronidazole [From FLAGYL] Allergy (Severe, Verified 03/09/25 09:47) ANAPHYLAXIS morphine [MORPHINE] Allergy (Severe, Verified 03/09/25 09:47) ANAPHYLAXIS, cant breathe, SOB Sulfa (Sulfonamide Antibiotics) [SULFA (SULFONAMIDE ANTIBIOTICS)] Allergy (Severe, Verified 03/09/25 09:47) STOP BREATHING, rash/cant breathe adhesive [ADHESIVE] Allergy (Intermediate, Verified 03/09/25 09:47) RASH clindamycin [CLINDAMYCIN] Allergy (Intermediate, Verified 03/09/25 09:47) RASH Iodinated Contrast Media [IV CONTRAST] Allergy (Intermediate, Verified 03/09/25 09:47) ANAPHALAXIS latex [LATEX] Allergy (Intermediate, Verified 03/09/25 09:47) RASH ciprofloxacin [Cipro] Allergy (Unknown, Verified 03/09/25 09:47) unknown fludrocortisone Allergy (Unknown, Verified 03/09/25 09:47) Unknown hydromorphone [Dilaudid] Allergy (Unknown, Verified 03/09/25 09:47) Unknown ALL CONTRAST DYE Allergy (Unknown, Uncoded 03/09/25 09:47) Unknown Cortisone Allergy (Unknown, Uncoded 03/09/25 09:47) unknown IVP Dye Allergy (Unknown, Uncoded 03/09/25 09:47) Unknown Midodrine HCl Allergy (Unknown, Uncoded 03/09/25 09:47) Unknown Medication List - Last Reconciled 03/09/25 by Ameena Sun LPN albuterol sulfate 90 mcg/actuation (Ventolin HFA) 2 puffs inhalation Q4-6H PRN betamethasone dipropionate 0.05% 1 appl topical DAILY PRN cholecalciferol (vitamin D3) 50 mcg PO DAILY ipratropium bromide 17 mcg/actuation (Atrovent HFA) inhalation levalbuterol tartrate 45 mcg/actuation 2 puffs inhalation Q4-6H lidocaine 5% 1 patch topical DAILY 30 days lidocaine HCl-hydrocortison ac 3-0.5 % 1 appl ID BID lorazepam 0.5 mg PO BEDTIME PRN 20 days magnesium oxide 400 mg PO BEDTIME meclizine 12.5 mg PO BID PRN 20 days [Normal Saline 0.9% 2 L continuous IV infusion 3XW 52 weeks] propranolol mg PO 3XD riboflavin (vitamin B2) 400 mg PO DAILY vitamin B complex 1 tab PO DAILY Is last menstrual period known: Yes Last menstrual period: 02/23/25 Post menopausal: No Patient : No Do you need a note to return to daycare/school/sports/work: No HPI Comments Details: She is a premenopausal woman presenting for 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 Doing well with circuit tester concerns: Mirena IUD in place >10yrs. Hx. of missing string. Recent CT scan -IUD in place. Reg. menses. She denies vaginal itching or irritation. STI screening offered; she accepts, including bloodwork. She tries to eat healthy (Weight Watchers) and stays active with exercise walks >20K steps daily. Denies family history of breast, ovarian or colon cancer. Last pap smear unknown date, negative history. Mammogram: 2024, history of right breast fibroadenoma, benign biopsy. [facility] Medical History (Updated 03/09/25 @ 10:35 by Cassidy Jensen CNM) IUD (intrauterine device) in place Recent urinary tract infection Acid reflux Huynh disease Crohn disease Colitis Arachnoid cyst Asthma Autoimmune disorder Arthritis Bulging disc Spinal stenosis POTS (postural orthostatic tachycardia syndrome) SVT (supraventricular tachycardia) Surgical History History of kidney surgery History of liver biopsy Hx of cholecystectomy Family History Father High cholesterol HTN (hypertension) Tumors Mental health disorder Mother COPD (chronic obstructive pulmonary disease) Colitis Sister Colitis Substance use disorder Mental health disorder Sister Cervical cancer Social History Household Members: Family and Children Housing: House Alcohol intake: former Patient Tobacco Use Status: Former Tobacco user Years Smoked: quit 20b years ago e-Cigarette/Vaping Use: Never Used Second Hand Smoke Exposure: No service: No Current occupational status: employed 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 Current occupational exposures/hazards: No Cognitive needs: No Hearing needs: No Vision needs: No Female Reproductive History Menstrual Age of Menarche: 12 Duration of menses: 6-7 days Date of last menstrual period: 02/23/25 control method: progestin IUCD (mirena placed ten years ago no string showing had Ct scan done 2 days [address] shows in [address]) Total pregnancies: 3 Full term: 0 Premature: 2 Number of Living Children: 3 Date of last pap smear: 03/08/22 History of abnormal pap smear: No History of STI: No Review of Systems Const All systems reviewed & are unremarkable except as noted in HPI and below Reports as per HPI Eyes Reports no additional complaints ENT Reports no additional complaints Card Reports no additional complaints Resp Reports no additional complaints GI Reports as per HPI and Reports no additional complaints Reports as per HPI Musc Reports no additional complaints Skin/Breast Reports as per HPI Neuro Reports no additional complaints Psych Reports no additional complaints Endo Reports no additional complaints Terry/Lymph Reports no additional complaints Aller/Immun Reports no additional complaints Physical Exam Vital Signs: Last Vital Signs BP 98/68 03/09/25 09:41 BMI result Body Mass Index 31.4 Const General: cooperative, healthy appearing, no acute distress, well developed and alert Orientation/consciousness: patient oriented x3 HEENT Head: Yes normal to inspection Eyes General: appearance normal, both eyes and all related structures Neck Neck: Yes normal visual inspection Thyroid: Thyroid normal Chest Chest palpation & inspection: normal inspection of the chest and other (no puckering, dimpling, peau de orange, retraction, discharge, masses) Breast/axilla inspection: normal inspection of the breasts and Other (scar right breast) Breast/axilla palpation: normal palpation of the breasts Resp Effort & Inspection: normal respiratory effort GI Inspection: Yes normal to inspection Palpation (GI): Soft to palpation Rectal Exam - Female: deferred General: Yes bladder normal to palpation External Female Exam: normal external appearance and normal appearance of the urethra Speculum Exam - Vagina: normal appearance of the vagina, normal palpation and normal vaginal discharge Speculum Exam - Cervix: normal appearance of the cervix, normal palpation and Other cervical findings present (Strings not seen or teased down with Cytobrush) Bimanual exam- vagina & uterus: normal bimanual exam, normal palpation, uterine size normal, bladder normal to palpation, normal palpation and non-tender Bimanual Exam- Adnexa, other: no masses Skin General skin exam: no rashes or lesions noted Rashes: no rashes Neuro General: patient oriented x3 Cognition (Neuro): normal cognition Extrem General: Yes normal to inspection Psych Attitude: cooperative Thought process: Normal thought process present Results AMB Urinalysis, Automated UA Leukoctes 0 Renny/uL Last Edit by Rosamaria Vega [facility] on 03/09/25 10:08 UA Nitrite Negative Last Edit by Rosamaria Vega [facility] on 03/09/25 10:08 UA Urobilinogen 0 mg/dL Last Edit by Rosamaria Vega [facility] on 03/09/25 10:08 UA Protein 1 mg/dL Last Edit by Rosamaria Vega [facility] on 03/09/25 10:08 UA pH 6.0 Last Edit by Rosamaria Vega [facility] on 03/09/25 10:08 UA Blood 0 Yony/uL Last Edit by Rosamaria Vega [facility] on 03/09/25 10:08 UA Specific [place] 1.030 Last Edit by Rosamaria Vega Edward on 03/09/25 10:08 UA Ketone Negative Last Edit by Rosamaria Vega [facility] on 03/09/25 10:08 UA Bilirubin 0 mg/dL Last Edit by Rosamaria Vega [facility] on 03/09/25 10:08 UA Glucose 0 mg/dL Last Edit by Rosamaria Vega [facility] on 03/09/25 10:08 AMB Test Urine AMB Test Urine Negative Last Edit by Ameena Sun LPN on 03/09/25 10:35 Results Reviewed Results Reviewed: Laboratory Last Values Urine pH (Auto) 6.0 03/09/25 10:06 Specific [place] (Auto) 1.030 03/09/25 10:06 Urine Protein (Auto) 1 mg/dL 03/09/25 10:06 Glucose (UA)(Auto) 0 mg/dL 03/09/25 10:06 Urine Ketones (Auto) Negative 03/09/25 10:06 Urine Blood (Auto) 0 Yony/uL 03/09/25 10:06 Urine Nitrite (Auto) Negative 03/09/25 10:06 Urine Bilirubin (Auto) 0 mg/dL 03/09/25 10:06 Urine Urobilinogen (Auto) 0 mg/dL 03/09/25 10:06 Leukocyte Esterase (Auto) 0 Renny/uL 03/09/25 10:06 Assessment & Plan Assessment & Plan (1) Encounter for well woman exam with routine gynecological exam: Code(s): Z01.419 - Encounter for gynecological examination (general) (routine) without abnormal findings Category: Medical Plan: Discussed: Current recommendations for pap smears per ASCCP guidelines. Breast awareness and periodic breast exams, report any breast concerns for sooner evaluation if indicated. Mammogram yearly. Maintain a healthy lifestyle including a well balanced diet and routine exercise. Use condoms for STI and prevention. UPT is negative today. Schedule Mirena IUD exchange, pre procedure planning advised to have something to eat and drink and take 2 Tylenol 1 hour before appointment time. Colonoscopy >45, or at risk sooner. Patient verbalizes understanding and agrees to the plan of care. She was given opportunity to ask questions and all questions were answered to the best of my ability. RTO in one year for annual circuit tester examination. This note is constructed using voice recognition software. While every effort has been made to ensure accuracy, crossbar frame wirer errors may have been included. (2) Possible exposure to STD: Code(s): Z20.2 - Contact with and (suspected) exposure to infections with a predominantly sexual mode of transmission Plan GC chlamydia, BV panel, blood work order, await results for plan of care. The patient expressed understanding and agreement with the plan of care. All of her questions and concerns were addressed to the best of my ability. Orders: Orders HPV High risk Today Z01.419 - Encounter for gynecological examination (general) (routine) without abnormal findings Hepatitis B Core Antibody Today Z20.2 - Contact with and (suspected) exposure to infections with a predominantly sexual mode of transmission AMB Urinalysis Automated Today R10.2 - Pelvic and perineal pain Bacterial Vaginosis Panel Today Z20.2 - Contact with and (suspected) exposure to infections with a predominantly sexual mode of transmission CT NG by PCR Today Z20.2 - Contact with and (suspected) exposure to infections with a predominantly sexual mode of transmission Pap Smear Today Z01.419 - Encounter for gynecological examination (general) (routine) without abnormal findings HIV Ab/Ag Today Z20.2 - Contact with and (suspected) exposure to infections with a predominantly sexual mode of transmission Hepatitis C Antibody Reflex Today Z20.2 - Contact with and (suspected) exposure to infections with a predominantly sexual mode of transmission Syphilis Screen Today Z20.2 - Contact with and (suspected) exposure to infections with a predominantly sexual mode of transmission Coding Level of Care Code New Pt Prev Care 40-64y(09555) Diagnoses Encounter for well woman exam with routine gynecological exam Z01.419 Possible exposure to STD Z20.2
[2025-03-09 09:41] VITALS: BP 98/68; BMI 31.4
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
== END 2025-03-09 10:40 | disposition home or self-care (01) ==
LOC: HO.HWS 09:32
PROVIDERS: PCP Nurse Practitioner Family; Visit Provider Advanced Practice Midwife
DX: Z01.419 Encounter for gynecological examination (general) (routine) without abnormal findings (principal); Z20.2 Contact with and (suspected) exposure to infections with a predominantly sexual mode of transmission; R10.2 Pelvic and perineal pain; Z32.02 Encounter for pregnancy test, result negative
CPT/HCPCS: 99386; 99459

== ENCOUNTER 2025-03-09 09:31 | Outpatient (REF) | payer OTHER, SELFPAY ==
[2025-03-09 12:08] LABS: Syphilis Screen Nonreactive (Nonreactive)
[2025-03-09 12:11] LABS: HBc Num1 0.06 S/CO (0.00-0.79); HIV AB/AG Nonreactive (Nonreactive); HIV Num 1 0.06 S/CO (0.00-0.99); Hepatitis B Core Antibody Nonreactive (Nonreactive); ~HepC Num1 0.12 S/CO (0.00-0.79); ~Hepatitis C Antibody Nonreactive (Nonreactive)
[2025-03-09 16:19] LABS: Bacterial Vaginosis PCR NEGATIVE (Negative); Candida Group PCR NOT DETECTED (Not Detect); Candida glab krusei PCR NOT DETECTED (Not Detect); Trichomonas vaginalis PCR NOT DETECTED (Not Detect)
[2025-03-09 16:51] LABS: CT PCR NOT DETECTED (Not Detect.); NG PCR NOT DETECTED (Not Detect.)
[2025-03-14 13:00] LABS: HPV Genotype 16 Negative (Negative); HPV Genotype 18 Negative (Negative); HPV High Risk Negative (Negative)
== END 2025-03-09 09:32 | disposition home or self-care (01) ==
LOC: HO.LNP 09:31
PROVIDERS: PCP Nurse Practitioner Family; Visit Provider Advanced Practice Midwife
DX: Z20.2 Contact with and (suspected) exposure to infections with a predominantly sexual mode of transmission (principal); Z01.419 Encounter for gynecological examination (general) (routine) without abnormal findings
CPT/HCPCS: 81003; 81025; 81515; 86704; 86780; 86803; 87389; 87491; 87591; 87626; 88175; 99386; 99459

== ENCOUNTER 2025-03-09 10:22 | Outpatient (REF) | payer OTHER, SELFPAY | END 2025-03-09 10:23 | disposition home or self-care (01) | LOC: HO.LAB 10:22 | PROVIDERS: PCP Nurse Practitioner Family; Visit Provider Advanced Practice Midwife | DX: Z13.89 Encounter for screening for other disorder (principal) ==

== ENCOUNTER 2025-03-16 15:08 | Outpatient (AMB) | payer OTHER, SELFPAY ==
[2025-03-16 15:13] VITALS: BP 104/66; PULSE 73; O2SAT 98; BMI 31.1
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
== END 2025-03-16 16:18 | disposition home or self-care (01) ==
LOC: HO.HMCC 15:09
PROVIDERS: PCP Nurse Practitioner Family; Visit Provider Nurse Practitioner Family
DX: I49.8 Other specified cardiac arrhythmias (principal); R42 Dizziness and giddiness; M25.50 Pain in unspecified joint

== ENCOUNTER 2025-03-16 15:08 | Outpatient (REF) | payer OTHER, SELFPAY ==
[2025-03-16 16:55] LABS: MANUAL DIFF FLAG NO
[2025-03-16 17:12] LABS: Basophils Absolute Auto 0.1 X10*3/uL (0.0-0.2); Basophils Percent Auto 0.6 % (0-2); Eosinophils Absolute Auto 0.4 X10*3/uL (0.0-0.4); Eosinophils Percent Auto 4.3 % (0-4); Hematocrit 40.6 % (37.0-47.0); Hemoglobin 13.5 g/dl (12.0-16.0); Imm Gran Abs Auto 0.02 X10*3/uL (0.00-0.03); Imm Gran Pct Auto 0.2 % (0.0-0.4); Lymphocytes Absolute Auto 2.1 X10*3/uL (1.2-4.9); Lymphocytes Percent Auto 23.8 % (20-40); Mean Corpuscular HGB Conc 33.3 g/dl (31.0-35.0); Mean Corpuscular Hemoglobin 31.1 pg (27.0-33.0); Mean Corpuscular Volume 93.5 fL (80.0-98.0); Mean Platelet Volume 10.6 fL (9.4-12.3); Monocytes Absolute Auto 0.7 X10*3/uL (0.1-1.2); Monocytes Percent Auto 8.1 % (2-11); Neutrophils Absolute Auto 5.6 x10*3/uL (2.0-8.3); Platelet Count 250 X10*3/uL (160-400); Red Blood Count 4.34 X10*6/uL (4.20-5.50); Red Cell Distribution Width 12.8 % (11.0-16.0); White Blood Count 8.9 X10*3/uL (4.8-10.8)
[2025-03-16 17:15] LABS: Appearance Urine Clear; Color Urine Yellow; Glucose Urine UA Negative (Negative); Leukocyte Esterase Urine Negative (Negative); Nitrite Urine Negative (Negative); PH 5.5 (5.0-9.0); Specific Gravity - Urine >= 1.030 (1.005-1.025); Urine Blood Negative (Negative); Urine Ketones Trace mg/dL (Negative); Urine Protein Negative (Neg-Trace)
[2025-03-16 17:36] LABS: Alanine Aminotransferase 53 U/L (0-31); Albumin Level 4.3 g/dL (3.5-5.0); Alkaline Phosphatase 54 U/L (39-117); Anion Gap 8 (12-20); Aspartate Amino Transferase 25 U/L (5-31); Bilirubin Total 0.3 mg/dL (0.0-1.0); Blood Urea Nitrogen 15 mg/dL (9-16); Calcium 8.9 mg/dL (8.4-10.2); Carbon Dioxide 22 mmol/L (22-29); Chloride 113 mmol/L (96-108); Cholesterol 175 mg/dL (<200); Estimated Glomerular Filt Rate > 60; Glucose Fasting 97 mg/dL (60-99); HDL Cholesterol 45 mg/dL (>40); Iron 48 mcg/dL (30-160); LDL Cholesterol Calculated 89 mg/dL (<100); Magnesium 2.1 mg/dL (1.6-2.6); Percent Iron Saturation 13 % (15-50); Potassium 3.9 mmol/L (3.3-5.1); Sodium 139 mmol/L (135-145); Total Iron Binding Capacity 356 mcg/dL (228-428); Total Protein 6.9 g/dL (6.5-8.0); Triglycerides 206 mg/dL (<150); Unsaturated Iron Binding 308 ug/dL
[2025-03-16 17:39] LABS: Rheumatoid Factor < 13.0 IU/mL (<15.0)
[2025-03-16 17:51] LABS: Ferritin 13 ng/mL (10-250); TSH reflex Free T4 1.77 uIU/mL (0.32-4.0)
[2025-03-16 18:06] LABS: Vitamin B12 306 pg/mL (200-900)
[2025-03-17 10:45] LABS: Complement C3 129 mg/dL (83-193)
[2025-03-17 16:33] LABS: Anti DNA DS Antibody 1 IU/mL; Antibody to SS-A Antigen <1.0 NEG AI (<1.0 NEG); Antibody to SS-B Antigen <1.0 NEG AI (<1.0 NEG)
[2025-03-17 17:33] LABS: Lyme Abs Screen <0.90 index
[2025-03-18 09:53] LABS: Anti Nuclear Antibody Screen NEGATIVE (NEGATIVE)
[2025-03-18 13:13] LABS: A. Phagocytphilium DNA,RT-PCR NOT DETECTED (NOT DETECTED); Babesia Microti DNA, RT-PCR NOT DETECTED (NOT DETECTED); Borrelia Miyamotoi,DNA RT-PCR NOT DETECTED (NOT DETECTED); E.Chaffeensis DNA RT-PCR NOT DETECTED (NOT DETECTED); Lyme(Borrelia ssp)DNA RT-PCR NOT DETECTED (NOT DETECTED)
[2025-03-22 14:38] LABS: DNAds, Crithidia Antibody Negative (Negative)
[2025-03-23 05:14] LABS: Vitamin B6 11.3 ng/mL (2.1-21.7)
[2025-03-23 14:44] LABS: Cyclic Citrullinated Peptide <16 UNITS
== END 2025-03-16 15:09 | disposition home or self-care (01) ==
LOC: HO.LAB 15:08
PROVIDERS: PCP Nurse Practitioner Family; Visit Provider Nurse Practitioner Family
DX: Z00.00 Encounter for general adult medical examination without abnormal findings (principal); I49.8 Other specified cardiac arrhythmias; R42 Dizziness and giddiness; M62.838 Other muscle spasm; M25.50 Pain in unspecified joint; M79.89 Other specified soft tissue disorders; E78.5 Hyperlipidemia, unspecified
CPT/HCPCS: 36415; 80053; 80061; 81003; 82550; 82607; 82728; 82746; 83540; 83735; 84207; 84443; 85025; 86038; 86160; 86200; 86225; 86235; 86255; 86431; 86617; 86618; 87468; 87469; 87478; 87484; 87798; 96127; 99212

== ENCOUNTER 2025-03-24 09:58 | Outpatient (AMB) | payer OTHER, SELFPAY ==
[2025-03-24 10:03] VITALS: BP 110/78; PULSE 78; O2SAT 99; BMI 31.1
--- NOTE | 2025-03-24 10:03 | A.OFFVIS_ITS ---
Vital Signs 03/24/25 10:03 Height 5 ft 5 in Weight 187 lb BMI 31.1 BP 110/78 Blood Pressure Location Rt brachial Position Sitting Pulse 78 Pulse Source Pulse Oximeter Pulse Oximetry (%) 99 Oxygen Delivery Method Room Air Intake Visit Reasons: INP-Migraine Chief Embalmer Required: No Accompanied by: Self / Same As Patient Allergies doxycycline (DOXYCYCLINE) Allergy (Severe, Verified 03/24/25 10:03) RASH, GI Upset levofloxacin (From LEVAQUIN) Allergy (Severe, Verified 03/24/25 10:03) RASH metronidazole (From FLAGYL) Allergy (Severe, Verified 03/24/25 10:03) ANAPHYLAXIS morphine (MORPHINE) Allergy (Severe, Verified 03/24/25 10:03) ANAPHYLAXIS, cant breathe, SOB Sulfa (Sulfonamide Antibiotics) (SULFA (SULFONAMIDE ANTIBIOTICS)) Allergy (Severe, Verified 03/24/25 10:03) STOP BREATHING, rash/cant breathe adhesive (ADHESIVE) Allergy (Intermediate, Verified 03/24/25 10:03) RASH clindamycin (CLINDAMYCIN) Allergy (Intermediate, Verified 03/24/25 10:03) RASH Iodinated Contrast Media (IV CONTRAST) Allergy (Intermediate, Verified 03/24/25 10:03) ANAPHALAXIS latex (LATEX) Allergy (Intermediate, Verified 03/24/25 10:03) RASH ciprofloxacin (Cipro) Allergy (Unknown, Verified 03/24/25 10:03) unknown fludrocortisone Allergy (Unknown, Verified 03/24/25 10:03) Unknown hydromorphone (Dilaudid) Allergy (Unknown, Verified 03/24/25 10:03) Unknown ALL CONTRAST DYE Allergy (Unknown, Uncoded 03/09/25 09:47) Unknown Cortisone Allergy (Unknown, Uncoded 03/09/25 09:47) unknown IVP Dye Allergy (Unknown, Uncoded 03/09/25 09:47) Unknown Midodrine HCl Allergy (Unknown, Uncoded 03/09/25 09:47) Unknown Medication List - Last Reconciled 03/24/25 by Toshia Kiser, JONATHAN albuterol sulfate 90 mcg/actuation (Ventolin HFA) 2 puffs inhalation Q4-6H PRN betamethasone dipropionate 0.05% 1 appl topical DAILY PRN cholecalciferol (vitamin D3) 50 mcg PO DAILY ipratropium bromide 17 mcg/actuation (Atrovent HFA) inhalation levalbuterol tartrate 45 mcg/actuation 2 puffs inhalation Q4-6H lidocaine 5% 1 patch topical DAILY 30 days lidocaine HCl-hydrocortison ac 3-0.5 % 1 appl ND BID lorazepam 0.5 mg PO BEDTIME PRN 20 days magnesium oxide 400 mg PO BEDTIME meclizine 12.5 mg PO BID PRN 20 days [Normal Saline 0.9% 2 L continuous IV infusion 3XW 52 weeks] pantoprazole 40 mg PO DAILY propranolol mg PO 3XD riboflavin (vitamin B2) 400 mg PO DAILY vitamin B complex 1 tab PO DAILY HPI Comments Details: History of Present Illness The patient is a 45-year-old right-handed female presenting with severe headaches and dizziness. The headaches initially started about a year ago, were intermittent, and were managed with Tylenol or Motrin. However, in the past month, the headaches have intensified, leading to an emergency room visit due to their severity and associated dizziness. The patient denies any recent infections, accidents, or injuries that could have exacerbated her symptoms. The patient reports that the headaches are constant, throbbing, and resemble a brain freeze sensation, lasting all day. There is no associated neck pain, photophobia, or phonophobia, and the headaches do not improve with sleep or position change.. The dizziness is described as a sensation of swaying or being off balance, similar to being on a boat. The patient has a history of POTS diagnosed 17 years ago and mast cell activation syndrome diagnosed two years ago. She is currently on propranolol for heart rate control and pantoprazole for gastric issues. The patient has been diagnosed with anemia and iron deficiency, with recent blood work indicating low iron levels. The patient has a known arachnoid cyst, which has been stable on imaging, and a history of Crohn's disease, although she has not been on treatment for it. She also has a history of gallbladder removal and kidney stones. Past Medical History - Postural Orthostatic Tachycardia Syndrome (POTS) diagnosed 17 years ago - Mast Cell Activation Syndrome diagnosed two years ago - Anemia and Iron Deficiency - Arachnoid Cyst - Crohn's Disease - History of Gallbladder Removal - History of Kidney Stones - H. pylori Infection - Degenerative Disc Disease - Short ND Interval - Supraventricular Tachycardia (SVT) - Vitamin D Deficiency- Not on a vitamin-D supplement - Back degenerative disc disease, bulging disc Review of Systems - General: Fatigue, sleep difficulties, anxious, double vision. - Neurological: Reports severe, constant headaches resembling brain freeze, dizziness described as swaying or off balance. Denies neck pain, photophobia, phonophobia. numbness and tingling in hands and legs, and general weakness - Cardiovascular: Denies chest pain, palpitations, or syncope. - Gastrointestinal: Reports history of H. pylori infection, denies nausea or vomiting. - Musculoskeletal: Reports leg cramps, Joint pain, swollen joints. Back pain with degenerative disc disease and bulging disc - Respiratory: Denies dyspnea, cough, or wheezing. - History of ear Nose and Throat disorders: Constant nasal drip, no recent ear infections - Licensed [employer]: Irregular cycle, Mirena IUD placement Pertinent denials: Constipation. - No history of head trauma, no family history of headaches reported. Results - Labs: Recent blood work indicates anemia with low iron levels, and low vitamin-D level. - Imaging: CT scan showed no acute intracranial abnormalities, MRI brain without contrast revealed stable arachnoid cyst. Patient reports anaphylaxis allergy to both MRI and CT contrast Headache Review Medications - Propranolol for heart rate control - Pantoprazole for gastric issues - Tylenol for headache relief Headache Lifestyle Factors The patient reports no caffeine intake and maintains hydration with liquid IV solutions. She engages in regular physical activity, walking approximately 20,000 steps daily, and has been losing weight through [employer]. The patient experiences poor sleep quality, often going to bed late and having difficulty falling asleep. 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 - Substance Use: Denies use of alcohol, tobacco, caffeine, or recreational drugs. - Exercise: Engages in regular physical activity, walking approximately 20,000 steps daily. - Nutrition: Following [employer] program, reports weight loss. Exercise The patient engages in regular physical activity, walking approximately 20,000 steps daily, which she attributes to her job cleaning cars. Nutrition The patient is following the [employer] program and reports successful weight loss. She denies any specific dietary restrictions but is mindful of her nutritional intake. Sleep - Reports poor sleep quality, often going to bed late and having difficulty falling asleep. - Typically in bed from 11:00 PM to 7:45 AM, but actual sleep onset is delayed. Substance Use The patient denies any use of alcohol, tobacco, caffeine, or recreational drugs. She is unable to consume caffeine due to heart-related issues. 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 Headache questionnaire: Onset of initial headache symptoms: A year ago, worsened a month ago Initial precipitating cause of this headache: None Previous workup for this headache: CT scan, MRI without contrast Types of headache disorders: 1 Typical headache characteristics: Constant, throbbing, all over, like a brain freeze Prodrome symptoms: Denies Aura: Denies Headache pain intensity: Severe Location, quality, characteristics of this headache: All over, constant, throbbing Associated migraine symptoms: Dizziness, not right in space dizziness Headache postdrome: Denies Headache aggravating factors: Denies Headache triggers: Denies Time of day this headache usually occurs: All day Duration of this headache: All day Frequency of this headache: Constant How does headache impact your life? Unknown Current acute medication use/interventions: Tylenol Current preventative medication use: Propranolol- used for HR control- ineffe ctive for headache Current non-pharmacological interventions: None PFSH Medical History IUD (intrauterine device) in place Recent urinary tract infection Acid reflux Huynh disease Crohn disease Colitis Arachnoid cyst Asthma Autoimmune disorder Arthritis Bulging disc Spinal stenosis POTS (postural orthostatic tachycardia syndrome) SVT (supraventricular tachycardia) Surgical History History of kidney surgery History of liver biopsy Hx of cholecystectomy Family History Father High cholesterol HTN (hypertension) Tumors Mental health disorder Mother COPD (chronic obstructive pulmonary disease) Colitis Sister Colitis Substance use disorder Mental health disorder Sister Cervical cancer Social History Household Members: Family and Children Housing: House Alcohol intake: former Patient Tobacco Use Status: Former Tobacco user Years Smoked: quit 20b years ago e-Cigarette/Vaping Use: Never Used Second Hand Smoke Exposure: No service: No Current occupational status: employed 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 Current occupational exposures/hazards: No Cognitive needs: No Hearing needs: No Vision needs: No Female Reproductive History Menstrual Age of Menarche: 12 Physical Exam Vital Signs: Last Vital Signs Pulse 78 03/24/25 10:03 BP 110/78 03/24/25 10:03 Pulse Ox 99 03/24/25 10:03 Oxygen Delivery Method Room Air 03/24/25 10:03 BMI result Body Mass Index 31.1 Const Orientation/consciousness: patient oriented x3 Resp Effort & Inspection: normal respiratory effort and able to speak in complete sentences Neuro General: patient oriented x3 Cranial nerves: Yes CN's II-XII intact bilaterally Cognition (Neuro): normal cognition Gait exam (Neuro): Normal gait present Motor exam (neuro): 5/5 motor strength present throughout Deep tendon reflexes (DTR's): Right triceps reflex intensity grade: 2+, Left triceps reflex intensity grade: 2+, Rt Biceps (C5, C6): 2+, Left biceps reflex intensity grade: 2+, Right brachioradialis reflex intensity grade: 2+, Left brachioradialis reflex intensity grade: 2+, Right patellar reflex intensity grade: 1+ and Left patellar reflex intensity grade: 1+ Coordination: [id number] test normal, tandem gait normal and Romberg test negative Pupils: Normal pupillary reactivity/response: bilateral Psych Appearance: grossly normal Mental Status: mental status grossly normal Speech and movement: Normal speech and movement present Affect: normal affect Attitude: cooperative Thought process: Normal thought process present Assessment & Plan Assessment & Plan (1) Anemia: Code(s): D64.9 - Anemia, unspecified Category: Medical (2) Vitamin D deficiency: Code(s): E55.9 - Vitamin D deficiency, unspecified Category: Medical Plan Discussion Notes During the visit, we discussed the patient's complex medical history, including her headaches, dizziness, and associated conditions such as POTS and mast cell activation syndrome. We reviewed her current medications and the need for further diagnostic testing, including a potential sleep study and vestibular therapy. The importance of managing her sleep, restless leg symptoms, iron deficiency and vitamin D levels was emphasized, along with the potential benefits of physical therapy for her headaches. Discussed trying medications known to be helpful for vestibular headache/migraine, such as amitriptyline, nortriptyline, sertraline-however patient states she has tried all of these before and they only worsened her symptoms. Discussed trying doxepin, which can be particularly helpful for vestibular headache syndromes and mast cell disorders, however patient states that her POTS specialist in [place] does not want her to take anything that may be BP supportive. Thus, we will hold on initiating new prescription medications at this time other than supplementing vitamin-D level and starting ferrous gluconate with vitamin-C. Plan and patient instructions Pt advised to undergo: Labs to follow-up on iron deficiency anemia, vitamin-D deficiency. Home sleep study as ordered by PCP-we will check to see if it can be done sooner. Vestibular PT-order slip given to patient. Future consideration: In-lab sleep study to assess for periodic limb movement of sleep. For overall headache management: * Optimize good self-care, including but not limited to maintaining a healthy diet, adequate fluid intake, adequate sleep, and engaging in regular physical activity. * Track headaches, especially after any treatment regimen changes. [employer] is one of many headache tracking apps. * Optimize overall health well being: * Start ferrous gluconate 325 mg daily with vitamin-C * Start vitamin-D supplement 2000 units daily * Reestablish care with GI- advised to discuss possible Crohn's disease, mast cell disorder treatment. * Follow-up with POTS specialist-continue IV hydration therapy. For acute headache treatment: Discussed importance of taking acute medications at the first sign of headache, however stressed importance of avoiding acute medication overuse (especially with combined headache medications). May use Tylenol as needed Previous acute migraine medication trials: Sumatriptan ineffective. Naproxen ineffective. Acute migraine medication contraindications: Patient states she can not take NSAIDs. For headache prevention medication: Preventative medications should be taken routinely as prescribed for best effect, it may take several weeks for full effect to take effect. Start Riboflavin 400mg qam Start Magnesium 400mg qhs Previous migraine prevention medication trials: Migraine prevention medication contraindications: Topiramate, Flexeril, metoprolol, Celebrex, gabapentin, Lyrica, Cymbalta- all ineffective and not tolerated. Amitriptyline/nortriptyline/sertraline-ineffective and not tolerated Case discussed with Dr Yolanda Qiu. Will follow-up upon review of above and patient to follow-up in clinic in 3-4 months or sooner prn. Will follow-up upon review of above and patient to follow-up in clinic in 3-4 months or sooner prn. Orders: Orders PT Evaluation and Treatment 03/16/25 R42 - Dizziness and giddiness, R51.9 - Headache, unspecified Complete Blood Count Auto Diff Today D64.9 - Anemia, unspecified, E55.9 - Vitamin D deficiency, unspecified Comprehensive Met. Panel Today D64.9 - Anemia, unspecified, E55.9 - Vitamin D deficiency, unspecified Methylmalonic Acid Today D64.9 - Anemia, unspecified, E55.9 - Vitamin D deficiency, unspecified Vitamin B1 Today D64.9 - Anemia, unspecified, E55.9 - Vitamin D deficiency, unspecified Vitamin B12 and Folate Today D64.9 - Anemia, unspecified, E55.9 - Vitamin D deficiency, unspecified Homocysteine Today D64.9 - Anemia, unspecified, E55.9 - Vitamin D deficiency, unspecified Vitamin D 25-OH (D2 and D3) Today D64.9 - Anemia, unspecified, E55.9 - Vitamin D deficiency, unspecified Vitamin B6 Today D64.9 - Anemia, unspecified, E55.9 - Vitamin D deficiency, unspecified Ferritin Today D64.9 - Anemia, unspecified IRON PROFILE Today D64.9 - Anemia, unspecified Medications: New ferrous gluconate 324 mg PO DAILY 30 tabs 3RF 30 days ascorbate calcium (vitamin C) take w/ ferrous gluconate 500 mg PO DAILY 30 tabs 3RF 30 days docusate sodium (Colace) 100 - 200 mg (1 - 2 x 100 mg) PO DAILY PRN 60 caps 1RF constipation 30 days Changed From magnesium oxide 400 mg PO BEDTIME 30 tabs 1RF To magnesium oxide 400 mg PO BEDTIME 90 tabs 1RF 90 days Refilled riboflavin (vitamin B2) 400 mg PO DAILY 90 tabs 1RF cholecalciferol (vitamin D3) 50 mcg PO DAILY 90 caps 2RF Discontinued vitamin B complex Discontinued Reason: Doctor's Order 1 tab PO DAILY 90 tabs 1RF Coding Level of Care Code New Pt Level 4 (94309) Diagnoses Anemia D64.9 Vitamin D deficiency E55.9
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
== END 2025-03-24 11:22 | disposition home or self-care (01) ==
LOC: HO.HSMS 09:59
PROVIDERS: PCP Nurse Practitioner Family; Visit Provider Nurse Practitioner Family
DX: D64.9 Anemia, unspecified (principal); E55.9 Vitamin D deficiency, unspecified
CPT/HCPCS: 99204

== ENCOUNTER 2025-03-24 09:58 | Outpatient (REF) | payer OTHER, SELFPAY ==
[2025-03-24 17:51] LABS: MANUAL DIFF FLAG NO
[2025-03-24 18:02] LABS: Basophils Absolute Auto 0.1 X10*3/uL (0.0-0.2); Basophils Percent Auto 0.8 % (0-2); Eosinophils Absolute Auto 0.3 X10*3/uL (0.0-0.4); Eosinophils Percent Auto 3.6 % (0-4); Hematocrit 37.6 % (37.0-47.0); Hemoglobin 12.5 g/dl (12.0-16.0); Imm Gran Abs Auto 0.04 X10*3/uL (0.00-0.03); Imm Gran Pct Auto 0.5 % (0.0-0.4); Lymphocytes Absolute Auto 1.6 X10*3/uL (1.2-4.9); Lymphocytes Percent Auto 20.1 % (20-40); Mean Corpuscular HGB Conc 33.2 g/dl (31.0-35.0); Mean Corpuscular Hemoglobin 31.1 pg (27.0-33.0); Mean Corpuscular Volume 93.5 fL (80.0-98.0); Mean Platelet Volume 10.8 fL (9.4-12.3); Monocytes Absolute Auto 0.5 X10*3/uL (0.1-1.2); Monocytes Percent Auto 6.5 % (2-11); Neutrophils Absolute Auto 5.4 x10*3/uL (2.0-8.3); Neutrophils Percent Auto 68.5 % (45-73); Platelet Count 249 X10*3/uL (160-400); Red Blood Count 4.02 X10*6/uL (4.20-5.50); Red Cell Distribution Width 12.7 % (11.0-16.0); White Blood Count 7.9 X10*3/uL (4.8-10.8)
[2025-03-24 18:45] LABS: Folate 4.1 ng/mL (> or = 4.0); Vitamin B12 355 pg/mL (200-900)
[2025-03-24 18:47] LABS: Alanine Aminotransferase 17 U/L (0-31); Albumin Level 4.1 g/dL (3.5-5.0); Alkaline Phosphatase 52 U/L (39-117); Anion Gap 10 (12-20); Aspartate Amino Transferase 20 U/L (5-31); Bilirubin Total 0.3 mg/dL (0.0-1.0); Blood Urea Nitrogen 11 mg/dL (9-16); Calcium 8.8 mg/dL (8.4-10.2); Carbon Dioxide 23 mmol/L (22-29); Chloride 110 mmol/L (96-108); Estimated Glomerular Filt Rate > 60; Glucose Random 93 mg/dL (60-115); Iron 39 mcg/dL (30-160); Percent Iron Saturation 12 % (15-50); Potassium 4.3 mmol/L (3.3-5.1); Sodium 139 mmol/L (135-145); Total Iron Binding Capacity 339 mcg/dL (228-428); Total Protein 6.5 g/dL (6.5-8.0); Unsaturated Iron Binding 300 ug/dL
[2025-03-24 19:00] LABS: Ferritin 12 ng/mL (10-250)
[2025-03-27 05:24] LABS: Methylmalonic Acid 124 nmol/L (55-335)
[2025-03-29 15:24] LABS: Vitamin D 25-OH, D2 <4 ng/mL; Vitamin D 25-OH, D3 19 ng/mL; Vitamin D 25-OH, Total 19 ng/mL (30-100)
[2025-03-30 05:38] LABS: Vitamin B1 <6 nmol/L (8-30)
[2025-04-04 01:18] LABS: Vitamin B6 6.1 ng/mL (2.1-21.7)
== END 2025-03-24 09:59 | disposition home or self-care (01) ==
LOC: HO.HKASLDS 09:58
PROVIDERS: PCP Nurse Practitioner Family; Visit Provider Nurse Practitioner Family
DX: D64.9 Anemia, unspecified (principal); E55.9 Vitamin D deficiency, unspecified
CPT/HCPCS: 36415; 80053; 82306; 82607; 82728; 82746; 83090; 83540; 83921; 84207; 84425; 85025; 99202

== ENCOUNTER 2025-04-27 06:47 | Outpatient (AMB) | payer OTHER, SELFPAY ==
--- OUTSIDE RECORDS SUMMARY | 2023-12-15 09:35 | XMS_ITS ---
Author Organization [facility] Address [address] [place] [phone] Care Team Providers Care Risk Management Consultant Name Role Phone MITCHELL BOND Primary Care Provider Humberto De Oliveira Jr, Desmond Mendoza [phone] REASON FOR VISIT patient presents today for lump in rectum Encounters Encounter Location Date Provider Diagnosis [facility] [address] [place] [id number] 12/15/2023 Desmond De Oliveira Jr Plan Of Treatment No Information Progress Notes * LYNN DONNELLYDOB:1980 (45 yo F)Acc No.[id number]:12/15/2023 Progress Notes Patient: LYNN AVENDAÑO Provider: Rita De Oliveira MD :1980 A ge:43 Y S ex:Female Date:12/15/2023 Address:[address] [place], [place] [id number] Pcp:MITCHELL BOND Subjective: * Chief Complaints: * 1 . Patient presents today for lump in rectum. * Medical History: Objective: * Vitals: Assessment: Plan: * Treatment: * * The named appointment provid er may or may not be the originator of this progress note, and it is not deemed complete until electronically signed by the appointment provider. Sign off status: Pending * Provider: Rita De Oliveira MD Date: 12/15/2023 Generated for Shaina tenorio/Nelson/eTransmitting on: 04/27/2025 06:50 AM EDT
--- OUTSIDE RECORDS SUMMARY | 2025-04-27 06:50 | XMS_ITS | Clinical Summary ---
Author Organization [facility] Address [address] [place] [address] Care Team Providers Care Radio Time Salesperson Name Role Phone Beni Valle MD Primary Care Provider + [phone] Derke Roche PA-C Unavailable [phone] Allergies Active Allergy Reactions Criticality Noted Date Comments Adhesives/Tape Rash/Dermatitis Low 02/09/2015 Azithromycin Rash/Dermatitis,Alyssa rtness Of Breath High 03/21/2020 Barium Sulfate Unknown/Patient and Family Unable to Define High 08/03/2024 Cashew Nut (Anacardium Occidentale) Skin Test Rash/Dermatitis,Alyssa rtness Of Breath High 01/20/2023 Cashew Nut Oil Rash/Dermatitis,Alyssa rtness Of Breath High 03/21/2020 Ciprofibrate Unknown/Patient and Family Unable to Define Medium 08/03/2024 Clarithromycin Other (See Comments),Unknown/P atient and Family Unable to Define Medium 02/21/2023 Clindamycin Rash/Dermatitis High 11/13/2009 Cortisone Anaphylaxis High 03/23/2015 Doxycycline Anaphylaxis,Rash/De rmatitis,Shortness Of Breath,Hives High 03/10/2018 Pt states not an allergy Fentanyl Rash/Dermatitis Low 03/29/2018 Fludrocortisone Rash/Dermatitis Low 03/14/2025 Iodinated Contrast Media Anaphylaxis,Alyssa rtne ss Of Breath High 08/07/2009 Latex Rash/Dermatitis,Alyssa rtness Of Breath,Anaphylaxis High 08/07/2009 Levofloxacin Rash/Dermatitis,Alyssa rtness Of Breath,Hives High 08/07/2009 Metronidazole Other (See Comments),Rash/Derm atitis,Shortness Of Breath,Hives High 11/13/2009 Other reaction(s): O/E - respiratory distress Midodrine Rash/Dermatitis Low 01/20/2015 Morphine Shortness Of Breath,Bleeding (Non-Gastrointestin al),GI Bleeding,Other (See Comments),Rash/Derm atitis High 02/09/2015 Other reaction(s): Bleeding Ondansetron Rash/Dermatitis Low 03/29/2018 Penicillins Rash/Dermatitis,Alyssa rtness Of Breath High 08/07/2009 Sulfa Antibiotics Anaphylaxis,Rash/De rmatitis,Shortness Of Breath High 08/07/2009 Other reaction(s): Rash, [...] knee-high, bilateral 2 each 1 4 Active Additional Information Patient not taking.Reported on 03/15/2025 sodium chloride 1 g tabletIndicatio ns:POTS (postural orthostatic tachycardia syndrome) Take 1 tablet (1 g total) by mouth 2 (two) times a day after breakfast and lunch. 60 tablet 5 4 Active pyridostigmine (MESTINON) 60 MG tabletIndicatio ns:POTS (postural orthostatic tachycardia syndrome) Take 1 tablet (60 mg total) by mouth 2 (two) times a day. 60 tablet 5 4 Active Additional Information Patient not taking.Reported on 03/15/2025 amoxicillin-cla vulanate (AUGMENTIN) 875-125 MG per tablet [...] Active Additional Information Patient not taking.Reported on 03/15/2025 propranolol (INDERAL LA) 60 MG 24 hr capsuleIndicati ons:POTS (postural orthostatic tachycardia syndrome) Take 1 capsule (60 mg total) by mouth nightly. 30 capsule 5 4 Active cefpodoxime (VANTIN) 200 MG tablet 5 Active Arnuity Ellipta 100 MCG/ACT inhaler inhale 1 puff by mouth 1 (one) time each day. 4 Active Medical Compression StockingsIndica tions:POTS (postural orthostatic tachycardia syndrome) Level of Compression: 20-30 mmHg; knee high bilateral. Please measure to fit 3 each 1 5 Active Additional Information Patient not taking.Reported on 03/15/2025 propranolol (INDERAL) 20 MG tabletIndicatio ns:POTS (postural orthostatic tachycardia syndrome) Take 1 tablet (20 mg total) by mouth 3 (three) times a day. As discussed at visit 90 tablet 5 5 06/11/20 25 Active Additional Information Patient not taking.Reported on 03/15/2025 propranolol (INDERAL) 10 MG tabletIndicatio ns:POTS (postural orthostatic tachycardia syndrome) Take 1 tablet (10 mg total) by mouth 3 (three) times a day. 90 tablet 3 5 Active Additional Information Patient not taking.Reported on 03/15/2025 montelukast (SINGULAIR) 10 MG tabletIndicatio ns:Mast cell activation syndrome Take 1 tablet (10 mg total) by mouth nightly. 90 tablet 5 Active Additional Information Patient not taking.Reported on 03/15/2025 famotidine (PEPCID) 20 MG tablet TAKE 1 TABLET BY MOUTH ONCE NEEDED FOR DYSPEPSIA. MAY REPEAT DOSE ONCE IF NEEDED. MAX 2 TABS/DAY 5 Active lidocaine (LIDODERM) 5 % patch APPLY 1 PATCH TOPICALLY DAILY FOR 30 DAYS LEAVE ON MOST PAINFUL AREA FOR UP TO 12 HRS 5 Active PANTOprazole (PROTONIX) 40 MG EC tablet Take 1 tablet (40 mg total) by mouth. 5 Active Riboflavin 400 MG Tab 5 Active ketorolac (TORADOL) 10 MG tabletIndicatio ns:POTS (postural orthostatic tachycardia syndrome) Take 1 tablet (10 mg total) by mouth 4 times daily (every 6 hours) as needed for moderate pain. Take with food to reduce stomach upset. 60 tablet 5 Active Active Problems Problem Noted Date Diagnosed [...] syndrome) 02/12/2012 Overview (03/23/2024): Dr Joseph in [place] SVT (supraventricular tachycardia) 02/12/2012 Overview (03/23/2024): Sees Dr Light and EP docs in [place] Vitamin D deficiency 05/23/2008 PFO (patent foramen ovale) 01/20/2008 Overview (03/23/2024): No tx unless it gets worse Encounters Date Type Department Care Team Description 03/21/2025 Scanned Document [facility] at [address], [place] [phone] Derek Roche PA-C 03/21/2025 Telephone [facility] [address], [place] [phone] Derek Roche PA-C 03/15/2025 3:04 PM EDT - 03/15/2025 11:59 PM EDT Hospital Encounter [facility] [address], [place] [phone] Derek Roche PA-C Follow-up Discharge Disposition: Home or Self Care 03/15/2025 Travel 03/03/2025 Telephone [facility] at [address], [place] [phone] Derek Roche PA-C 02/22/2025 Refill [facility] [address], [place] [phone] Derek Roche PA-C Medication Refill 02/17/2025 Telephone [facility] at [address], [place] [phone] Derek Roche PA-C from Last 3 Months [...] Sign Reading Time Taken Comments Blood Pressure 117/76 03/15/2025 3:23 PM EDT Pulse 77 03/15/2025 3:23 PM EDT Temperature 36.1 C (96.9 F) 10/27/2023 3:50 PM EST Respiratory Rate 18 10/27/2023 3:50 PM EST Oxygen Saturation 98% 03/15/2025 3:23 PM EDT Inhaled Oxygen Concentration - - Weight 84.8 kg (187 lb) 03/15/2025 3:23 PM EDT Height 165.1 cm (5' 5 ) 03/15/2025 3:23 PM EDT Body Mass Index 31.12 03/15/2025 3:23 PM EDT Plan of Treatment Upcoming Encounters Date Type Department Care Team (Late st Contact Info) Description 05/25/2025 2:30 PM EDT Appointment [facility] - Cardiology [address] [place] [address] Derek Roche PA-C [address] [place] [id number] Health Maintenance Due Date Last Done Comments Hepatitis C Virus Screening 1981 HIV Screening 1994 Hepatitis B Vaccines (1 of 3 - 19+ 3-dose series) 01/03/2000 Pneumococcal Vaccine: Pediat aida (0-5 Years) and At-Risk Patients (6 to 49 Years) (1 of 2 - PCV) 01/03/2000 Pap Smear (Ages 21-65) 2002 DTaP/Tdap/Td Vaccines (2 - Tdap) 12/05/2013 12/06/19 04 Mammogram 2021 COVID-19 Vaccine (2023-2 5 season) 2024 Influenza Vaccine 04/29/2025 06/12/2009 HPV Vaccines Aged Out No longer eligi ble based on patient's age to complete this topic Procedures Procedure Name Priority Date/Time Associated Diagnosis Comments ECG 12-LEAD Routine 03/15/2025 3:30 PM EDT SVT (supraventricular tachycardia) from Last 3 Months Results * ECG 12 lead (03/15/2025 3:30 PM EDT) Ventricular rate 69 BPM EKG [facility] Atrial rate 69 BPM EKG [facility] P-R interval 120 ms EKG [facility] QRS duration 80 ms EKG [facility] Q-T interval 388 ms EKG [facility] QTC calculation (Bazett) 415 ms EKG [facility] P axis 22 degrees EKG [facility] R axis -6 degrees EKG [facility] T axis 5 degrees EKG [facility] 03/15/2025 3:30 PM EDT Narrative EKG [facility] - 03/22/2025 12:45 PM EDT Normal sinus rhythm Minimal voltage criteria for LVH, may be normal variant ( R in aVL ) Cannot rule out Anterior infarct (cited on or before 04-Aug-2024) Abnormal ECG When compared with ECG of 04-Aug-2024 14:31, No significant change was found Confirmed by MD Palacio Andre ([id number]) on 03/22/2025 12:45:27 PM Procedure Note Jj Palacio MD - 03/22/2025 Normal sinus rhythm Minimal voltage criteria for LVH, may be normal variant ( R in aVL ) Cannot rule out Anterior infarct (cited on or before 04-Aug-2024) Abnormal ECG When compared with ECG of 06-Nov-2024 14:31, No significant change was found Confirmed by MD Hakeem, Jj ([id number]) on 03/22/2025 12:45:27 PM Derek Roche PA-C ECG ORDERABLES Fin al Result EKG [facility] from Last 3 Months Insurance [place] OUT OF [place] [facility] [place] [facility] [place] Care Teams Radio Time Salesperson Relationship Specialty Start Date End Date Beni Valle MD [address] [place] [address] PCP - General Family Medicine 10/27/23 Derek Roche PA-C [address] [place] [id number] Physician [employer] Cardiac Electrophysiology 03/23/24
--- OUTSIDE RECORDS SUMMARY | 2025-04-27 06:50 | XMS_ITS | Clinical Summary ---
Author Organization [employer] Address [address] [facility] [address] [place] [address] Care Team Providers Care Lighthouse Keeper Name Role Phone Unavailable Primary Care Provider [...] 1981 HIV Screening 1981 SDOH Screening 1981 Disability Screening 1981 Alcohol/Substance Use Screening 1993 Family Planning (PISQ) 01/03/1996 HPV Vaccines (1 - 3-dose series) 01/03/1996 Hepatitis C Screening 1999 Hepatitis B Vaccines (1 of 3 - 19+ 3-dose series) 01/03/2000 Pneumococcal Vaccine: Pediatrics (0 to 5 Years) and At-Risk Patients (6 to 49) Years (1 of 2 - PCV) 01/03/2000 Pap Smear 2002 Cervical Cancer Screening 2011 HPV/Cotest 2011 Mammogram 2021 COVID-19 Vaccine (1 - season) 2024 Influenza Vaccine (#1) 2025 , 07/27/2020, 07/07/2018, Additional history exists Tobacco [...] Most Recently Relevant to Health Maintenance Insurance [facility] MEDICAID STAND ADULT
--- OUTSIDE RECORDS SUMMARY | 2025-04-27 06:51 | XMS_ITS | Clinical Summary ---
Author Organization [facility] Address [address] [facility] [address] [place] [address] Phone Care Team Providers Care Director Child Name Role Phone Beni Valle [employer] FINISHER Primary Care Provider + Allergies Active Allergy Reactions Criticality Noted Date Comments Adhesive Rash Low 03/29/2018 Doxycycline Hyclate Rash Low 03/29/2018 Fentanyl Rash Low 03/29/2018 Iodinated Contrast Media Shortness Of Breath High Latex Rash Low 03/29/2018 Levofloxacin Shortness Of Breath High 03/29/2018 Morphine Rash Low 03/29/2018 Sulfa (Sulfonamide Antibiotics) Shortness Of Breath High 03/29/2018 Ondansetron Hcl Rash Low 03/29/2018 Medications NON FORMULARYIndica tions:Sodium Chloride Infusion 3x per week at home. Indications: Sodium Chloride Infusion 3x per week at home. Active heparin 10 units/mL 10 unit/mL injection Inject 3 mL into the vein 3 (three) times a week. Active clindamycin (CLEOCIN) 300 MG capsule Take 300 mg by mouth 3 (three) times a day. Active sodium chloride solution Administer one liter of normal saline I.v. three times per week. 1000 mL 20 1 Active droxidopa (NORTHERA) 100 mg capsule Take 1 capsule (100 mg total) by mouth 3 (three) times a day. Administer last daily dose 3 hours before bedtime with head of bed elevated. Administer capsule whole, DO NOT open, crush, or chew. 90 capsule 5 3 Active Social History Tobacco Use Types Packs/Day Years Used Date Smoking Tobacco: Former Smokeless Tobacco: Never Alcohol Use Standard Drinks/Week Comments No 0 (1 standard drink = 0.6 oz pur e alcohol) Education Answer Date Recorded Are you interested in more education? Not on irwin e 02/09/2023 Are you concerned about learning? Not on file 02/09/2023 No 02/09/2023 No 02/09/2023 Digital Access Answer Date Recorded No 02/23/2023 No 02/23/2023 No 02/23/2023 Reliable internet access at home? Not on file 02/23/2023 Device with a working camera? Not on file Comments No Sex and Gender Information Value Date Recorded Sex Assigned at Female 03/29/2018 4:44 PM EDT Legal Sex Female 6:00 PM EST Gender Identity Female 03/29/2018 4:44 PM EDT Sexual Orientation Bisexual 03/29/2018 4: 44 PM EDT Last Filed Vital Signs Vital Sign Reading Time Taken Comments Blood Pressure 120/80 07/24/2020 11:36 AM EDT Pulse 73 07/24/2020 11:36 AM EDT Temperature 37 C (98.6 F) 03/29/2018 4:35 PM EDT Respiratory Rate 16 03/29/2018 6:59 PM EDT Oxygen Saturation 99% 03/29/2018 6:59 PM EDT Inhaled Oxygen Concentration - - Weight 69.9 kg (154 lb) 03/29/2018 4:35 PM EDT Height 165.1 cm (5' 5 ) 03/29/2018 4:35 PM EDT Body Mass Index 25.63 03/29/2018 4:35 PM EDT Plan of Treatment Health Maintenance Due Date Last Done Comments DEPRESSION SCREENING 1993 SMOKING Hx and SMOKELESS TOB ACCO SCREENING 1994 HEPATITIS C SCREENING 1999 HIV ONE-TIME SCREENING (18-6 5 YEARS) 1999 PAP SMEAR 2002 MAMMOGRAM 2021 COVID-19 VACCINE ( - 2023-2 5 season) 2024 Adult Td,Tdap Booster 03/25/2030 03/25/2020 HEPATITIS A VACCINES Aged Out No long er eligible based on patient's age to complete this topic HIB VACCINES Aged Out No longer eligi ble based on patient's age to complete this topic MENINGOCOCCAL VACCINES (ACWY) Aged Out No longer eligible based on patient's age to complete this topic MENINGOCOCCAL VACCINES (B) Aged Out N o longer eligible based on patient's age to complete this topic PNEUMOCOCCAL VACCINES (0-49 years) Aged Out No longer eligible based on patient's age to complete this topic Medical Devices Not on file Insurance [employer]CO [employer] [place] [address] [place] [address] [address] [place] [address] [place] [address] [place] [address] ACO Care Teams Director Child Relationship Specialty Start Date End Date Beni Valle NP [address] [place] [id number] [email or web address] PCP - General Family Medicine 03/29/18 Additional Source Comments The information contained in this document represents components of the legal health record. It is not the complete legal health record.[facility]
--- NOTE | 2025-04-27 07:27 | A.OFFPC_ITS ---
Intake Visit Reasons: Discuss/document need for Stair lift Allergies doxycycline (DOXYCYCLINE) Allergy (Severe, Verified 03/24/25 10:03) RASH, GI Upset levofloxacin (From LEVAQUIN) Allergy (Severe, Verified 03/24/25 10:03) RASH metronidazole (From FLAGYL) Allergy (Severe, Verified 03/24/25 10:03) ANAPHYLAXIS morphine (MORPHINE) Allergy (Severe, Verified 03/24/25 10:03) ANAPHYLAXIS, cant breathe, SOB Sulfa (Sulfonamide Antibiotics) (SULFA (SULFONAMIDE ANTIBIOTICS)) Allergy (Severe, Verified 03/24/25 10:03) STOP BREATHING, rash/cant breathe adhesive (ADHESIVE) Allergy (Intermediate, Verified 03/24/25 10:03) RASH clindamycin (CLINDAMYCIN) Allergy (Intermediate, Verified 03/24/25 10:03) RASH Iodinated Contrast Media (IV CONTRAST) Allergy (Intermediate, Verified 03/24/25 10:03) ANAPHALAXIS latex (LATEX) Allergy (Intermediate, Verified 03/24/25 10:03) RASH ciprofloxacin (Cipro) Allergy (Unknown, Verified 03/24/25 10:03) unknown fludrocortisone Allergy (Unknown, Verified 03/24/25 10:03) Unknown hydromorphone (Dilaudid) Allergy (Unknown, Verified 03/24/25 10:03) Unknown ALL CONTRAST DYE Allergy (Unknown, Uncoded 03/09/25 09:47) Unknown Cortisone Allergy (Unknown, Uncoded 03/09/25 09:47) unknown IVP Dye Allergy (Unknown, Uncoded 03/09/25 09:47) Unknown Midodrine HCl Allergy (Unknown, Uncoded 03/09/25 09:47) Unknown Tobacco use date assessed: 11/16/24 Dental Screening Dental Screen Date: 11/16/24 HPI Discuss/document need for Stair lift HPI Details History of Present Illness The patient is a 45-year-old female presenting with a follow-up for Postural Orthostatic Tachycardia Syndrome (POTS). She has a significant history of POTS and was advised by her catapult and arresting gear officer to start IV infusions, but there have been delays due to issues with the IV Center. Efforts are ongoing to resolve these issues and initiate the recommended treatment. The patient also reports experiencing headaches, for which she is under the care of a neurologist. She has been started on magnesium and riboflavin as part of her treatment regimen. Additionally, the patient has been diagnosed with slight anemia and is taking ferrous gluconate 325 mg once daily. There is no indication of severe symptoms related to anemia at this time. Review of Systems - General: Denies fever or chills. - Cardiovascular: Denies chest pain or d yspnea. - Musculoskeletal: Reports joint discomf ort but able to walk and move. Plan The primary focus is to facilitate the initiation of IV infusions for the management of Postural Orthostatic Tachycardia Syndrome POTS), as recommended by her catapult and arresting gear officer. Coordination with the IV Center is necessary to resolve the current issues preventing the start of treatment. For her headaches, the patient is advised to continue the current regimen of magnesium and riboflavin, under the guidance of her neurologist. Monitoring for any changes in headache frequency or severity is recommended. Regarding her anemia, the patient should continue taking ferrous gluconate 325 mg daily and report any symptoms suggestive of worsening anemia. Discussion Notes We discussed the importance of starting IV infusions for POTS and the need to contact the IV Center to address the current delays. I emphasized the continuation of her current headache management plan with magnesium and ribo flavin, and the need to monitor for any changes. We also reviewed her anemia treatment with ferrous gluconate and the importance of reporting any new symptoms. Patient Instructions - Contact the IV Center to resolve issue s with starting infusions for POTS. - Continue taking magnesium and riboflav in for headache management. - Keep taking ferrous gluconate 325 mg d aily for anemia. - Report any new or worsening symptoms t o your healthcare provider. [facility] Medical History IUD (intrauterine device) in place Recent urinary tract infection Acid reflux Huynh disease Crohn disease Colitis Arachnoid cyst Asthma Autoimmune disorder Arthritis Bulging disc Spinal stenosis POTS (postural orthostatic tachycardia syndrome) SVT (supraventricular tachycardia) Surgical History History of kidney surgery History of liver biopsy Hx of cholecystectomy Family History Father High cholesterol HTN (hypertension) Tumors Mental health disorder Mother COPD (chronic obstructive pulmonary disease) Colitis Sister Colitis Substance use disorder Mental health disorder Sister Cervical cancer Social History Household Members: Family and Children Housing: House Alcohol intake: former Patient Tobacco Use Status: Former Tobacco user Years Smoked: quit 20b years ago e-Cigarette/Vaping Use: Never Used Second Hand Smoke Exposure: No service: No Current occupational status: employed 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 Current occupational exposures/hazards: No Cognitive needs: No Hearing needs: No Vision needs: No Female Reproductive History Menstrual Age of Menarche: 12 Questionnaire Thrive Questionnaire Date Thrive assessed: 03/16/25 I am a: Patient What is your living situation today?: I have a steady place to live Within the past 12 months, did the food you bought not last and you didn't have the money to get more?: Never true Within the past 12 months, did you worry whether your food would run out before you got money to buy more?: Never true Do you have trouble paying for medicines?: No Do you have trouble getting transportation to medical appointments?: No Do you have trouble paying your heating and electricity bill?: No Do you have trouble taking care of your child, family member or friend?: No Do you have trouble with day-to-day activities such as bathing, preparing meals, shopping, managing finances, etc.?: I choose not to answer this question Are you currently unemployed and looking for a job?: No Are you interested in more education?: No Please select the resources that you would like help with: None THRIVE Score: 0 CHAVA-7 AMB Questionnaire CHAVA-7 Date CHAVA - 7 assessed: 03/16/25 Source: Developed by Drs. Chucho Elmore, Elsa Christensen, Guzman Reyes and colleagues, with an educational jose guadalupe from [employer]. Physical exam (Primary Care) Tobacco/Smoking Status: Tobacco use Status Tobacco use date assessed 11/16/24 03/16/25 15:15 Patient Tobacco Use Status Former Tobacco user 03/16/25 15:15 e-Cigarette/Vaping Use Never Used 03/16/25 15:15 Thrive Assessment: Date of Thrive Assessment Date Thrive assessed 03/16/25 03/16/25 15:15 Telehealth Telehealth Telehealth Platform: [facility] Location of provider rendering services: practice address Location of patient: address on file Patient Identification confirmed using: Name, : Yes Telehealth method: video Patient verbally consented to treatment: Yes Patient verbally consented to billing insurance company: Yes Patient informed of any privacy concerns related to visit: Yes Minutes spent on Phone/Video with Pt.: 12 Coding Level of Care Code Tele Est Pt Level 3 (87023) Diagnoses POTS (postural orthostatic tachycardia syndrome) I49.8 Anemia D64.9 Migraines G43.909 Assessment & Plan Assessment & Plan (1) POTS (postural orthostatic tachycardia syndrome): Code(s): I49.8 - Other specified cardiac arrhythmias Category: Medical (2) Anemia: Code(s): D64.9 - Anemia, unspecified Category: Medical (3) Migraines: Code(s): G43.909 - Migraine, unspecified, not intractable, without status migrainosus Category: Medical Plan . Medications: Refilled lorazepam cannot share med, cannot drive on med, take only as prescribed 0.5 mg PO B EDTIME PRN 20 tabs 0RF anxiety 20 days
== END 2025-04-27 08:30 | disposition home or self-care (01) ==
LOC: HO.HMCC 06:48
PROVIDERS: PCP Nurse Practitioner Family; Visit Provider Nurse Practitioner Family
DX: I49.8 Other specified cardiac arrhythmias (principal); D64.9 Anemia, unspecified; G43.909 Migraine, unspecified, not intractable, without status migrainosus

== ENCOUNTER → 2025-05-18 12:56 | Outpatient (REF) | payer OTHER, SELFPAY ==
--- OUTSIDE RECORDS SUMMARY | 2025-01-07 13:54 | XMS_ITS | Continuity of Care Document ---
Author Organization [facility]. If a dditional information is needed, contact Health Information Management at [phone] Address [address] [place] [address] Phone Care Team Providers Care Curriculum Consultant Name Role Phone Unavailable Unavailable Unavailable Unavailable Unavailable Unavailable Unavailable Unavailable Unavailable Unavailable Unavailable Unavailable Unavailable Unavailable Unavailable Unavailable Unavailable Unavailable Unavailable Unavailable Unavailable Unavailable Unavailable Unavailable Unavailable Unavailable Unavailable Problems Bronchitis Onset:07-Jan-2025 Faisal Brannon MD Upper respiratory infection Onset:06-Jan-2025 Faisal Brannon MD Allergies and Adverse Reactions Iodine(Allergy) Onset: 07-Jan-2025 Reaction:UNKNOWN dichloralphenazone(Allergy) Onset: 07-Jan-2025 Reaction:UNKNOWN acetaminophen(Allergy) Onset: 07-Jan-2025 Reaction:UNKNOWN Isometheptene(Allergy) Onset: 07-Jan-2025 Reaction:UNKNOWN clindamycin(Allergy) Onset: 07-Jan-2025 Reaction:UNKNOWN metronidazole(Allergy) Onset: 07-Jan-2025 Reaction:UNKNOWN clarithromycin(Allergy) Onset: 07-Jan-2025 Reaction:UNKNOWN Amoxicillin(Allergy) Onset: 07-Jan-2025 Reaction:UNKNOWN ondansetron(Allergy) Onset: 07-Jan-2025 Reaction:UNKNOWN Levofloxacin(Allergy) Onset: 07-Jan-2025 Reaction:UNKNOWN IV CONTRAST/IV DYE(Allergy) Onset: 06-Jan-2025 Reaction:UNKNOWN Medications propranolol hydrochloride 60 MG Oral Tablet;30 MILLIGRAM PO TID Start:06-Jan-2025 Comments:30 MG PO TID Social History Smoking Status Tobacco smoking consumption unknown Recorded: Never smoked tobacco Recorded: 06-Jan-2025 Results POC,STREP GROUP A AG QUAL Ordered On:06-Jan-2025 Comments:[facility] , [address], [place], [address], 06-Jan-2025 11:19 POC,STREP GROUP A AG QUALNegative Range:Negative IFLUENZA A B ANTIGEN Ordered On:06-Jan-2025 Comm ents:[facility], [address], [place], [address], 06-Jan-2025 11:15 INFLUENZA A ANTIGENNegative Ra nge:Negative INFLUENZA B ANTIGENNegative Rang e:Negative Comments:ID-NOW Influenza A&B assay is a rapid molecular in vitrodiagnostic test utilizing an isothermal nucleic acidamplification technology for the qualitative detectionand discrimination of influenza A and B viral RNA. Vital Signs 07-Jan-2025 17:15 Ysaebilmskw60.9f Comments:98.9 Pulse89/min Comments:89 Respiratory Rate18/min Comments: 18 O2 SAT97% Comments:97 Height in:5in Comments:5 BP Vsdioqei432xy[Hg] Comments:14 6 BP Txfvigqsj32ub[Hg] Comments:70 Oxygen delivery devices: Comment s:Room air Height5[ft_us] Comments:5 Vdlhis90.1kg Comments:92.100 07-Jan-2025 17:15 BMI33.7kg/m2 Comments:33.7 06-Jan-2025 11:15 Pulse80/min Comments:80 O2 SAT98% Comments:98 BP Fszyvixd733vx[Hg] Comments:12 8 BP Diolaluez34ck[Hg] Comments:59 06-Jan-2025 10:45 Pulse87/min Comments:87 O2 SAT99% Comments:99 BP Fzktdymd484be[Hg] Comments:12 9 BP Hssvcpzoh08ij[Hg] Comments:68 06-Jan-2025 10:34 Rbdjssorfxi23.5f Comments:98.5 Pulse90/min Comments:90 Respiratory Rate18/min Comments: 18 O2 KEN690% Comments:100 Height in:5in Comments:5 BP Otcwwnoe692to[Hg] Comments:14 1 BP Wvgygtcdl84he[Hg] Comments:79 Oxygen delivery devices: Comment s:Room air Height5[ft_us] Comments:5 Pnueyk21.9kg Comments:91.900 06-Jan-2025 10:34 BMI33.7kg/m2 Comments:33.7 Encounters Emergency Encounter Reason:FLU SYMPTOMS Encounter Diagnosis:Bronchitis, not specified as acute or chronic 07-Jan-2025 17:[id number] 17:54 [facility] Discharge Disposition:Discharged to home or self care (routine discharge) Faisal Brannon MD-07-Jan-2025 [facility] ([facility])EMERGENCY PROVIDER REPORTREPORT#:[id number] REPORT STATUS: SignedDATE:01/07/25 TIME: 1741PATIENT: LYNN DONNELLY UNIT #: [id number]#: [id number] ROOM/BED:: 81 AGE: 45 SEX:F PCP PHYS: Undefined ProviderSERVICE AUTHOR: Danelle Malone MDREP SRV REP SRV TM: 1741* ALL edits or amendments must be made on the electronic/computer document *ZJO-Wst-Uknh IllnessGeneralInitial Greet Date/Time 01/07/25 1713PresentationChief Complaint Cough, Sore throatReason for ED Visit (v.PCP/UC)Patient was here yesterday complaining of cough and sore throat. The patientwas tested for flu and strep and that was all negative. The patient states thather significant other has similar symptoms. The patient states that now she hasdeveloped fever since last night to 101 and cough is now productive of greenphlegm. She reports chest pain with deep deep breath and with cough.Review of SystemsROS StatementsAll systems rev neg except as marked.Basic Review of SystemsBasic ROS : No dysuria/frequency, PSYCH: NL thought contentFocused Review of SystemsConstitutionalDenies: Chills, Fatigue, Fever, Lethargy, Malaise, Recent wt loss, Weakness -generalized.EyesDenies: Blurred R, Blurred L, Blurred bilat, Diplopia, Discharge R, Discharge L,Discharge bilat, Eye pain R, Eye pain L, Eye pain bilat, Photophobia, Redness R,Redness L, Redness bilat, Swelling R, Swelling L, Swelling bilat, Visual loss R,Visual loss L, Visual loss bilat, Yellow R, Yellow L, Yellow bilat.Ears/Nose/ThroatReports: Sore throat, Throat pain. Denies: Anosmia, Ear drainage R, Eardrainage L, Ear drainage bilat, Ear ringing R, Ear ringing L, Ear ringing bilat,Earache R, Earache L, Earache bilat, Hearing loss R, Hearing loss L, Hearingloss bilat, Mouth pain, Nasal congestion, Nose bleeding, Sinus problem, Throatswelling, Tongue pain, Tongue swelling, Toothache, Voice change.RespiratoryReports: Cough, non-productive. Denies: Cough, productive, Dyspnea on exertion,Hemoptysis, Parox nocturnal dyspnea, Pleuritic pain, Shortness of breath,Wheezing.CardiovascularDenies: Chest pain, Dyspnea on exertion, Edema, Orthopnea, Palpitations, Paroxnocturnal dyspnea, Syncope.Past Medical History - AdultStated Complaint FLU SYMPTOMSAllergiesCoded Allergies:acetaminophen (From MIDRIN) (UNKNOWN 01/07/25)amoxicillin (UNKNOWN 01/07/25)clarithromycin (From BIAXIN) (UNKNOWN 01/07/25)clindamycin (UNKNOWN 01/07/25)dichloralphenazone (From MIDRIN) (UNKNOWN 01/07/25)iodine (UNKNOWN 01/07/25)isometheptene (From MIDRIN) (UNKNOWN 01/07/25)levofloxacin (From LEVAQUIN) (UNKNOWN 01/07/25)metronidazole (From FLAGYL) (UNKNOWN 01/07/25)ondansetron (From ZOFRAN) (UNKNOWN 01/07/25)Uncoded Allergies:IV CONTRAST/IV DYE (Mild, UNKNOWN 01/06/25)Home MedicationsReported MedicationsPROPRANOLOL (INDERAL) 30 MG PO TIDCalculated Suicide Risk (nurs) No riskPt reports no significant: Past medical history, Past surgical history, Familyhistory, Social historySmoking status for patients 13 years old or older: Unknown,if ever smokedPhysical ExamVital SignsVital SignsFirst Documented: Result Date Time Pulse Ox 97 01/07 1715 B/P 146/70 01/07 1715 O2 Delivery Room air 01/07 1715 Temp 37.2 01/07 1715 Pulse 89 01/07 1715 Resp 18 01/07 1715Last Documented: Result Date Time Pulse Ox 97 01/07 1715 B/P 146/70 01/07 1715 O2 Delivery Room air 01/07 1715 Temp 37.2 01/07 1715 Pulse 89 01/07 1715 Resp 18 01/07 1715Review of Vital Signs ReviewedBasic Physical ExamBasic PE HEAD: Atraumatic/NC, EYES: PERRL, conj clear, ENT: Membranes moist, ABD: Soft/non-tender, EXT: No gross abnormality, PSYCH: NL thought contentFocused PEGeneral/Const General/Const Awake, Alert, No acute distressMS Neck Neck Atraumatic, SuppleResp/Chest Respiratory/Chest Atraumatic, Breath sounds NL, Breath sounds = bilatCardiovascular Cardiovascular Heart rate NL, Regular rhythmSkin Skin Atraumatic, Color NL, No rashPatient Discharge DepartureVital Signs/ConditionVital SignsFirst Documented: Result Date Time Pulse Ox 97 01/07 1715 B/P 146/70 01/07 1715 O2 Delivery Room air 01/07 1715 Temp 37.2 01/07 1715 Pulse 89 01/07 1715 Resp 18 01/07 1715Last Documented: Result Date Time Pulse Ox 97 01/07 1715 B/P 146/70 01/07 1715 O2 Delivery Room air 01/07 1715 Temp 37.2 01/07 1715 Pulse 89 01/07 1715 Resp 18 01/07 1715All vital signs available at the time of this entry have been reviewed.Clinical ImpressionClinical ImpressionPrimary Impression: BronchitisDisposition DecisionDischarge )( Discharged to Home Yes )( Time 1742 )( Date 01/07/25Discharge/Care Plan(Auto) PrescriptionsCurrent Visit ScriptsAMOXICILLIN/CLAV K (AUGMENTIN 400 MG/5 ML) 10 ML PO Q12H 7 Days #140 MLPatient Instructions ED URI Abx at 0917RPT #:[id number] OF REPORT Emergency Encounter Reason:EZW-HEB-PJFPG-SORE THROAT-RUNNY NOSE Encounter Diagnosis:Acute upper respiratory infection, unspecified 06-Jan-2025 10:[id number] 11:28 [facility] Discharge Disposition:Discharged to home or self care (routine discharge) Faisal Brannon MD-06-Jan-2025 [facility] ([facility])EMERGENCY PROVIDER REPORTREPORT#:[id number] REPORT STATUS: SignedDATE:01/06/25 TIME: 112ATIENT: LYNN DONNELLY UNIT #: [id number]#: [id number] ROOM/BED:: 81 AGE: 45 SEX:F PCP PHYS: Undefined ProviderSERVICE AUTHOR: Danelle Malone MDREP SRV REP SRV TM: 1122* ALL edits or amendments must be made on the electronic/computer document *HPI-URI/Cough/ColdGeneralInitial Greet Date/Time 01/06/25 1026PresentationChief Complaint Cough, non-productive, Sore throatReason for ED Visit (v.PCP/UC)Cough and sore throat for 1 day. The patient's boyfriend has similar symptoms.Hx Obtained From PatientSymptom Duration ConstantPain/Sev: Current ModerateAssociated withReports: Cough. Denies: Abdominal pain, Anorexia, Arthralgia, Body aches, Chestpain, Chills, Diarrhea, Ear pain/ache, Fever, Headache, Loss of taste, Loss ofsmell, Myalgia, Nausea, Neck pain, Rash, Rhinorrhea, Shortness of breath, Sorethroat, Sputum production, Vomiting.Associated Other Pt denies other symptomsReview of SystemsROS StatementsAll systems rev neg except as marked.Basic Review of SystemsBasic ROS CV: No chest pain, : No dysuria/frequency, MS: No ext swelling/pain,HEM: No bleeding/bruising, PSYCH: NL thought contentFocused Review of SystemsConstitutionalDenies: Chills, Fatigue, Fever, Lethargy, Malaise, Recent wt loss, Weakness -generalized.Ears/Nose/ThroatReports: Sore throat, Throat pain. Denies: Anosmia, Ear drainage R, Eardrainage L, Ear drainage bilat, Ear ringing R, Ear ringing L, Ear ringing bilat,Earache R, Earache L, Earache bilat, Hearing loss R, Hearing loss L, Hearingloss bilat, Mouth pain, Nasal congestion, Nose bleeding, Sinus problem, Throatswelling, Tongue pain, Tongue swelling, Toothache, Voice change.RespiratoryReports: Cough, non-productive. Denies: Cough, productive, Dyspnea on exertion,Hemoptysis, Parox nocturnal dyspnea, Pleuritic pain, Shortness of breath,Wheezing.GIDenies: Abdominal pain, Anorexia, Belching, Bloody/tarry stool, Constipation,Diarrhea, Dysphagia, Hematemesis, Hematochezia, Mucousy stool, Melena, Nausea,Rectal pain, Vomiting.Past Medical History - AdultStated Complaint YAK-JOX-ELODL-SORE THROAT-RUNNY NOSEAllergiesCoded Allergies:acetaminophen (From MIDRIN) (UNKNOWN 01/07/25)amoxicillin (UNKNOWN 01/07/25)clarithromycin (From BIAXIN) (UNKNOWN 01/07/25)clindamycin (UNKNOWN 01/07/25)dichloralphenazone (From MIDRIN) (UNKNOWN 01/07/25)iodine (UNKNOWN 01/07/25)isometheptene (From MIDRIN) (UNKNOWN 01/07/25)levofloxacin (From LEVAQUIN) (UNKNOWN 01/07/25)metronidazole (From FLAGYL) (UNKNOWN 01/07/25)ondansetron (From ZOFRAN) (UNKNOWN 01/07/25)Uncoded Allergies:IV CONTRAST/IV DYE (Mild, UNKNOWN 01/06/25)Home MedicationsActive ScriptsAMOXICILLIN/CLAV K (AUGMENTIN 400 MG/5 ML) 10 ML PO Q12H 7 Days #140 ML Prov: 01/07/25Reported MedicationsPROPRANOLOL (INDERAL) 30 MG PO TIDCalculated Suicide Risk (nurs) No riskPt reports no significant: Past medical history, Past surgical history, Familyhistory, Social historySmoking status for patients 13 years old or older: Never SmokerPhysical ExamVital SignsVital SignsFirst Documented: Result Date Time Pulse Ox 100 01/06 1034 B/P 141/79 01/06 1034 O2 Delivery Room air 01/06 1034 Temp 36.9 01/06 1034 Pulse 90 01/06 1034 Resp 18 01/06 1034 B/P Mean 92 01/06 1045Last Documented: Result Date Time Pulse Ox 98 01/06 1115 B/P 128/59 01/06 1115 B/P Mean 85 04/ 1115 Pulse 80 04/10 1115 O2 Delivery Room air 01/06 1034 Temp 36.9 04/10 1034 Resp 18 01/06 1034Review of Vital Signs ReviewedBasic Physical ExamBasic PE HEAD: Atraumatic/NC, EYES: PERRL, conj clear, NECK: Supple, ABD: Soft/non-tender, EXT: No gross abnormality, SKIN: No rashes, warm/dry, NEURO: alertoriented, NEURO: gross movement NLFocused PEGeneral/Const General/Const Awake, Alert, No acute distressEars/Nose/Throat Ears/Nose/Throat Atraumatic, Airway patent, Mucous membranes moistResp/Chest Respiratory/Chest Atraumatic, Breath sounds NL, Breath sounds = bilatInterpretation DiagnosticsLab Results InterpretationResultsLaboratory Tests: 01/06 01/06 1110 1103 Serology POC Influenza A Ag (Negative) Negative POC Influenza B Ag (Negative) Negative POC Group A Strep Rpd (Negative) NegativePatient Discharge DepartureVital Signs/ConditionVital SignsFirst Documented: Result Date Time Pulse Ox 100 04/ 1034 B/P 141/79 04/ 1034 O2 Delivery Room air 01/06 1034 Temp 36.9 04/10 1034 Pulse 90 04/ 1034 Resp 18 01/06 1034 B/P Mean 92 04/ 1045Last Documented: Result Date Time Pulse Ox 98 04/ 1115 B/P 128/59 04/ 1115 B/P Mean 85 /10 1115 Pulse 80 04/10 1115 O2 Delivery Room air 01/06 1034 Temp 36.9 04/10 1034 Resp 18 01/06 1034All vital signs available at the time of this entry have been reviewed.Clinical ImpressionClinical ImpressionPrimary Impression: URI (upper respiratory infection)Disposition DecisionDischarge )( Discharged to Home Yes )( Time 1122 )( Date 01/06/25Discharge/Care PlanPatient Instructions ED URI, Viral, No Abx (Adult) at 0257RPT #:[id number] OF REPORT Plan of Treatment Future Tests Future scheduled test information is unavailable Pending Tests Pending diagnostic test information is unavailable Future Visits Future appointment information is unavailable Referrals to Other Providers Referral information is unavailable Future Procedures Future procedure information is unavailable Future Medications Future medication information is unavailable Patient Instructions Instruction Admit Date ED URI Abx January 07, 2025 5:1 0pm ED URI, Viral, No Abx (Adult) December 10:24am Assessments Diagnosis Onset Date Resolution Status Admit Date Bronchitis Active January 07 5:10pm
--- OUTSIDE RECORDS SUMMARY | 2025-05-18 13:48 | XMS_ITS | Clinical Summary ---
Author Organization [employer] Address [address] [facility] [address] [place] [address] Care Team Providers Care Pathology Supervisor Name Role Phone Unavailable Primary Care [...] Most Recently Relevant to Health Maintenance [facility]
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
--- OUTSIDE RECORDS SUMMARY | 2025-05-18 13:48 | XMS_ITS | Clinical Summary ---
Author Organization [facility] Address [address] [facility] [address] [place] [address] Phone Care Team Providers Care Provisioning Specialist Name Role Phone Beni Valle SHIP FASTENER Primary Care Provider + Allergies Active Allergy [...] on file Insurance [employer] [place] [place] [address] [place] [address] [place] [address] [place] [address] [place] [address] [place] [address] ACO Care Teams Provisioning Specialist Relationship Specialty Start Date End Date Beni Valle NP [address] [place] [address] [place] [address] PCP - General Family Medicine 03/29/18 Additional Source Comments The information contained in this document represents components of the legal health record. It is not the complete legal health record.[facility]
--- OUTSIDE RECORDS SUMMARY | 2025-05-18 13:48 | XMS_ITS | Clinical Summary ---
Author Organization [facility] Address [address] [place] [address] Care Team Providers Care Cover Cutter Name Role Phone Beni Valle MD Primary Care Provider + [phone] Derek Roche PA-C Unavailable [phone] Allergies Active Allergy Reactions Criticality Noted Date [...] syndrome) 02/12/2012 Overview (03/23/2024): Dr Joseph in [place] SVT (supraventricular tachycardia) 02/12/2012 Overview (03/23/2024): Sees Dr Light and EP docs in [place] Vitamin D deficiency 05/23/2008 PFO (patent foramen ovale) 01/20/2008 Overview (03/23/2024): No tx unless it gets worse Encounters Date Type Department Care Team Description 05/02/2025 Telephone [facility] [place] at [address], [place] [phone] Derek Roche PA-C 04/28/2025 Telephone [facility] [place] at [address], [place] [phone] Derek Roche PA-C 03/21/2025 Scanned Document [facility] [place] at [address], [place] [phone] Derek Roche PA-C 03/21/2025 Telephone [facility] [place] at [address], [place] [phone] Derek Roche PA-C 03/15/2025 3:04 PM EDT - 03/15/2025 11:59 PM EDT Hospital Encounter [facility] [place] at [address], [place] [phone] Derek Roche PA-C Follow-up Discharge Disposition: Home or Self Care 03/15/2025 Travel 03/03/2025 Telephone [facility] [place] at [address], [place] [phone] Derek Roche PA-C 02/22/2025 Refill [facility] [place] at [address], [place] [phone] Derek Roche PA-C Medication Refill 02/17/2025 Telephone [facility] [place] at [address], [place] [phone] Derek Roche PA-C from Last 3 Months [...] Info) Description 05/25/2025 2:30 PM EDT Appointment [facility] [place] at [address], [place] [phone] Derek Roche PA-C [address] [place] [address], [place] Health Maintenance Due Date Last Done Comments Hepatitis C Virus Screening 1981 HIV Screening 1994 Hepatitis B Vaccines (1 of 3 - 19+ 3-dose series) 02/2000 Pneumococcal Vaccine: Pediat aida (0-5 Years) and At-Risk Patients (6 to 49 Years) (1 of 2 - PCV) 01/03/2000 Pap Smear (Ages 21-65) 2002 HPV Vaccines (1 - 3-dose SCDM series) 01/03/2008 DTaP/Tdap/Td Vaccines (2 - Tdap) 12/05/2013 12/06/19 04 Mammogram 2021 COVID-19 Vaccine ( season) 2024 Influenza Vaccine 04/29/2025 06/12/2009 Procedures Procedure Name Priority Date/Time Associated Diagnosis Comments ECG 12-LEAD Routine 03/15/2025 3:30 PM EDT SVT (supraventricular tachycardia) from Last 3 Months Results * ECG 12 lead (03/15/2025 3:30 PM EDT) Ventricular rate 69 BPM EKG [facility] Atrial rate 69 BPM EKG [facility] P-R interval 120 ms EKG [facility] QRS duration 80 ms EKG [facility] Q-T interval 388 ms EKG [facility] QTC calculation (Bazett) 415 ms EKG [facility] P axis 22 degrees EKG [facility] R axis -6 degrees EKG [facility] T axis 5 degrees EKG [facility] 03/15/2025 3:30 PM EDT Narrative EKG [facility] - 03/22/2025 12:45 PM EDT Normal sinus rhythm Minimal voltage criteria for LVH, may be normal variant ( R in aVL ) Cannot rule out Anterior infarct (cited on or before 04-Aug-2024) Abnormal ECG When compared with ECG of 04-Aug-2024 14:31, No significant change was found Confirmed by MD Palacio Andre ([id number]) on 03/22/2025 12:45:27 PM Procedure Note Jj Palacio MD - 03/22/2025 Normal sinus rhythm Minimal voltage criteria for LVH, may be normal variant ( R in aVL ) Cannot rule out Anterior infarct (cited on or before 04-Aug-2024) Abnormal ECG When compared with ECG of 04-Aug-2024 14:31, No significant change was found Confirmed by MD Palacio Andre ([id number]) on 03/22/2025 12:45:27 PM Derek Roche PA-C ECG ORDERABLES Fin al Result EKG [facility] from Last 3 Months Insurance MEDICAID OUT OF STATE [facility] Care Teams Cover Cutter Relationship Specialty Start Date End Date Beni Valle MD [address] [place] [id number] PCP - General Family Medicine 10/27/23 Derek Roche PA-C [address] [place] [address] Physician Software Technician Cardiac Electrophysiology 03/23/24
== END ==
LOC: HO.SL 12:56
PROVIDERS: PCP Nurse Practitioner Family; Visit Provider Nurse Practitioner Family
DX: G47.30 Sleep apnea, unspecified (principal); R53.82 Chronic fatigue, unspecified; R06.83 Snoring
CPT/HCPCS: 95806

== ENCOUNTER → 2025-05-18 21:00 | Outpatient (BNV) | payer OTHER, SELFPAY | PROVIDERS: PCP Nurse Practitioner Family; Visit Provider Internal Medicine | DX: R06.83 Snoring (principal) | CPT/HCPCS: 95806 ==

== ENCOUNTER 2025-06-01 07:55 | Outpatient (AMB) | payer OTHER, SELFPAY ==
--- OUTSIDE RECORDS SUMMARY | 2023-12-15 09:35 | XMS_ITS ---
Author Organization [facility] Address [address] [place] [phone] Care Team Providers Care Dye Room Helper Name Role Phone MITCHELL BOND Primary Care Provider Humberto De Oliveira Jr, Desmond Mendoza [phone] REASON FOR VISIT patient presents today for lump in rectum Encounters Encounter Location Date Provider Diagnosis [facility] [address] [place] [phone] 12/15/2023 Desmond De Oliveira Jr Plan Of Treatment No Information Progress Notes * LYNN DONNELLYDOB:1980 (45 yo F)Acc No.[id number]:12/15/2023 Progress Notes Patient: LYNN AVENDAÑO Provider: Rita De Oliveira MD :1980 A ge:43 Y S ex:Female Date:12/15/2023 Address:[address] [place], [place] [id number] Pcp:MITCHELL BOND Subjective: * Chief Complaints: * [...] Date: 12/15/2023 Generated for Shaina tenorio/Nelson/eTransmitting on: 06/01/2025 08:01 AM EDT
--- NOTE | 2025-06-01 07:55 | A.OFFVIS_ITS ---
Intake Visit Reasons: 2 mo follow up Intake Note: [facility] Chief Deputy Clerk/Bailiff Required: No Accompanied by: Self / Same As Patient Allergies doxycycline (DOXYCYCLINE) Allergy (Severe, Verified 03/24/25 10:03) RASH, GI Upset levofloxacin (From LEVAQUIN) Allergy (Severe, Verified 03/24/25 10:03) RASH metronidazole (From FLAGYL) Allergy (Severe, Verified 03/24/25 10:03) ANAPHYLAXIS morphine (MORPHINE) Allergy (Severe, Verified 03/24/25 10:03) ANAPHYLAXIS, cant breathe, SOB Sulfa (Sulfonamide Antibiotics) (SULFA (SULFONAMIDE ANTIBIOTICS)) Allergy (Severe, Verified 03/24/25 10:03) STOP BREATHING, rash/cant breathe adhesive (ADHESIVE) Allergy (Intermediate, Verified 03/24/25 10:03) RASH clindamycin (CLINDAMYCIN) Allergy (Intermediate, Verified 03/24/25 10:03) RASH Iodinated Contrast Media (IV CONTRAST) Allergy (Intermediate, Verified 03/24/25 10:03) ANAPHALAXIS latex (LATEX) Allergy (Intermediate, Verified 03/24/25 10:03) RASH ciprofloxacin (Cipro) Allergy (Unknown, Verified 03/24/25 10:03) unknown fludrocortisone Allergy (Unknown, Verified 03/24/25 10:03) Unknown hydromorphone (Dilaudid) Allergy (Unknown, Verified 03/24/25 10:03) Unknown midodrine Allergy (Unknown, Verified 05/23/25 14:39) Unknown HPI Comments Details: 45-year-old female presents for follow-up televisit for headache, dizziness in setting of POTS and MCAs, and fatigue/sleep difficulties. Patient reports she recently underwent HST, as she has been having gasping arousals sleep onset. The 04/2025 HST was inconclusive with AHI less than 2 and O2 candi 86%. She does have a follow-up appointment with her building architect today. She continues to have frequent dizziness. She did not start vestibular PT yet, states that she called them but then recalled her back. She continues to wake up every day with a headache. She started the magnesium and B2, however then stopped them as she thought it might interact with her lactated Ringer's solution which she uses for pots management. 03/24/2025, Initial HPI: History of Present Illness The patient is a 45-year-old right-handed female presenting with severe headaches and dizziness. The headaches initially started about a year ago, were intermittent, and were managed with Tylenol or Motrin. However, in the past month, the headaches have intensified, leading to an emergency room visit due to their severity and associated dizziness. The patient denies any recent infections, accidents, or injuries that could have exacerbated her symptoms. The patient reports that the headaches are constant, throbbing, and resemble a brain freeze sensation, lasting all day. There is no associated neck pain, photophobia, or phonophobia, and the headaches do not improve with sleep or position change.. The dizziness is described as a sensation of swaying or being off balance, similar to being on a boat. The patient has a history of POTS diagnosed 17 years ago and mast cell activation syndrome diagnosed two years ago. She is currently on propranolol for heart rate control and pantoprazole for gastric issues. The patient has been diagnosed with anemia and iron deficiency, with recent blood work indicating low iron levels. The patient has a known arachnoid cyst, which has been stable on imaging, and a history of Crohn's disease, although she has not been on treatment for it. She also has a history of gallbladder removal and kidney stones. Past Medical History - Postural Orthostatic Tachycardia Syndrome (POTS) diagnosed 17 years ago - Mast Cell Activation Syndrome diagnosed two years ago - Anemia and Iron Deficiency - Arachnoid Cyst - Crohn's Disease - History of Gallbladder Removal - History of Kidney Stones - H. pylori Infection - Degenerative Disc Disease - Short VA Interval - Supraventricular Tachycardia (SVT) - Vitamin D Deficiency- Not on a vitamin-D supplement - Back degenerative disc disease, bulging disc Review of Systems - General: Fatigue, sleep difficulties, anxious, double vision. - Neurological: Reports severe, constant headaches resembling brain freeze, dizziness described as swaying or off balance. Denies neck pain, photophobia, phonophobia. numbness and tingling in hands and legs, and general weakness - Cardiovascular: Denies chest pain, palpitations, or syncope. - Gastrointestinal: Reports history of H. pylori infection, denies nausea or vomiting. - Musculoskeletal: Reports leg cramps, Joint pain, swollen joints. Back pain with degenerative disc disease and bulging disc - Respiratory: Denies dyspnea, cough, or wheezing. - History of ear Nose and Throat disorders: Constant nasal drip, no recent ear infections - Glass Maker: Irregular cycle, Mirena IUD placement Pertinent denials: Constipation. - No history of head trauma, no family history of headaches reported. Results - Labs: Recent blood work indicates anemia with low iron levels, and low vitamin-D level. - Imaging: CT scan showed no acute intracranial abnormalities, MRI brain without contrast revealed stable arachnoid cyst. Patient reports anaphylaxis allergy to both MRI and CT contrast Headache Review Medications - Propranolol for heart rate control - Pantoprazole for gastric issues - Tylenol for headache relief Headache Lifestyle Factors * The patient reports no caffeine intake and maintains hydration with liquid IV solutions. She engages in regular physical activity, walking approximately 20,000 steps daily, and has been losing weight through Weight [employer]. The patient experiences poor sleep quality, often going to bed late and having difficulty falling asleep. 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 * Substance Use: Denies use of alcohol, tobacco, caffeine, or recreational drugs. * Exercise: Engages in regular physical activity, walking approximately 20,000 steps daily. * Nutrition: Following Weight [employer] program, reports weight loss. Exercise * The patient engages in regular physical activity, walking approximately 20,000 steps daily, which she attributes to her job cleaning cars. Nutrition * The patient is following the Weight [employer] program and reports successful weight loss. She denies any specific dietary restrictions but is mindful of her nutritional intake. Sleep * Reports poor sleep quality, often going to bed late and having difficulty falling asleep. * Typically in bed from 11:00 PM to 7:45 AM, but actual sleep onset is delayed. Substance Use * The patient denies any use of alcohol, tobacco, caffeine, or recreational drugs. She is unable to consume caffeine due to heart-related issues. 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 Headache questionnaire: Onset of initial headache symptoms: A year ago, worsened a month ago Initial precipitating cause of this headache: None Previous workup for this headache: CT scan, MRI without contrast Types of headache disorders: 1 Typical headache characteristics: Constant, throbbing, all over, like a brain freeze Prodrome symptoms: Denies Aura: Denies Headache pain intensity: Severe Location, quality, characteristics of this headache: All over, constant, throbbing Associated migraine symptoms: Dizziness, not right in space dizziness Headache postdrome: Denies Headache aggravating factors: Denies Headache triggers: Denies Time of day this headache usually occurs: All day Duration of this headache: All day Frequency of this headache: Constant How does headache impact your life? Unknown Current acute medication use/interventions: Tylenol Current preventative medication use: Propranolol- used for HR control- ineffective for headache Current non-pharmacological interventions: None PFSH Medical History IUD (intrauterine device) in place Recent urinary tract infection Acid reflux Huynh disease Crohn disease Colitis Arachnoid cyst Asthma Autoimmune disorder Arthritis Bulging disc Spinal stenosis POTS (postural orthostatic tachycardia syndrome) SVT (supraventricular tachycardia) Surgical History History of kidney surgery History of liver biopsy Hx of cholecystectomy Family History Father High cholesterol HTN (hypertension) Tumors Mental health disorder Mother COPD (chronic obstructive pulmonary disease) Colitis Sister Colitis Substance use disorder Mental health disorder Sister Cervical cancer Social History Household Members: Family and Children Housing: House Alcohol intake: former Patient Tobacco Use Status: Former Tobacco user Years Smoked: quit 20b years ago e-Cigarette/Vaping Use: Never Used Second Hand Smoke Exposure: No service: No Current occupational status: employed 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 Current occupational exposures/hazards: No Cognitive needs: No Hearing needs: No Vision needs: No Female Reproductive History Menstrual Age of Menarche: 12 Physical Exam Const Orientation/consciousness: patient oriented x3 Resp Effort & Inspection: normal respiratory effort and able to speak in complete sentences Neuro General: patient oriented x3 Cognition (Neuro): normal cognition Psych Mental Status: mental status grossly normal Telehealth Telehealth Telehealth Platform: Telephone Location of provider rendering services: practice address Location of patient: address on file Patient Identification confirmed using: Name, : Yes Telehealth method: voice only Patient verbally consented to treatment: Yes Patient verbally consented to billing insurance company: Yes Patient informed of any privacy concerns related to visit: Yes Minutes spent on Phone/Video with Pt.: 13 Assessment & Plan Assessment & Plan (1) Anemia: Code(s): D64.9 - Anemia, unspecified Category: Medical (2) Vitamin D deficiency: Code(s): E55.9 - Vitamin D deficiency, unspecified Category: Medical (3) Fatigue: Code(s): R53.83 - Other fatigue Category: Medical (4) Snoring: Code(s): R06.83 - Snoring Category: Medical (5) Sleep difficulties: Code(s): G47.9 - Sleep disorder, unspecified Category: Medical (6) Headache: Comment: Possible vestibular migraine Code(s): R51.9 - Headache, unspecified Category: Medical Plan For overall headache and dizziness management: * Optimize good self-care, including but not limited to maintaining a healthy diet, adequate fluid intake, adequate sleep, and engaging in regular physical activity. * Track headaches, especially after any treatment regimen changes. Migraine [employer] is one of many headache tracking apps. * Optimize overall health well being: * ferrous gluconate 325 mg daily with vitamin-C * vitamin-D supplement 2000 units daily * Reestablish care with GI- advised to discuss possible Crohn's disease, mast cell disorder treatment. * Follow-up with POTS specialist-continue IV hydration therapy. * For sleep: * HST was inconclusive * In-lab PSG to assess for sleep apnea and Periodic limb movement of sleep (PLMS) * Pulmonary follow-up as scheduled * Labs as ordered to follow-up on iron deficiency anemia, vitamin-D deficiency. * Vestibular PT-as ordered-we will follow-up on order For acute headache treatment: Discussed importance of taking acute medications at the first sign of headache, however stressed importance of avoiding acute medication overuse (especially with combined headache medications). May use Tylenol as needed Previous acute headache medication trials: Sumatriptan ineffective. Naproxen ineffective. Acute headache medication contraindications: Patient states she can not take NSAIDs. For headache prevention medication: Preventative medications should be taken routinely as prescribed for best effect, it may take several weeks for full effect to take effect. * Resume Riboflavin 400mg qam * Resume Magnesium 400mg qhs Previous migraine prevention medication trials: none other Headache prevention medication contraindications: Topiramate, Flexeril, metoprolol, Celebrex, gabapentin, Lyrica, Cymbalta- all ineffective and not t olerated. Amitriptyline/nortriptyline/sertraline-ineffective and not tolerated Future considerations: Doxepin Will follow-up upon review of above and patient to follow-up in clinic in 4-6 months or sooner prn. Orders: Orders RT PSG in-lab sleep study Today G47.9 - Sleep disorder, unspecified, R06.83 - Snoring, R53.83 - Other fatigue Coding Level of Care Code Tele Est Pt Level 4 (49161) Diagnoses Anemia D64.9 Vitamin D deficiency E55.9 Fatigue R53.83 Snoring R06.83 Sleep difficulties G47.9 Headache R51.9
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
--- OUTSIDE RECORDS SUMMARY | 2025-06-01 08:00 | XMS_ITS | Clinical Summary ---
Author Organization [facility] Address [address] [place] [address] Care Team Providers Care Game Trapper Name Role Phone Beni Valle MD Primary Care Provider + [phone] Derek Roche PA-C Unavailable +1 [phone] Allergies Active Allergy Reactions Criticality Noted Date [...] syndrome) 02/12/2012 Overview (03/23/2024): Dr Joseph in [place] SVT (supraventricular tachycardia) 02/12/2012 Overview (03/23/2024): Sees Dr Light and EP docs in [place] Vitamin D deficiency 05/23/2008 PFO (patent foramen ovale) 01/20/2008 Overview (03/23/2024): No tx unless it gets worse Encounters Date Type Department Care Team Description 05/02/2025 Telephone [facility] Heart & [place] [place] at [address], [place] [phone] Derek Roche PA-C 04/28/2025 Telephone [facility] [place] at [address], [place] [phone] Derek Roche PA-C 03/21/2025 Scanned Document [facility] [place] at [address], [place] [phone] Derek Roche PA-C 03/21/2025 Telephone [facility] Heart [facility] [place] at [address], [place] [phone] Derek Roche PA-C 03/15/2025 3:04 PM EDT - 03/15/2025 11:59 PM EDT Hospital Encounter [facility] Heart [facility] [place] at [address], [place] [phone] Derek Roche PA-C Follow-up Discharge Disposition: Home or Self Care 03/15/2025 Travel 03/03/2025 Telephone [facility] Heart [facility] [place] at [address], [place] [phone] Derek Roche PA-C from Last 3 Months [...] Upcoming Encounters Date Type Department Care Team ([facility] st Contact Info) Description 07/05/2025 1:30 PM EDT Appointment [facility] Heart [facility] [place] at [facility] - Cardiology [address] [place] [address] Derek Roche PA-C [address] [place] [address] Health Maintenance Due Date Last Done Comments [...] PM EDT) Ventricular rate [address] [facility] Atrial rate 69 BPM EKG [facility] P-R interval 120 ms EKG [facility] QRS duration 80 ms EKG [facility] Q-T interval 388 ms EKG [facility] QTC calculation (Bazett) [address] [facility] P axis 22 degrees EKG [facility] R axis -6 degrees EKG [facility] T axis 5 degrees EKG [facility] 03/15/2025 3:30 PM EDT [address] [facility] - 03/22/2025 12:45 PM EDT Normal sinus rhythm Minimal voltage criteria for LVH, may be normal variant ( R in aVL ) Cannot rule out Anterior infarct (cited on or before 04-Aug-2024) Abnormal ECG When compared with ECG of 04-Aug-2024 14:31, No significant change was found Confirmed by MD Palacio Andre ([id number]) on 03/22/2025 12:45:27 PM Procedure Note Jj Palacio MD - 03/22/2025 Normal sinus rhythm Minimal voltage criteria for LVH, may be normal variant ( R in aVL ) Cannot rule out Anterior infarct (cited on or before 04-Aug-2024) Abnormal ECG When compared with ECG of 04-Aug-2024 14:31, No significant change was found Confirmed by MD Hakeem, Jj ([id number]) on 03/22/2025 12:45:27 PM Derek Roche PA-C ECG ORDERABLES Fin al Result EKG [facility] from Last 3 Months Insurance MEDICAID OUT OF STATE [facility] Care Teams Game Trapper Relationship Specialty Start Date End Date Beni Valle MD [address] [place] [address] PCP - General Family Medicine 10/27/23 Derek Roche PA-C [address] [place] [address] Physician Lumpia Wrapper Maker Cardiac Electrophysiology 03/23/24
--- OUTSIDE RECORDS SUMMARY | 2025-06-01 08:01 | XMS_ITS | Encounter Summary ---
Author Organization [employer] Address [address] [facility] [address] 7t [place] [address] Care Team Providers Care Automatic Lathe Operator Name Role Phone Unavailable Primary Care Provider Unavailabl e Encounter Details Date Type Department Care Team (Late st Contact Info) Description 11/20/2022 Orders Only [facility] DENTAL [address] [place], [place] [phone] Annalise Mix BDS [address] [place], [place] [phone] Dental abscess (Primary Dx) Social History Tobacco [...]
--- OUTSIDE RECORDS SUMMARY | 2025-06-01 08:01 | XMS_ITS | Encounter Summary ---
Author Organization [employer] Address 75 [facility] 7t [place] [address] Care Team Providers Care Special Skills Officer Name Role Phone Unavailable Primary Care Provider Unavailabl e Reason for Visit * Reason Comments Med Refill Encounter Details Date Type Department Care Team (Late st Contact Info) Description 05/19/2024 Refill [facility] D[facility] [address] [place], [place] [phone] Annalise Mix, BDS [address] [place], [place] [phone] Social History Tobacco Use Types Packs/Day Years [...]
--- OUTSIDE RECORDS SUMMARY | 2025-06-01 08:01 | XMS_ITS | Encounter Summary ---
Author Organization [employer] Address [address] [facility] 7t [place] [address] Care Team Providers Care Signals Intelligence Analyst Name Role Phone Unavailable Primary Care Provider Unavailabl e Reason for Visit * Reason Onset Date Comments medication 04/28/2024 Encounter Details Date Type Department Care Team ([facility] st Contact Info) Description 04/28/2024 Telephone [facility] ADULT DENTAL [address] [place] [address] Sumeet Anderson DMD [address] [place], [place] [phone] medication Social History Tobacco Use Types Packs/Day [...] be sent. Patient spoke to office at [facility] on Friday concerning script. Krystin [...]
--- OUTSIDE RECORDS SUMMARY | 2025-06-01 08:01 | XMS_ITS | Encounter Summary ---
Author Organization [facility] Address [address] [place] [address] Care Team Providers Care Rn Plastic Surgery Name Role Phone Beni Valle MD Primary Care Provider [phone] Derek Roche PA-C Unavailable [phone] Encounter Details Date Type Department Care Team (Late st Contact Info) Description 03/21/2025 Scanned Document [facility] Heart & Vascular [place] at [address] [phone] Derek Roche PA-C [address] [place] [address] Social History Tobacco Use Types Packs/Day Years [...] Care Team (Late st Contact Info) Description 07/05/2025 1:30 PM EDT Appointment [facility] Heart & Vascular [place] at [address] [phone] Derek Roche PA-C [address] [place] [address] documented as of this encounter Visit Diagnoses Not on filedocumented in this encounter Care Teams Rn Plastic Surgery Relationship Specialty Start Date End Date Beni Valle MD [address] [facility] [place] [address] PCP - General Family Medicine 10/27/23 Derek Roche PA-C [address] [place] [address] Physician Quality Control Representative Cardiac Electrophysiology 03/23/24 documented as of this encounter
--- OUTSIDE RECORDS SUMMARY | 2025-06-01 08:01 | XMS_ITS | Encounter Summary ---
Author Organization [employer] Address [address] [facility] [address] 7t [place] [address] Care Team Providers Care Telegraphic Typewriter Installer Name Role Phone Unavailable Primary Care Provider Unavailabl e Encounter Details Date Type Department Care Team (Late st Contact Info) Description 12/11/2022 Telephone [facility] ADULT DENTAL [address] [place] [address] Annalise Mix BDTony [address] [place] [address] Social History Tobacco Use Types Packs/Day Years [...]
--- OUTSIDE RECORDS SUMMARY | 2025-06-01 08:01 | XMS_ITS | Encounter Summary ---
Author Organization [email or web address] Address [address] [facility] 7t [place] [address] Care Team Providers Care Firearms Expert Name Role Phone Unavailable Primary Care Provider Unavailabl e Reason for Visit * Reason Onset Date Comments Appointment 01/24/2023 Encounter Details Date Type Department Care Team ([facility] st Contact Info) Description 01/24/2023 Telephone [facility] ADULT DENTAL [address] [place] [address] Sumeet Nascimento DMD [address] [place], [place] [phone] Appointment Social History Tobacco Use Types Packs/Day [...] Recorded In the last 10 days, have kathy u been in contact with someone who [...] 01/24/2023 and stated she needed medication from [facility] because she is starting to get [...]
--- OUTSIDE RECORDS SUMMARY | 2025-06-01 08:01 | XMS_ITS | Encounter Summary ---
Author Organization [facility] Address [address] [place] [address] Care Team Providers Care Case Advocate Name Role Phone Beni Valle MD Primary Care Provider [phone] Derek Roche PA-C Unavailable [phone] [phone] Encounter Details Date Type Department Care Team (Late st Contact Info) Description 05/10/2024 Telephone [facility] Heart & Vascular [place] at [facility] - Electrophysiology Laboratory [address] [place] [address] Vanessa Waite MD [address] [place] [address] Social History Tobacco Use Types Packs/Day Years [...] higher dose of propanolol such as 20 skilled nursing but would increase slowly documented in this encounter Plan of Treatment Upcoming Encounters Date Type Department Care Team (Late st Contact Info) Description 07/05/2025 1:30 PM EDT Appointment [facility] Heart & Vascular [place] at [facility] - Cardiology [address] [place] [address] Derek Roche PA-C [address] [place] [address] documented as of this encounter Visit Diagnoses Diagnosis POTS (postural orthostatic tachycardia syndrome)- Primary Unspecified tachycardia documented in this encounter Care Teams Case Advocate Relationship Specialty Start Date End Date Beni Valle MD [address] [facility] [place] [address] PCP - General Family Medicine 10/27/23 Derek Roche PA-C [address] [place] [address] Physician Wrapper Sizer Cardiac Electrophysiology 03/23/24 documented as of this encounter
--- OUTSIDE RECORDS SUMMARY | 2025-06-01 08:01 | XMS_ITS | Encounter Summary ---
Author Organization [employer] Address [address] [address] 7t [place] [address] Care Team Providers Care Turbine Mechanic Name Role Phone Unavailable Primary Care Provider Unavailabl e Encounter Details Date Type Department Care Team (Late st Contact Info) Description 07/09/2024 Telephone [facility] ADULT DENTAL [address] [place] [address] Annalise Mix BDS [address] [place] [address] Social History Tobacco Use Types Packs/Day Years [...]
--- OUTSIDE RECORDS SUMMARY | 2025-06-01 08:01 | XMS_ITS | Encounter Summary ---
Author Organization [employer] Address 75 [facility] 7t [place] [address] Care Team Providers Care Centrifugal Spinner Name Role Phone Unavailable Primary Care Provider Unavailabl e Reason for Visit * Reason Onset Date Comments medical clearance 06/26/2023 Encounter Details Date Type Department Care Team (Late st Contact Info) Description 06/26/2023 Telephone [facility] DENTAL [address] [place] [address] Selam Coleman [address] [place] [address] medical clearance Social History Tobacco Use Types [...] - 06/26/2023 11:21 AM EDT Rylan from [facility] called in looking to facilitate treatment [...] be scheduled for treatment. Please fax to [phone] documented in this encounter Plan of Treatment Not on file documented as of this encounter Visit Diagnoses Not on filedocumented in this encounter
--- OUTSIDE RECORDS SUMMARY | 2025-06-01 08:01 | XMS_ITS | Encounter Summary ---
Author Organization [employer] Address [address] [facility] 7t [place] [address] Care Team Providers Care Trial Paralegal Name Role Phone Unavailable Primary Care Provider Unavailabl e Reason for Visit * Reason Comments Med Refill Encounter Details Date Type Department Care Team (Late st Contact Info) Description 05/03/2024 Refill [facility] DENTAL [address] [place], [place] [phone] Annalise Mix, BDS [address] [place], [place] [phone] Social History Tobacco Use Types Packs/Day Years [...]
--- OUTSIDE RECORDS SUMMARY | 2025-06-01 08:01 | XMS_ITS | Encounter Summary ---
Author Organization [employer] Address 75 [facility] 7t [place] [address] Care Team Providers Care Immigration Patrol Inspector Name Role Phone Unavailable Primary Care Provider [...] that Dr. Doss is transitioning into [facility] again . Message would be sent to office. Encounter Details Date Type Department Care Team (Late st Contact Info) Description 09/25/2022 Telephone [facility] ADULT DENTAL [address] [place] [address] Annalise Mix, BDS [address] [place] [address] Appointment (Patient upset because states she has [...] that Dr. Doss is transitioning into [facility] again . Message would be sent to [...] that Dr. Doss is transitioning into [facility] again . Message would be sent to office. documented in this encounter Plan of Treatment Not on file documented as of this encounter Visit Diagnoses Not on filedocumented in this encounter
--- OUTSIDE RECORDS SUMMARY | 2025-06-01 08:01 | XMS_ITS | Clinical Summary ---
Author Organization [facility] Address [address] [facility] [address] [place] [address] Phone Care Team Providers Care Communications Supervisor Name Role Phone Beni Valle DUMP ATTENDANT Primary Care Provider + Allergies Active Allergy [...] DEPRESSION SCREENING 1993 SMOKING Hx and SMOKELESS TOBACCO SCREENING 1994 HEPATITIS C SCREENING 1999 HIV ONE-TIME SCREENING (18-65 YEARS) 1999 PAP SMEAR 2002 MAMMOGRAM 2021 INFLUENZA VACCINE (#1) 2025 , 07/27/2020, 07/07/2018, Additional history exists COVID-19 VACCINE ( season) 2025 Adult Td,Tdap Booster 03/25/2030 03/25/2020 HEPATITIS A [...] on file Insurance ACO ACO ACO A[employer] [place] [address] [address] [place] [address] [place] [address] [place] [address] [place] [address] [address] [place] [address] ACO Care Teams Communications Supervisor Relationship Specialty Start Date End Date Beni Valle NP [address] [facility] [place] [address] PCP - General Family Medicine 03/29/18 Additional Source Comments The information contained in this document represents components of the legal health record. It is not the complete legal health record.[facility]
--- OUTSIDE RECORDS SUMMARY | 2025-06-01 08:01 | XMS_ITS | Clinical Summary ---
Author Organization [employer] Address [address] [facility] 7t [place] [address] Care Team Providers Care Silviculture Professor Name Role Phone Unavailable Primary Care Provider [...] 2011 Mammogram 2021 COVID-19 Vaccine (1 - 2023- season) 2024 Influenza Vaccine (#1) 2025 , 07/27/2020, 07/07/2018, Additional history exists Tobacco Screening 07/01/2025 07/01/2024 Dental X-Ray: Full Mouth 04/23/2027 04/22/2024 DTaP/Tdap/Td Vaccines (2 - Td or Tdap) 03/25/2030 03/25/2020, 12/06/2003 Zoster Vaccines (1 of 2) 2031 RSV [...] Most Recently Relevant to Health Maintenance Insurance [facility] MEDICAID STAND ADULT
--- OUTSIDE RECORDS SUMMARY | 2025-06-01 08:01 | XMS_ITS | Patient Health Record ---
Author Organization [place] Address [address] [place] [address] Care Team Providers Care Drawer Waxer Name Role Phone MITCHELL BOND Primary Care Provider Desmond Francisco Jr Unavailable Reason For Referral No Information Plan Of Treatment No Information Insurance Providers Payer Name Payer Address Payer Phone Subscriber Number Group Number Insured Name Patient Relationship to Insured Coverage Start Date Coverage End Date [facility] [address] [address] [place], [place] [id number] LYNN DONNELLY Self - patient is the insured
== END 2025-06-01 08:30 | disposition home or self-care (01) ==
LOC: HO.HSMS 07:57
PROVIDERS: PCP Nurse Practitioner Family; Visit Provider Nurse Practitioner Family
DX: D64.9 Anemia, unspecified (principal); E55.9 Vitamin D deficiency, unspecified; R53.83 Other fatigue; R06.83 Snoring; G47.9 Sleep disorder, unspecified; R51.9 Headache, unspecified
CPT/HCPCS: 99214

== ENCOUNTER 2025-07-04 06:49 | Outpatient (AMB) | payer OTHER, SELFPAY ==
--- OUTSIDE RECORDS SUMMARY | 2025-07-04 07:07 | XMS_ITS | Encounter Summary ---
Author Organization [employer] Address 75 [facility] 7t [place] [address] Care Team Providers Care Burn Out Scarfing Operator Name Role Phone Unavailable Primary Care Provider Unavailabl e Reason for Visit * Reason Comments Med Refill Encounter Details Date Type Department Care Team (Late st Contact Info) Description 05/03/2024 Refill [facility] DENTAL [address] [place], [place] [phone] Annalise Mix, BDS 91 [place], [place] [phone] Social History Tobacco Use Types Packs/Day Years [...]
--- OUTSIDE RECORDS SUMMARY | 2025-07-04 07:07 | XMS_ITS | Clinical Summary ---
Author Organization [employer] Address [address] [facility] 7t [place] [address] Care Team Providers Care Family Services Manager Name Role Phone Unavailable Primary Care [...] Mammogram 2021 COVID-19 Vaccine (1 - season) 2025 Influenza Vaccine (#1) 2025 [...] Most Recently Relevant to Health Maintenance Insurance [facility] MEDICAID STAND ADULT
--- OUTSIDE RECORDS SUMMARY | 2025-07-04 07:07 | XMS_ITS | Encounter Summary ---
Author Organization [employer] Address [address] 7t [place] [address] Care Team Providers Care Sod Cutter Name Role Phone Unavailable Primary Care Provider Unavailabl e Encounter Details Date Type Department Care Team (Late st Contact Info) Description 12/11/2022 Telephone [facility] ADULT DENTAL [address] [place] [address] Annalise Mix BDTony [address] [place] [address] Social History Tobacco Use Types Packs/Day Years [...]
--- OUTSIDE RECORDS SUMMARY | 2025-07-04 07:07 | XMS_ITS | Encounter Summary ---
Author Organization [email or web address] Address [address] [facility] 7t [place] [address] Care Team Providers Care Head Host/Hostess Name Role Phone Unavailable Primary Care Provider Unavailabl e Reason for Visit * Reason Onset Date Comments Appointment 01/24/2023 Encounter Details Date Type Department Care Team ([facility] st Contact Info) Description 01/24/2023 Telephone [facility] ADULT DENTAL [address] [place] [address] Sumeet Nascimento DMD [address] [place], [place] [phone] Appointment Social History Tobacco Use Types Packs/Day [...]
--- OUTSIDE RECORDS SUMMARY | 2025-07-04 07:07 | XMS_ITS | Encounter Summary ---
Author Organization [employer] Address [address] [facility] 7t [place] [address] Care Team Providers Care Director Records Management Name Role Phone Unavailable Primary Care Provider [...] patient that Dr. Doss is transitioning into [facility] again . Message would be sent to office. Encounter Details Date Type Department Care Team (Late st Contact Info) Description 09/25/2022 Telephone [facility] ADULT DENTAL [address] [place] [address] Annalise Mix, BDS [address] [place] [address] Appointment (Patient upset because states she has [...] patient that Dr. Doss is transitioning into [facility] again . Message would be [...] patient that Dr. Doss is transitioning into [facility] again . Message would be sent to office. documented in this encounter Plan of Treatment Not on file documented as of this encounter Visit Diagnoses Not on filedocumented in this encounter
--- OUTSIDE RECORDS SUMMARY | 2025-07-04 07:07 | XMS_ITS | Encounter Summary ---
Author Organization [employer] Address [address] 7t [place] [address] Care Team Providers Care Pilot Boat Deckhand Name Role Phone Unavailable Primary Care Provider Unavailabl e Encounter Details Date Type Department Care Team (Late st Contact Info) Description 07/09/2024 Telephone [facility] ADULT DENTAL [address] [place] [address] Annalise Mix BDS [address] [place] [address] Social History Tobacco Use Types Packs/Day Years [...]
--- OUTSIDE RECORDS SUMMARY | 2025-07-04 07:07 | XMS_ITS | Encounter Summary ---
Author Organization [employer] Address [address] [facility] 7t [place] [address] Care Team Providers Care Print Machine Operator Name Role Phone Unavailable Primary Care Provider Unavailabl e Reason for Visit * Reason Comments Med Refill Encounter Details Date Type Department Care Team (Late st Contact Info) Description 05/19/2024 Refill [facility] DENTAL [address] [place], [place] [phone] Annalise Mix, BDS [address] [place] [address] [place], [place] [phone] Social History Tobacco Use Types Packs/Day Years [...]
--- OUTSIDE RECORDS SUMMARY | 2025-07-04 07:07 | XMS_ITS | Encounter Summary ---
Author Organization Formerly [facility] Address [address] [place] [address] Care Team Providers Care Tree Climber Name Role Phone Beni Valle MD Primary Care Provider [phone] Derek Roche PA-C Unavailable [phone] Encounter Details Date Type Department Care Team (Late st Contact Info) Description 03/21/2025 Scanned Document [facility] Heart & Vascular [place] at [address] [phone] Derek Roche PA-C [address] [place] [address] Social History Tobacco Use Types Packs/Day Years [...] Info) Description 07/05/2025 1:30 PM EDT Appointment [facility] Heart & Vascular [place] at [address] [phone] Derek Roche PA-C [address] [place] [address] documented as of this encounter Visit Diagnoses Not on filedocumented in this encounter Care Teams Tree Climber Relationship Specialty Start Date End Date Beni Valle MD [address] [facility] [place] [address] PCP - General Family Medicine 10/27/23 Derek Roche PA-C [address] [place] [address] Physician Etcher Enameling Cardiac Electrophysiology 03/23/24 documented as of this encounter
--- OUTSIDE RECORDS SUMMARY | 2025-07-04 07:07 | XMS_ITS | Clinical Summary ---
Author Organization [facility] Address [address] [place] [address] Care Team Providers Care User Experience Researcher Name Role Phone Beni Valle MD Primary Care Provider + [phone] Derek Roche PA-C Unavailable [phone] Allergies Active Allergy Reactions Criticality Noted Date [...] Fludrocortisone Rash/Dermatitis Low 03/14/2025 Iodinated Contrast Media Anaphylaxis,Aylssa rtne ss Of Breath High 08/07/2009 Latex [...] venous catheter 3 (three) times a week. 10/27/19 24 Active pregabalin (LYRICA) 25 MG capsule Take 1 capsule (25 mg total) by mouth 2 (two) times a day. 05/21/20 Active COLESTIPOL HCL PO Take 15 g/day by mouth daily. Active Levonorgestrel (MIRENA, 52 MG, IU) 1 Units by Intrauterine route 1 time. Active docusate sodium (COLACE) 100 MG capsule Take 1 capsule (100 mg total) by mouth 2 (two) times a day as needed for constipation. Active fluticasone (FloVENT HFA) 110 mcg/puff inhaler Inhale 2 puffs 2 (two) times a day. 04/10/20 Active ibuprofen (MOTRIN) 800 mg tablet Take 1 tablet (800 mg total) by mouth 3 times daily (every 8 hours) as needed for moderate pain. Active levalbuterol (XOPENEX HFA) 45 mcg/puff inhaler Inhale 1 puff every 4 (four) hours as needed for wheezing or shortness of breath. 04/10/20 Active Medical Compression StockingsIndica tions:POTS (postural orthostatic tachycardia syndrome) Level of Compression: 20-30 mmHg; knee-high, bilateral 2 each 1 03/23/20 Active Additional Information Patient not taking.Reported on 03/15/2025 sodium chloride 1 g tabletIndicatio ns:POTS (postural orthostatic tachycardia syndrome) Take 1 tablet (1 g total) by mouth 2 (two) times a day after breakfast and lunch. 60 tablet 5 03/23/20 24 Active pyridostigmine (MESTINON) 60 MG tabletIndicatio ns:POTS (postural orthostatic tachycardia syndrome) Take 1 tablet (60 mg total) by mouth 2 (two) times a day. 60 tablet 5 04/23/20 24 Active Additional Information Patient not taking.Reported on 03/15/2025 amoxicillin-cla vulanate (AUGMENTIN) 875-125 MG per tablet 04/22/20 24 Active Vitamin D3 (CHOLECALCIFERO L) 50 MCG (1999 UT) capsule 02/08/20 24 Active doxycycline (VIBRA-TABS) 100 MG tablet Please see attached for detailed directions 04/29/20 Active ivabradine (CORLANOR) 5 MG tabletIndicatio ns:Postural orthostatic tachycardia syndrome (POTS) Take 1 tablet (5 mg total) by mouth 2 (two) times a day. 60 tablet 5 07/28/20 Active Additional Information Patient not taking.Reported on 03/15/2025 propranolol (INDERAL LA) 60 MG 24 hr capsuleIndicati ons:POTS (postural orthostatic tachycardia syndrome) Take 1 capsule (60 mg total) by mouth nightly. 30 capsule 5 09/15/20 24 Active cefpodoxime (VANTIN) 200 MG tablet 10/24/19 Active Arnuity Ellipta 100 MCG/ACT inhaler inhale 1 puff by mouth 1 (one) time each day. 08/03/20 24 Active Medical Compression StockingsIndica tions:POTS (postural orthostatic tachycardia syndrome) Level of Compression: 20-30 mmHg; knee high bilateral. Please measure to fit 3 each 1 10/26/19 Active Additional Information Patient not taking.Reported on 03/15/2025 montelukast (SINGULAIR) 10 MG tabletIndicatio ns:Mast cell activation syndrome Take 1 tablet (10 mg total) by mouth nightly. 90 tablet 02/23/20 Active Additional Information Patient not taking.Reported on 03/15/2025 famotidine (PEPCID) 20 MG tablet TAKE 1 TABLET BY MOUTH ONCE NEEDED FOR DYSPEPSIA. MAY REPEAT DOSE ONCE IF NEEDED. MAX 2 TABS/DAY 02/21/20 25 Active lidocaine (LIDODERM) 5 % patch APPLY 1 PATCH TOPICALLY DAILY FOR 30 DAYS LEAVE ON MOST PAINFUL AREA FOR UP TO 12 HRS 12/16/19 25 Active PANTOprazole (PROTONIX) 40 MG EC tablet Take 1 tablet (40 mg total) by mouth. 02/21/20 25 Active Riboflavin 400 MG Tab 03/09/20 25 Active ketorolac (TORADOL) 10 MG tabletIndicatio ns:POTS (postural orthostatic tachycardia syndrome) Take 1 tablet (10 mg total) by mouth 4 times daily (every 6 hours) as needed for moderate pain. Take with food to reduce stomach upset. 60 tablet 03/15/20 25 Active propranolol (INDERAL) 10 MG tabletIndicatio ns:POTS (postural orthostatic tachycardia syndrome) Take 1 tablet (10 mg total) by mouth 3 (three) times a day. 90 tablet 3 06/13/20 25 Active propranolol (INDERAL) 20 MG tabletIndicatio ns:POTS (postural orthostatic tachycardia syndrome) Take 1 tablet (20 mg total) by mouth 3 (three) times a day. As discussed at visit 90 tablet 5 06/13/20 25 026 Active propranolol (INDERAL) 20 MG tabletIndicatio ns:POTS (postural orthostatic tachycardia syndrome) Take 1 tablet (20 mg total) by mouth 3 (three) times a day. As discussed at visit 90 tablet 5 12/14/19 25 025 Discontin ued(Reord er) propranolol (INDERAL) 10 MG tabletIndicatio ns:POTS (postural orthostatic tachycardia syndrome) Take 1 tablet (10 mg total) by mouth 3 (three) times a day. 90 tablet 3 12/14/19 25 025 Discontin ued(Reord er) Active Problems Problem Noted Date Diagnosed Date [...] syndrome) 02/12/2012 Overview (03/23/2024): Dr Joseph in [place] SVT (supraventricular tachycardia) 02/12/2012 Overview (03/23/2024): Sees Dr Light and EP docs in [place] Vitamin D deficiency 05/23/2008 PFO (patent foramen ovale) 01/20/2008 Overview (03/23/2024): No tx unless it gets worse Encounters Date Type Department Care Team Description 06/13/[address] [facility] Heart & Vascular [place] at [address], [place] [phone] Derek Roche PA-C 05/02/[address] [facility] Heart & [facility] [place] [address] [phone] Derek Roche PA-C 04/28/[address] [facility] Heart & Vascular [place] at [address], [place] [phone] Derek Roche PA-C from Last 3 Months [...] Upcoming Encounters Date Type Department Care Team ([facility] st Contact Info) Description 07/05/2025 1:30 PM EDT Appointment [facility] Heart & Vascular [place] at [facility] - Cardiology [address] [place] [address] Derek Roche PA-C [address] [place] [phone] Health Maintenance Due Date Last Done Comments Hepatitis C Virus Screening 1981 HIV Screening 1994 Hepatitis B Vaccines (1 of 3 - 19+ 3-dose series) 02/2000 Pneumococcal Vaccine: Pediat aida (0-5 Years) and At-Risk Patients (6 to 49 Years) (1 of 2 - PCV) 01/03/2000 Pap Smear (Ages 21-65) 2002 DTaP/Tdap/Td Vaccines (2 - Tdap) 12/05/2013 12/06/19 04 Mammogram 2021 Influenza Vaccine 04/29/2025 06/12/2009 COVID-19 Vaccine ( - season) 2025 HPV Vaccines (No Doses Required) Completed Insurance MEDICAID OUT OF STATE [facility] [place] [address] Care Teams User Experience Researcher Relationship Specialty Start Date End Date Beni Valle MD [address] [facility] [place] [address] PCP - General Family Medicine 10/27/23 Derek Roche PA-C [address] [place] [address] Physician Fish Roe Processor Cardiac Electrophysiology 03/23/24
--- OUTSIDE RECORDS SUMMARY | 2025-07-04 07:07 | XMS_ITS | Clinical Summary ---
Author Organization [facility] Address [address] [address] [place] [address] Phone Care Team Providers Care Pilot Plant Operator Helper Name Role Phone Beni Valle [employer] S[employer] DIRECTOR Primary Care Provider + Allergies Active Allergy [...] Insurance ACO ACO ACO ACO [employer] [place] [address] [address] [place] [address] [place] [place] [address] ACO Care Teams Pilot Plant Operator Helper Relationship Specialty Start Date End Date Beni Valle NP [address] [facility] [place] [address] PCP - General Family Medicine 03/29/18 Additional Source Comments The information contained in this document represents components of the legal health record. It is not the complete legal health record.[facility]
--- OUTSIDE RECORDS SUMMARY | 2025-07-04 07:07 | XMS_ITS | Encounter Summary ---
Author Organization Formerly [facility] Address [address] [place] [address] Care Team Providers Care Electric Locomotive Crane Operator Name Role Phone Beni Valle MD Primary Care Provider [phone] Derek Roche PA-C Unavailable [phone] Encounter Details Date Type Department Care Team (Late st Contact Info) Description 05/10/2024 Telephone [facility] Heart & Vascular [place] at [facility] - Electrophysiology Laboratory [address] [place] [address] Vanessa Waite MD [address] [place] [address] Social History Tobacco Use Types Packs/Day Years [...] Info) Description 07/05/2025 1:30 PM EDT Appointment [facility] Heart & Vascular [place] at [facility] - Cardiology [address] [place] [address] Derek Roche PA-C [address] [place] [address] documented as of this encounter Visit Diagnoses Diagnosis POTS (postural orthostatic tachycardia syndrome)- Primary Unspecified tachycardia documented in this encounter Care Teams Electric Locomotive Crane Operator Relationship Specialty Start Date End Date Beni Valle MD [address] [facility] [place] [address] PCP - General Family Medicine 10/27/23 Derek Roche PA-C [address] [place] [address] Physician Skein Yard Drier Cardiac Electrophysiology 03/23/24 documented as of this encounter
--- OUTSIDE RECORDS SUMMARY | 2025-07-04 07:07 | XMS_ITS | Encounter Summary ---
Author Organization [employer] Address [address] [facility] [address] 7t [place] [address] Care Team Providers Care Hand Tier Name Role Phone Unavailable Primary Care Provider Unavailabl e Encounter Details Date Type Department Care Team (Late st Contact Info) Description 11/20/2022 Orders Only [facility] DENTAL [address] [place], [place] [phone] Annalise Mix BDS [address] [place], [place] [phone] Dental abscess (Primary Dx) Social History Tobacco [...]
--- OUTSIDE RECORDS SUMMARY | 2025-07-04 07:07 | XMS_ITS | Encounter Summary ---
Author Organization [employer] Address [address] [facility] 7t [place] [address] Care Team Providers Care Wall Worker Name Role Phone Unavailable Primary Care Provider Unavailabl e Reason for Visit * Reason Onset Date Comments medication 04/28/2024 Encounter Details Date Type Department Care Team ([facility] st Contact Info) Description 04/28/2024 Telephone [facility] ADULT DENTAL [address] [place] [address] Sumeet Anderson DMD [address] [place], [place] [phone] medication Social History Tobacco Use Types Packs/Day [...] be sent. Patient spoke to office at [facility] on Friday concerning script. Krystin and [...]
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
--- OUTSIDE RECORDS SUMMARY | 2025-07-04 07:07 | XMS_ITS | Encounter Summary ---
Author Organization [employer] Address [address] [facility] 7t [place] [address] Care Team Providers Care Wireless Sales Representative Name Role Phone Unavailable Primary Care Provider Unavailabl e Reason for Visit * Reason Onset Date Comments medical clearance 06/26/2023 Encounter Details Date Type Department Care Team (Late st Contact Info) Description 06/26/2023 Telephone [facility] DENTAL [address] [place] [address] Selam Coleman [address] [place] [address] medical clearance Social History Tobacco Use Types [...] - 06/26/2023 11:21 AM EDT Rylan from [facility] called in looking to facilitate treatment [...] be scheduled for treatment. Please fax to [phone] documented in this encounter Plan of Treatment Not on file documented as of this encounter Visit Diagnoses Not on filedocumented in this encounter
--- NOTE | 2025-07-04 07:36 | A.OFFPC_ITS ---
Intake Visit Reasons: ENT referral Allergies doxycycline (DOXYCYCLINE) Allergy (Severe, Verified 07/04/25 07:38) RASH, GI Upset levofloxacin (From LEVAQUIN) Allergy (Severe, Verified 07/04/25 07:38) RASH metronidazole (From FLAGYL) Allergy (Severe, Verified 07/04/25 07:38) ANAPHYLAXIS morphine (MORPHINE) Allergy (Severe, Verified 07/04/25 07:38) ANAPHYLAXIS, cant breathe, SOB Sulfa (Sulfonamide Antibiotics) (SULFA (SULFONAMIDE ANTIBIOTICS)) Allergy (Severe, Verified 07/04/25 07:38) STOP BREATHING, rash/cant breathe adhesive (ADHESIVE) Allergy (Intermediate, Verified 07/04/25 07:38) RASH clindamycin (CLINDAMYCIN) Allergy (Intermediate, Verified 07/04/25 07:38) RASH Iodinated Contrast Media (IV CONTRAST) Allergy (Intermediate, Verified 07/04/25 07:38) ANAPHALAXIS latex (LATEX) Allergy (Intermediate, Verified 07/04/25 07:38) RASH ciprofloxacin (Cipro) Allergy (Unknown, Verified 07/04/25 07:38) unknown fludrocortisone Allergy (Unknown, Verified 07/04/25 07:38) Unknown hydromorphone (Dilaudid) Allergy (Unknown, Verified 07/04/25 07:38) Unknown midodrine Allergy (Unknown, Verified 07/04/25 07:38) Unknown Medication List - Last Reconciled 07/04/25 by Beni Valle, BARREL POL[employer]ER- albuterol sulfate 90 mcg/actuation (Ventolin HFA) 2 puffs inhalation Q4-6H PRN ascorbate calcium (vitamin C) 500 mg PO DAILY 30 days betamethasone dipropionate 0.05% 1 appl topical DAILY PRN cholecalciferol (vitamin D3) 50 mcg PO DAILY docusate sodium (Colace) 100 - 200 mg (1 - 2 x 100 mg) PO DAILY PRN 30 days ferrous gluconate 324 mg PO DAILY 30 days ipratropium bromide 17 mcg/actuation (Atrovent HFA) inhalation levalbuterol tartrate 45 mcg/actuation 2 puffs inhalation Q4-6H lidocaine 5% 1 patch topical DAILY 30 days lidocaine HCl-hydrocortison ac 3-0.5 % 1 appl [place] BID lorazepam 0.5 mg PO BEDTIME PRN 20 days magnesium oxide 400 mg PO BEDTIME 90 days meclizine 12.5 mg PO BID PRN 20 days [Normal Saline 0.9% 2 L continuous IV infusion 3XW 52 weeks] pantoprazole 40 mg PO DAILY prednisolone acetate 1% 1 drp ophthalmic (eye) BID propranolol mg PO 3XD riboflavin (vitamin B2) 400 mg PO DAILY [shower chair As directed] sodium,potassium,mag sulfates 17.5-3.13-1.6 gram (Suprep Bowel Prep Kit) DILUTE each bottle with 16oz of water; drink first bottle 4pm evening before procedure AND second bottle at 10pm; follow each bottle with at least 32 oz.of water within 1 hour after each bottle Tobacco use date assessed: 11/16/24 Dental Screening Dental Screen Date: 11/16/24 HPI ENT referral HPI Details History of Present Illness The patient is a 45-year-old female presenting with postnasal drip and seeking an ENT referral. She reports experiencing a whistling sound through her nose, which suggests a possible nasal obstruction or deviated septum, although a physical examination could not be performed during the telehealth visit. She has been advised to try cetirizine, which she has used previously at a dosage of 20 mg daily, to manage the postnasal drip. The patient also has a history of iron deficiency anemia and has been under the care of a staffing administrator. She denies any blood in stool or excessive blood loss but does report experiencing fatigue. Anemia-related laboratory tests, including ferritin, iron, and CBC, have been requested to further evaluate her condition. Review of Systems - Respiratory: Reports postnasal drip an d nasal whistling sound. Denies cough or hemoptysis. - Hematologic: Reports fatigue. Denies b lood in stool or excessive blood loss. Plan 1. Postnasal Drip The patient will be referred to an ENT specialist for further evaluation of her postnasal drip and nasal whistling sound, which may indicate a nasal obstruction or deviated septum. She is advised to continue using cetirizine, which she has previously taken at a dosage of 20 mg daily, to help manage her symptoms. Will go up to 20mg bid. 2. Iron Deficiency Anemia The patient has a history of iron deficiency anemia and will undergo laboratory tests, including ferritin, iron, and CBC, to assess her current status. She denies any overt signs of blood loss but reports fatigue, which may be related to her anemia. Discussion Notes During the visit, I discussed the patient's symptoms of postnasal drip and nasal whistling, suggesting a referral to an ENT specialist for further evaluation. We also reviewed her history of iron deficiency anemia and agreed to perform laboratory tests to assess her current status. Patient Instructions - Continue taking cetirizine as previous ly prescribed to manage postnasal drip. - Follow up with ENT specialist for furt her evaluation of nasal symptoms. - Complete the requested laboratory test s for anemia evaluation. [facility] Medical History IUD (intrauterine device) in place Recent urinary tract infection Acid reflux Huynh disease Crohn disease Colitis Arachnoid cyst Asthma Autoimmune disorder Arthritis Bulging disc Spinal stenosis POTS (postural orthostatic tachycardia syndrome) SVT (supraventricular tachycardia) Surgical History History of kidney surgery History of liver biopsy Hx of cholecystectomy Family History Father High cholesterol HTN (hypertension) Tumors Mental health disorder Mother COPD (chronic obstructive pulmonary disease) Colitis Sister Colitis Substance use disorder Mental health disorder Sister Cervical cancer Social History Household Members: Family and Children Housing: House Alcohol intake: former Patient Tobacco Use Status: Former Tobacco user Years Smoked: quit 20b years ago e-Cigarette/Vaping Use: Never Used Second Hand Smoke Exposure: No service: No Current occupational status: employed 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 Current occupational exposures/hazards: No Cognitive needs: No Hearing needs: No Vision needs: No Female Reproductive History Menstrual Age of Menarche: 12 Questionnaire Thrive Questionnaire Date Thrive assessed: 03/16/25 I am a: Patient What is your living situation today?: I have a steady place to live Within the past 12 months, did the food you bought not last and you didn't have the money to get more?: Never true Within the past 12 months, did you worry whether your food would run out before you got money to buy more?: Never true Do you have trouble paying for medicines?: No Do you have trouble getting transportation to medical appointments?: No Do you have trouble paying your heating and electricity bill?: No Do you have trouble taking care of your child, family member or friend?: No Do you have trouble with day-to-day activities such as bathing, preparing meals, shopping, managing finances, etc.?: I choose not to answer this question Are you currently unemployed and looking for a job?: No Are you interested in more education?: No Please select the resources that you would like help with: None THRIVE Score: 0 CHAVA-7 AMB Questionnaire CHAVA-7 Date CHAVA - 7 assessed: 03/16/25 Source: Developed by Drs. Chucho Elmore, Elsa Christensen, Guzman Reyes and colleagues, with an educational jose guadalupe from [employer]. Physical exam (Primary Care) Tobacco/Smoking Status: Tobacco use Status Tobacco use date assessed 11/16/24 04/27/25 07:29 Patient Tobacco Use Status Former Tobacco user 04/27/25 07:29 e-Cigarette/Vaping Use Never Used 04/27/25 07:29 Thrive Assessment: Date of Thrive Assessment Date Thrive assessed 03/16/25 04/27/25 07:29 Telehealth Telehealth Telehealth Platform: [facility] Location of provider rendering services: practice address Location of patient: address on file Patient Identification confirmed using: Name, : Yes Telehealth method: video Patient verbally consented to treatment: Yes Patient verbally consented to billing insurance company: Yes Patient informed of any privacy concerns related to visit: Yes Minutes spent on Phone/Video with Pt.: 13 Coding Level of Care Code Tele Est Pt Level 3 (47835) Diagnoses Post-nasal drip R09.82 Anemia D64.9 Assessment & Plan Assessment & Plan (1) Post-nasal drip: Code(s): R09.82 - Postnasal drip Category: Medical (2) Anemia: Code(s): D64.9 - Anemia, unspecified Category: Medical Plan . Orders: Orders TSH reflex Free T4 Today D64.9 - Anemia, unspecified Ferritin Today D64.9 - Anemia, unspecified IRON PROFILE Today D64.9 - Anemia, unspecified Complete Blood Count Auto Diff Today D64.9 - Anemia, unspecified Comprehensive Met. Panel Today D64.9 - Anemia, unspecified Referrals Ear/Nose/Throat Referral R09.82 - Postnasal drip
== END 2025-07-04 10:12 | disposition home or self-care (01) ==
LOC: HO.HMCC 06:50
PROVIDERS: PCP Nurse Practitioner Family; Visit Provider Nurse Practitioner Family
DX: R09.82 Postnasal drip (principal); D64.9 Anemia, unspecified

== ENCOUNTER 2025-07-09 08:39 | Outpatient (REF) | payer OTHER, SELFPAY ==
--- OUTSIDE RECORDS SUMMARY | 2025-07-05 13:13 | XMS_ITS | Encounter Summary ---
Author Organization [facility] Address [address] [place] [address] Care Team Providers Care Parts Picker Name Role Phone Beni Valle MD Primary Care Provider [phone] Derek Roche PA-C Unavailable + [phone] Reason for Visit * Reason Comments Follow-up Encounter Details Date Type Department Care Team (Latest Contact Info) Description 07/05/2025 1:13 PM EDT - 07/05/2025 11:59 PM EDT Hospital Encounter [facility] - Cardiology [address] [place] [address] Derek oRche PA-C [address] [place] [address] Follow-up Discharge Disposition: Home or Self Care [...] Sign Reading Time Taken Comments Blood Pressure 108/75 07/05/2025 1:22 PM EDT Pulse 70 07/05/2025 1:22 PM EDT Temperature - - Respiratory Rate - - Oxygen Saturation 99% 07/05/2025 1:22 PM EDT Inhaled Oxygen Concentration - - Weight 83.9 kg (185 lb) 07/05/2025 1:22 PM EDT Height 165.1 cm (5' 5 ) 07/05/2025 1:22 PM EDT Body Mass Index 30.79 07/05/2025 1:22 PM EDT documented in this encounter Medications at Time of Discharge Atrovent HFA 17 MCG/ACT inhaler INHALE 2 PUFFS BY MOUTH EVERY 6 HOURS NEEDED FOR WHEEZE OR FOR SHORTNESS OF BREATH 06/07/2025 famotidine (PEPCID) 20 MG tablet TAKE 1 TABLET BY MOUTH ONCE NEEDED FOR DYSPEPSIA. MAY REPEAT DOSE ONCE IF NEEDED. MAX 2 TABS/DAY 02/20/2025 Levonorgestrel (MIRENA, 52 MG, IU) 1 Units by Intrauterine route 1 time. lidocaine (LIDODERM) 5 % patch APPLY 1 PATCH TOPICALLY DAILY FOR 30 DAYS LEAVE ON MOST PAINFUL AREA FOR UP TO 12 HRS 12/15/2024 LORazepam (ATIVAN) 0.5 MG tablet TAKE 1 TABLET BY MOUTH BEDTIME NEEDED FOR ANXIETY FOR 20 DAYS 06/15/2025 magnesium oxide 400 (240 Mg) MG Tab tablet 06/25/2025 Medical Compression StockingsIndicati ons:POTS (postural orthostatic tachycardia syndrome) Level of Compression: 20-30 mmHg; knee-high, bilateral 2 each 1 03/23/2024 montelukast (SINGULAIR) 10 MG tabletIndications :Mast cell activation syndrome Take 1 tablet (10 mg total) by mouth nightly. 90 tablet 02/22/2025 propranolol (INDERAL) 10 MG tabletIndications :POTS (postural orthostatic tachycardia syndrome) Take 1 tablet (10 mg total) by mouth 3 (three) times a day. Taking combination with propranolol 20 mg tablets for total of 30 mg per dose 90 tablet 3 07/05/2025 propranolol (INDERAL) 20 MG tabletIndications :POTS (postural orthostatic tachycardia syndrome) Take 1 tablet (20 mg total) by mouth 3 (three) times a day. Taking combination with propranolol 10 mg tablets for total of 30 mg per dose 90 tablet 5 07/05/2025 6 documented as of this encounter Progress Notes * Derek Roche PA-C - 07/05/2025 1:30 PM EDT Images from the original note were not included. [facility] Cardiac Electrophysiology Office Visit Patient Name Cesilia Walker Date of 1980 Gender female Age 45 y.o. Encounter Date 07/05/2025 [employer] General Supervisor: Primary Care Physician: Beni Valle MD Referring Physician: Beni Valle MD Reason for Visit POTS management brief Assessment & Plan Impression : Elham continues to do well with use of propranolol 30 mg 3 times daily in combination with IV fluids. Currently during cooler months, she receives 2 L of IV fluid weekly with which she reports that orthostatic symptoms are well- controlled. In the summertime she requires more in terms of fluid resuscitation, 2-3 sessions per week with 2 L each. Today I did not recommend any changes to her regimen and discussed 2 treatment plans; 1 for summertime with increased frequency of IV fluids and 1 for the cooler months with 1 IV fluid session per week Recommendations 1. Continue propranolol 30 mg 3 times daily with as needed 10 mg 2. Continue IV fluids 3. Will plan on following up in 3 months Subjective History of Present Illness Cesilia is [...] IBS (Crohn's), [place] Ledesma syndrome (short OH), SVT (unclear burden), PFO, and mast cell disorder (unspecified). For the latter, she reports that she was started on a medication which was initially improved, however refills were denied. She did not take it long enough to evaluate efficacy. She has been doing well with the use of propranolol 30 mg every 6 hours. In the past I ordered ivabradine which was approved, however, Cesilia was hesitant to start, particularly given her response topropranolol in combination with IV fluids 3 times weekly in the summer months At previous visits I recommended that she increase propranolol to 30 mg and take it every 4-5 hourswith monitoring for breakthrough palpitations prior to next dose as it became apparent that she wasa rapid metabolizer of propranolol (2D6). I also recommended that she start long-acting [id number] mg nightly as she reported development of palpitations that would awaken her from sleep. I also r ecommend that she continue IV fluid infusions 2 L 3 times weekly which are administered at home over 6 hours. She subsequently called my office on 07/28/2024 and despite increase in propranolol dosage and frequency, she continues to experience significantly rapid HR. As such I recommended that she s tart ivabradine 5 mg twice daily with the intention to discontinue propranolol, however, ultimatelywe may need to give both ivabradine and propranolol. At last visit I recommended that she increase propranolol IR to 30 mg 3 times daily and to not start ivabradine just yet. I also recommended as needed propranolol 10-20 mg for breakthrough palpitations and an increase in supplemental salts as she was planning on traveling to hot environment. ECG 07/05/2025 SR at 69 bpm; OH 120 ms; QRS duration 82 ms. Somewhat irregular. Short OH OH 116 114 116 10/19/2019 30-day MCOT revealed sinus rhythm throughout with [...] Start Date End Date Taking? Authorizing Provider Bao HFA 17 MCG/ACT inhaler INHALE 2 PUFFS BY MOUTH EVERY 6 HOURS NEEDED FOR WHEEZE OR FOR SHORTNESS OF BREATH 06/07/25 Yes External Provider, famotidine (PEPCID) 20 MG tablet TAKE 1 TABLET BY MOUTH ONCE NEEDED FOR DYSPEPSIA. MAY REPEAT DOSE ONCE IF NEEDED. MAX 2 TABS/DAY 02/20/25 Yes External Provider, Levonorgestrel (MIRENA, 52 MG, IU) 1 Units by Intrauterine route 1 time. Yes External Provider, lidocaine (LIDODERM) 5 % patch APPLY 1 PATCH TOPICALLY DAILY FOR 30 DAYS LEAVE ON MOST PAINFUL AREAFOR UP TO 12 HRS 12/15/24 Yes External Provider, LORazepam (ATIVAN) 0.5 MG tablet TAKE 1 TABLET BY MOUTH BEDTIME NEEDED FOR ANXIETY FOR 20 DAYS 06/15/25 Yes External Provider, magnesium oxide 400 (240 Mg) MG Tab tablet 06/25/25 Yes External Provider, propranolol (INDERAL) 10 MG tablet Take 1 tablet (10 mg total) by mouth 3 (three) times a day. 06/13/25 Yes Derek Roche PA-C propranolol (INDERAL) 20 MG tablet Take 1 tablet (20 mg total) by mouth 3 (three) times a day. As discussed at visit 06/13/25 12/10/25 Yes Derek Roche PA-C cefpodoxime (VANTIN) 200 MG tablet 10/24/24 External Provider, COLESTIPOL HCL PO Take 15 g/day by mouth daily. Patient not taking: Reported on 03/15/2025 External ProviderMD docusate sodium (COLACE) 100 MG capsule Take 1 capsule (100 mg total) by mouth 2 (two) times a day as needed for constipation. Patient not taking: Reported on 03/15/2025 External Provider, doxycycline (VIBRA-TABS) 100 MG tablet Please see attached for detailed directions Patient not taking: Reported on 03/15/2025 04/29/24 External Provider, fluticasone (FloVENT HFA) 110 mcg/puff inhaler Inhale 2 puffs 2 (two) times a day. Patient not taking: Reported on 03/15/2025 04/10/23 01/25/25 External Provider, ibuprofen (MOTRIN) 800 mg tablet Take 1 tablet (800 mg total) by mouth 3 times daily (every 8 hours) as needed for moderate pain. Patient not taking: Reported on 03/15/2025 External Provider, ivabradine (CORLANOR) 5 MG tablet Take 1 tablet (5 mg total) by mouth 2 (two) times a day. Patient not taking: Reported on 03/15/2025 07/28/24 01/24/25 Derek Roche PA-C ketorolac (TORADOL) 10 MG tablet Take 1 tablet (10 mg total) by mouth 4 times daily (every 6 hours)as needed for moderate pain. Take with food to reduce stomach upset. Patient not taking: Reported on 07/05/2025 03/15/25 03/30/25 Derek Roche PA-C levalbuterol (XOPENEX HFA) 45 mcg/puff inhaler Inhale 1 puff every 4 (four) hours as needed for wheezing or shortness of breath. Patient not taking: Reported on 03/15/2025 04/10/23 External ProviderMD Medical Compression Stockings Level of Compression: 20-30 mmHg; knee-high, bilateral Patient not taking: Reported on 03/15/2025 03/23/24 Derek Roche PA-C Medical Compression Stockings Level of Compression: 20-30 mmHg; knee high bilateral. Please measureto fit Patient not taking: Reported on 03/15/2025 10/26/24 Derek Roche PA-C montelukast (SINGULAIR) 10 MG tablet Take 1 tablet (10 mg total) by mouth nightly. Patient not taking: Reported on 03/15/2025 02/22/25 Derek Roche PA-C PANTOprazole (PROTONIX) 40 MG EC tablet Take 1 tablet (40 mg total) by mouth. Patient not taking: Reported on 03/15/2025 02/20/25 External ProviderMD pregabalin (LYRICA) 25 MG capsule Take 1 capsule (25 mg total) by mouth 2 (two) times a day. Patient not taking: Reported on 03/15/2025 05/21/23 External ProviderMD sodium chloride (NS) bolus Infuse 1,000 mL into a venous catheter 3 (three) times a week. Patient not taking: Reported on 03/15/2025 10/27/23 10/27/24 External ProviderMD Vitamin D3 (CHOLECALCIFEROL) 50 MCG (2000 UT) capsule 02/08/24 External ProviderMD amoxicillin-clavulanate (AUGMENTIN) 875-125 MG per tablet 04/22/24 07/05/25 External Provider, MD Yin Ellipta 100 MCG/ACT inhaler inhale 1 puff by mouth 1 (one) time each day. Patient not taking: Reported on 03/15/2025 08/03/24 07/05/25 External Provider, propranolol (INDERAL) 10 MG tablet Take 1 tablet (10 mg total) by mouth 3 (three) times a day. Patient not taking: Reported on 03/15/2025 12/13/24 06/13/25 Derek Roche PA-C propranolol (INDERAL) 20 MG tablet Take 1 tablet (20 mg total) by mouth 3 (three) times a day. As discussed at visit Patient not taking: Reported on 03/15/2025 12/13/24 06/13/25 Derek Roche PA-C pyridostigmine (MESTINON) 60 MG tablet Take 1 tablet (60 mg total) by mouth 2 (two) times a day. Patient not taking: Reported on 03/15/2025 04/23/24 07/05/25 Derek Roche PA-C Riboflavin 400 MG Tab 03/09/25 07/05/25 External Provider, Medical History Past Medical History: Diagnosis Date PFO (patent foramen ovale) POTS (postural orthostatic tachycardia syndrome) SVT (supraventricular tachycardia) Surgical History Past Surgical History: Procedure Laterality Date CHOLECYSTECTOMY Family History No family history on file. Allergies Allergies[1] Objective Vitals Patient Vitals for the past 8 hrs: BP Pulse SpO2 Height Weight 07/05/25 1322 108/75 70 99 % 1.651 m (5' 5 ) 83.9 kg (185 lb) Body mass index is 30.79 kg/m??. Physical Exam General: A, A and [...] CREAT 0.6 10/27/2023 Sign: Derek Roche PA-C 07/05/2025 1:35 PM [1] Allergies Allergen Reactions Azithromycin Rash/Dermatitis and Shortness Of Breath Barium Sulfate Unknown/Patient and Family Unable to Define Cashew Nut (Anacardium Occidentale) Skin Test Rash/Dermatitis [...] Shortness Of Breath Other reaction(s): Rash, Rash/Dermatitis Ciprofibrate Unknown/Patient and Family Unable to Define Clarithromycin Other (See Comments) and Unknown/Patient and Family Unable to Define Adhesives/Tape Rash/Dermatitis Fentanyl Rash/Dermatitis Fludrocortisone Rash/Dermatitis Midodrine Rash/Dermatitis Ondansetron Rash/Dermatitis Tapentadol Rash/Dermatitis Wound Dressing Adhesive Rash/Dermatitis documented in this encounter Plan of Treatment Upcoming Encounters Date Type Department Care Team (Late st Contact Info) Description 10/19/2025 11:00 AM EST Appointment [facility] Heart [facility] V[facility] - Cardiology [address] [place] [phone] Derek Roche PA-C [address] [place] [address] documented as of this encounter Procedures Procedure Name Priority Date/Time Associated Diagnosis Comments ECG 12-LEAD Routine 07/05/2025 1:35 PM EDT Chest pain, unspecified type SVT (supraventricular tachycardia) Other complicated headache syndrome documented in this encounter Results * ECG 12 lead (07/05/2025 1:35 PM EDT) Ventricular rate 69 BPM EKG [facility] Atrial rate 69 BPM EKG [facility] P-R interval 120 ms EKG [facility] QRS duration 82 ms EKG [facility] Q-T interval 386 ms EKG [facility] QTC calculation (Bazett) 413 ms EKG [facility] P axis 35 degrees EKG [facility] R axis -5 degrees EKG [facility] T axis 10 degrees EKG [facility] 07/05/2025 1:35 PM EDT Narrative EKG [facility] - 07/06/2025 1:09 PM EDT Normal sinus rhythmwith sinus arrhythmia Minimal voltage criteria for LVH, may be normal variant(R in aVL) Borderline ECG When compared with ECG [id number] 15:30,Anterior leadsNo significant changes Confirmed by MD TOMPKINS Marcin ([id number]) on 07/06/2025 1:09:32 PM Procedure Note Jay Tompkins MD - 07/06/2025 Normal sinus rhythmwith sinus arrhythmia Minimal voltage criteria for LVH, may be normal variant(R in aVL) Borderline ECG When compared with ECG [id number] 15:30,Anterior leadsNo significantchanges Confirmed by MD TOMPKINS Marcin ([id number]) on 07/06/2025 1:09:32 PM us Derek Roche PA-C ECG ORDERABLES Fin al Result EKG [facility] documented in this encounter Visit Diagnoses Diagnosis Chest pain, unspecified type- Primary SVT (supraventricular tachycardia) Other specified cardiac dysrhythmias Other complicated headache syndrome POTS (postural orthostatic tachycardia syndrome) Unspecified tachycardia documented in this encounter Care Teams Parts Picker Relationship Specialty Start Date End Date Beni Valle MD [address] [facility] [place] [id number] PCP - General Family Medicine 10/27/23 Derek Roche PA-C [address] [place] [id number] Physician Computer Patternmaker Cardiac Electrophysiology 03/23/24 documented as of this encounter
--- OUTSIDE RECORDS SUMMARY | 2025-07-09 08:42 | XMS_ITS | Encounter Summary ---
Author Organization [employer] Address [address] [facility] [address] [place] [address] Care Team Providers Care Senior Windows Administrator Name Role Phone Unavailable Primary Care Provider Unavailabl e Reason for Visit * Reason Onset Date Comments medical clearance 06/26/2023 Encounter Details Date Type Department Care Team (Late st Contact Info) Description 06/26/[address] [facility] D[facility] [address] [place] [address] Selam Coleman [address] [place] [address] medical clearance Social History Tobacco Use Types [...] - 06/26/2023 11:21 AM EDT Rylan from [facility] called in looking to facilitate [...] be scheduled for treatment. Please fax to [phone] documented in this encounter Plan of Treatment Not on file documented as of this encounter Visit Diagnoses Not on filedocumented in this encounter
--- OUTSIDE RECORDS SUMMARY | 2025-07-09 08:42 | XMS_ITS | Encounter Summary ---
Author Organization [employer] Address [address] [facility] [address] 7t [place] [address] Care Team Providers Care Annealer Helper Name Role Phone Unavailable Primary Care Provider Unavailabl e Encounter Details Date Type Department Care Team (Late st Contact Info) Description 12/11/2022 Telephone [facility] ADULT DENTAL [address] [place] [address] Annalise Mix BDTony [address] [place] [address] Social History Tobacco Use Types Packs/Day Years [...]
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
--- OUTSIDE RECORDS SUMMARY | 2025-07-09 08:42 | XMS_ITS | Encounter Summary ---
Author Organization [employer] Address 75 [facility] 7t [place] [address] Care Team Providers Care All Source Analyst Name Role Phone Unavailable Primary Care Provider Unavailabl e Reason for Visit * Reason Onset Date Comments medication 04/28/2024 Encounter Details Date Type Department Care Team ([facility] st Contact Info) Description 04/28/[address] [facility] ADULT DENTAL [address] [place] [address] Sumeet Anderson DMD [address] [place], [place] [phone] medication Social History Tobacco Use Types Packs/Day [...] be sent. Patient spoke to office at [facility] on Friday concerning script. Krystin [...]
--- OUTSIDE RECORDS SUMMARY | 2025-07-09 08:42 | XMS_ITS | Clinical Summary ---
Author Organization [facility] Address [address] [place] [address] Care Team Providers Care Flight Physician Name Role Phone Beni Valle MD Primary Care Provider + [phone] Derek Roche PA-C Unavailable [phone] Allergies Active Allergy Reactions Criticality Noted Date [...] catheter 3 (three) times a week. 10/27/19 Active Levonorgestrel (MIRENA, 52 MG, IU) 1 Units by Intrauterine route 1 time. Active Medical Compression StockingsIndic ations:POTS (postural orthostatic tachycardia syndrome) Level of Compression: 20-30 mmHg; knee-high, bilateral 2 each 1 03/23/20 Active Additional Information Patient not taking.Reported on 03/15/2025 sodium chloride 1 g tabletIndicati ons:POTS (postural orthostatic tachycardia syndrome) Take 1 tablet (1 g total) by mouth 2 (two) times a day after breakfast and lunch. 60 tablet 5 03/23/20 24 Active ivabradine (CORLANOR) 5 MG tabletIndicati ons:Postural orthostatic tachycardia syndrome (POTS) Take 1 tablet (5 mg total) by mouth 2 (two) times a day. 60 tablet 5 07/28/20 Active Additional Information Patient not taking.Reported on 03/15/2025 propranolol (INDERAL LA) 60 MG 24 hr capsuleIndicat ions:POTS (postural orthostatic tachycardia syndrome) Take 1 capsule (60 mg total) by mouth nightly. 30 capsule 5 09/15/20 24 Active montelukast (SINGULAIR) 10 MG tabletIndicati ons:Mast cell activation syndrome Take 1 tablet (10 mg total) by mouth nightly. 90 tablet 02/23/20 Active Additional Information Patient not taking.Reported on 03/15/2025 famotidine (PEPCID) 20 MG tablet TAKE 1 TABLET BY MOUTH ONCE NEEDED FOR DYSPEPSIA. MAY REPEAT DOSE ONCE IF NEEDED. MAX 2 TABS/DAY 02/21/20 Active lidocaine (LIDODERM) 5 % patch APPLY 1 PATCH TOPICALLY DAILY FOR 30 DAYS LEAVE ON MOST PAINFUL AREA FOR UP TO 12 HRS 12/16/19 Active Atrovent HFA 17 MCG/ACT inhaler INHALE 2 PUFFS BY MOUTH EVERY 6 HOURS NEEDED FOR WHEEZE OR FOR SHORTNESS OF BREATH 06/07/20 Active LORazepam (ATIVAN) 0.5 MG tablet TAKE 1 TABLET BY MOUTH BEDTIME NEEDED FOR ANXIETY FOR 20 DAYS 06/15/20 Active magnesium oxide 400 (240 Mg) MG Tab tablet 06/25/20 Active propranolol (INDERAL) 20 MG tabletIndicati ons:POTS (postural orthostatic tachycardia syndrome) Take 1 tablet (20 mg total) by mouth 3 (three) times a day. Taking combination with propranolol 10 mg tablets for total of 30 mg per dose 90 tablet 5 07/05/20 25 2025 Active propranolol (INDERAL) 10 MG tabletIndicati ons:POTS (postural orthostatic tachycardia syndrome) Take 1 tablet (10 mg total) by mouth 3 (three) times a day. Taking combination with propranolol 20 mg tablets for total of 30 mg per dose 90 tablet 3 07/05/20 Active pregabalin (LYRICA) 25 MG capsule Take 1 capsule (25 mg total) by mouth 2 (two) times a day. 05/21/202024 Discontinued(M ed List Clean-up/Old Med - No E-Cancel/No AVS) COLESTIPOL HCL PO Take 15 g/day by mouth daily. 2024 Discontinued(T herapy completed) docusate sodium (COLACE) 100 MG capsule Take 1 capsule (100 mg total) by mouth 2 (two) times a day as needed for constipation. 2024 Discontinued(M ed List Clean-up/Old Med - No E-Cancel/No AVS) fluticasone (FloVENT HFA) 110 mcg/puff inhaler Inhale 2 puffs 2 (two) times a day. 04/10/20 2024 Discontinued(T herapy completed) ibuprofen (MOTRIN) 800 mg tablet Take 1 tablet (800 mg total) by mouth 3 times daily (every 8 hours) as needed for moderate pain. 2024 Discontinued(M ed List Clean-up/Old Med - No E-Cancel/No AVS) levalbuterol (XOPENEX HFA) 45 mcg/puff inhaler Inhale 1 puff every 4 (four) hours as needed for wheezing or shortness of breath. 04/10/20 23 2024 Discontinued(M ed List Clean-up/Old Med - No E-Cancel/No AVS) pyridostigmine (MESTINON) 60 MG tabletIndicati ons:POTS (postural orthostatic tachycardia syndrome) Take 1 tablet (60 mg total) by mouth 2 (two) times a day. 60 tablet 5 04/23/20 24 2024 Discontinued(T herapy completed) amoxicillin-cl avulanate (AUGMENTIN) 875-125 MG per tablet 04/22/20 24 2024 Discontinued(T herapy completed) Vitamin D3 (CHOLECALCIFER OL) 50 MCG (1999 UT) capsule 02/08/20 24 2024 Discontinued(T herapy completed) doxycycline (VIBRA-TABS) 100 MG tablet Please see attached for detailed directions 04/29/20 24 2024 Discontinued(T herapy completed) cefpodoxime (VANTIN) 200 MG tablet 10/24/19 25 2024 Discontinued(T herapy completed) Arnuity Ellipta 100 MCG/ACT inhaler inhale 1 puff by mouth 1 (one) time each day. 08/03/20 24 2024 Discontinued(T herapy completed) Medical Compression StockingsIndic ations:POTS (postural orthostatic tachycardia syndrome) Level of Compression: 20-30 mmHg; knee high bilateral. Please measure to fit 3 each 1 10/26/19 25 2024 Discontinued(D uplicate Prescription - No E-Cancel/No AVS) propranolol (INDERAL) 20 MG tabletIndicati ons:POTS (postural orthostatic tachycardia syndrome) Take 1 tablet (20 mg total) by mouth 3 (three) times a day. As discussed at visit 90 tablet 5 12/14/19 25 2024 Discontinued(R eorder) propranolol (INDERAL) 10 MG tabletIndicati ons:POTS (postural orthostatic tachycardia syndrome) Take 1 tablet (10 mg total) by mouth 3 (three) times a day. 90 tablet 3 12/14/19 25 2024 Discontinued(R eorder) PANTOprazole (PROTONIX) 40 MG EC tablet Take 1 tablet (40 mg total) by mouth. 02/21/20 25 2024 Discontinued(M ed List Clean-up/Old Med - No E-Cancel/No AVS) Riboflavin 400 MG Tab 03/09/202024 Discontinued(T herapy completed) ketorolac (TORADOL) 10 MG tabletIndicati ons:POTS (postural orthostatic tachycardia syndrome) Take 1 tablet (10 mg total) by mouth 4 times daily (every 6 hours) as needed for moderate pain. Take with food to reduce stomach upset. 60 tablet 03/15/20 25 2024 Discontinued(M ed List Clean-up/Old Med - No E-Cancel/No AVS) propranolol (INDERAL) 10 MG tabletIndicati ons:POTS (postural orthostatic tachycardia syndrome) Take 1 tablet (10 mg total) by mouth 3 (three) times a day. 90 tablet 3 06/13/20 25 2024 Discontinued(R eorder) propranolol (INDERAL) 20 MG tabletIndicati ons:POTS (postural orthostatic tachycardia syndrome) Take 1 tablet (20 mg total) by mouth 3 (three) times a day. As discussed at visit 90 tablet 5 06/13/20 25 2024 Discontinued(R eorder) Active Problems Problem Noted Date Diagnosed Date [...] syndrome) 02/12/2012 Overview (03/23/2024): Dr Joseph in [place] SVT (supraventricular tachycardia) 02/12/2012 Overview (03/23/2024): Sees Dr Light and EP docs in [place] Vitamin D deficiency 05/23/2008 PFO (patent foramen ovale) 01/20/2008 Overview (03/23/2024): No tx unless it gets worse Encounters Date Type Department Care Team Description 07/05/2025 1:13 PM EDT - 07/05/2025 11:59 PM EDT Hospital Encounter [facility] Heart & [place]ascular [place] at [address], [place] [phone] Derek Roche PA-C Follow-up Discharge Disposition: Home or Self Care 07/05/2025 Travel 06/13/2025 Refill [facility] Heart & [place] at [address], [place] [phone] Derek Roche PA-C 05/02/2025 Telephone [facility] Heart & [place]ascular [place] at [address], [place] [phone] Derek Roche PA-C 04/28/2025 Telephone [facility] Heart & [place]ascular [place] at [address], [place] [phone] Derek Roche PA-C from Last 3 Months [...] Pulse 70 07/05/2025 1:22 PM EDT Temperature 36.1 C (96.9 F) 10/27/2023 3:50 PM EST Respiratory Rate 18 10/27/2023 3:50 PM EST Oxygen Saturation 99% 07/05/2025 1:22 PM EDT Inhaled Oxygen Concentration - - Weight 83.9 kg (185 lb) 07/05/2025 1:22 PM EDT Height 165.1 cm (5' 5 ) 07/05/2025 1:22 PM EDT Body Mass Index 30.79 07/05/2025 1:22 PM EDT Plan of Treatment Upcoming Encounters Date Type Department Care Team (Late st Contact Info) Description 10/19/2025 11:00 AM EST Appointment [facility] [place] at [facility] - Cardiology [address] [place] [address] Derek Roche PA-C [address] [place] [address] Health Maintenance Due Date Last Done Comments Hepatitis C Virus Screening 1981 HIV Screening 1994 Hepatitis B Vaccines (1 of 3 - 19+ 3-dose series) 01/03/2000 Pneumococcal Vaccine: Pediat aida (0-5 Years) and At-Risk Patients (6 to 49 Years) (1 of 2 - PCV) 01/03/2000 Pap Smear (Ages 21-65) 2002 DTaP/Tdap/Td Vaccines (2 - Tdap) 12/05/2013 12/06/19 04 Mammogram 2021 Influenza Vaccine 04/29/2025 06/12/2009, 06/12/2009 COVID-19 Vaccine ( season) 2025 HPV Vaccines (No Doses Required) Completed Procedures Procedure Name Priority Date/Time Associated Diagnosis Comments ECG 12-LEAD Routine 07/05/2025 1:35 PM EDT Chest pain, unspecified type SVT (supraventricular tachycardia) Other complicated headache syndrome from Last 3 Months Results * ECG 12 lead (07/05/2025 1:35 PM EDT) Ventricular rate 69 BPM EKG [facility] Atrial rate 69 BPM EKG [facility] P-R interval 120 ms EKG [facility] QRS duration 82 ms EKG [facility] Q-T interval 386 ms EKG [facility] QTC calculation (Bazett) 413 ms EKG [facility] P axis 35 degrees EKG [facility] R axis -5 degrees EKG [facility] T axis 10 degrees EKG [facility] 07/05/2025 1:35 PM EDT Narrative EKG [facility] - 07/06/2025 1:09 PM EDT Normal sinus rhythmwith sinus arrhythmia Minimal voltage criteria for LVH, may be normal variant(R in aVL) Borderline ECG When compared with ECG 15:30,Anterior leadsNo significant changes Confirmed by MD TOMPKINS Marcin ([id number]) on 07/06/2025 1:09:32 PM Procedure Note Jay Tompkins MD - 07/06/2025 Normal sinus rhythmwith sinus arrhythmia Minimal voltage criteria for LVH, may be normal variant(R in aVL) Borderline ECG When compared with ECG 15:30,Anterior leadsNo significantchanges Confirmed by MD TOMPKINS Marcin ([id number]) on 07/06/2025 1:09:32 PM Derek Roche PA-C ECG ORDERABLES Fin al Result EKG [facility] from Last 3 Months Insurance MEDICAID OUT OF STATE [facility] Care Teams Flight Physician Relationship Specialty Start Date End Date Beni Valle MD [address] [place] [address] PCP - General Family Medicine 10/27/23 Derek Roche PA-C [address] [place] [address] Physician Automobile Service Writer Cardiac Electrophysiology 03/23/24
--- OUTSIDE RECORDS SUMMARY | 2025-07-09 08:42 | XMS_ITS | Clinical Summary ---
Author Organization [employer] Address [address] [facility] 7t [place] [address] Care Team Providers Care Investigation Lieutenant Name Role Phone Unavailable Primary Care Provider [...] Most Recently Relevant to Health Maintenance Insurance [facility] MEDICAID STAND ADULT
--- OUTSIDE RECORDS SUMMARY | 2025-07-09 08:42 | XMS_ITS | Encounter Summary ---
Author Organization [facility] Address [address] [place] [address] Care Team Providers Care Laborer Ammunition Assembly Name Role Phone Beni Valle MD Primary Care Provider [phone] Derek Roche PA-C Unavailable + [phone] Encounter Details Date Type Department Care Team (Latest Contact Info) Description 07/05/2025 Travel Social History Tobacco Use Types Packs/Day [...] Care Team ( st Contact Info) Description 10/19/2025 11:00 AM EST Appointment [facility] Heart & Vascular [place] at [facility] - Cardiology [address] [place] [address] Derek Roche PA-C [address] [place] [address] documented as of this encounter Visit Diagnoses Not on filedocumented in this encounter Care Teams Laborer Ammunition Assembly Relationship Specialty Start Date End Date Beni Valle MD [address] [place] [address] [place]ERTO Mccain [address] PCP - General Family Medicine 10/27/23 Derek Roche PA-C [address] [place] [address] Physician Ash Kier Boiler Cardiac Electrophysiology 03/23/24 documented as of this encounter
--- OUTSIDE RECORDS SUMMARY | 2025-07-09 08:42 | XMS_ITS | Encounter Summary ---
Author Organization [employer] Address 75 [facility] 7t [place] [address] Care Team Providers Care Sensor Technician Name Role Phone Unavailable Primary Care Provider Unavailabl e Reason for Visit * Reason Comments Med Refill Encounter Details Date Type Department Care Team (Late st Contact Info) Description 05/03/2024 Refill [facility] DENTAL [address] [place], [place] [phone] Annalise Mix, BDS [address] [place], [place] [phone] Social History Tobacco Use Types Packs/Day Years [...]
--- OUTSIDE RECORDS SUMMARY | 2025-07-09 08:42 | XMS_ITS | Encounter Summary ---
Author Organization [employer] Address 75 [facility] 7t [place] [address] Care Team Providers Care Discovery Manager Name Role Phone Unavailable Primary Care Provider Unavailabl e Reason for Visit * Reason Onset Date Comments Appointment 01/24/2023 Encounter Details Date Type Department Care Team ([facility] st Contact Info) Description 01/24/2023 Telephone [facility] ADULT DENTAL [address] [place] [address] Sumeet Nascimento DMD [address] [place], [place] [phone] Appointment Social History Tobacco Use Types Packs/Day [...] 01/24/2023 and stated [facility] is starting to get [...]
--- OUTSIDE RECORDS SUMMARY | 2025-07-09 08:42 | XMS_ITS | Encounter Summary ---
Author Organization [employer] Address [address] [facility] [address] 7t [place] [address] Care Team Providers Care Director Smb Sales Name Role Phone Unavailable Primary Care Provider Unavailabl e Encounter Details Date Type Department Care Team (Late st Contact Info) Description 07/09/2024 Telephone [facility] ADULT DENTAL [address] [place] [address] Annalise Mix BDS [address] [place] [address] Social History Tobacco Use Types Packs/Day Years [...]
--- OUTSIDE RECORDS SUMMARY | 2025-07-09 08:42 | XMS_ITS | Encounter Summary ---
Author Organization [facility] Address [address] [place] [address] Care Team Providers Care Insights Analyst Name Role Phone Beni Valle MD Primary Care Provider [phone] Derek Roche PA-C Unavailable [phone] Encounter Details Date Type Department Care Team (Late st Contact Info) Description 03/21/2025 Scanned Document [facility] Heart & Vascular [place] at [address] [phone] Derek Roche PA-C [address] [place] [address] Social History Tobacco Use Types Packs/Day Years [...] Info) Description 10/19/2025 11:00 AM EST Appointment [facility] Heart & Vascular [place] at [address] [phone] Derek Roche PA-C [address] [place] [address] documented as of this encounter Visit Diagnoses Not on filedocumented in this encounter Care Teams Insights Analyst Relationship Specialty Start Date End Date Beni Valle MD [address] [facility] [address] [place] Mccain [address] PCP - General Family Medicine 10/27/23 Derek Roche PA-C [address] [place] [address] Physician Label Stamper Cardiac Electrophysiology 03/23/24 documented as of this encounter
--- OUTSIDE RECORDS SUMMARY | 2025-07-09 08:42 | XMS_ITS | Encounter Summary ---
Author Organization [employer] Address 75 [facility] 7t [place] [address] Care Team Providers Care Survey Crew Chief Name Role Phone Unavailable Primary Care Provider Unavailabl e Reason for Visit * Reason Comments Med Refill Encounter Details Date Type Department Care Team (Late st Contact Info) Description 05/19/[address] [facility] DENTAL [address] [place], [place] [phone] Annalise Mix, BDS [address] [place], [place] [phone] Social History Tobacco Use Types Packs/Day Years [...]
--- OUTSIDE RECORDS SUMMARY | 2025-07-09 08:42 | XMS_ITS | Clinical Summary ---
Author Organization [facility] Address [address] [facility] [address] [place] [address] Phone Care Team Providers Care Maintenance Planner Name Role Phone Beni Valle COOK SAUCE Primary Care Provider + Allergies Active Allergy [...] Insurance ACO ACO ACO A[employer] [place] [place] [address] [place] [address] [place] [address] [place] [address] [place] [address] ACO Care Teams Maintenance Planner Relationship Specialty Start Date End Date Beni Valle NP [address] [place] [address] PCP - General Family Medicine 03/29/18 Additional Source Comments The information contained in this document represents components of the legal health record. It is not the complete legal health record.[facility]
--- OUTSIDE RECORDS SUMMARY | 2025-07-09 08:42 | XMS_ITS | Encounter Summary ---
Author Organization [employer] Address [address] [facility] [address] 7t [place] [address] Care Team Providers Care Or Scrub Tech Name Role Phone Unavailable Primary Care Provider Unavailabl e Encounter Details Date Type Department Care Team (Late st Contact Info) Description 11/20/2022 Orders Only [facility] DENTAL [address] [place], [place] [phone] Annalise Mix BDS [address] [place], [place] [phone] Dental abscess (Primary Dx) Social History Tobacco [...]
--- OUTSIDE RECORDS SUMMARY | 2025-07-09 08:43 | XMS_ITS | Encounter Summary ---
Author Organization [facility] Address [address] [place] [address] Care Team Providers Care Marketing Reporting Analyst Name Role Phone Beni Valle MD Primary Care Provider [phone] Derek Roche PA-C Unavailable [phone] [phone] Encounter Details Date Type Department Care Team (Late st Contact Info) Description 05/10/2024 Telephone [facility] Heart & Vascular [place] at [facility] - Electrophysiology Laboratory [address] [place] [address] Vanessa Waite MD [address] [place] [address] Social History Tobacco Use Types Packs/Day Years [...] higher dose of propanolol such as 20 waterproof bag cutting machine operator but would increase slowly documented in this encounter Plan of Treatment Upcoming Encounters Date Type Department Care Team (Late st Contact Info) Description 10/19/2025 11:00 AM EST Appointment [facility] Heart & Vascular [place] at [facility] - Cardiology [address] [place] [address] Derek Roche PA-C [address] [place] [address] documented as of this encounter Visit Diagnoses Diagnosis POTS (postural orthostatic tachycardia syndrome)- Primary Unspecified tachycardia documented in this encounter Care Teams Marketing Reporting Analyst Relationship Specialty Start Date End Date Beni Valle MD [address] [place] [address] PCP - General Family Medicine 10/27/23 Derek Roche PA-C [address] [place] [address] Physician Freight Separator Cardiac Electrophysiology 03/23/24 documented as of this encounter
--- OUTSIDE RECORDS SUMMARY | 2025-07-09 08:43 | XMS_ITS | Encounter Summary ---
Author Organization [employer] Address [address] [facility] [address]t [place] [address] Care Team Providers Care [employer] Maintenance Worker Name Role Phone Unavailable Primary Care [...] patient that Dr. Doss is transitioning into [facility] again . Message would be sent to office. Encounter Details Date Type Department Care Team (Late st Contact Info) Description 09/25/2022 Telephone [facility] ADULT DENTAL [address] [place] [address] Annalise Mix, BDS [address] [place] [address] Appointment (Patient upset because states she has [...] patient that Dr. Doss is transitioning into [facility] again . Message would be sent [...] patient that Dr. Doss is transitioning into [facility] again . Message would be sent to office. documented in this encounter Plan of Treatment Not on file documented as of this encounter Visit Diagnoses Not on filedocumented in this encounter
[2025-07-09 09:06] LABS: MANUAL DIFF FLAG NO
[2025-07-09 10:18] LABS: Hematocrit 35.3 % (37.0-47.0); Hemoglobin 11.4 g/dl (12.0-16.0); Imm Gran Abs Auto 0.03 X10*3/uL (0.00-0.03); Imm Gran Pct Auto 0.4 % (0.0-0.4); Lymphocytes Absolute Auto 1.6 X10*3/uL (1.2-4.9); Mean Corpuscular HGB Conc 32.3 g/dl (31.0-35.0); Mean Corpuscular Hemoglobin 28.3 pg (27.0-33.0); Mean Corpuscular Volume 87.6 fL (80.0-98.0); NRBC Abs Auto 0.000 X10*3/uL (0.0-0.012); NRBC Pct Auto 0.0 /100WBC (0.0-0.2); Platelet Count 240 X10*3/uL (160-400); Red Blood Count 4.03 X10*6/uL (4.20-5.50); White Blood Count 7.5 X10*3/uL (4.8-10.8)
[2025-07-09 11:03] LABS: Appearance Urine Clear; Glucose Urine UA Negative (Negative); PH 5.5 (5.0-9.0); Specific Gravity - Urine >= 1.030 (1.005-1.025)
[2025-07-09 12:12] LABS: Alanine Aminotransferase 14 U/L (0-31); Albumin Level 4.0 g/dL (3.5-5.0); Alkaline Phosphatase 54 U/L (39-117); Anion Gap 11 (12-20); Aspartate Amino Transferase 16 U/L (5-31); Blood Urea Nitrogen 11 mg/dL (9-16); Calcium 8.1 mg/dL (8.4-10.2); Carbon Dioxide 22 mmol/L (22-29); Chloride 110 mmol/L (96-108); Estimated Glomerular Filt Rate > 60; Iron 22 mcg/dL (30-160); Percent Iron Saturation 7 % (15-50); Potassium 4.1 mmol/L (3.3-5.1); Sodium 139 mmol/L (135-145); Total Iron Binding Capacity 332 mcg/dL (228-428); Total Protein 6.4 g/dL (6.5-8.0); Unsaturated Iron Binding 310 ug/dL
[2025-07-09 12:30] LABS: Ferritin 15 ng/mL (10-250)
== END 2025-07-09 08:40 | disposition home or self-care (01) ==
LOC: HO.LAB 08:39
PROVIDERS: PCP Nurse Practitioner Family; Visit Provider Nurse Practitioner Family
DX: R35.0 Frequency of micturition (principal); D64.9 Anemia, unspecified
CPT/HCPCS: 36415; 80053; 81003; 82728; 83540; 84443; 85025; 87086

== ENCOUNTER 2025-07-27 13:21 | Outpatient (AMB) | payer OTHER, SELFPAY ==
[2025-07-27 13:31] VITALS: BP 112/78; PULSE 68; RESP 16; O2SAT 98
--- NOTE | 2025-07-27 13:31 | A.OFFPC_ITS ---
Vital Signs 07/27/25 13:31 Height 5 ft 5 in BMI Reason not done Patient refused/unable BP 112/78 Blood Pressure Location Lt brachial Position Sitting Respiration 16 Pulse 68 Pulse Source Pulse Oximeter Pulse Oximetry (%) 98 Oxygen Delivery Method Room Air Intake Visit Reasons: 4m follow up Plate Conditioner Required: No Allergies doxycycline (DOXYCYCLINE) Allergy (Severe, Verified 07/04/25 07:38) RASH, GI Upset levofloxacin (From LEVAQUIN) Allergy (Severe, Verified 07/04/25 07:38) RASH metronidazole (From FLAGYL) Allergy (Severe, Verified 07/04/25 07:38) ANAPHYLAXIS morphine (MORPHINE) Allergy (Severe, Verified 07/04/25 07:38) ANAPHYLAXIS, cant breathe, SOB Sulfa (Sulfonamide Antibiotics) (SULFA (SULFONAMIDE ANTIBIOTICS)) Allergy (Severe, Verified 07/04/25 07:38) STOP BREATHING, rash/cant breathe adhesive (ADHESIVE) Allergy (Intermediate, Verified 07/04/25 07:38) RASH clindamycin (CLINDAMYCIN) Allergy (Intermediate, Verified 07/04/25 07:38) RASH Iodinated Contrast Media (IV CONTRAST) Allergy (Intermediate, Verified 07/04/25 07:38) ANAPHALAXIS latex (LATEX) Allergy (Intermediate, Verified 07/04/25 07:38) RASH ciprofloxacin (Cipro) Allergy (Unknown, Verified 07/04/25 07:38) unknown fludrocortisone Allergy (Unknown, Verified 07/04/25 07:38) Unknown hydromorphone (Dilaudid) Allergy (Unknown, Verified 07/04/25 07:38) Unknown midodrine Allergy (Unknown, Verified 07/04/25 07:38) Unknown Medication List - Last Reconciled 07/27/25 by Beni Valle, JONATHAN- albuterol sulfate 90 mcg/actuation (Ventolin HFA) 2 puffs inhalation Q4-6H PRN ascorbate calcium (vitamin C) 500 mg PO DAILY 30 days ascorbic acid (vitamin C) 100 mg PO TID betamethasone dipropionate 0.05% 1 appl topical DAILY PRN cholecalciferol (vitamin D3) 50 mcg PO DAILY docusate sodium (Colace) 100 - 200 mg (1 - 2 x 100 mg) PO DAILY PRN 90 days ferrous sulfate (Fe-Eli) 1 mL PO DAILY ipratropium bromide 17 mcg/actuation (Atrovent HFA) inhalation levalbuterol tartrate 45 mcg/actuation 2 puffs inhalation Q4-6H lidocaine 5% 1 patch topical DAILY 30 days lidocaine HCl-hydrocortison ac 3-0.5 % 1 appl WA BID lorazepam 0.5 mg PO BEDTIME PRN 20 days magnesium oxide 400 mg PO BEDTIME 90 days meclizine 12.5 mg PO BID PRN 20 days [Normal Saline 0.9% 2 L continuous IV infusion 3XW 52 weeks] pantoprazole 40 mg PO DAILY prednisolone acetate 1% 1 drp ophthalmic (eye) BID propranolol mg PO 3XD riboflavin (vitamin B2) 400 mg PO DAILY [shower chair As directed] sodium,potassium,mag sulfates 17.5-3.13-1.6 gram (Suprep Bowel Prep Kit) DILUTE each bottle with 16oz of water; drink first bottle 4pm evening before procedure AND second bottle at 10pm; follow each bottle with at least 32 oz.of water within 1 hour after each bottle Tobacco use date assessed: 11/16/24 Dental Screening Dental Screen Date: 11/16/24 HPI 4m follow up HPI Details Chief Complaint The patient presents for a generalized followup with complaints of fatigue and extensive muscle pain in her thighs. History of Present Illness The patient is a 45-year-old female presenting for a generalized followup. She reports fatigue and has a known history of slight anemia with low iron. She has been started on liquid iron once daily, as she does not tolerate pills. Additionally, the patient reports extensive muscle pain in her thighs, which does not increase with walking and is therefore not considered claudication. The patient is overweight. Social History Health Maintenance - A FIT test has been ordered for [facility] cancer screening. Review of Systems - Constitutional: Reports fatigue. - Cardiovascular: Denies chest pain. - Respiratory: Denies increased shortnes s of breath. - Musculoskeletal: Reports extensive mus mary pain in bilateral thighs, which does not increase with walking. Physical Exam General: Cooperative, healthy appearing, comfortable, no acute distress and well developed, obese Orientation: Patient oriented x3 Limitations: No limitations Head: Normal to inspection Ears: Hearing grossly normal bilaterally Nose: Normal external nose present Face and sinus: Normal facial exam Eyes: Appearance normal, both eyes and all related structures Neck: Normal visual inspection and Yes full ROM Respiratory: Normal respiratory effort and able to speak in complete sentences. Clear to auscultation bilaterally Cardiovascular: Regular rate and rhythm. Normal S1 and S2 GI: Normal to inspection. Soft to palpation and nontender Skin: No rashes or lesions noted Neuro: Patient oriented x3 Extremities: Positive dorsalis pedis bilaterally, no pain with palpation, no echomosis noted, positive patellar reflexes, normal to inspection Results Plan 1. Iron Deficiency Anemia The patient has a known history of slight anemia with low iron, which is being treated with liquid iron once daily due to intolerance of pills. The dose may be increased to twice daily. A recheck of iron levels and H&H is planned in two months. A FIT test has also been ordered. 2. Myalgia The patient reports extensive muscle pain in her thighs. This is not considered claudication as it does not increase with walking, and physical exam shows positive dorsalis pedis pulses bilaterally. There is no pain on palpation or ecchymosis. A CPK level will be ordered for further evaluation. 3. Fatigue The patient's fatigue is likely related to her anemia and will be addressed by treating the underlying iron deficiency. 4. Overweight The patient was noted to be overweight, but no specific management plan was discussed during this part of the visit. Discussion Notes I discussed that the patient's fatigue is likely due to her known anemia with low iron. We started her on liquid iron once a day, as she cannot tolerate pills, and we plan to recheck her iron levels and blood count in two months. Regarding her thigh pain, I explained that since it does not increase with walking, it is not claudication. I will order a CPK level to investigate for any muscle-related issues. A FIT test has also been ordered as part of her routine screening. Patient Instructions - Take the liquid iron once a day as pre scribed. You may increase this to twice a day if you can tolerate it. - You will need to get blood work done i n about two months to check your iron and blood counts. - We are ordering a blood test called a CPK to check for muscle problems related to your thigh pain. - Please complete the take-home stool te st (FIT test) that was ordered. [facility] Medical History IUD (intrauterine device) in place Recent urinary tract infection Acid reflux Huynh disease Crohn disease Colitis Arachnoid cyst Asthma Autoimmune disorder Arthritis Bulging disc Spinal stenosis POTS (postural orthostatic tachycardia syndrome) SVT (supraventricular tachycardia) Surgical History History of kidney surgery History of liver biopsy Hx of cholecystectomy Family History Father High cholesterol HTN (hypertension) Tumors Mental health disorder Mother COPD (chronic obstructive pulmonary disease) Colitis Sister Colitis Substance use disorder Mental health disorder Sister Cervical cancer Social History Household Members: Family and Children Housing: House Alcohol intake: former Patient Tobacco Use Status: Former Tobacco user Years Smoked: quit 20b years ago e-Cigarette/Vaping Use: Never Used Second Hand Smoke Exposure: No service: No Current occupational status: employed 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 Current occupational exposures/hazards: No Cognitive needs: No Hearing needs: No Vision needs: No Female Reproductive History Menstrual Age of Menarche: 12 Questionnaire Thrive Questionnaire Date Thrive assessed: 03/16/25 I am a: Patient What is your living situation today?: I have a steady place to live Within the past 12 months, did the food you bought not last and you didn't have the money to get more?: Never true Within the past 12 months, did you worry whether your food would run out before you got money to buy more?: Never true Do you have trouble paying for medicines?: No Do you have trouble getting transportation to medical appointments?: No Do you have trouble paying your heating and electricity bill?: No Do you have trouble taking care of your child, family member or friend?: No Do you have trouble with day-to-day activities such as bathing, preparing meals, shopping, managing finances, etc.?: I choose not to answer this question Are you currently unemployed and looking for a job?: No Are you interested in more education?: No Please select the resources that you would like help with: None THRIVE Score: 0 CHAVA-7 AMB Questionnaire CHAVA-7 Date CHAVA - 7 assessed: 03/16/25 Source: Developed by Drs. Chucho L. Elsa Elmore, Guzman Reyes and colleagues, with an educational jose guadalupe from [employer]. Physical exam (Primary Care) Vital Signs: Last Vital Signs Pulse 68 07/27/25 13:31 Resp 16 07/27/25 13:31 BP 112/78 07/27/25 13:31 Pulse Ox 98 07/27/25 13:31 Oxygen Delivery Method Room Air 07/27/25 13:31 Tobacco/Smoking Status: Tobacco use Status Tobacco use date assessed 11/16/24 07/27/25 13:37 Patient Tobacco Use Status Former Tobacco user 07/27/25 13:37 e-Cigarette/Vaping Use Never Used 07/27/25 13:37 Thrive Assessment: Date of Thrive Assessment Date Thrive assessed 03/16/25 07/27/25 13:37 Coding Level of Care Code Est Pt Level 3 (71275) Diagnoses Anemia D64.9 Iron deficiency E61.1 Muscle pain M79.10 Assessment & Plan Assessment & Plan (1) Anemia: Code(s): D64.9 - Anemia, unspecified Category: Medical (2) Iron deficiency: Code(s): E61.1 - Iron deficiency Category: Medical (3) Muscle pain: Code(s): M79.10 - Myalgia, unspecified site Category: Medical Plan .
--- OUTSIDE RECORDS SUMMARY | 2025-07-27 16:58 | XMS_ITS | Encounter Summary ---
Author Organization [employer] Address [address] [facility] [address] [address] [place] [address] Care Team Providers Care Staining Machine Operator Name Role Phone Unavailable Primary Care Provider Unavailabl e Encounter Details Date Type Department Care Team (Late st Contact Info) Description 07/09/2024 Telephone [facility] ADULT DENTAL [address] [place] [address] Annalise Mix BDS [address] [place] [address] Social History Tobacco Use Types Packs/Day Years [...]
--- OUTSIDE RECORDS SUMMARY | 2025-07-27 16:58 | XMS_ITS | Encounter Summary ---
Author Organization [employer] Address [address] [facility] [address] [address] [place] [address] Care Team Providers Care Production Team Leader Name Role Phone Unavailable Primary Care Provider Unavailabl e Encounter Details Date Type Department Care Team (Late st Contact Info) Description 12/11/2022 Telephone [facility] ADULT DENTAL [address] [place] [address] Annalise Mix BDTony [address] [place] [address] Social History Tobacco Use Types Packs/Day Years [...]
--- OUTSIDE RECORDS SUMMARY | 2025-07-27 16:58 | XMS_ITS | Encounter Summary ---
Author Organization [employer] Address [address] [facility] [address] 7[address] [place] [address] Care Team Providers Care Invoice Coder Name Role Phone Unavailable Primary Care Provider Unavailabl e Encounter Details Date Type Department Care Team (Late st Contact Info) Description 11/20/2022 Orders Only [facility] DENTAL [address] [place], [place] [phone] Annalise Mix BDS [address] [place], [place] [phone] Dental abscess (Primary Dx) Social History Tobacco [...]
--- OUTSIDE RECORDS SUMMARY | 2025-07-27 16:58 | XMS_ITS | Encounter Summary ---
Author Organization [employer] Address [address] [facility] 7t [place] [address] Care Team Providers Care Cook Night Name Role Phone Unavailable Primary Care Provider Unavailabl e Reason for Visit * Reason Onset Date Comments medical clearance 06/26/2023 Encounter Details Date Type Department Care Team (Late st Contact Info) Description 06/26/2023 Telephone [facility] DENTAL [address] [place] [address] Selam Coleman [address] [place] [address] medical clearance Social History Tobacco Use Types [...] - 06/26/2023 11:21 AM EDT Rylan from [facility] called in looking to facilitate treatment [...] be scheduled for treatment. Please fax to [phone] documented in this encounter Plan of Treatment Not on file documented as of this encounter Visit Diagnoses Not on filedocumented in this encounter
--- OUTSIDE RECORDS SUMMARY | 2025-07-27 16:58 | XMS_ITS | Encounter Summary ---
Author Organization [employer] Address [address] [facility] [address]t [place] [address] Care Team Providers Care Data Management Consultant Name Role Phone Unavailable Primary Care [...] patient that Dr. Doss is transitioning into [facility] again . Message would be sent to office. Encounter Details Date Type Department Care Team (Late st Contact Info) Description 09/25/2022 Telephone [facility] ADULT DENTAL [address] [place] [address] Annalise Mix, BDS [address] [place] [address] Appointment (Patient upset because states she has [...] patient that Dr. Doss is transitioning into [facility] again . Message would be [...] patient that Dr. Doss is transitioning into [facility] again . Message would be sent to office. documented in this encounter Plan of Treatment Not on file documented as of this encounter Visit Diagnoses Not on filedocumented in this encounter
--- OUTSIDE RECORDS SUMMARY | 2025-07-27 16:58 | XMS_ITS | Clinical Summary ---
Author Organization [facility] Address [address] [facility] [address] [place] [address] Phone Care Team Providers Care Pen Tester Name Role Phone Beni Valle WAREHOUSE CONSULTANT Primary Care Provider + Allergies Active Allergy [...] Insurance ACO ACO ACO A[employer] [place] [place] [address] [place] [address] [place] [address] [place] [address] [place] [address] ACO Care Teams Pen Tester Relationship Specialty Start Date End Date Beni Valle NP [address] [place] [address] PCP - General Family Medicine 03/29/18 Additional Source Comments The information contained in this document represents components of the legal health record. It is not the complete legal health record.[facility]
--- OUTSIDE RECORDS SUMMARY | 2025-07-27 16:58 | XMS_ITS | Encounter Summary ---
Author Organization [employer] Address [address] [facility] 7t [place] [address] Care Team Providers Care Robotics Engineer Name Role Phone Unavailable Primary Care Provider Unavailabl e Reason for Visit * Reason Onset Date Comments medication 04/28/2024 Encounter Details Date Type Department Care Team ([facility] st Contact Info) Description 04/28/2024 Telephone [facility]ULT [facility] [address] [place] [address] Sumeet Anderson DMD [address] [place], [place] [phone] medication Social History Tobacco Use Types Packs/Day [...] be sent. Patient spoke to office at [facility] on Friday concerning script. Krystin and Dr [...]
--- OUTSIDE RECORDS SUMMARY | 2025-07-27 16:58 | XMS_ITS | Encounter Summary ---
Author Organization [facility] Address [address] [place] [address] Care Team Providers Care Mining Engineering Technologist Name Role Phone Beni Valle MD Primary Care Provider [phone] Derek Roche PA-C Unavailable [phone] Encounter Details Date Type Department Care Team (Late st Contact Info) Description 03/21/2025 Scanned Document [facility] Heart & Vascular [place] at [address] [phone] Derek Roche PA-C [address] [place] [address] Social History Tobacco Use Types Packs/Day Years [...] Info) Description 10/19/2025 11:00 AM EST Appointment [facility] Heart [facility] V[facility] [place] at [address] [phone] Derek Roche PA-C [address] [place] [address] documented as of this encounter Visit Diagnoses Not on filedocumented in this encounter Care Teams Mining Engineering Technologist Relationship Specialty Start Date End Date Beni Valle MD [address] [facility] [place] [address] PCP - General Family Medicine 10/27/23 Derek Roche PA-C [address] [place] [address] Physician Contact Clerk Cardiac Electrophysiology 03/23/24 documented as of this encounter
--- OUTSIDE RECORDS SUMMARY | 2025-07-27 16:58 | XMS_ITS | Clinical Summary ---
Author Organization [employer] Address [address] [facility] 7t [place] [address] Care Team Providers Care Clinical Genetics Laboratory Chief Name Role Phone Unavailable Primary Care [...] Most Recently Relevant to Health Maintenance Insurance [facility] MEDICAID STAND ADULT
--- OUTSIDE RECORDS SUMMARY | 2025-07-27 16:58 | XMS_ITS | Clinical Summary ---
Author Organization [facility] Address [address] [place] [address] Care Team Providers Care Scalehouse Attendant Name Role Phone Beni Valle MD Primary Care Provider + [phone] Derek Roche PA-C Unavailable [phone] Allergies Active Allergy Reactions Criticality Noted Date [...] Discontinued(D uplicate Prescription - No E-Cancel/No AVS) PANTOprazole (PROTONIX) 40 MG EC tablet Take [...] syndrome) 02/12/2012 Overview (03/23/2024): Dr Joseph in [place] SVT (supraventricular tachycardia) 02/12/2012 Overview (03/23/2024): Sees Dr Light and EP docs in [place] Vitamin D deficiency 05/23/2008 PFO (patent foramen ovale) 01/20/2008 Overview (03/23/2024): No tx unless it gets worse Encounters Date Type Department Care Team Description 07/05/2025 1:13 PM EDT - 07/05/2025 11:59 PM EDT Hospital Encounter [facility] [place] [address] [phone] Derek Roche PA-C Follow-up Discharge Disposition: Home or Self Care 07/05/2025 Travel 06/13/[address] [facility] [place] [address] [phone] Derek Roche PA-C 05/02/[address] [facility] [place] [address] [phone] Derek Roche PA-C 04/28/[address] [facility] [place] [address], [place] [phone] Derek Roche PA-C from Last 3 Months [...] Info) Description 10/19/2025 11:[address] [facility] Heart [facility] [place] at [facility] - Cardiology [address] [place] [address] Derek Roche PA-C [address] [place] [address] Health Maintenance Due Date Last Done Comments [...] Vaccine 04/29/2025 06/12/2009, 06/12/2009 COVID-19 Vaccine ( - season) 2025 HPV Vaccines (No Doses Required) Completed Procedures Procedure Name Priority Date/Time Associated Diagnosis Comments ECG 12-LEAD Routine 07/05/2025 1:35 PM EDT Chest pain, unspecified type SVT (supraventricular tachycardia) Other complicated headache syndrome from Last 3 Months Results * ECG 12 lead (07/05/2025 1:35 PM EDT) Ventricular rate 69 BPM EKG [facility] Atrial rate 69 BPM EKG [facility] P-R interval 120 ms EKG [facility] QRS duration 82 ms EKG [facility] Q-T interval 386 ms EKG [facility] QTC calculation (Bazett) 413 ms EKG [facility] P axis 35 degrees EKG [facility] R axis -5 degrees EKG [facility] T axis 10 degrees EKG [facility] 07/05/2025 1:35 PM EDT Narrative EKG [facility] - 07/06/2025 1:09 PM EDT Normal sinus rhythmwith sinus arrhythmia Minimal voltage criteria for LVH, may be normal variant(R in aVL) Borderline ECG When compared with ECG [id number] 15:30,Anterior leadsNo significant changes Confirmed by MD TOMPKINS Marcin ([id number]) on 07/06/2025 1:09:32 PM Procedure Note Jay Tompkins MD - 07/06/2025 Normal sinus rhythmwith sinus arrhythmia Minimal voltage criteria for LVH, may be normal variant(R in aVL) Borderline ECG When compared with ECG [id number] 15:30,Anterior leadsNo significantchanges Confirmed by MD TOMPKINS Marcin ([id number]) on 07/06/2025 1:09:32 PM us Derek Roche PA-C ECG ORDERABLES Fin al Result [facility] from Last 3 Months Insurance MEDICAID OUT OF STATE [facility] Care Teams Scalehouse Attendant Relationship Specialty Start Date End Date Beni Valle MD [address] [place] [address] PCP - General Family Medicine 10/27/23 Derek Roche PA-C [address] [place] [address] Physician Wood Engraver Cardiac Electrophysiology 03/23/24
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
--- OUTSIDE RECORDS SUMMARY | 2025-07-27 16:58 | XMS_ITS | Encounter Summary ---
Author Organization [facility] Address [address] [place] [address] Care Team Providers Care Percolator Operator Name Role Phone Beni Valle MD Primary Care Provider [phone] Derek Roche PA-C Unavailable [phone] [phone] Encounter Details Date Type Department Care Team (Late st Contact Info) Description 05/10/2024 Telephone [facility] Heart & Vascular [place] at [facility] - Electrophysiology Laboratory [address] [place] [address] Vanessa Waite MD [address] [place] [address] Social History Tobacco Use Types Packs/Day Years [...] higher dose of propanolol such as 20 long chain quiller tender but would increase slowly documented in this encounter Plan of Treatment Upcoming Encounters Date Type Department Care Team (Late st Contact Info) Description 10/19/2025 11:00 AM EST Appointment [facility] Heart & Vascular [place] at [facility] - Cardiology [address] [place] [address] Derek Roche PA-C [address] [place] [address] documented as of this encounter Visit Diagnoses Diagnosis POTS (postural orthostatic tachycardia syndrome)- Primary Unspecified tachycardia documented in this encounter Care Teams Percolator Operator Relationship Specialty Start Date End Date Beni Valle MD [address] [facility] [place] [address] PCP - General Family Medicine 10/27/23 Derek Roche PA-C [address] [place] [address] Physician Entry Level Sales Associate Cardiac Electrophysiology 03/23/24 documented as of this encounter
--- OUTSIDE RECORDS SUMMARY | 2025-07-27 16:58 | XMS_ITS | Encounter Summary ---
Author Organization [employer] Address 75 [facility] 7t [place] [address] Care Team Providers Care Automatic Pinsetter Adjuster Name Role Phone Unavailable Primary Care Provider Unavailabl e Reason for Visit * Reason Comments Med Refill Encounter Details Date Type Department Care Team (Late st Contact Info) Description 05/19/2024 Refill [facility] DENTAL [address] [place], [place] [phone] Annalise Mix, BDS [address] [place], [place] [phone] Social History Tobacco Use Types Packs/Day Years [...]
--- OUTSIDE RECORDS SUMMARY | 2025-07-27 16:58 | XMS_ITS | Encounter Summary ---
Author Organization [employer] Address 75 [facility] 7t [place] [address] Care Team Providers Care Airport Maintenance Chief Name Role Phone Unavailable Primary Care Provider Unavailabl e Reason for Visit * Reason Comments Med Refill Encounter Details Date Type Department Care Team (Late st Contact Info) Description 05/03/2024 Refill [facility] DENTAL [address] [place], [place] [phone] Annalise Mix, BDS [address] [place], [place] [phone] Social History Tobacco Use Types Packs/Day Years [...]
--- OUTSIDE RECORDS SUMMARY | 2025-07-27 16:58 | XMS_ITS | Encounter Summary ---
Author Organization [employer] Address 75 [facility] 7t [place] [address] Care Team Providers Care Cement Truck Driver Name Role Phone Unavailable Primary Care Provider Unavailabl e Reason for Visit * Reason Onset Date Comments Appointment 01/24/2023 Encounter Details Date Type Department Care Team ([facility] st Contact Info) Description 01/24/2023 Telephone [facility]ULT DENTAL [address] [place] [address] Sumeet Nascimento DMD [address] [place], [place] [phone] Appointment Social History Tobacco Use Types Packs/Day [...] 01/24/2023 and stated she needed medication from [facility] because she is starting to [...]
== END 2025-07-27 14:50 | disposition home or self-care (01) ==
LOC: HO.HMCC 13:22
PROVIDERS: PCP Nurse Practitioner Family; Visit Provider Nurse Practitioner Family
DX: D64.9 Anemia, unspecified (principal); E61.1 Iron deficiency; M79.10 Myalgia, unspecified site

== ENCOUNTER 2025-07-27 13:21 | Outpatient (REF) | payer OTHER, SELFPAY ==
[2025-07-27 15:56] LABS: MANUAL DIFF FLAG NO
[2025-07-27 16:03] LABS: Hematocrit 37.7 % (37.0-47.0); Hemoglobin 11.9 g/dl (12.0-16.0); Imm Gran Abs Auto 0.03 X10*3/uL (0.00-0.03); Imm Gran Pct Auto 0.3 % (0.0-0.4); Lymphocytes Absolute Auto 2.0 X10*3/uL (1.2-4.9); Mean Corpuscular HGB Conc 31.6 g/dl (31.0-35.0); Mean Corpuscular Hemoglobin 28.3 pg (27.0-33.0); Mean Corpuscular Volume 89.5 fL (80.0-98.0); NRBC Abs Auto 0.000 X10*3/uL (0.0-0.012); NRBC Pct Auto 0.0 /100WBC (0.0-0.2); Platelet Count 254 X10*3/uL (160-400); Red Blood Count 4.21 X10*6/uL (4.20-5.50); White Blood Count 8.8 X10*3/uL (4.8-10.8)
[2025-07-27 16:27] LABS: Anion Gap 11 (12-20); Carbon Dioxide 24 mmol/L (22-29); Chloride 108 mmol/L (96-108); Iron 75 mcg/dL (30-160); Percent Iron Saturation 20 % (15-50); Potassium 4.1 mmol/L (3.3-5.1); Sodium 139 mmol/L (135-145); Total Iron Binding Capacity 367 mcg/dL (228-428); Unsaturated Iron Binding 292 ug/dL
[2025-07-27 16:33] LABS: Ferritin 16 ng/mL (10-250)
[2025-07-29 09:37] LABS: Immunoglobulin A 215 mg/dL (47-310)
== END 2025-07-27 13:22 | disposition home or self-care (01) ==
LOC: HO.HMGCLDS 13:21
PROVIDERS: PCP Nurse Practitioner Family; Visit Provider Nurse Practitioner Family
DX: M62.838 Other muscle spasm (principal); K50.90 Crohn's disease, unspecified, without complications; K52.9 Noninfective gastroenteritis and colitis, unspecified; M79.10 Myalgia, unspecified site; D50.9 Iron deficiency anemia, unspecified; Z79.899 Other long term (current) drug therapy
CPT/HCPCS: 36415; 80051; 82550; 82728; 82784; 83540; 85025; 86364; 99212

== ENCOUNTER 2025-08-30 06:41 | Outpatient (AMB) | payer OTHER, SELFPAY ==
--- OUTSIDE RECORDS SUMMARY | 2025-08-30 06:43 | XMS_ITS | Clinical Summary ---
Author Organization [facility] Address [address] [facility] [address] [place] [address] Phone Care Team Providers Care Instructor Product Inspection Name Role Phone Beni Valle RESEARCH KENNEL SUPERVISOR Primary Care Provider + Allergies Active Allergy [...] Insurance [employer]CO A[employer] [place] [address] [place] [address] [address] [place] [address] [place] [address] [place] [address] ACO Care Teams Instructor Product Inspection Relationship Specialty Start Date End Date Beni Valle NP [address] [facility] [place] [address] PCP - General Family Medicine 03/29/18 Additional Source Comments The information contained in this document represents components of the legal health record. It is not the complete legal health record.[facility]
--- OUTSIDE RECORDS SUMMARY | 2025-08-30 06:43 | XMS_ITS | Encounter Summary ---
Author Organization [employer] Address [address] [facility] [address] 7t [place] [address] Care Team Providers Care Applied Marine Physics Professor Name Role Phone Unavailable Primary Care Provider Unavailabl e Encounter Details Date Type Department Care Team (Late st Contact Info) Description 12/11/2022 Telephone [facility] ADULT DENTAL [address] [place] [address] Annalise Mix BDS [address] [place], [place] [phone] Social History Tobacco Use Types Packs/Day Years [...] Care Team (Late st Contact Info) Description 10/21/2025 8:45 AM EST Office Visit [facility] ADULT DENTAL [address] [place], [place] [phone] NatashaKristy [address] [place] [address] documented as of this encounter Visit Diagnoses Not on filedocumented in this encounter
--- OUTSIDE RECORDS SUMMARY | 2025-08-30 06:43 | XMS_ITS | Encounter Summary ---
Author Organization [facility] Address [address] [place] [address] Care Team Providers Care Interpreter For The Deaf Name Role Phone Beni Valle NP Primary Care Provider [phone] Derek Roche PA-C Unavailable [phone] Encounter Details Date Type Department Care Team (Late st Contact Info) Description 03/21/2025 Scanned Document [facility] Heart & Vascular [place] at [facility] - Cardiology [address] [place] [phone] Derek Roche PA-C [address] [place] [address] Social History Tobacco Use Types Packs/Day Years [...] on filedocumented in this encounter Care Teams Interpreter For The Deaf Relationship Specialty Start Date End Date Beni Valle NP [address] [facility] [place] [address] PCP - General Family Medicine 10/27/23 Derek Roche PA-C [address] [place] [address] Physician Leather Sponger Cardiac Electrophysiology 03/23/24 documented as of this encounter
--- OUTSIDE RECORDS SUMMARY | 2025-08-30 06:43 | XMS_ITS | Encounter Summary ---
Author Organization [employer] Address 75 [facility] 7t [place] [address] Care Team Providers Care Institutional Custodian Name Role Phone Unavailable Primary Care Provider Unavailabl e Reason for Visit * Reason Onset Date Comments Appointment 01/24/2023 Encounter Details Date Type Department Care Team ([facility] st Contact Info) Description 01/24/2023 Telephone [facility] ADULT DENTAL [address] [place] [address] Sumeet Nascimento DMD [address] [place], [place] [phone] Appointment Social History Tobacco Use Types Packs/Day [...] 01/24/2023 and stated she needed medication from [facility] because she is starting to [...] Description 10/21/2025 8:45 AM EST Office Visit [facility] ADULT DENTAL [address] [place] [address] Kristy Kaur [address] [place] [address] documented as of this encounter Visit Diagnoses Not on filedocumented in this encounter
--- OUTSIDE RECORDS SUMMARY | 2025-08-30 06:43 | XMS_ITS | Encounter Summary ---
Author Organization [employer] Address 75 [facility] 7t [place] [address] Care Team Providers Care Field Marketing Specialist Name Role Phone Unavailable Primary Care Provider Unavailabl e Reason for Visit * Reason Onset Date Comments medical clearance 06/26/2023 Encounter Details Date Type Department Care Team (Late st Contact Info) Description 06/26/2023 Telephone [facility] DENTAL [address] [place] [address] Selam Coleman [address] [place] [address] medical clearance Social History Tobacco Use Types [...] 11:21 AM EDT Rylan from [facility] called in looking to facilitate treatment for [...] be scheduled for treatment. Please fax to [phone] documented in this encounter Plan of Treatment Upcoming Encounters Date Type Department Care Team (Late st Contact Info) Description 10/21/2025 8:45 AM EST Office Visit [facility] ADULT DENTAL [address] [place] [address] Natasha Kristy [address] [place] [address] documented as of this encounter Visit Diagnoses Not on filedocumented in this encounter
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
--- OUTSIDE RECORDS SUMMARY | 2025-08-30 06:43 | XMS_ITS | Encounter Summary ---
Author Organization [employer] Address 75 [facility] 7t [place] [address] Care Team Providers Care Apparel Pattern Maker Name Role Phone Unavailable Primary Care Provider Unavailabl e Encounter Details Date Type Department Care Team (Late st Contact Info) Description 11/20/2022 Orders Only [facility] DENTAL [address] [place], [place] [phone] Annalise Mix, BDS [address] [place], [place] [phone] Dental abscess (Primary Dx) Social History Tobacco [...] Description 10/21/2025 8:45 AM EST Office Visit [facility] ADULT DENTAL [address] [place], [place] [phone] Natasha, Kristy [address] [place] [address] documented as of this encounter Visit Diagnoses Diagnosis Dental abscess- Primary Periapical abscess without sinus documented in this encounter
--- OUTSIDE RECORDS SUMMARY | 2025-08-30 06:44 | XMS_ITS | Clinical Summary ---
Author Organization [employer] Address 75 [facility] 7t [place] [address] Care Team Providers Care Block Bolter Mule Operator Name Role Phone Unavailable Primary Care [...] 10 :29 AM EDT Plan of Treatment Upcoming Encounters Date Type Department Care Team (Late st Contact Info) Description 10/21/2025 8:45 AM EST Office Visit [facility] ADULT DENTAL [address] [place], [place] [phone] Natasha, Kristy [address] [place] [address] Health Maintenance Due Date Last Done Comments [...] Most Recently Relevant to Health Maintenance Insurance [facility] MEDICAID STAND ADULT
--- OUTSIDE RECORDS SUMMARY | 2025-08-30 06:44 | XMS_ITS | Clinical Summary ---
Author Organization [facility] Address [address] [place] [address] Care Team Providers Care Mold Checker Name Role Phone Beni Valle NP Primary Care Provider [phone] Derek Roche PA-C Unavailable [phone] Allergies Active Allergy Reactions Criticality Noted Date [...] 3 (three) times a week. 4 Active Levonorgestrel (MIRENA, 52 MG, IU) 1 Units by Intrauterine route 1 time. Active Medical Compression StockingsIndica tions:POTS (postural orthostatic tachycardia syndrome) Level of Compression: 20-30 mmHg; knee-high, bilateral 2 each 1 4 Active Additional Information Patient not taking.Reported on 03/15/2025 sodium chloride 1 g tabletIndicatio ns:POTS (postural orthostatic tachycardia syndrome) Take 1 tablet (1 g total) by mouth 2 (two) times a day after breakfast and lunch. 60 tablet 5 4 Active ivabradine (CORLANOR) 5 MG tabletIndicatio [...] mouth nightly. 30 capsule 5 4 Active montelukast (SINGULAIR) 10 MG [...] FOR UP TO 12 HRS 5 Active Atrovent HFA 17 MCG/ACT inhaler INHALE 2 PUFFS BY MOUTH EVERY 6 HOURS NEEDED FOR WHEEZE OR FOR SHORTNESS OF BREATH 5 Active LORazepam (ATIVAN) 0.5 MG tablet TAKE 1 TABLET BY MOUTH BEDTIME NEEDED FOR ANXIETY FOR 20 DAYS 5 Active magnesium oxide 400 (240 Mg) MG Tab tablet 5 Active propranolol (INDERAL) 20 MG tabletIndicatio ns:POTS (postural orthostatic tachycardia syndrome) Take 1 tablet (20 mg total) by mouth 3 (three) times a day. Taking combination with propranolol 10 mg tablets for total of 30 mg per dose 90 tablet 5 5 01/02/20 26 Active propranolol (INDERAL) 10 MG tabletIndicatio ns:POTS (postural orthostatic tachycardia syndrome) Take 1 tablet (10 mg total) by mouth 3 (three) times a day. Taking combination with propranolol 20 mg tablets for total of 30 mg per dose 90 tablet 3 5 Active Active Problems Problem Noted Date [...] syndrome) 02/12/2012 Overview (03/23/2024): Dr Joseph in [place] SVT (supraventricular tachycardia) 02/12/2012 Overview (03/23/2024): Sees Dr Light and EP docs in [place] Vitamin D deficiency 05/23/2008 PFO (patent foramen ovale) 01/20/2008 Overview (03/23/2024): No tx unless it gets worse Encounters Date Type Department Care Team Description 07/05/2025 1:13 PM EDT - 07/05/2025 11:59 PM EDT Hospital Encounter [facility] Heart & Vascular [place] at [facility] - Cardiology [address] [place] [address] Derek Roche PA-C Follow-up Discharge Disposition: Home or Self Care from Last 3 Months Immunizations Immunization Administration [...] 07/05/2025 1:22 PM EDT Plan of Treatment Health Maintenance [...] ECG 12 lead (07/05/2025 1:35 PM EDT) Pathologist [facility] Ventricular rate 69 BPM EKG [facility] Atrial rate 69 BPM [facility] P-R interval 120 [facility] 82 ms [facility] Q-T interval 386 ms [facility] QTC calculation (Bazett) 413 ms EKG [facility] P axis 35 degrees EKG [facility] R axis -5 degrees EKG [facility] T axis 10 degrees EKG [facility] 07/05/2025 1:35 PM EDT Narrative EKG [facility] - 07/06/2025 1:09 PM EDT Normal sinus rhythmwith sinus arrhythmia Minimal voltage criteria for LVH, may be normal variant(R in aVL) Borderline ECG When compared with ECG [id number] 15:30,Anterior leadsNo significant changes Confirmed by MD TOMPKINS Marcin ([id number]) on 07/06/2025 1:09:32 PM Procedure Note Jay Tompkins MD - 07/06/2025 Normal sinus rhythmwith sinus arrhythmia Minimal voltage criteria for LVH, may be normal variant(R in aVL) Borderline ECG When compared with ECG [id number] 15:30,Anterior leadsNo significantchanges Confirmed by MD TOMPKINS Marcin ([id number]) on 07/06/2025 1:09:32 PM Derek Roche PA-C ECG ORDERABLES Fin al Result Performing Organization Address City/State/[facility] Co de Phone Number EKG [facility] from Last 3 Months Insurance MEDICAID OUT OF STATE [facility] [place] [address] Care Teams Mold Checker Relationship Specialty Start Date End Date Beni Valle NP [address] [facility] [place] [address] PCP - General Family Medicine 10/27/23 Derek Roche PA-C [address] [place] [address] Physician Computer Field Technician Cardiac Electrophysiology 03/23/24
--- OUTSIDE RECORDS SUMMARY | 2025-08-30 06:44 | XMS_ITS | Encounter Summary ---
Author Organization [employer] Address [address] [facility] 7t [place] [address] Care Team Providers Care Financial Services Agent Name Role Phone Unavailable Primary Care Provider Unavailabl e Encounter Details Date Type Department Care Team (Late st Contact Info) Description 07/09/2024 Telephone [facility] ADULT DENTAL [address] [place] [address] Annalise Mix BDS [address] [place], [place] [phone] Social History Tobacco Use Types Packs/Day Years [...] Description 10/21/2025 8:45 AM EST Office Visit [facility] ADULT DENTAL [address] [place] [address] Kristy Kaur [address] [place] [address] documented as of this encounter Visit Diagnoses Not on filedocumented in this encounter
--- OUTSIDE RECORDS SUMMARY | 2025-08-30 06:44 | XMS_ITS | Encounter Summary ---
Author Organization [employer] Address 75 [facility] 7t [place] [address] Care Team Providers Care Shot Core Drill Operator Helper Name Role Phone Unavailable Primary Care Provider Unavailabl e Reason for Visit * Reason Onset Date Comments medication 04/28/2024 Encounter Details Date Type Department Care Team ([facility] st Contact Info) Description 04/28/2024 Telephone [facility] ADULT DENTAL [address] [place] [address] Sumeet Anderson DMD [address] [place], [place] [phone] medication Social History Tobacco Use Types Packs/Day [...] sent. Patient spoke to office at [facility] on Friday concerning script. Krystin and Dr Anderson assisted patient on phone call. * Telephone Encounter - Lulu Garza - 04/28/2024 10:[address] Doss patient. Patient had script sent to pharmacy. She is allergic to the capsule not the medication. Pharmacy advised her to call office to see if the medication can be sent to pharmacy in another form. Tablet or liquid. documented in this encounter Plan of Treatment Upcoming Encounters Date Type Department Care Team (Late st Contact Info) Description 10/21/2025 8:45 AM EST Office Visit [facility] ADULT DENTAL [address] [place] [address] Kristy Kaur [address] [place] [address] documented as of this encounter Visit Diagnoses Not on filedocumented in this encounter
--- OUTSIDE RECORDS SUMMARY | 2025-08-30 06:44 | XMS_ITS | Encounter Summary ---
Author Organization [employer] Address [address] [facility] [address] [place] [address] Care Team Providers Care Line Worker Name Role Phone Unavailable Primary Care Provider Unavailabl e Reason for Visit * Reason Comments Med Refill Encounter Details Date Type Department Care Team (Late st Contact Info) Description 05/19/2024 Refill [facility] D[facility] [address] [place], [place] [phone] Annalise Mix, BDS [address] [place], [place] [phone] Social History Tobacco Use Types Packs/Day Years [...] 8:45 AM EST Office Visit [facility] D[facility] [address] [place] [address] NatashaKristy [address] [place] [address] documented as of this encounter Visit Diagnoses Not on filedocumented in this encounter
--- OUTSIDE RECORDS SUMMARY | 2025-08-30 06:44 | XMS_ITS | Encounter Summary ---
Author Organization [employer] Address [address] [facility] [address] [place] [address] Care Team Providers Care Drug Department Worker Name Role Phone Unavailable Primary Care [...] (Late st Contact Info) Description 09/25/2022 Telephone [facility] ADULT DENTAL [address] [place] [address] Annalise Mix, BDS [address] [place] [address] Appointment (Patient upset because states she has [...] Description 10/21/2025 8:45 AM EST Office Visit [facility] ADULT DENTAL [address] [place] [address] Kristy Kaur [address] [place] [address] documented as of this encounter Visit Diagnoses Not on filedocumented in this encounter
--- OUTSIDE RECORDS SUMMARY | 2025-08-30 06:44 | XMS_ITS | Encounter Summary ---
Author Organization [employer] Address [address] [facility] 7t [place] [address] Care Team Providers Care Optician Apprentice Name Role Phone Unavailable Primary Care Provider Unavailabl e Reason for Visit * Reason Comments Med Refill Encounter Details Date Type Department Care Team (Late st Contact Info) Description 05/03/2024 Refill [facility] [address] [place], [place] [phone] Annalise Mix BDS [address] [place], [place] [phone] Social History Tobacco Use Types Packs/Day Years [...] Description 10/21/2025 8:45 AM EST Office Visit [facility] ADULT DENTAL [address] [place], [place] [phone] Kristy Kaur [address] [place] [address] documented as of this encounter Visit Diagnoses Not on filedocumented in this encounter
--- NOTE | 2025-08-30 07:17 | A.OFFPC_ITS ---
Intake Visit Reasons: Followup-pt requests call [phone] Allergies doxycycline (DOXYCYCLINE) Allergy (Severe, Verified 07/04/25 07:38) RASH, GI Upset levofloxacin (From LEVAQUIN) Allergy (Severe, Verified 07/04/25 07:38) RASH metronidazole (From FLAGYL) Allergy (Severe, Verified 07/04/25 07:38) ANAPHYLAXIS morphine (MORPHINE) Allergy (Severe, Verified 07/04/25 07:38) ANAPHYLAXIS, cant breathe, SOB Sulfa (Sulfonamide Antibiotics) (SULFA (SULFONAMIDE ANTIBIOTICS)) Allergy (Severe, Verified 07/04/25 07:38) STOP BREATHING, rash/cant breathe adhesive (ADHESIVE) Allergy (Intermediate, Verified 07/04/25 07:38) RASH clindamycin (CLINDAMYCIN) Allergy (Intermediate, Verified 07/04/25 07:38) RASH Iodinated Contrast Media (IV CONTRAST) Allergy (Intermediate, Verified 07/04/25 07:38) ANAPHALAXIS latex (LATEX) Allergy (Intermediate, Verified 07/04/25 07:38) RASH ciprofloxacin (Cipro) Allergy (Unknown, Verified 07/04/25 07:38) unknown fludrocortisone Allergy (Unknown, Verified 07/04/25 07:38) Unknown hydromorphone (Dilaudid) Allergy (Unknown, Verified 07/04/25 07:38) Unknown midodrine Allergy (Unknown, Verified 07/04/25 07:38) Unknown Medication List - Last Reconciled 08/30/25 by Beni Valle, ASSET PROTECTION LEAD- albuterol sulfate 90 mcg/actuation (Ventolin HFA) 2 puffs inhalation Q4-6H PRN ascorbate calcium (vitamin C) 500 mg PO DAILY 30 days ascorbic acid (vitamin C) 100 mg PO TID betamethasone dipropionate 0.05% 1 appl topical DAILY PRN chlorhexidine gluconate 0.12% 15 mL buccal BID cholecalciferol (vitamin D3) 50 mcg PO DAILY docusate sodium (Colace) 100 - 200 mg (1 - 2 x 100 mg) PO DAILY PRN 90 days ferrous sulfate (Fe-Eli) 1 mL PO DAILY ipratropium bromide 17 mcg/actuation (Atrovent HFA) inhalation levalbuterol tartrate 45 mcg/actuation 2 puffs inhalation Q4-6H lidocaine 5% 1 patch topical DAILY 30 days lidocaine HCl-hydrocortison ac 3-0.5 % 1 appl CO BID lorazepam 0.5 mg PO BEDTIME PRN 20 days magnesium oxide 400 mg PO BEDTIME 90 days meclizine 12.5 mg PO BID PRN 20 days [Normal Saline 0.9% 2 L continuous IV infusion 3XW 52 weeks] pantoprazole 40 mg PO DAILY prednisolone acetate 1% 1 drp ophthalmic (eye) BID propranolol mg PO 3XD riboflavin (vitamin B2) 400 mg PO DAILY [shower chair As directed] sodium,potassium,mag sulfates 17.5-3.13-1.6 gram (Suprep Bowel Prep Kit) DILUTE each bottle with 16oz of water; drink first bottle 4pm evening before procedure AND second bottle at 10pm; follow each bottle with at least 32 oz.of water within 1 hour after each bottle Tobacco use date assessed: 11/16/24 Dental Screening Dental Screen Date: 11/16/24 HPI Followup-pt requests call [phone] HPI Details History of Present Illness The patient is a 45 year old individual presenting for follow-up of ongoing leg pain, for which a recent CPK level was negative. Previous imaging showed no venous reflux or DVTs. he patient recently completed a 10-day course of clindamycin for an ongoing tooth infection and reports that the leg discomfort resolved completely during the treatment? Since finishing the antibiotic, the patient reports the leg discomfort has started to return. The patient is scheduled for tooth extractions soon and reports mild, faint tooth pain but denies any fevers or chills. Review of Systems - Constitutional: Denies fever and chill s. - Musculoskeletal: Reports recurring leg discomfort. - Dental: Reports mild, faint tooth pain . Plan 1. Leg Pain The patient's leg pain resolved completely while taking clindamycin for a tooth infection and has now started to recur after completing the course, with a recent CPK being negative. Considering the response to antibiotics, another antibiotic may be prescribed. 2. Tooth Infection The patient has an ongoing tooth infection and is scheduled for tooth extractions in the near future. A form concerning antibiotics for the procedure will be reviewed and completed. Mouth wash refilled. Discussion Notes I discussed with the patient that the leg discomfort completely resolved while taking clindamycin for a tooth infection and has started to return since finishing the medication. I informed the patient that I will review the dental form for the upcoming tooth extraction and may prescribe another antibiotic based on its requirements. Patient Instructions - Your leg pain went away while you were taking clindamycin for your tooth infection but is now starting to come back. - You are scheduled to have a tooth extr action soon. - I will review the form from your denti st and may prescribe another antibiotic depending on what is needed for your procedure. [facility] Medical History IUD (intrauterine device) in place Recent urinary tract infection Acid reflux Huynh disease Crohn disease Colitis Arachnoid cyst Asthma Autoimmune disorder Arthritis Bulging disc Spinal stenosis POTS (postural orthostatic tachycardia syndrome) SVT (supraventricular tachycardia) Surgical History History of kidney surgery History of liver biopsy Hx of cholecystectomy Family History Father High cholesterol HTN (hypertension) Tumors Mental health disorder Mother COPD (chronic obstructive pulmonary disease) Colitis Sister Colitis Substance use disorder Mental health disorder Sister Cervical cancer Social History Household Members: Family and Children Housing: House Alcohol intake: former Patient Tobacco Use Status: Former Tobacco user Years Smoked: quit 20b years ago e-Cigarette/Vaping Use: Never Used Second Hand Smoke Exposure: No service: No Current occupational status: employed 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 Current occupational exposures/hazards: No Cognitive needs: No Hearing needs: No Vision needs: No Female Reproductive History Menstrual Age of Menarche: 12 Questionnaire Thrive Questionnaire Date Thrive assessed: 03/16/25 I am a: Patient What is your living situation today?: I have a steady place to live Within the past 12 months, did the food you bought not last and you didn't have the money to get more?: Never true Within the past 12 months, did you worry whether your food would run out before you got money to buy more?: Never true Do you have trouble paying for medicines?: No Do you have trouble getting transportation to medical appointments?: No Do you have trouble paying your heating and electricity bill?: No Do you have trouble taking care of your child, family member or friend?: No Do you have trouble with day-to-day activities such as bathing, preparing meals, shopping, managing finances, etc.?: I choose not to answer this question Are you currently unemployed and looking for a job?: No Are you interested in more education?: No Please select the resources that you would like help with: None THRIVE Score: 0 CHAVA-7 AMB Questionnaire CHAVA-7 Date CHAVA - 7 assessed: 03/16/25 Source: Developed by Drs. Chucho Elmore, Elsa Christensen, Guzman Reyes and colleagues, with an educational jose guadalupe from [employer]. Physical exam (Primary Care) Tobacco/Smoking Status: Tobacco use Status Tobacco use date assessed 11/16/24 07/27/25 13:37 Patient Tobacco Use Status Former Tobacco user 07/27/25 13:37 e-Cigarette/Vaping Use Never Used 07/27/25 13:37 Thrive Assessment: Date of Thrive Assessment Date Thrive assessed 03/16/25 07/27/25 13:37 Telehealth Telehealth Telehealth Platform: [facility] Location of provider rendering services: practice address Location of patient: address on file Patient Identification confirmed using: Name, : Yes Telehealth method: video Patient verbally consented to treatment: Yes Patient verbally consented to billing insurance company: Yes Patient informed of any privacy concerns related to visit: Yes Minutes spent on Phone/Video with Pt.: 12 Coding Level of Care Code Tele Est Pt Level 3 (23456) Diagnoses Dental infection K04.7 Leg pain M79.606 Assessment & Plan Assessment & Plan (1) Dental infection: Code(s): K04.7 - Periapical abscess without sinus Category: Medical (2) Leg pain: Code(s): M79.606 - Pain in leg, unspecified Category: Medical Plan . Medications: New chlorhexidine gluconate 0.12% 15 mL buccal BID 473 mL 0RF
== END 2025-08-30 08:38 | disposition home or self-care (01) ==
LOC: HO.HMCC 06:41
PROVIDERS: PCP Nurse Practitioner Family; Visit Provider Nurse Practitioner Family
DX: K04.7 Periapical abscess without sinus (principal); M79.606 Pain in leg, unspecified

== ENCOUNTER 2025-09-19 13:42 | Outpatient (AMB) | payer OTHER, SELFPAY ==
--- OUTSIDE RECORDS SUMMARY | 2025-09-16 23:59 | XMS_ITS | Continuity of Care Document ---
Author Organization [facility] ter Address [address] [place] [address]- Care Team Providers Care Production Laborer Name Role Phone Leonard KIRBY, Beni Bey Primary Care Physician [phone] Encounter [facility] Date(s): 06/02/25 - 09/16/[address] [address]- Attending Physician: Beni Valle NP Admitting Physician: Beni Valle NP Referring Physician: Beni Valle NP Encounter Type: Pre-Outpt Allergies, Adverse Reactions, Alerts Substance Criticality Severity Reaction Reaction Severity Status Biaxin unknown Active azithromycin Active morphine Active sulfa drugs Rash Active Zofran Active Flagyl O/E - respirato ry distress Active Florinef Acetate Act daniel Levaquin Rash Active Contrast Dye High criticality Severe Anaphylaxis Active Latex 1 rash Active 1rash ,has to be contact for a long time . Immunizations Given and Recorded Vaccine Date Status Refusal Reason influenza virus vaccine, inactivated 1 06/12/09 Gi erin diphtheria-tetanus toxoids (DT) 12/06/03 Given 1Admin Note: VIS 05/09/09 Medications Augmentin 875 mg-125 mg oral tablet 1 tablet, By Mouth, 2 times a day, for 42 days, # 84 tablet, 0 Refills, Acute 10/27/25 3:21:00 PM EST, 09/15/25 3:21:00 PM EST, Tablet, [id number], Partial fill upon patient request if the prescription is for a schedule II opioid drug., 165, cm, 09/14/25 14:55:00 EST, Height, 82, kg, 09/12/25 18:55:00 EST, Dry Weight Start Date: 09/15/25 Stop Date: 10/27/25 Status: Ordered Medication Dispense Status: Completed Quantity: 84.0 Unit: tablet Total Allowed Fills: 1 Fills Dispensed: 0 clindamycin 150 mg oral capsule 3 capsule = 450 mg, By Mouth, 3 times a day, for 42 days, # 378 capsule, 0 Refills, Acute 10/26/25 2:49:00 PM EST, 09/14/25 2:49:00 PM EST, Capsule, [id number], Partial fill upon patient request if the prescription is for a schedule II opioid drug., 165, cm, 09/14/25 7:23:00 EST, Height, 82,kg, 09/12/25 18:55:00 EST, Dry Weight Start Date: 09/14/25 Stop Date: 10/26/25 Status: Ordered Medication Dispense Status: Completed Quantity: 378.0 Unit: capsule Total Allowed Fills: 1 Fills Dispensed: 0 Propranolol 30 mg, By Mouth, 3 times a day, Refills 0, Maintenance, 03/09/25 7:04:00 PM EDT, Partial fill upon patient request if the prescription is for a schedule II opioid drug. Start Date: 03/09/25 Status: Ordered Medication Dispense Status: Completed Total Allowed Fills: 1 Fills Dispensed: 0 saccharomyces boulardii lyo 250 mg oral capsule 1 capsule = 250 mg, By Mouth, Daily, # 60 capsule, 0 Refills, Maintenance, 09/14/25 2:50:00 PM EST,Capsule, [id number], Partial fill upon patient request if the prescription is for a schedule II opioid drug., 165, cm, 09/14/25 7:23:00 EST, Height, 82, kg, 09/12/25 18:55:00 EST, Dry Weight Start Date: 09/14/25 Stop Date: 11/13/25 Status: Ordered Medication Dispense Status: Completed Quantity: 60.0 Unit: capsule Total Allowed Fills: 1 Fills Dispensed: 0 Problem List Condition Confirmation Course Effective Dates Status Health St atus Informant Anxiety Confirmed Active ASTHMA, intermittent Confirmed Active Headache Confirmed Active Irritable bowel syndrome Confirmed Active Low back pain Confirmed Active Xrih-Tccamk-Wttbpa syndrome Confirmed Active Obese class I Confirmed Active Palpitations, SVT Confirmed Active Patent foramen ovale, on echocardiogram, Dr. Osiel Cartwright Confirmed 01/20/08 Active Postural orthostatic tachycardia syndrome Confirmed 2008 Active Psoriasis Confirmed 2005 Active Psoriasis Confirmed Active VITAMIN D DEFICIENCY Confirmed 05/23/08 Active Social History Social History Type Response Sexual Sexually involved in last 6 months: No. Tobacco Use: pt denies. Sex Sex Representation Female (finding) Patient Care team information Care Team Personnel Name: Janice Young RN Position: [facility] RN Member Role: Primary Care Nurse Name: Yokasta Hurtado Position: [facility] Outreach Member Role: Lifetime Consulting Physician Name: Gretchen Jj MA Position: [facility] Office Staff Member Role: Lifetime Consulting Physician Name: Beni Valle NP Position: Reference Physician Member Role: PCP Address: [address] [place] [address] Telecom: Name: Berkley Chery RN Position: [facility] RN Member Role: Primary Care Nurse Name: Colt Blackburn RN Position: [facility] RN Member Role: Primary Care Nurse Care Team Related Persons Name: AGNES DONNELLY Name: LINCOLN DONNELLY Name: CY DONNELLY Insurance Providers Guarantor name: LYNN CONY Health Plan Information #: 1 Payer: [employer] Payer Identifier: NA Member Number: [id number] Group Number: [id number] Subscriber Identifier: [id number] Relationship to Subscriber: self Coverage Type: NA Coverage Verification Date: NA Telecom: NA Address:
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
[2025-09-19 13:52] VITALS: BP 104/60; PULSE 77; RESP 16; O2SAT 98
--- OUTSIDE RECORDS SUMMARY | 2025-09-19 17:08 | XMS_ITS | Encounter Summary ---
Author Organization [employer] Address [address] [facility] 7t [place] [address] Care Team Providers Care Choke Reamer Name Role Phone Unavailable Primary Care Provider Unavailabl e Reason for Visit * Reason Comments Med Refill Encounter Details Date Type Department Care Team (Late st Contact Info) Description 05/19/2024 Refill [facility] [address] [place], [place] [phone] Annalise Mix, BDS [address] [place], [place] [phone] Social History Tobacco Use Types Packs/Day Years [...] Description 10/21/2025 8:45 AM EST Office Visit [facility] ADULT [facility] [address] [place] [address] NatashaKristy [address] [place] [address] documented as of this encounter Visit Diagnoses Not on filedocumented in this encounter
--- OUTSIDE RECORDS SUMMARY | 2025-09-19 17:08 | XMS_ITS | Encounter Summary ---
Author Organization [employer] Address [address] [facility] [address] 7t [place] [address] Care Team Providers Care Wire Bound Box Machine Helper Name Role Phone Unavailable Primary Care Provider Unavailabl e Encounter Details Date Type Department Care Team (Late st Contact Info) Description 12/11/2022 Telephone [facility] ADULT DENTAL [address] [place] [address] Annalise Mix BDS [address] [place], [place] [phone] Social History Tobacco Use Types Packs/Day Years [...] Description 10/21/2025 8:45 AM EST Office Visit [facility] ADULT DENT[facility] [address] [place], [place] [phone] NatashaKristy [address] [place] [address] documented as of this encounter Visit Diagnoses Not on filedocumented in this encounter
--- OUTSIDE RECORDS SUMMARY | 2025-09-19 17:08 | XMS_ITS | Encounter Summary ---
Author Organization [employer] Address [address] [facility] [address] [place] [address] Care Team Providers Care Textile Machine Maintenance Mechanic Name Role Phone Unavailable Primary Care Provider Unavailabl e Reason for Visit * Reason Comments Med Refill Encounter Details Date Type Department Care Team (Late st Contact Info) Description 05/03/2024 Refill [facility] [address] [place], [place] [phone] Annalise Mix BDS [address] [place], [place] [phone] Social History Tobacco Use Types Packs/Day Years [...] Description 10/21/2025 8:45 AM EST Office Visit [facility] ADULT DENTAL [address] [place], [place] [phone] Kristy Kaur [address] [place] [address] documented as of this encounter Visit Diagnoses Not on filedocumented in this encounter
--- OUTSIDE RECORDS SUMMARY | 2025-09-19 17:08 | XMS_ITS | Encounter Summary ---
Author Organization [employer] Address [address] [facility] [address] [place] [address] Care Team Providers Care Laser Specialist Name Role Phone Unavailable Primary Care Provider Unavailabl e Reason for Visit * Reason Onset Date Comments medication 04/28/2024 Encounter Details Date Type Department Care Team ([facility] st Contact Info) Description 04/28/2024 Telephone [facility] ADULT DENTAL [address] [place] [address] Sumeet Anderson DMD [address] [place], [place] [phone] medication Social History Tobacco Use Types Packs/Day [...] be sent. Patient spoke to office at [facility] on Friday concerning script. Krystin and [...] Description 10/21/2025 8:45 AM EST Office Visit [facility] ADULT DENTAL [address] [place] [address] Kristy Kaur [address] [place] [address] documented as of this encounter Visit Diagnoses Not on filedocumented in this encounter
--- OUTSIDE RECORDS SUMMARY | 2025-09-19 17:08 | XMS_ITS | Encounter Summary ---
Author Organization [employer] Address [address] [facility] [address] [place] [address] Care Team Providers Care Horseradish Grinder Name Role Phone Unavailable Primary Care Provider Unavailabl e Encounter Details Date Type Department Care Team (Late st Contact Info) Description 11/20/2022 Orders Only [facility] [address] [place], [place] [phone] Annalise Mix BDS [address] [place], [place] [phone] Dental abscess (Primary Dx) Social History Tobacco [...] Description 10/21/2025 8:45 AM EST Office Visit [facility] ADULT DENT[facility] [address] [place], [place] [phone] Natasha, Kristy [address] [place] [address] documented as of this encounter Visit Diagnoses Diagnosis Dental abscess- Primary Periapical abscess without sinus documented in this encounter
--- OUTSIDE RECORDS SUMMARY | 2025-09-19 17:08 | XMS_ITS | Encounter Summary ---
Author Organization [employer] Address [address] [facility] 7t [place] [address] Care Team Providers Care Aircraft Structural Repairer Name Role Phone Unavailable Primary Care Provider Unavailabl e Encounter Details Date Type Department Care Team (Late st Contact Info) Description 07/09/2024 Telephone [facility] ADULT D[facility] [address] [place] [address] Annalise Mix BDS [address] [place], [place] [phone] Social History Tobacco Use Types Packs/Day Years [...] Description 10/21/2025 8:45 AM EST Office Visit [facility]ULT [facility] [address] [place] [address] Kristy Kaur [address] [place] [address] documented as of this encounter Visit Diagnoses Not on filedocumented in this encounter
--- OUTSIDE RECORDS SUMMARY | 2025-09-19 17:08 | XMS_ITS | Encounter Summary ---
Author Organization [employer] Address [address] [facility] [address]t [place] [address] Care Team Providers Care Documentation Clerk Name Role Phone Unavailable Primary Care Provider Unavailabl e Reason for Visit * Reason Onset Date Comments Appointment 01/24/2023 Encounter Details Date Type Department Care Team ([facility] st Contact Info) Description 01/24/2023 Telephone [facility] ADULT DENTAL [address] [place] [address] Sumeet Nascimento DMD [address] [place], [place] [phone] Appointment Social History Tobacco Use Types Packs/Day [...] 01/24/2023 and stated she needed medication from [facility] because she is starting to get swollen [...] Description 10/21/2025 8:45 AM EST Office Visit [facility] ADULT DENT[facility] [address] [place] [address] Kirsty Kaur [address] [place] [address] documented as of this encounter Visit Diagnoses Not on filedocumented in this encounter
--- OUTSIDE RECORDS SUMMARY | 2025-09-19 17:08 | XMS_ITS | Encounter Summary ---
Author Organization [employer] Address [address] [facility] 7[address] [place] [address] Care Team Providers Care Support Team Assoc Name Role Phone Unavailable Primary Care Provider [...] patient that Dr. Doss is transitioning into [facility] again . Message would be sent to office. Encounter Details Date Type Department Care Team (Late st Contact Info) Description 09/25/2022 Telephone [facility]ULT [facility] [address] [place] [address] Annalise Mix, BDS [address] [place] [address] Appointment (Patient upset because states she has [...] patient that Dr. Doss is transitioning into [facility] again . Message would be sent [...] patient that Dr. Doss is transitioning into [facility] again . Message would be sent to office. documented in this encounter Plan of Treatment Upcoming Encounters Date Type Department Care Team (Late st Contact Info) Description 10/21/2025 8:45 AM EST Office Visit [facility] ADULT DENT[facility] [address] [place] [address] Kristy Kaur [address] [place] [address] documented as of this encounter Visit Diagnoses Not on filedocumented in this encounter
--- OUTSIDE RECORDS SUMMARY | 2025-09-19 17:08 | XMS_ITS | Clinical Summary ---
Author Organization [facility] Address [address] [place] [address] Care Team Providers Care Compressed Gas Plant Worker Name Role Phone Beni Valle NP Primary Care Provider [phone] Derek Roche PA-C Unavailable [phone] [phone] Allergies Active Allergy Reactions Criticality Noted Date Comments Adhesives/Tape Rash/Dermatitis Low 02/09/2015 Anacardium Occidentale Rash/Dermatitis,S ho rtness Of Breath High 01/20/2023 Azithromycin Rash/Dermatitis,Alyssa rtness Of Breath High 03/21/2020 Barium Sulfate Unknown/Patient and Family Unable to Define High 08/03/2024 Cashew Nut Oil Rash/Dermatitis,Alyssa rtness Of Breath [...] syndrome) 02/12/2012 Overview (03/23/2024): Dr Joseph in [place] SVT (supraventricular tachycardia) 02/12/2012 Overview (03/23/2024): Sees Dr Light and EP docs in [place] Vitamin D deficiency 05/23/2008 PFO (patent foramen ovale) 01/20/2008 Overview (03/23/2024): No tx unless it gets worse Encounters Date Type Department Care Team Description 07/05/2025 1:13 PM EDT - 07/05/2025 11:59 PM EDT Hospital Encounter [facility] [place] [facility] - Cardiology [address] [place] [phone] Derek Roche PA-C Follow-up Discharge Disposition: Home [...] Description 10/19/2025 11:00 AM EST Appointment [facility] Heart [facility] [place] [facility] - Cardiology [address] [place] [address] Derek Roche PA-C [address] [place] [address] Health Maintenance Due Date Last Done Comments [...] PM EDT) Ventricular rate 69 BPM EKG [facility] Atrial rate 69 BPM EKG [facility] P-R interval 120 ms EKG [facility] QRS duration 82 ms EKG [facility] Q-T interval 386 ms EKG [facility] QTC calculation (Bazett) 413 ms EKG [facility] P axis 35 degrees EKG [facility] R axis -5 degrees EKG [facility] T axis 10 degrees EKG [facility] 07/05/2025 1:35 PM EDT Narrative [facility]KG [facility] - 07/06/2025 1:09 PM EDT Normal sinus rhythmwith sinus arrhythmia Minimal voltage criteria for LVH, may be normal variant(R in aVL) Borderline ECG When compared with ECG [id number] 15:30,Anterior leadsNo significant changes Confirmed by MD TOMPKINS Marcin ([id number]) on 07/06/2025 1:09:32 PM Procedure Note Jay Tompkins MD - 07/06/2025 Normal sinus rhythmwith sinus arrhythmia Minimal voltage criteria for LVH, may be normal variant(R in aVL) Borderline ECG When compared with ECG [id number] 15:30,Anterior leadsNo significantchanges Confirmed by MD TOMPKINS Marcin ([id number]) on 07/06/2025 1:09:32 PM Derek Roche PA-C ECG ORDERABLES Fin al Result Performing Organization Address City/State/[facility] Co de Phone Number EKG [facility] from Last 3 Months Insurance MEDICAID [facility] Care Teams Compressed Gas Plant Worker Relationship Specialty Start Date End Date Beni Valle NP [address] [facility] [place] [phone] PCP - General Family Medicine 10/27/23 Derek Roche PA-C [address] [place] [phone] Physician Web Offset Press Feeder Cardiac Electrophysiology 03/23/24
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
--- OUTSIDE RECORDS SUMMARY | 2025-09-19 17:08 | XMS_ITS | Clinical Summary ---
Author Organization [facility] Address [address] [facility] [address] [place] [address] Phone Care Team Providers Care Apprentice Machinist Outside Name Role Phone Beni Valle PRINCIPAL INVESTIGATOR Primary Care Provider + Allergies Active Allergy [...] Insurance [employer] [place] [address] [place] [address] [place] [address] [place] [address] [place] [address] [place] [address] ACO Care Teams Apprentice Machinist Outside Relationship Specialty Start Date End Date Beni Valle NP [address] [facility] [place] [address] PCP - General Family Medicine 03/29/18 Additional Source Comments The information contained in this document represents components of the legal health record. It is not the complete legal health record.[facility]
--- OUTSIDE RECORDS SUMMARY | 2025-09-19 17:08 | XMS_ITS | Encounter Summary ---
Author Organization [employer] Address [address] [facility] [address] [place] [address] Care Team Providers Care Mines Inspector Name Role Phone Unavailable Primary Care Provider Unavailabl e Reason for Visit * Reason Onset Date Comments medical clearance 06/26/2023 Encounter Details Date Type Department Care Team (Late st Contact Info) Description 06/26/2023 Telephone [facility] [address] [place] [address] Selam Coleman [address] [place] [address] medical clearance Social History Tobacco Use Types [...] - 06/26/2023 11:21 AM EDT Rylan from [facility] called in looking to facilitate treatment [...] be scheduled for treatment. Please fax to [phone] documented in this encounter Plan of Treatment Upcoming Encounters Date Type Department Care Team (Late st Contact Info) Description 10/21/2025 8:45 AM EST Office Visit [facility]ULT D[facility] [address] [place] [address] Natasha Kristy [address] [place] [address] documented as of this encounter Visit Diagnoses Not on filedocumented in this encounter
--- OUTSIDE RECORDS SUMMARY | 2025-09-19 17:08 | XMS_ITS | Clinical Summary ---
Author Organization [employer] Address [address] [facility] [address] [place] [address] Care Team Providers Care Office Assistance Name Role Phone Unavailable Primary Care Provider Unavailabl e Allergies Active Allergy Reactions Criticality Noted Date Comments Anacardium Occidentale Shortness of breath,Rash High 01/20/2023 Iodinated Contrast [...] Description 10/21/2025 8:45 AM EST Office Visit [facility] [address] [place] [address] Natasha, Kristy [address] [place] [address] Health Maintenance Due Date Last Done Comments [...] 2011 Mammogram 2021 COVID-19 Vaccine ( - season) 2025 Influenza [...] Most Recently Relevant to Health Maintenance Insurance [facility] MEDICAID STAND ADULT
--- OUTSIDE RECORDS SUMMARY | 2025-09-19 17:08 | XMS_ITS | Encounter Summary ---
Author Organization [facility] Address [address] [place] [address] Care Team Providers Care Web Administrator Name Role Phone Beni Valle NP Primary Care Provider [phone] Derek Roche PA-C Unavailable [phone] [phone] Encounter Details Date Type Department Care Team (Late st Contact Info) Description 03/21/2025 Scanned Document [facility] Heart & Vascular [place] at [address] [phone] Derek Roche PA-C [address] [place] [address] Social History Tobacco Use Types Packs/Day Years [...] Info) Description 10/19/2025 11:00 AM EST Appointment [facility] Heart [facility] [place] at [address] [phone] Derek Roche PA-C [address] [place] [address] documented as of this encounter Visit Diagnoses Not on filedocumented in this encounter Care Teams Web Administrator Relationship Specialty Start Date End Date Beni Valle NP [address] [facility] [place] [address] PCP - General Family Medicine 10/27/23 Derek Roche PA-C [address] [place] [address] Physician Association Executive Cardiac Electrophysiology 03/23/24 documented as of this encounter
== END 2025-09-19 15:14 | disposition home or self-care (01) ==
LOC: HO.HMCC 13:43
PROVIDERS: PCP Nurse Practitioner Family; Visit Provider Nurse Practitioner Family
DX: K04.7 Periapical abscess without sinus (principal); M86.9 Osteomyelitis, unspecified

== ENCOUNTER → 2025-09-19 13:42 | Outpatient (BNVA) | payer OTHER, SELFPAY | PROVIDERS: PCP Nurse Practitioner Family; Visit Provider Nurse Practitioner Family | DX: K04.7 Periapical abscess without sinus (principal); M27.2 Inflammatory conditions of jaws; Z13.31 Encounter for screening for depression; Z13.39 Encounter for screening examination for other mental health and behavioral disorders; Z51.89 Encounter for other specified aftercare | CPT/HCPCS: 96127; 99495 ==

== ENCOUNTER → 2025-09-21 11:02 | Outpatient (BNV) | payer OTHER, SELFPAY | PROVIDERS: PCP Nurse Practitioner Family; Referring Provider Nurse Practitioner Family; Visit Provider Nurse Practitioner Family | DX: D50.9 Iron deficiency anemia, unspecified (principal); N92.0 Excessive and frequent menstruation with regular cycle; E55.9 Vitamin D deficiency, unspecified | CPT/HCPCS: 99204 ==